=== PATIENT | female | born 1990 | race Caucasian/White ===

== ENCOUNTER 2016-06-30 18:46 | Emergency (ER) | payer OTHER ==
--- NOTE | 2016-06-30 21:46 | EDDOCDS ---
Nurse's Notes [facility] Name: Yael Stovall Age: 25 yrs Sex: Female : 1990 Arrival Date: 06/30/2016 Time: 18:46 Bed PR Private MD: Sissy Roman S Diagnosis: Acute upper respiratory infection, unspecified;Tinea corporis Presentation: 06/30 18:55 Presenting complaint: Patient states: cold symptoms, sore throat, chills since this rs3 morning. Rash on left leg for a month, not resolved with antifungal, athlete's foot cream. Adult Sepsis Screening: The patient does not have new or worsening altered mentation. Patient's respiratory rate is less than 22. Systolic blood pressure is greater than 100. Patient has a qSOFA score of 0- Negative Sepsis Screen. Suicide/Homicide risk assessment- the patient denies having any suicidal and/or homicidal ideations and does not present with any other emotional, behavioral or mental health complaints. Status: Patient is not a mechanic field service or dependent. Transition of care: patient was not received from another setting of care. 18:55 Acuity: LILIYA Level 4 rs3 18:55 Method Of Arrival: Walkin/Carried/Asstd rs3 Triage Assessment: 18:59 General: Appears in no apparent distress. Pain: Location: sore throat. HIV screening NA rs3 for this visit Offered previously. 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 albuterol sulfate 90 mcg/actuation inhalation HFAA 2 puffs every 4 hours 2. loratadine 10 mg Oral tab 1 tab once daily 3. migraine meds unknown - PMHx: Anxiety; Headaches; Irregular heart rate; - PSHx: Tonsillectomy; Adenoidectomy; Cholecystectomy; - Social history: Smoking status: Patient states was never smoker of tobacco. No barriers to communication noted, The patient speaks fluent [place]. - Family history: Not pertinent. - : The pt / caregiver states he / she is not on anticoagulants. Home medication list is obtained from the patient. - Exposure Risk Screening:: None identified. Screenin:42 Screening information is obtained from the patient. Fall risk: No risks identified. ms18 Assistance ADL's: requires no assistance with activities of daily living. Abuse/DV Screen: The patient / caregiver reports he/she is: not in a situation that causes fear, pain or injury. Nutritional screening: No deficits noted. Advance Directives: There is no living will. home support is adequate. Assessment: 21:42 General: Appears in no apparent distress, comfortable, slender, Behavior is appropriate ms18 for age, cooperative, pleasant. Pain: Location: throat Pain currently is 5 out of 10 on a pain scale. Neurological: No deficits noted. Respiratory: No deficits noted. Airway is patent Respiratory effort is even, unlabored. Derm: Skin is pink, warm & dry. Rash noted that is red, raised, on medial aspect of left calf. Vital Signs: 18:54 BP 146 / 88; Pulse 73; Resp 18; Temp 97.7; Pulse Ox 100% ; Weight 54.43 kg; Height 5 elp ft. 8 in. (172.72 cm); Pain 6/10; 21:42 BP 125 / 81; Pulse 83; Resp 18; Temp 99.8; Pulse Ox 99% ; Pain 5/10; ms18 18:54 Body Mass Index 18.25 (54.43 kg, 172.72 cm) [facility] Vitals: 18:54 Log In Time: June 30, 2016 at 18:46. [facility] ED Course: 18:54 Patient visited by Rachel Wilson PCA. elp 18:54 Sissy Roman is Private Physician. elp 18:54 Patient visited by Rachel Wilson PCA. elp 18:54 Patient moved to Waiting elp 18:54 Patient moved to Pre RCE elp 18:57 Triage Initiated rs3 19:44 Patient moved to Triage 1 ms18 19:48 [facility]ames[facility] Mobley [facility]-C [facility]. ck7 19:48 Macario Garcia DO is Attending Physician. ck7 19:48 Patient visited by Ramesh Mobley RPA-C. ck7 20:11 UA Sent. ms18 20:11 -Influenza A&B Rapid Antigen - Nose Sent. ms18 20:20 Patient visited by Ramesh Mobley RPA-C. ck7 20:21 Patient moved to TR2 ms18 20:21 GATS (NEGATIVE STREP SCREEN) Sent. ms18 20:26 [facility] Payment Agreement was scanned into [employer] and attached to record. ks16 21:20 Patient visited by Ramesh Mobley RPA-C. ck7 21:20 Patient moved to PR1 / 25 km 21:34 Sissy Roman is Referral Physician. ck7 21:42 Patient visited by Liyah Urias RN. ms18 21:42 The patient / caregiver is instructed regarding the plan of care and ED course. Patient ms18 has correct armband on for positive identification. Bed in low position. Property sent home with patient. :Personal belongings accompany Pt. 21:42 No IV's were initiated during this patient's visit. No procedures done that require ms18 assistance. Point of Care Testing: Urine : 20:11 hCG Reading: Negative; Control Reading: Positive; ms18 Ranges: Order Results: Lab Order: -Influenza A&B Rapid Antigen - Nose; SPEC'M 06/30/16 20:05 Test: INFLUENZA A RAPID SCR by ICA; Value: INFLUENZA A RESULTS NEGATIVE; Status: F Test: INFLUENZA A RAPID SCR by ICA; Value: Comments:; Status: F Test: INFLUENZA B RAPID SCR by ICA; Value: INFLUENZA B RESULTS NEGATIVE; Status: F Test Note: ; The Influenza test is a direct rapid immunoassay for the qualitative detection of Influenza viral antigen. Cell culture (Viral Culture) testing should be considered to confirm NEGATIVE results and to assist in detecting other viruses that can provide similar clinical symptoms. Please contact the lab within 24 hours ([phone]) if confirmatory testing is desired. Lab Order: UA; SPEC'M 06/30/16 20:05 Test: APPEARANCE, URINE; Value: CLEAR; Range: CLEAR; Status: F Test: COLOR, URINE; Value: STRAW; Range: YELLOW; Status: F Test: PH,URINE; Value: 8.0; Range: 5.0-9.0; Units: UNITS; Status: F Test: SPECIFIC GRAVITY URINE AUTO; Value: 1.008; Range: 1.002-1.035; Status: F Test: PROTEIN, URINE AUTO; Value: NEGATIVE; Range: NEGATIVE; Units: mg/dL; Status: F Test: GLUCOSE, URINE (UA) AUTO; Value: NEGATIVE; Range: NEGATIVE; Units: mg/dL; Status: F Test: KETONE, URINE AUTO; Value: NEGATIVE; Range: NEGATIVE; Units: mg/dL; Status: F Test: UROBILINOGEN, URINE AUTO; Value: 0.2; Range: 0.0-2.0; Units: mg/dL; Status: F Test: BILIRUBIN, URINE AUTO; Value: NEGATIVE; Range: NEGATIVE; Status: F Test: NITRITE, URINE AUTO; Value: NEGATIVE; Range: NEGATIVE; Status: F Test: LEUKOCYTE ESTERASE, URINE AUTO; Value: NEGATIVE; Range: NEGATIVE; Status: F Test: BLOOD, URINE BLOOD; Value: NEGATIVE; Range: NEGATIVE; Status: F Test: WBC, URINE AUTO; Value: 0; Range: 0-3; Units: /HPF; Status: F Test: RBC, URINE AUTO; Value: 1; Range: 0-3; Units: /HPF; Status: F Test: BACTERIA, URINE AUTO; Value: 1+; Range: NEGATIVE; Abnormal: Above high normal; Status: F Test: SQUAMOUS EPITHELIAL CELL UR AU; Value: 0; Range: 0-6; Units: /HPF; Status: F Test: HYALINE CAST, URINE AUTO; Value: 0; Range: 0-1; Units: /LPF; Status: F Outcome: 21:34 Discharge ordered by Provider. ck7 21:42 Discharge Assessment: Patient awake, alert and oriented x 3. No cognitive and/or ms18 functional deficits noted. Patient verbalized understanding of disposition instructions. patient administered narcotics - no. The following High Risk Discharge criteria are identified: None. Discharged to home ambulatory. Condition: good Condition: stable Condition: improved. Discharge instructions given to patient, Instructed on discharge instructions, follow up and referral plans. medication usage, Demonstrated understanding of instructions, medications, Prescriptions given X 2. No special radiology studies were completed. 21:45 Patient left the ED. ms18 Signatures: Kayla Flowers RN RN kmg1 Minnie Hicks RN RN rs3 Ramesh Mobley, RPA-C RPA-Cck7 Rachel Wilson PCA PCA elp Smith, MalloryRN RN ms18 Melida Templeton, Reg Reg ks16 MTDD
--- NOTE | 2016-06-30 21:46 | EDDOCDS ---
Physician Documentation [facility] Name: Yael Stovall Age: 25 yrs Sex: Female : 1990 Arrival Date: 06/30/2016 Time: 18:46 Bed PR Private MD: Sissy Rmoan S Disposition: 06/30/16 21:34 Discharged to Home/Self Care. Impression: Acute upper respiratory infection, unspecified, Tinea corporis. - Condition is Stable. - Discharge Instructions: Body Ringworm, Upper Respiratory Infection, Pediatric. - Prescriptions for Clotrimazole 1 % Topical Cream - Apply to affected area 1 application by TOPICAL route every 12 hours; 15 gram. Ibuprofen 600 mg Oral Tablet - take 1 tablet by ORAL route every 6 hours As needed take with food; 30 tablet. - Medication Reconciliation, Local Pharmacy Hours form. - Follow up: Sissy Roman; When: 2 - 3 days; Reason: Recheck today's complaints, Continuance of care. - Problem is new. - Symptoms have improved. - Notes: USE MEDICATION INSTRUCTED, FOLLOW UP WITH YOUR PRIMARY DOCTOR IN 2-3 DAYS, RETURN TO THE ER IF THE SYMPTOMS WORSEN OR BECOME CONCERNING Historical: - Allergies: Coconut; Codeine Sulfate (Unknown); - Home Meds: 1. albuterol sulfate 90 mcg/actuation inhalation HFAA 2 puffs every 4 hours 2. loratadine 10 mg Oral tab 1 tab once daily 3. migraine meds unknown - PMHx: Anxiety; Headaches; Irregular heart rate; - PSHx: Tonsillectomy; Adenoidectomy; Cholecystectomy; - Social history: Smoking status: Patient states was never smoker of tobacco. No barriers to communication noted, The patient speaks fluent Romansh. - Family history: Not pertinent. - : The pt / caregiver states he / she is not on anticoagulants. Home medication list is obtained from the patient. - Exposure Risk Screening:: None identified. 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 8 in. (172.72 cm); Pain 6/10; 21:42 BP 125 / 81; Pulse 83; Resp 18; Temp 99.8; Pulse Ox 99% ; Pain 5/10; ms18 18:54 Body Mass Index 18.25 (54.43 kg, 172.72 cm) elp MDM: 19:57 Obtain sample by nasopharyngeal swab ordered. ck7 19:57 Strep Screen, Nursing ordered. ck7 19:57 UCG by Nursing ordered. ck7 19:57 UA Ordered. EDMS 19:57 -Influenza A&B Rapid Antigen - Nose Ordered. EDMS 20:14 GATS (NEGATIVE STREP SCREEN) Ordered. EDMS 20:18 Financial registration complete. zo 20:26 [facility] Payment Agreement was scanned into [employer] and attached to record. ks16 20:35 UA Reviewed. ck7 20:35 -Influenza A&B Rapid Antigen - Nose Reviewed. ck7 Point of Care Testing: Urine : 20:11 hCG Reading: Negative; Control Reading: Positive; ms18 Ranges: Signatures: Dispatcher MedHost EDMS Chang Borges RosemaryRN RN rs3 Ramesh Mobley, RPA-C RPA-Cck7 Liyah Urias RN RN ms18 Melida Templeton, Reg Reg ks16 The chart was reviewed and I authenticate all verbal orders and agree with the evaluation and treatment provided.Attachments: 20:26 [facility] Payment Agreement ks16 MTDD
--- NOTE | 2016-07-02 22:46 | EDDOCDS ---
Physician Documentation [facility] Name: Yael Stovall Age: 25 yrs Sex: Female : 1990 Arrival Date: 06/30/2016 Time: 18:46 Bed PR Private MD: Sissy Roman S Disposition: 06/30/16 21:34 Discharged to Home/Self Care. Impression: Acute upper respiratory infection, unspecified, Tinea corporis. - Condition is Stable. - Discharge Instructions: Body Ringworm, Upper Respiratory Infection, Pediatric. - Prescriptions for Clotrimazole 1 % Topical Cream - Apply to affected area 1 application by TOPICAL route every 12 hours; 15 gram. Ibuprofen 600 mg Oral Tablet - take 1 tablet by ORAL route every 6 hours As needed take with food; 30 tablet. - Medication Reconciliation, Local Pharmacy Hours form. - Follow up: Sissy Roman; When: 2 - 3 days; Reason: Recheck today's complaints, Continuance of care. - Problem is new. - Symptoms have improved. - Notes: USE MEDICATION INSTRUCTED, FOLLOW UP WITH YOUR PRIMARY DOCTOR IN 2-3 DAYS, RETURN TO THE ER IF THE SYMPTOMS WORSEN OR BECOME CONCERNING Historical: - Allergies: Coconut; Codeine Sulfate (Unknown); - Home Meds: 1. albuterol sulfate 90 mcg/actuation inhalation HFAA 2 puffs every 4 hours 2. loratadine 10 mg Oral tab 1 tab once daily 3. migraine meds unknown - PMHx: Anxiety; Headaches; Irregular heart rate; - PSHx: Tonsillectomy; Adenoidectomy; Cholecystectomy; - Social history: Smoking status: Patient states was never smoker of tobacco. No barriers to communication noted, The patient speaks fluent Malay. - Family history: Not pertinent. - : The pt / caregiver states he / she is not on anticoagulants. Home medication list is obtained from the patient. - Exposure Risk Screening:: None identified. 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 8 in. (172.72 cm); Pain 6/10; 21:42 BP 125 / 81; Pulse 83; Resp 18; Temp 99.8; Pulse Ox 99% ; Pain 5/10; ms18 18:54 Body Mass Index 18.25 (54.43 kg, 172.72 cm) elp MDM: 19:57 Obtain sample by nasopharyngeal swab ordered. ck7 19:57 Strep Screen, Nursing ordered. ck7 19:57 UCG by Nursing ordered. ck7 19:57 UA Ordered. EDMS 19:57 -Influenza A&B Rapid Antigen - Nose Ordered. EDMS 20:14 GATS (NEGATIVE STREP SCREEN) Ordered. EDMS 20:18 Financial registration complete. zo 20:26 [facility] Payment Agreement was scanned into Other[employer]box and attached to record. ks16 20:35 UA Reviewed. ck7 20:35 -Influenza A&B Rapid Antigen - Nose Reviewed. 7 07/01 05:16 T-Sheet-- Draft Copy was scanned into Other[employer]box and attached to record. hs2 Point of Care Testing: Urine : 06/30 20:11 hCG Reading: Negative; Control Reading: Positive; ms18 Ranges: Signatures: Dispatcher MedHost EDChang Carranza Rosemary,RN RN rs3 Ramesh Mobley, RPA-C RPA-Cck7 Liyah UriasRN RN ms18 Melida Templeton, Reg Reg ks16 Rea Leong, Reg Reg hs2 The chart was reviewed and I authenticate all verbal orders and agree with the evaluation and treatment provided.Attachments: 20:26 [facility] Payment Agreement ks16 07/01 05:16 T-Sheet-- Draft Copy hs2 Chart Complete MTDD
== END 2016-06-30 21:45 | disposition home or self-care (01) ==
LOC: M ED 18:46
DX: J06.9 Acute upper respiratory infection, unspecified (principal); B35.4 Tinea corporis; F41.9 Anxiety disorder, unspecified; R51 Headache; I49.9 Cardiac arrhythmia, unspecified; Z79.899 Other long term (current) drug therapy; Z91.018 Allergy to other foods; Z88.5 Allergy status to narcotic agent

== ENCOUNTER → 2016-07-02 | Outpatient (CLI) | payer OTHER ==
--- NOTE | 2016-07-02 14:39 | REP ---
CT Head without contrast HISTORY: Migraine headaches COMPARISON: 05/23/2014 There is no intraparenchymal hemorrhage, acute infarct, mass or midline shift. The ventricular system is normal in appearance. There is no extra cerebral collection. There is no fracture. The visualized sinuses are clear. IMPRESSION: There is no intracranial lesion. Signed by Connor Roque MD 07/02/2016 10:53 A
== END | disposition home or self-care (01) ==
LOC: M RAD 10:30
PROVIDERS: ATTEND Nurse Practitioner Family
DX: G43.909 Migraine, unspecified, not intractable, without status migrainosus (principal)

== ENCOUNTER 2016-07-12 23:03 | Emergency (ER) | payer OTHER ==
[2016-07-12] MEDS ORDERED: ONDANSETRON 4MG/2ML VIAL (J2405) As Ordered ONE (23:24)
[2016-07-12] MEDS ORDERED: ACETAMINOPHEN 325 MG TAB As Ordered ONE (23:24)
[2016-07-12] MEDS ORDERED: LIDOCAINE W/EPINEPHRINE 1% 20ML VIAL As Ordered ONE (23:24)
--- NOTE | 2016-07-13 00:30 | REPUSA ---
CLINICAL HISTORY: Trauma. TECHNIQUE: Multiple axial CT images were obtained through the cervical spine without IV contrast mate rial. COMMENTS: There is an oblique lucent line of the left superior articular process of C7 suspicious for a nondisp laced fracture. No associated facet dislocation. No associated locked facet. No associated extension into the spinal canal. No associated intraspinal hematoma. There is no other fracture visualized. The paraspinal soft tissues are unremarkable. There are no lyt ic or blastic lesions. IMPRESSION: Oblique lucent line of the left superior articular process of C7 suspicious for a nondisplaced fractu re. This was not present on the prior exam on 09/22/2013. MRI is suggested for further evaluation if clinically needed. Thank you for your kind referral of this patient.
[2016-07-13] MEDS ORDERED: diazePAM 2 MG TAB As Ordered ONE (00:32)
--- NOTE | 2016-07-13 02:28 | EDDOCDS ---
Physician Documentation [facility] Name: Yael Stovall Age: 25 yrs Sex: Female : 1990 Arrival Date: 07/12/2016 Time: 23:03 Bed 4 Private MD: [facility] [place] - Adults Disposition: 07/13/16 00:44 Discharged to Home/Self Care. Impression: Laceration without foreign body of scalp, Concussion, Strain of muscle, fascia and tendon at neck level. - Condition is Stable. - Discharge Instructions: Concussion, Adult, Laceration Care, Adult, Cervical Sprain. - Medication Reconciliation, Local Pharmacy Hours, Work Release Form - 2 day form. - Follow up: [facility]; When: 1 week; Reason: Staple/Suture removal, Continuance of care. - Problem is new. - Symptoms have improved. - Notes: Keep hydrated Tylenol (only) for pain for the first 3 days, after than it is ok to use NSAIDS (Ibuprofen, ASA, Aleve, advil, naprosyn) Tyree need to be removed in about 1 week, this can be done by your PCP (in most cases) Return to the ED for any concerns Historical: - Allergies: Coconut; Codeine Sulfate (Unknown); - Home Meds: 1. albuterol sulfate 90 mcg/actuation Inhl HFAA 2 puffs every 4 hours 2. loratadine 10 mg Oral tab 1 tab once daily 3. med for anxiety and depression 4. migraine meds unknown - PMHx: Anxiety; Headaches; Irregular heart rate; - PSHx: Tonsillectomy; Adenoidectomy; Cholecystectomy; - Social history: Smoking status: Patient states was never smoker of tobacco. No barriers to communication noted, The patient speaks fluent Macedonian, Speaks appropriately for age. - Family history: Not pertinent. - : The pt / caregiver states he / she is not on anticoagulants. Home medication list is obtained from the patient. - Exposure Risk Screening:: None identified. 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 7 in. (170.18 cm) (R); Pain 10/10; 23:32 BP 148 / 65 (auto/); tm5 23:33 Pulse 90 MON; Pulse Ox 98% ; tm5 23:47 BP 129 / 73 (auto/); tm5 23:48 Pulse 92 MON; Pulse Ox 99% ; tm5 07/13 00:02 BP 136 / 74 (auto/); tm5 00:03 Pulse 92 MON; Pulse Ox 98% ; tm5 00:17 BP 123 / 79 (auto/); tm5 00:18 Pulse 88 MON; Pulse Ox 98% ; tm5 00:32 BP 121 / 71 (auto/); tm5 00:33 Pulse 82 MON; Resp 18 S; Pulse Ox 97% on R/A; Pain 3/10; tm5 00:47 BP 122 / 79 (auto/); tm5 00:48 Pulse 88 MON; Resp 18 S; Pulse Ox 99% on R/A; Pain 3/10; tm5 01:17 BP 132 / 79 (auto/); tm5 01:18 Pulse 80 MON; Resp 20 S; Pulse Ox 97% on R/A; Pain 2/10; tm5 02:23 BP 122 / 64; Pulse 74; Resp 18; Temp 98.3(O); Pulse Ox 100% on R/A; Pain 2/10; tm5 07/12 23:21 Body Mass Index 20.36 (58.97 kg, 170.18 cm) jmv Bryson Coma Score: 07/12 23:05 Eye Response: spontaneous(4). Verbal Response: oriented(5). Motor Response: obeys kmg1 commands(6). Total: 15. MDM: 23:16 Ondansetron 4 mg IVP once ordered. le 23:16 Misc. Nursing Order ordered. le 23:16 NS 0.9% 1000 ml IV at bolus once ordered. le 23:16 Acetaminophen Tablet 650 mg PO once ordered. le 23:16 CT Head Without Contrast Ordered. EDMS 23:16 Lidocaine-Epinephrine 1 %-1:100,000 10 ml Infiltration once; to bedside ordered. le 23:17 CT Spine,Cervical W/o Contrast Ordered. EDMS 07/13 00:22 Diazepam 2 mg PO once ordered. le 00:22 Fluid Challenge ordered. le 00:22 Wound Care ordered. le 00:22 Ambulate patient to assess pain tolerance ordered. le 00:28 Financial registration complete. pm4 00:33 [facility] Payment Agreement was scanned into Smart[employer] and attached to record. pm4 Administered Medications: 07/12 23:22 Drug: NS 0.9% 1000 ml [sodium chloride 0.9 % intravenous solution] Route: IV; Rate: tm5 bolus; Site: left antecubital; 07/13 00:21 Follow up: IV Status: Completed infusion; IV Intake: 1000ml tm5 07/12 23:28 Drug: Ondansetron 4 mg Route: IVP; Site: left antecubital; tm5 07/13 00:21 Follow up: Response: Nausea is resolved; No Adverse Reaction tm5 07/12 23:28 Drug: Acetaminophen 650 mg [acetaminophen 325 mg tablet (2 tabs)] Route: PO; tm5 07/13 00:21 Follow up: Response: No Adverse Reaction; Pain is decreased tm5 00:20 Drug: Lidocaine-Epinephrine 10 ml [lidocaine-epinephrine 1 %-1:100,000 injection tm5 solution (10 mL)] {Note: placed at bedside for FIXED ASSETS ACCOUNTANT's procedure .} Route: Infiltration; 00:42 Drug: Diazepam 2 mg [diazepam 2 mg tablet (1 tabs)] Route: PO; tm5 02:22 Follow up: Response: No Adverse Reaction; Pain is decreased tm5 Signatures: Dispatcher MedHost EDKayla Amaro RN RN kmg1 Cassia Mcguire, LINUX SERVER ENGINEER LINUX SERVER ENGINEER Macario Araujo DO DO cs11 Alta Celeste RN RN tm5 Eddie Max, Reg Reg pm4 The chart was reviewed and I authenticate all verbal orders and agree with the evaluation and treatment provided.Attachments: 00:33 [facility] Payment Agreement pm4 MTDD
--- NOTE | 2016-07-13 02:28 | EDDOCDS ---
Nurse's Notes [facility] Name: Yael Stovall Age: 25 yrs Sex: Female : 1990 Arrival Date: 07/12/2016 Time: 23:03 Bed 4 Private MD: [facility] - Adults Diagnosis: Laceration without foreign body of scalp;Concussion;Strain of muscle, fascia and tendon at neck level Presentation: 07/12 23:05 Presenting complaint: Patient states: Was running from a coy dog. Went to jump into the kmg1 side door of a minivan and stuck her head on the door frame. Lost consciousness for a few seconds. Laceration on top of head. Also c/o neck discomfort. This patient has no additional risk factors. Mechanism of Injury: resulted from a direct blow. Suicide/Homicide risk assessment- the patient denies having any suicidal and/or homicidal ideations and does not present with any other emotional, behavioral or mental health complaints. Status: Patient is not a field service rep or dependent. Transition of care: patient was not received from another setting of care. 23:05 Acuity: LILIYA Level 3 [facility] 23:05 Method Of Arrival: Ambulance [facility] Triage Assessment: 23:11 General: Appears uncomfortable, Behavior is appropriate for age. Pain: Location: head kmg1 and neck Pain currently is 10 out of 10 on a pain scale. 07/13 02:26 Pt Declines HIV testing. tm5 02:26 Neurological: Level of Consciousness is awake, alert, Oriented to person, place, time, tm5 Machinery Mover are equal bilaterally Moves all extremities. Gait is steady, Speech is normal, Facial symmetry appears normal, Facial symmetry: tongue is midline, Pupils are PERRLA. PADDER CUSHION: 07/12 23:11 LMP 06/23/2016 [facility] Historical: - Allergies: Coconut; Codeine Sulfate (Unknown); - Home Meds: 1. albuterol sulfate 90 mcg/actuation Inhl HFAA 2 puffs every 4 hours 2. loratadine 10 mg Oral tab 1 tab once daily 3. med for anxiety and depression 4. migraine meds unknown - PMHx: Anxiety; Headaches; Irregular heart rate; - PSHx: Tonsillectomy; Adenoidectomy; Cholecystectomy; - Social history: Smoking status: Patient states was never smoker of tobacco. No barriers to communication noted, The patient speaks fluent Lithuanian, Speaks appropriately for age. - Family history: Not pertinent. - : The pt / caregiver states he / she is not on anticoagulants. Home medication list is obtained from the patient. - Exposure Risk Screening:: None identified. Screenin:16 Screening information is obtained from the patient. Fall risk: No risks identified. tm5 Assistance ADL's: requires no assistance with activities of daily living. Abuse/DV Screen: The patient / caregiver reports he/she is: not in a situation that causes fear, pain or injury. Nutritional screening: No deficits noted. Advance Directives: There is no active DNR order. home support is adequate. Assessment: 23:08 General: Appears in no apparent distress, Behavior is appropriate for age, cooperative. tm5 23:16 Pain: Location: head & neck Pain currently is 6 out of 10 on a pain scale. Quality of tm5 pain is described as aching, throbbing. Neurological: Level of Consciousness is awake, alert, Oriented to person, place, time, Machinery Mover are equal bilaterally Moves all extremities. Speech is normal, Facial symmetry appears normal, Facial symmetry: tongue is midline, Pupils are PERRLA, Reports blurred vision dizziness, pt usually wears glasses she states . Respiratory: No deficits noted. Airway is patent Respiratory effort is even, unlabored, Respiratory pattern is regular, symmetrical, Breath sounds are clear bilaterally. GI: No deficits noted. : No deficits noted. Derm: Skin is pink, warm & dry. normal. Musculoskeletal: cervical spine is tender. Circulation, motion, and sensation intact. Injury Description: Laceration sustained to top of head is clean, bleeding moderately, laceration approx 2.5 inches in length. 07/13 01:01 Reassessment: Patient appears in no apparent distress at this time. Patient states tm5 feeling better. Patient states symptoms have improved. pt consuming nadia rashaad with no complaints of Nausea, states her headache is better & the neck spasms are getting better after the Valium was given . 01:18 General: Attempted to ambulate pt per orders, pt stood up at bedside & developed tm5 blurred vision attempted to take a few steps & said that she couldn't & then complained of nausea & dizziness, pt returned to bed & MD updated on ambulation status, orders to keep pt a bit longer in the ER, pt asking to go home told her not until she can ambulate better, boxed meal provided to her with Whately juice. 02:23 Reassessment: Patient appears in no apparent distress at this time. Patient states tm5 feeling better. Patient states symptoms have improved. pt ambulated with slow steady gait to the bathroom & back with only complaints of feeling weak due to lying down too much, pt asking to go home with family & friends, pt consumed all of boxed meal without any nausea or vomiting . Vital Signs: 07/12 23:21 BP 153 / 87; Pulse 98; Resp 20; Temp 96.4(O); Pulse Ox 98% on R/A; Weight 58.97 kg (R); jmv Height 5 ft. 7 in. (170.18 cm) (R); Pain 10/10; 23:32 BP 148 / 65 (auto/); tm5 23:33 Pulse 90 MON; Pulse Ox 98% ; tm5 23:47 BP 129 / 73 (auto/); tm5 23:48 Pulse 92 MON; Pulse Ox 99% ; tm5 07/13 00:02 BP 136 / 74 (auto/); tm5 00:03 Pulse 92 MON; Pulse Ox 98% ; tm5 00:17 BP 123 / 79 (auto/); tm5 00:18 Pulse 88 MON; Pulse Ox 98% ; tm5 00:32 BP 121 / 71 (auto/); tm5 00:33 Pulse 82 MON; Resp 18 S; Pulse Ox 97% on R/A; Pain 3/10; tm5 00:47 BP 122 / 79 (auto/); tm5 00:48 Pulse 88 MON; Resp 18 S; Pulse Ox 99% on R/A; Pain 3/10; tm5 01:17 BP 132 / 79 (auto/); tm5 01:18 Pulse 80 MON; Resp 20 S; Pulse Ox 97% on R/A; Pain 2/10; tm5 02:23 BP 122 / 64; Pulse 74; Resp 18; Temp 98.3(O); Pulse Ox 100% on R/A; Pain 2/10; tm5 07/12 23:21 Body Mass Index 20.36 (58.97 kg, 170.18 cm) [place] [facility] Vitals: 07/12 23:11 Log In Time N/A - ambulance arrival. kmg1 Sydnee Coma Score: 23:05 Eye Response: spontaneous(4). Verbal Response: oriented(5). Motor Response: obeys kmg1 commands(6). Total: 15. ED Course: 23:04 Patient visited by Brittany Kraft PCA. tmm1 23:04 [facility] - [facility] is Private Physician. tmm1 23:04 Patient moved to Waiting tmm1 23:05 [facility] le 23:05 Patient moved to 4 kmg1 23:08 Alta Celeste,RIAN is Primary Nurse. tm5 23:08 Patient visited by Alta Celeste RN. tm5 23:09 Triage Initiated kmg1 23:14 Patient visited by Cassia Mcguire FNP. le 23:16 Patient visited by Cassia Mcguire FNP. le 23:16 Patient visited by Alta Celeste RN. tm5 23:16 ED physician to see patient. tm5 23:16 The patient / caregiver is instructed regarding the plan of care and ED course. Pulse tm5 ox on. NIBP on. Lights dimmed. Family accompanied patient. 23:16 Maintain field IV. Dressing intact. Good blood return noted. Site clean & dry. Gauge & tm5 site: #20 left AC. Nereyda cervical collar applied and checked by provider. Wound care to laceration located on top of head was cleaned with with NS at this time to assess wound, Patient tolerated well. 23:22 Patient visited by Jaspreet Hidalgo PCA. jmv 23:22 Pt greeted and oriented to ED. Patient advised of names of staff involved in care, [place] [facility] location of call barron, wait times and NPO status. Accompanied by Family Member, Patient has correct armband on for positive identification. Placed in gown. Bed in low position. Call light in reach. Side rails up X2. 07/13 00:20 Patient visited by Alta Celeste RN. tm5 00:33 [facility] Payment Agreement was scanned into [employer] and attached to record. pm4 00:34 CT Head Without Contrast Returned. EDMS 00:34 CT Spine,Cervical W/o Contrast Returned. EDMS 00:41 Patient visited by Alta Celeste RN. tm5 00:42 No procedures done that require assistance. Dressings: Kerlix X 2; 4X4s X 4; applied to tm5 head. 00:44 [facility] is Referral Physician. cs11 00:44 Macario Garcia DO is Attending Physician. cs11 01:01 Patient visited by Alta Celeste RN. tm5 01:18 Patient visited by Alta Celeste RN. tm5 02:19 Patient visited by Alta Celeste RN. tm5 02:23 Discontinued lock intact, bleeding controlled, pressure dressing applied, No tm5 redness/swelling at site. Administered Medications: 07/12 23:22 Drug: NS 0.9% 1000 ml [sodium chloride 0.9 % intravenous solution] Route: IV; Rate: tm5 bolus; Site: left antecubital; 07/13 00:21 Follow up: IV Status: Completed infusion; IV Intake: 1000ml tm5 07/12 23:28 Drug: Ondansetron 4 mg Route: IVP; Site: left antecubital; tm5 07/13 00:21 Follow up: Response: Nausea is resolved; No Adverse Reaction tm5 07/12 23:28 Drug: Acetaminophen 650 mg [acetaminophen 325 mg tablet (2 tabs)] Route: PO; tm5 07/13 00:21 Follow up: Response: No Adverse Reaction; Pain is decreased tm5 00:20 Drug: Lidocaine-Epinephrine 10 ml [lidocaine-epinephrine 1 %-1:100,000 injection tm5 solution (10 mL)] {Note: placed at bedside for OUTSIDE BARREL LATHE OPERATOR's procedure .} Route: Infiltration; 00:42 Drug: Diazepam 2 mg [diazepam 2 mg tablet (1 tabs)] Route: PO; tm5 02:22 Follow up: Response: No Adverse Reaction; Pain is decreased tm5 Intake: 00:21 IV: 1000.00ml; Total: 1000.00ml. tm5 Order Results: Radiology Order: CT Head Without Contrast Test: CT Head Without Contrast REASON FOR EXAMINATION: direct blow; ; CLINICAL HISTORY: Head trauma.; TECHNIQUE: Multiple axial brain CT scan sections were obtained from base to vertex without contrast a; dministration.; COMMENTS:; There is no evidence of skull fracture.; The study shows normal configuration of sella turcica. There are no intra or extra-axial collections.; There is no mass effect or midline shift. There is no evidence of hematoma formation. No hydrocephal; us is present. No abnormal calcifications are noted.; No significant abnormalities are seen either in the posterior fossa or supratentorial compartment.; The sinuses and mastoid air cells are patent.; IMPRESSION:; No evidence of acute intracranial pathology. No intracranial hemorrhage or skull fracture.; Thank you for your kind referral of this patient.; ; Radiology Order: CT Spine,Cervical W/o Contrast Test: CT Spine,Cervical W/o Contrast REASON FOR EXAMINATION: axial loading;Trauma; ; CLINICAL HISTORY: Trauma.; TECHNIQUE: Multiple axial CT images were obtained through the cervical spine without IV contrast mate; rial.; COMMENTS:; There is an oblique lucent line of the left superior articular process of C7 suspicious for a nondisp; laced fracture. No associated facet dislocation. No associated locked facet. No associated extension; into the spinal canal. No associated intraspinal hematoma.; There is no other fracture visualized. The paraspinal soft tissues are unremarkable. There are no lyt; ic or blastic lesions.; IMPRESSION:; Oblique lucent line of the left superior articular process of C7 suspicious for a nondisplaced fractu; re.; This was not present on the prior exam on 09/22/2013.; MRI is suggested for further evaluation if clinically needed.; Thank you for your kind referral of this patient.; ; Outcome: 00:44 Discharge ordered by Provider. cs11 02:23 Discharge Assessment: Patient awake, alert and oriented x 3. No cognitive and/or tm5 functional deficits noted. Patient verbalized understanding of disposition instructions. patient administered narcotics - yes. Pt provided with safe discharge. The following High Risk Discharge criteria are identified: None. Discharged to home ambulatory, with family. Condition: good Condition: stable Condition: improved. Discharge instructions given to patient, Instructed on discharge instructions, follow up and referral plans. wound care, Demonstrated understanding of instructions, medications, Pt was receptive of discharge instructions/ teaching. Work note provided to patient. CT Study completed. Property :Personal belongings accompany Pt. 02:27 Patient left the ED. tm5 Signatures: Dispatcher [facility] Kayla Flowers RN RN [facility] Cassia Mcguire, WAITER/WAITRESS CLUB WAITER/WAITRESS CLUB Macario Araujo, DO DO cs11 [place], Brittany, PLASMA CENTER TECHNICIAN PLASMA CENTER TECHNICIAN tmm1 Jaspreet Hidalgo, PLASMA CENTER TECHNICIAN PLASMA CENTER TECHNICIAN georgev Alta Celeste,RN RN tm5 Eddie Max, Reg Reg pm4 MTDD
--- NOTE | 2016-07-15 03:27 | EDDOCDS ---
Physician Documentation [facility] Name: Yael Stovall Age: 25 yrs Sex: Female : 1990 Arrival Date: 07/12/2016 Time: 23:03 Bed 4 Private MD: [facility] [place] - Adults Disposition: 07/13/16 00:44 Discharged to Home/Self Care. Impression: Laceration without foreign body of scalp, Concussion, Strain of muscle, fascia and tendon at neck level. - Condition is Stable. - Discharge Instructions: Concussion, Adult, Laceration Care, Adult, Cervical Sprain. - Medication Reconciliation, Local Pharmacy Hours, Work Release Form - 2 day form. - Follow up: Center - Adults [facility]; When: 1 week; Reason: Staple/Suture removal, Continuance of care. - Problem is new. - Symptoms have improved. - Notes: Keep hydrated Tylenol (only) for pain for the first 3 days, after than it is ok to use NSAIDS (Ibuprofen, ASA, Aleve, advil, naprosyn) Lares need to be removed in about 1 week, this can be done by your PCP (in most cases) Return to the ED for any concerns Historical: - Allergies: Coconut; Codeine Sulfate (Unknown); - Home Meds: 1. albuterol sulfate 90 mcg/actuation Inhl HFAA 2 puffs every 4 hours 2. loratadine 10 mg Oral tab 1 tab once daily 3. med for anxiety and depression 4. migraine meds unknown - PMHx: Anxiety; Headaches; Irregular heart rate; - PSHx: Tonsillectomy; Adenoidectomy; Cholecystectomy; - Social history: Smoking status: Patient states was never smoker of tobacco. No barriers to communication noted, The patient speaks fluent Maltese, Speaks appropriately for age. - Family history: Not pertinent. - : The pt / caregiver states he / she is not on anticoagulants. Home medication list is obtained from the patient. - Exposure Risk Screening:: None identified. MANAGER ROOM: 07/12 23:11 LMP 06/23/2016 kmg1 Vital Signs: 23:21 BP 153 / 87; Pulse 98; Resp 20; Temp 96.4(O); Pulse Ox 98% on R/A; Weight 58.97 kg / jmv 130.01 lbs (R); Height 5 ft. 7 in. (170.18 cm) (R); Pain 10/10; 23:32 BP 148 / 65 (auto/); tm5 23:33 Pulse 90 MON; Pulse Ox 98% ; tm5 23:47 BP 129 / 73 (auto/); tm5 23:48 Pulse 92 MON; Pulse Ox 99% ; tm5 07/13 00:02 BP 136 / 74 (auto/); tm5 00:03 Pulse 92 MON; Pulse Ox 98% ; tm5 00:17 BP 123 / 79 (auto/); tm5 00:18 Pulse 88 MON; Pulse Ox 98% ; tm5 00:32 BP 121 / 71 (auto/); tm5 00:33 Pulse 82 MON; Resp 18 S; Pulse Ox 97% on R/A; Pain 3/10; tm5 00:47 BP 122 / 79 (auto/); tm5 00:48 Pulse 88 MON; Resp 18 S; Pulse Ox 99% on R/A; Pain 3/10; tm5 01:17 BP 132 / 79 (auto/); tm5 01:18 Pulse 80 MON; Resp 20 S; Pulse Ox 97% on R/A; Pain 2/10; tm5 02:23 BP 122 / 64; Pulse 74; Resp 18; Temp 98.3(O); Pulse Ox 100% on R/A; Pain 2/10; tm5 07/12 23:21 Body Mass Index 20.36 (58.97 kg, 170.18 cm) jmv Sydnee Coma Score: 07/12 23:05 Eye Response: spontaneous(4). Verbal Response: oriented(5). Motor Response: obeys kmg1 commands(6). Total: 15. MDM: 23:16 Ondansetron 4 mg IVP once ordered. le 23:16 Misc. Nursing Order ordered. le 23:16 NS 0.9% 1000 ml IV at bolus once ordered. le 23:16 Acetaminophen Tablet 650 mg PO once ordered. le 23:16 CT Head Without Contrast Ordered. EDMS 23:16 Lidocaine-Epinephrine 1 %-1:100,000 10 ml Infiltration once; to bedside ordered. le 23:17 CT Spine,Cervical W/o Contrast Ordered. EDMS 07/13 00:22 Diazepam 2 mg PO once ordered. le 00:22 Fluid Challenge ordered. le 00:22 Wound Care ordered. le 00:22 Ambulate patient to assess pain tolerance ordered. le 00:28 Financial registration complete. pm4 00:33 [facility] Payment Agreement was scanned into [employer] and attached to record. pm4 07:52 T-Sheet-- Draft Copy was scanned into [employer] and attached to record. se 11:11 Radiology Report was scanned into [employer] and attached to record. gb Administered Medications: 07/12 23:22 Drug: NS 0.9% 1000 ml [sodium chloride 0.9 % intravenous solution] Route: IV; Rate: tm5 bolus; Site: left antecubital; 07/13 00:21 Follow up: IV Status: Completed infusion; IV Intake: 1000ml tm5 07/12 23:28 Drug: Ondansetron 4 mg Route: IVP; Site: left antecubital; tm5 07/13 00:21 Follow up: Response: Nausea is resolved; No Adverse Reaction tm5 07/12 23:28 Drug: Acetaminophen 650 mg [acetaminophen 325 mg tablet (2 tabs)] Route: PO; tm5 07/13 00:21 Follow up: Response: No Adverse Reaction; Pain is decreased tm5 00:20 Drug: Lidocaine-Epinephrine 10 ml [lidocaine-epinephrine 1 %-1:100,000 injection tm5 solution (10 mL)] {Note: placed at bedside for CLEANER CARPET AND UPHOLSTERY's procedure .} Route: Infiltration; 00:42 Drug: Diazepam 2 mg [diazepam 2 mg tablet (1 tabs)] Route: PO; tm5 02:22 Follow up: Response: No Adverse Reaction; Pain is decreased tm5 Signatures: Dispatcher [employer] EDMS Kayla Flowers, RN RN kmg1 Paula Powell, Reg Reg gb Cassia Mcguire, ENTERPRISE ARCHITECT MANAGER ENTERPRISE ARCHITECT MANAGER Macario Araujo DO DO cs11 Ny Morris Tonya, RN RN tm5 Eddie Max, Reg Reg pm4 The chart was reviewed and I authenticate all verbal orders and agree with the evaluation and treatment provided.Attachments: 00:33 [facility] Payment Agreement pm4 07:52 T-Sheet-- Draft Copy [facility] Chart Complete MTDD
--- NOTE | 2016-07-15 03:27 | EDDOCDS ---
Nurse's Notes [facility] Name: Yael Stovall Age: 25 yrs Sex: Female : 1990 Arrival Date: 07/12/2016 Time: 23:03 Bed 4 Private MD: [facility] - Adults Diagnosis: Laceration without foreign body of scalp;Concussion;Strain of muscle, fascia and tendon at neck level Presentation: 07/12 23:05 Presenting complaint: Patient states: Was running from a coy dog. Went to jump into the kmg1 side door of a minivan and stuck her head on the door frame. Lost consciousness for a few seconds. Laceration on top of head. Also c/o neck discomfort. This patient has no additional risk factors. Mechanism of Injury: resulted from a direct blow. Suicide/Homicide risk assessment- the patient denies having any suicidal and/or homicidal ideations and does not present with any other emotional, behavioral or mental health complaints. Status: Patient is not a career services director or dependent. Transition of care: patient was not received from another setting of care. 23:05 Acuity: LILIYA Level 3 [facility] 23:05 Method Of Arrival: Ambulance [facility] Triage Assessment: 23:11 General: Appears uncomfortable, Behavior is appropriate for age. Pain: Location: head kmg1 and neck Pain currently is 10 out of 10 on a pain scale. 07/13 02:26 Pt Declines HIV testing. tm5 02:26 Neurological: Level of Consciousness is awake, alert, Oriented to person, place, time, tm5 Hog Counter are equal bilaterally Moves all extremities. Gait is steady, Speech is normal, Facial symmetry appears normal, Facial symmetry: tongue is midline, Pupils are PERRLA. 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 albuterol sulfate 90 mcg/actuation Inhl HFAA 2 puffs every 4 hours 2. loratadine 10 mg Oral tab 1 tab once daily 3. med for anxiety and depression 4. migraine meds unknown - PMHx: Anxiety; Headaches; Irregular heart rate; - PSHx: Tonsillectomy; Adenoidectomy; Cholecystectomy; - Social history: Smoking status: Patient states was never smoker of tobacco. No barriers to communication noted, The patient speaks fluent Faroese, Speaks appropriately for age. - Family history: Not pertinent. - : The pt / caregiver states he / she is not on anticoagulants. Home medication list is obtained from the patient. - Exposure Risk Screening:: None identified. Screenin:16 Screening information is obtained from the patient. Fall risk: No risks identified. tm5 Assistance ADL's: requires no assistance with activities of daily living. Abuse/DV Screen: The patient / caregiver reports he/she is: not in a situation that causes fear, pain or injury. Nutritional screening: No deficits noted. Advance Directives: There is no active DNR order. home support is adequate. Assessment: 23:08 General: Appears in no apparent distress, Behavior is appropriate for age, cooperative. tm5 23:16 Pain: Location: head & neck Pain currently is 6 out of 10 on a pain scale. Quality of tm5 pain is described as aching, throbbing. Neurological: Level of Consciousness is awake, alert, Oriented to person, place, time, Hog Counter are equal bilaterally Moves all extremities. Speech is normal, Facial symmetry appears normal, Facial symmetry: tongue is midline, Pupils are PERRLA, Reports blurred vision dizziness, pt usually wears glasses she states . Respiratory: No deficits noted. Airway is patent Respiratory effort is even, unlabored, Respiratory pattern is regular, symmetrical, Breath sounds are clear bilaterally. GI: No deficits noted. : No deficits noted. Derm: Skin is pink, warm & dry. normal. Musculoskeletal: cervical spine is tender. Circulation, motion, and sensation intact. Injury Description: Laceration sustained to top of head is clean, bleeding moderately, laceration approx 2.5 inches in length. 07/13 01:01 Reassessment: Patient appears in no apparent distress at this time. Patient states tm5 feeling better. Patient states symptoms have improved. pt consuming nadia rashaad with no complaints of Nausea, states her headache is better & the neck spasms are getting better after the Valium was given . 01:18 General: Attempted to ambulate pt per orders, pt stood up at bedside & developed tm5 blurred vision attempted to take a few steps & said that she couldn't & then complained of nausea & dizziness, pt returned to bed & MD updated on ambulation status, orders to keep pt a bit longer in the ER, pt asking to go home told her not until she can ambulate better, boxed meal provided to her with [place] juice. 02:23 Reassessment: Patient appears in no apparent distress at this time. Patient states tm5 feeling better. Patient states symptoms have improved. pt ambulated with slow steady gait to the bathroom & back with only complaints of feeling weak due to lying down too much, pt asking to go home with family & friends, pt consumed all of boxed meal without any nausea or vomiting . Vital Signs: 07/12 23:21 BP 153 / 87; Pulse 98; Resp 20; Temp 96.4(O); Pulse Ox 98% on R/A; Weight 58.97 kg (R); jmv Height 5 ft. 7 in. (170.18 cm) (R); Pain 10/10; 23:32 BP 148 / 65 (auto/); tm5 23:33 Pulse 90 MON; Pulse Ox 98% ; tm5 23:47 BP 129 / 73 (auto/); tm5 23:48 Pulse 92 MON; Pulse Ox 99% ; tm5 07/13 00:02 BP 136 / 74 (auto/); tm5 00:03 Pulse 92 MON; Pulse Ox 98% ; tm5 00:17 BP 123 / 79 (auto/); tm5 00:18 Pulse 88 MON; Pulse Ox 98% ; tm5 00:32 BP 121 / 71 (auto/); tm5 00:33 Pulse 82 MON; Resp 18 S; Pulse Ox 97% on R/A; Pain 3/10; tm5 00:47 BP 122 / 79 (auto/); tm5 00:48 Pulse 88 MON; Resp 18 S; Pulse Ox 99% on R/A; Pain 3/10; tm5 01:17 BP 132 / 79 (auto/); tm5 01:18 Pulse 80 MON; Resp 20 S; Pulse Ox 97% on R/A; Pain 2/10; tm5 02:23 BP 122 / 64; Pulse 74; Resp 18; Temp 98.3(O); Pulse Ox 100% on R/A; Pain 2/10; tm5 07/12 23:21 Body Mass Index 20.36 (58.97 kg, 170.18 cm) [facility] Vitals: 07/12 23:11 Log In Time N/A - ambulance arrival. kmg1 Sydnee Coma Score: 23:05 Eye Response: spontaneous(4). Verbal Response: oriented(5). Motor Response: obeys kmg1 commands(6). Total: 15. ED Course: 23:04 Patient visited by Brittany Kraft PCA. tmm1 23:04 [facility] is Private Physician. tmm1 23:04 Patient moved to Waiting tmm1 23:05 [facility] le 23:05 Patient moved to 4 kmg1 23:08 Alta Celeste,RIAN is Primary Nurse. tm5 23:08 Patient visited by Alta Celeste RN. tm5 23:09 Triage Initiated kmg1 23:14 Patient visited by Cassia Mcguire FNP. le 23:16 Patient visited by Cassia Mcguire FNP. le 23:16 Patient visited by Alta Celeste RN. tm5 23:16 ED physician to see patient. tm5 23:16 The patient / caregiver is instructed regarding the plan of care and ED course. Pulse tm5 ox on. NIBP on. Lights dimmed. Family accompanied patient. 23:16 Maintain field IV. Dressing intact. Good blood return noted. Site clean & dry. Gauge & tm5 site: #20 left AC. Nereyda cervical collar applied and checked by provider. Wound care to laceration located on top of head was cleaned with with NS at this time to assess wound, Patient tolerated well. 23:22 Patient visited by Jaspreet Hidalgo PCA. jmv 23:22 Pt greeted and oriented to ED. Patient advised of names of staff involved in care, [facility] location of call barron, wait times and NPO status. Accompanied by Family Member, Patient has correct armband on for positive identification. Placed in gown. Bed in low position. Call light in reach. Side rails up X2. 07/13 00:20 Patient visited by Alta Celeste RN. tm5 00:33 [facility] Payment Agreement was scanned into [employer] and attached to record. pm4 00:34 CT Head Without Contrast Returned. EDMS 00:34 CT Spine,Cervical W/o Contrast Returned. EDMS 00:41 Patient visited by Alta Celeste RN. tm5 00:42 No procedures done that require assistance. Dressings: Kerlix X 2; 4X4s X 4; applied to tm5 head. 00:44 [facility] is Referral Physician. cs11 00:44 Macario Garcia DO is Attending Physician. cs11 01:01 Patient visited by Alta Celeste RN. tm5 01:18 Patient visited by Alta Celeste,RIAN. tm5 02:19 Patient visited by Alta Celeste RN. tm5 02:23 Discontinued lock intact, bleeding controlled, pressure dressing applied, No tm5 redness/swelling at site. 07:52 T-Sheet-- Draft Copy was scanned into [employer] and attached to record. [facility] 11:11 Radiology Report was scanned into [employer] and attached to record. gb Administered Medications: 07/12 23:22 Drug: NS 0.9% 1000 ml [sodium chloride 0.9 % intravenous solution] Route: IV; Rate: tm5 bolus; Site: left antecubital; 07/13 00:21 Follow up: IV Status: Completed infusion; IV Intake: 1000ml tm5 07/12 23:28 Drug: Ondansetron 4 mg Route: IVP; Site: left antecubital; tm5 07/13 00:21 Follow up: Response: Nausea is resolved; No Adverse Reaction tm5 07/12 23:28 Drug: Acetaminophen 650 mg [acetaminophen 325 mg tablet (2 tabs)] Route: PO; tm5 07/13 00:21 Follow up: Response: No Adverse Reaction; Pain is decreased tm5 00:20 Drug: Lidocaine-Epinephrine 10 ml [lidocaine-epinephrine 1 %-1:100,000 injection tm5 solution (10 mL)] {Note: placed at bedside for COMPLAINT INVESTIGATIONS OFFICER's procedure .} Route: Infiltration; 00:42 Drug: Diazepam 2 mg [diazepam 2 mg tablet (1 tabs)] Route: PO; tm5 02:22 Follow up: Response: No Adverse Reaction; Pain is decreased tm5 Intake: 00:21 IV: 1000.00ml; Total: 1000.00ml. tm5 Order Results: Radiology Order: CT Head Without Contrast Test: CT Head Without Contrast REASON FOR EXAMINATION: direct blow; ; CLINICAL HISTORY: Head trauma.; TECHNIQUE: Multiple axial brain CT scan sections were obtained from base to vertex without contrast a; dministration.; COMMENTS:; There is no evidence of skull fracture.; The study shows normal configuration of sella turcica. There are no intra or extra-axial collections.; There is no mass effect or midline shift. There is no evidence of hematoma formation. No hydrocephal; us is present. No abnormal calcifications are noted.; No significant abnormalities are seen either in the posterior fossa or supratentorial compartment.; The sinuses and mastoid air cells are patent.; IMPRESSION:; No evidence of acute intracranial pathology. No intracranial hemorrhage or skull fracture.; Thank you for your kind referral of this patient.; ; Radiology Order: CT Spine,Cervical W/o Contrast Test: CT Spine,Cervical W/o Contrast REASON FOR EXAMINATION: axial loading;Trauma; ; CLINICAL HISTORY: Trauma.; TECHNIQUE: Multiple axial CT images were obtained through the cervical spine without IV contrast mate; rial.; COMMENTS:; There is an oblique lucent line of the left superior articular process of C7 suspicious for a nondisp; laced fracture. No associated facet dislocation. No associated locked facet. No associated extension; into the spinal canal. No associated intraspinal hematoma.; There is no other fracture visualized. The paraspinal soft tissues are unremarkable. There are no lyt; ic or blastic lesions.; IMPRESSION:; Oblique lucent line of the left superior articular process of C7 suspicious for a nondisplaced fractu; re.; This was not present on the prior exam on 09/22/2013.; MRI is suggested for further evaluation if clinically needed.; Thank you for your kind referral of this patient.; ; Outcome: 00:44 Discharge ordered by Provider. cs11 02:23 Discharge Assessment: Patient awake, alert and oriented x 3. No cognitive and/or tm5 functional deficits noted. Patient verbalized understanding of disposition instructions. patient administered narcotics - yes. Pt provided with safe discharge. The following High Risk Discharge criteria are identified: None. Discharged to home ambulatory, with family. Condition: good Condition: stable Condition: improved. Discharge instructions given to patient, Instructed on discharge instructions, follow up and referral plans. wound care, Demonstrated understanding of instructions, medications, Pt was receptive of discharge instructions/ teaching. Work note provided to patient. CT Study completed. Property :Personal belongings accompany Pt. 02:27 Patient left the ED. tm5 Signatures: Dispatcher [employer] EDMS Kayla Flowers, RN RN kmg1 Paula Powell, Reg Reg gb Cassia Mcguire, CONCRETE VAULT MAKER CONCRETE VAULT MAKER Macario Araujo, DO cs11 McLear, Brittany, FUNERAL HOME DIRECTOR FUNERAL HOME DIRECTOR tmm1 Ny Morris Jose, FUNERAL HOME DIRECTOR FUNERAL HOME DIRECTOR v Alta Celeste RN RN tm5 Eddie Max, Reg Reg pm4 Chart Complete MTDD
--- NOTE | 2016-07-15 03:27 | EDDOCDS ---
Physician Documentation [facility] Name: Yael Stovall Age: 25 yrs Sex: Female : 1990 Arrival Date: 07/12/2016 Time: 23:03 Bed 4 Private MD: [facility] [place] - Adults Disposition: 07/13/16 00:44 Discharged to Home/Self Care. Impression: Laceration without foreign body of scalp, Concussion, Strain of muscle, fascia and tendon at neck level. - Condition is Stable. - Discharge Instructions: Concussion, Adult, Laceration Care, Adult, Cervical Sprain. - Medication Reconciliation, Local Pharmacy Hours, Work Release Form - 2 day form. - Follow up: Center - Adults [facility]; When: 1 week; Reason: Staple/Suture removal, Continuance of care. - Problem is new. - Symptoms have improved. - Notes: Keep hydrated Tylenol (only) for pain for the first 3 days, after than it is ok to use NSAIDS (Ibuprofen, ASA, Aleve, advil, naprosyn) [place] need to be removed in about 1 week, this can be done by your PCP (in most cases) Return to the ED for any concerns Historical: - Allergies: Coconut; Codeine Sulfate (Unknown); - Home Meds: 1. albuterol sulfate 90 mcg/actuation Inhl HFAA 2 puffs every 4 hours 2. loratadine 10 mg Oral tab 1 tab once daily 3. med for anxiety and depression 4. migraine meds unknown - PMHx: Anxiety; Headaches; Irregular heart rate; - PSHx: Tonsillectomy; Adenoidectomy; Cholecystectomy; - Social history: Smoking status: Patient states was never smoker of tobacco. No barriers to communication noted, The patient speaks fluent Ukrainian, Speaks appropriately for age. - Family history: Not pertinent. - : The pt / caregiver states he / she is not on anticoagulants. Home medication list is obtained from the patient. - Exposure Risk Screening:: None identified. 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 7 in. (170.18 cm) (R); Pain 10/10; 23:32 BP 148 / 65 (auto/); tm5 23:33 Pulse 90 MON; Pulse Ox 98% ; tm5 23:47 BP 129 / 73 (auto/); tm5 23:48 Pulse 92 MON; Pulse Ox 99% ; tm5 07/13 00:02 BP 136 / 74 (auto/); tm5 00:03 Pulse 92 MON; Pulse Ox 98% ; tm5 00:17 BP 123 / 79 (auto/); tm5 00:18 Pulse 88 MON; Pulse Ox 98% ; tm5 00:32 BP 121 / 71 (auto/); tm5 00:33 Pulse 82 MON; Resp 18 S; Pulse Ox 97% on R/A; Pain 3/10; tm5 00:47 BP 122 / 79 (auto/); tm5 00:48 Pulse 88 MON; Resp 18 S; Pulse Ox 99% on R/A; Pain 3/10; tm5 01:17 BP 132 / 79 (auto/); tm5 01:18 Pulse 80 MON; Resp 20 S; Pulse Ox 97% on R/A; Pain 2/10; tm5 02:23 BP 122 / 64; Pulse 74; Resp 18; Temp 98.3(O); Pulse Ox 100% on R/A; Pain 2/10; tm5 07/12 23:21 Body Mass Index 20.36 (58.97 kg, 170.18 cm) jmv Sydnee Coma Score: 07/12 23:05 Eye Response: spontaneous(4). Verbal Response: oriented(5). Motor Response: obeys kmg1 commands(6). Total: 15. MDM: 23:16 Ondansetron 4 mg IVP once ordered. le 23:16 Misc. Nursing Order ordered. le 23:16 NS 0.9% 1000 ml IV at bolus once ordered. le 23:16 Acetaminophen Tablet 650 mg PO once ordered. le 23:16 CT Head Without Contrast Ordered. EDMS 23:16 Lidocaine-Epinephrine 1 %-1:100,000 10 ml Infiltration once; to bedside ordered. le 23:17 CT Spine,Cervical W/o Contrast Ordered. EDMS 07/13 00:22 Diazepam 2 mg PO once ordered. le 00:22 Fluid Challenge ordered. le 00:22 Wound Care ordered. le 00:22 Ambulate patient to assess pain tolerance ordered. le 00:28 Financial registration complete. pm4 00:33 [facility] Payment Agreement was scanned into [employer] and attached to record. pm4 07:52 T-Sheet-- Draft Copy was scanned into [employer] and attached to record. se 11:11 Radiology Report was scanned into [employer] and attached to record. gb Administered Medications: 07/12 23:22 Drug: NS 0.9% 1000 ml [sodium chloride 0.9 % intravenous solution] Route: IV; Rate: tm5 bolus; Site: left antecubital; 07/13 00:21 Follow up: IV Status: Completed infusion; IV Intake: 1000ml tm5 07/12 23:28 Drug: Ondansetron 4 mg Route: IVP; Site: left antecubital; tm5 07/13 00:21 Follow up: Response: Nausea is resolved; No Adverse Reaction tm5 07/12 23:28 Drug: Acetaminophen 650 mg [acetaminophen 325 mg tablet (2 tabs)] Route: PO; tm5 07/13 00:21 Follow up: Response: No Adverse Reaction; Pain is decreased tm5 00:20 Drug: Lidocaine-Epinephrine 10 ml [lidocaine-epinephrine 1 %-1:100,000 injection tm5 solution (10 mL)] {Note: placed at bedside for DIRECTOR DENTAL SERVICES's procedure .} Route: Infiltration; 00:42 Drug: Diazepam 2 mg [diazepam 2 mg tablet (1 tabs)] Route: PO; tm5 02:22 Follow up: Response: No Adverse Reaction; Pain is decreased tm5 Signatures: Dispatcher [employer] EDMS Kayla Flowers, RN RN kmg1 Paula Powell, Reg Reg gb Cassia Mcguire, CLOSING MACHINE OPERATOR CLOSING MACHINE OPERATOR Macario Araujo DO DO cs11 Ny Morris Tonya, RN RN tm5 Eddie aMx, Reg Reg pm4 The chart was reviewed and I authenticate all verbal orders and agree with the evaluation and treatment provided.Attachments: 00:33 [facility] Payment Agreement pm4 07:52 T-Sheet-- Draft Copy [facility] Chart Complete MTDD
--- NOTE | 2016-07-15 10:33 | EDDOCDS ---
Physician Documentation [facility] Name: Yael Stovall Age: 25 yrs Sex: Female : 1990 Arrival Date: 07/12/2016 Time: 23:03 Bed 4 Private MD: [facility] [place] - Adults Disposition: 07/13/16 00:44 Discharged to Home/Self Care. Impression: Laceration without foreign body of scalp, Concussion, Strain of muscle, fascia and tendon at neck level. - Condition is Stable. - Discharge Instructions: Concussion, Adult, Laceration Care, Adult, Cervical Sprain. - Medication Reconciliation, Local Pharmacy Hours, Work Release Form - 2 day form. - Follow up: Center - Adults [facility]; When: 1 week; Reason: Staple/Suture removal, Continuance of care. - Problem is new. - Symptoms have improved. - Notes: Keep hydrated Tylenol (only) for pain for the first 3 days, after than it is ok to use NSAIDS (Ibuprofen, ASA, Aleve, advil, naprosyn) [place] need to be removed in about 1 week, this can be done by your PCP (in most cases) Return to the ED for any concerns Historical: - Allergies: Coconut; Codeine Sulfate (Unknown); - Home Meds: 1. albuterol sulfate 90 mcg/actuation Inhl HFAA 2 puffs every 4 hours 2. loratadine 10 mg Oral tab 1 tab once daily 3. med for anxiety and depression 4. migraine meds unknown - PMHx: Anxiety; Headaches; Irregular heart rate; - PSHx: Tonsillectomy; Adenoidectomy; Cholecystectomy; - Social history: Smoking status: Patient states was never smoker of tobacco. No barriers to communication noted, The patient speaks fluent Tajik, Speaks appropriately for age. - Family history: Not pertinent. - : The pt / caregiver states he / she is not on anticoagulants. Home medication list is obtained from the patient. - Exposure Risk Screening:: None identified. 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 7 in. (170.18 cm) (R); Pain 10/10; 23:32 BP 148 / 65 (auto/); tm5 23:33 Pulse 90 MON; Pulse Ox 98% ; tm5 23:47 BP 129 / 73 (auto/); tm5 23:48 Pulse 92 MON; Pulse Ox 99% ; tm5 07/13 00:02 BP 136 / 74 (auto/); tm5 00:03 Pulse 92 MON; Pulse Ox 98% ; tm5 00:17 BP 123 / 79 (auto/); tm5 00:18 Pulse 88 MON; Pulse Ox 98% ; tm5 00:32 BP 121 / 71 (auto/); tm5 00:33 Pulse 82 MON; Resp 18 S; Pulse Ox 97% on R/A; Pain 3/10; tm5 00:47 BP 122 / 79 (auto/); tm5 00:48 Pulse 88 MON; Resp 18 S; Pulse Ox 99% on R/A; Pain 3/10; tm5 01:17 BP 132 / 79 (auto/); tm5 01:18 Pulse 80 MON; Resp 20 S; Pulse Ox 97% on R/A; Pain 2/10; tm5 02:23 BP 122 / 64; Pulse 74; Resp 18; Temp 98.3(O); Pulse Ox 100% on R/A; Pain 2/10; tm5 07/12 23:21 Body Mass Index 20.36 (58.97 kg, 170.18 cm) jmv Sydnee Coma Score: 07/12 23:05 Eye Response: spontaneous(4). Verbal Response: oriented(5). Motor Response: obeys kmg1 commands(6). Total: 15. MDM: 23:16 Ondansetron 4 mg IVP once ordered. le 23:16 Misc. Nursing Order ordered. le 23:16 NS 0.9% 1000 ml IV at bolus once ordered. le 23:16 Acetaminophen Tablet 650 mg PO once ordered. le 23:16 CT Head Without Contrast Ordered. EDMS 23:16 Lidocaine-Epinephrine 1 %-1:100,000 10 ml Infiltration once; to bedside ordered. le 23:17 CT Spine,Cervical W/o Contrast Ordered. EDMS 07/13 00:22 Diazepam 2 mg PO once ordered. le 00:22 Fluid Challenge ordered. le 00:22 Wound Care ordered. le 00:22 Ambulate patient to assess pain tolerance ordered. le 00:28 Financial registration complete. pm4 00:33 [facility] Payment Agreement was scanned into [employer] and attached to record. pm4 07:52 T-Sheet-- Draft Copy was scanned into [employer] and attached to record. [facility] 11:11 Radiology Report was scanned into [employer] and attached to record. gb Administered Medications: 07/12 23:22 Drug: NS 0.9% 1000 ml [sodium chloride 0.9 % intravenous solution] Route: IV; Rate: tm5 bolus; Site: left antecubital; 07/13 00:21 Follow up: IV Status: Completed infusion; IV Intake: 1000ml tm5 07/12 23:28 Drug: Ondansetron 4 mg Route: IVP; Site: left antecubital; tm5 07/13 00:21 Follow up: Response: Nausea is resolved; No Adverse Reaction tm5 07/12 23:28 Drug: Acetaminophen 650 mg [acetaminophen 325 mg tablet (2 tabs)] Route: PO; tm5 07/13 00:21 Follow up: Response: No Adverse Reaction; Pain is decreased tm5 00:20 Drug: Lidocaine-Epinephrine 10 ml [lidocaine-epinephrine 1 %-1:100,000 injection tm5 solution (10 mL)] {Note: placed at bedside for SKEIN WASHER's procedure .} Route: Infiltration; 00:42 Drug: Diazepam 2 mg [diazepam 2 mg tablet (1 tabs)] Route: PO; tm5 02:22 Follow up: Response: No Adverse Reaction; Pain is decreased tm5 Addendum: 07/15/2016 10:30 Addendum: radiology report review ? nondisplaced fx superior articular process C7 - d/w sd1 Dr. Zaragoza recommended flex-ex views and MRI - d/w charge nurse will have patient return for imaging and fu with Dr. Mix depending on the results of imaging. Signatures: Dispatcher [employer] EDNy Eckert MD MD sd1 Kayla Flowers, RN RN kmg1 Paula Powell, Reg Reg gb Cassia Mcguire, DIRECTOR OF INFECTION CONTROL DIRECTOR OF INFECTION CONTROL Macario Araujo DO DO 11 Ny Morris Alta Gutierres,RIAN RN tm5 Eddie Max, Reg Reg pm4 The chart was reviewed and I authenticate all verbal orders and agree with the evaluation and treatment provided.Attachments: 07/13 00:33 [facility] Payment Agreement pm4 07:52 T-Sheet-- Draft Copy [facility] MTDD
--- NOTE | 2016-07-15 10:33 | EDDOCDS ---
Nurse's Notes [facility] Name: Yael Stovall Age: 25 yrs Sex: Female : 1990 Arrival Date: 07/12/2016 Time: 23:03 Bed 4 Private MD: [facility] - [facility] Diagnosis: Laceration without foreign body of scalp;Concussion;Strain of muscle, fascia and tendon at neck level Presentation: 07/12 23:05 Presenting complaint: Patient states: Was running from a coy dog. Went to jump into the kmg1 side door of a minivan and stuck her head on the door frame. Lost consciousness for a few seconds. Laceration on top of head. Also c/o neck discomfort. This patient has no additional risk factors. Mechanism of Injury: resulted from a direct blow. Suicide/Homicide risk assessment- the patient denies having any suicidal and/or homicidal ideations and does not present with any other emotional, behavioral or mental health complaints. Status: Patient is not a service counselor or dependent. Transition of care: patient was not received from another setting of care. 23:05 Acuity: LILIYA Level 3 [facility] 23:05 Method Of Arrival: Ambulance [facility] Triage Assessment: 23:11 General: Appears uncomfortable, Behavior is appropriate for age. Pain: Location: head kmg1 and neck Pain currently is 10 out of 10 on a pain scale. 07/13 02:26 Pt Declines HIV testing. tm5 02:26 Neurological: Level of Consciousness is awake, alert, Oriented to person, place, time, tm5 Archivist Political History are equal bilaterally Moves all extremities. Gait is steady, Speech is normal, Facial symmetry appears normal, Facial symmetry: tongue is midline, Pupils are PERRLA. FILLING WINDER: 07/12 23:11 LMP 06/23/2016 [facility] Historical: - Allergies: Coconut; Codeine Sulfate (Unknown); - Home Meds: 1. albuterol sulfate 90 mcg/actuation Inhl HFAA 2 puffs every 4 hours 2. loratadine 10 mg Oral tab 1 tab once daily 3. med for anxiety and depression 4. migraine meds unknown - PMHx: Anxiety; Headaches; Irregular heart rate; - PSHx: Tonsillectomy; Adenoidectomy; Cholecystectomy; - Social history: Smoking status: Patient states was never smoker of tobacco. No barriers to communication noted, The patient speaks fluent Japanese, Speaks appropriately for age. - Family history: Not pertinent. - : The pt / caregiver states he / she is not on anticoagulants. Home medication list is obtained from the patient. - Exposure Risk Screening:: None identified. Screenin:16 Screening information is obtained from the patient. Fall risk: No risks identified. tm5 Assistance ADL's: requires no assistance with activities of daily living. Abuse/DV Screen: The patient / caregiver reports he/she is: not in a situation that causes fear, pain or injury. Nutritional screening: No deficits noted. Advance Directives: There is no active DNR order. home support is adequate. Assessment: 23:08 General: Appears in no apparent distress, Behavior is appropriate for age, cooperative. tm5 23:16 Pain: Location: head & neck Pain currently is 6 out of 10 on a pain scale. Quality of tm5 pain is described as aching, throbbing. Neurological: Level of Consciousness is awake, alert, Oriented to person, place, time, Archivist Political History are equal bilaterally Moves all extremities. Speech is normal, Facial symmetry appears normal, Facial symmetry: tongue is midline, Pupils are PERRLA, Reports blurred vision dizziness, pt usually wears glasses she states . Respiratory: No deficits noted. Airway is patent Respiratory effort is even, unlabored, Respiratory pattern is regular, symmetrical, Breath sounds are clear bilaterally. GI: No deficits noted. : No deficits noted. Derm: Skin is pink, warm & dry. normal. Musculoskeletal: cervical spine is tender. Circulation, motion, and sensation intact. Injury Description: Laceration sustained to top of head is clean, bleeding moderately, laceration approx 2.5 inches in length. 07/13 01:01 Reassessment: Patient appears in no apparent distress at this time. Patient states tm5 feeling better. Patient states symptoms have improved. pt consuming nadia rashaad with no complaints of Nausea, states her headache is better & the neck spasms are getting better after the Valium was given . 01:18 General: Attempted to ambulate pt per orders, pt stood up at bedside & developed tm5 blurred vision attempted to take a few steps & said that she couldn't & then complained of nausea & dizziness, pt returned to bed & MD updated on ambulation status, orders to keep pt a bit longer in the ER, pt asking to go home told her not until she can ambulate better, boxed meal provided to her with [employer] juice. 02:23 Reassessment: Patient appears in no apparent distress at this time. Patient states tm5 feeling better. Patient states symptoms have improved. pt ambulated with slow steady gait to the bathroom & back with only complaints of feeling weak due to lying down too much, pt asking to go home with family & friends, pt consumed all of boxed meal without any nausea or vomiting . Vital Signs: 07/12 23:21 BP 153 / 87; Pulse 98; Resp 20; Temp 96.4(O); Pulse Ox 98% on R/A; Weight 58.97 kg (R); jmv Height 5 ft. 7 in. (170.18 cm) (R); Pain 10/10; 23:32 BP 148 / 65 (auto/); tm5 23:33 Pulse 90 MON; Pulse Ox 98% ; tm5 23:47 BP 129 / 73 (auto/); tm5 23:48 Pulse 92 MON; Pulse Ox 99% ; tm5 07/13 00:02 BP 136 / 74 (auto/); tm5 00:03 Pulse 92 MON; Pulse Ox 98% ; tm5 00:17 BP 123 / 79 (auto/); tm5 00:18 Pulse 88 MON; Pulse Ox 98% ; tm5 00:32 BP 121 / 71 (auto/); tm5 00:33 Pulse 82 MON; Resp 18 S; Pulse Ox 97% on R/A; Pain 3/10; tm5 00:47 BP 122 / 79 (auto/); tm5 00:48 Pulse 88 MON; Resp 18 S; Pulse Ox 99% on R/A; Pain 3/10; tm5 01:17 BP 132 / 79 (auto/); tm5 01:18 Pulse 80 MON; Resp 20 S; Pulse Ox 97% on R/A; Pain 2/10; tm5 02:23 BP 122 / 64; Pulse 74; Resp 18; Temp 98.3(O); Pulse Ox 100% on R/A; Pain 2/10; tm5 07/12 23:21 Body Mass Index 20.36 (58.97 kg, 170.18 cm) [facility] Vitals: 07/12 23:11 Log In Time N/A - ambulance arrival. kmg1 Sydnee Coma Score: 23:05 Eye Response: spontaneous(4). Verbal Response: oriented(5). Motor Response: obeys kmg1 commands(6). Total: 15. ED Course: 23:04 Patient visited by Brittany Kraft PCA. tmm1 23:04 [facility] is Private Physician. tmm1 23:04 Patient moved to Waiting tmm1 23:05 Cassia Mcguire FNP is [facility]. le 23:05 Patient moved to 4 kmg1 23:08 Alta Celeste,RIAN is Primary Nurse. tm5 23:08 Patient visited by Alta Celeste RN. tm5 23:09 Triage Initiated kmg1 23:14 Patient visited by Cassia Mcguire FNP. le 23:16 Patient visited by aCssia Mcguire FNP. le 23:16 Patient visited by Alta Celeste RN. tm5 23:16 ED physician to see patient. tm5 23:16 The patient / caregiver is instructed regarding the plan of care and ED course. Pulse tm5 ox on. NIBP on. Lights dimmed. Family accompanied patient. 23:16 Maintain field IV. Dressing intact. Good blood return noted. Site clean & dry. Gauge & tm5 site: #20 left AC. Nereyda cervical collar applied and checked by provider. Wound care to laceration located on top of head was cleaned with with NS at this time to assess wound, Patient tolerated well. 23:22 Patient visited by Jaspreet Hidalgo PCA. jmv 23:22 Pt greeted and oriented to ED. Patient advised of names of staff involved in care, [facility] location of call barron, wait times and NPO status. Accompanied by Family Member, Patient has correct armband on for positive identification. Placed in gown. Bed in low position. Call light in reach. Side rails up X2. 07/13 00:20 Patient visited by Alta Celeste RN. tm5 00:33 [facility] Payment Agreement was scanned into Wyn[employer] and attached to record. pm4 00:34 CT Head Without Contrast Returned. EDMS 00:34 CT Spine,Cervical W/o Contrast Returned. EDMS 00:41 Patient visited by Alta Celeste RN. tm5 00:42 No procedures done that require assistance. Dressings: Kerlix X 2; 4X4s X 4; applied to tm5 head. 00:44 [facility] is Referral Physician. cs11 00:44 Macario Garcia DO is Attending Physician. cs11 01:01 Patient visited by Alta Celeste RN. tm5 01:18 Patient visited by Alta Celeste,RIAN. tm5 02:19 Patient visited by Alta Celeste RN. tm5 02:23 Discontinued lock intact, bleeding controlled, pressure dressing applied, No tm5 redness/swelling at site. 07:52 T-Sheet-- Draft Copy was scanned into Wynlink and attached to record. [facility] 11:11 Radiology Report was scanned into Wyn[employer] and attached to record. gb Administered Medications: 07/12 23:22 Drug: NS 0.9% 1000 ml [sodium chloride 0.9 % intravenous solution] Route: IV; Rate: tm5 bolus; Site: left antecubital; 07/13 00:21 Follow up: IV Status: Completed infusion; IV Intake: 1000ml tm5 07/12 23:28 Drug: Ondansetron 4 mg Route: IVP; Site: left antecubital; tm5 07/13 00:21 Follow up: Response: Nausea is resolved; No Adverse Reaction tm5 07/12 23:28 Drug: Acetaminophen 650 mg [acetaminophen 325 mg tablet (2 tabs)] Route: PO; tm5 07/13 00:21 Follow up: Response: No Adverse Reaction; Pain is decreased tm5 00:20 Drug: Lidocaine-Epinephrine 10 ml [lidocaine-epinephrine 1 %-1:100,000 injection tm5 solution (10 mL)] {Note: placed at bedside for SURGERY SPECIALIST's procedure .} Route: Infiltration; 00:42 Drug: Diazepam 2 mg [diazepam 2 mg tablet (1 tabs)] Route: PO; tm5 02:22 Follow up: Response: No Adverse Reaction; Pain is decreased tm5 Intake: 00:21 IV: 1000.00ml; Total: 1000.00ml. tm5 Order Results: Radiology Order: CT Head Without Contrast Test: CT Head Without Contrast REASON FOR EXAMINATION: direct blow; ; CLINICAL HISTORY: Head trauma.; TECHNIQUE: Multiple axial brain CT scan sections were obtained from base to vertex without contrast a; dministration.; COMMENTS:; There is no evidence of skull fracture.; The study shows normal configuration of sella turcica. There are no intra or extra-axial collections.; There is no mass effect or midline shift. There is no evidence of hematoma formation. No hydrocephal; us is present. No abnormal calcifications are noted.; No significant abnormalities are seen either in the posterior fossa or supratentorial compartment.; The sinuses and mastoid air cells are patent.; IMPRESSION:; No evidence of acute intracranial pathology. No intracranial hemorrhage or skull fracture.; Thank you for your kind referral of this patient.; ; Radiology Order: CT Spine,Cervical W/o Contrast Test: CT Spine,Cervical W/o Contrast REASON FOR EXAMINATION: axial loading;Trauma; ; CLINICAL HISTORY: Trauma.; TECHNIQUE: Multiple axial CT images were obtained through the cervical spine without IV contrast mate; rial.; COMMENTS:; There is an oblique lucent line of the left superior articular process of C7 suspicious for a nondisp; laced fracture. No associated facet dislocation. No associated locked facet. No associated extension; into the spinal canal. No associated intraspinal hematoma.; There is no other fracture visualized. The paraspinal soft tissues are unremarkable. There are no lyt; ic or blastic lesions.; IMPRESSION:; Oblique lucent line of the left superior articular process of C7 suspicious for a nondisplaced fractu; re.; This was not present on the prior exam on 09/22/2013.; MRI is suggested for further evaluation if clinically needed.; Thank you for your kind referral of this patient.; ; Outcome: 00:44 Discharge ordered by Provider. cs11 02:23 Discharge Assessment: Patient awake, alert and oriented x 3. No cognitive and/or tm5 functional deficits noted. Patient verbalized understanding of disposition instructions. patient administered narcotics - yes. Pt provided with safe discharge. The following High Risk Discharge criteria are identified: None. Discharged to home ambulatory, with family. Condition: good Condition: stable Condition: improved. Discharge instructions given to patient, Instructed on discharge instructions, follow up and referral plans. wound care, Demonstrated understanding of instructions, medications, Pt was receptive of discharge instructions/ teaching. Work note provided to patient. CT Study completed. Property :Personal belongings accompany Pt. 02:27 Patient left the ED. tm5 Signatures: Dispatcher MedHost EDMS Kayla Flowers, RN RN kmg1 Paula Powell, Reg Reg gb Cassia Mcguire, MATRIX REPAIRER MATRIX REPAIRER Macario Araujo, DO cs11 Priscillasamina, Brittany, SOUND ASSISTANT SOUND ASSISTANT tmm1 Ny Morris Jose, SOUND ASSISTANT SOUND ASSISTANT v Alta Celeste RN RN tm5 Eddie Max, Reg Reg pm4 MTDD
--- NOTE | 2016-07-15 10:33 | EDDOCDS ---
Physician Documentation [facility] Name: Yael Stovall Age: 25 yrs Sex: Female : 1990 Arrival Date: 07/12/2016 Time: 23:03 Bed 4 Private MD: [facility], [place] - Adults Disposition: 07/13/16 00:44 Discharged to Home/Self Care. Impression: Laceration without foreign body of scalp, Concussion, Strain of muscle, fascia and tendon at neck level. - Condition is Stable. - Discharge Instructions: Concussion, Adult, Laceration Care, Adult, Cervical Sprain. - Medication Reconciliation, Local Pharmacy Hours, Work Release Form - 2 day form. - Follow up: Center - Adults [facility]; When: 1 week; Reason: Staple/Suture removal, Continuance of care. - Problem is new. - Symptoms have improved. - Notes: Keep hydrated Tylenol (only) for pain for the first 3 days, after than it is ok to use NSAIDS (Ibuprofen, ASA, Aleve, advil, naprosyn) [place] need to be removed in about 1 week, this can be done by your PCP (in most cases) Return to the ED for any concerns Historical: - Allergies: Coconut; Codeine Sulfate (Unknown); - Home Meds: 1. albuterol sulfate 90 mcg/actuation Inhl HFAA 2 puffs every 4 hours 2. loratadine 10 mg Oral tab 1 tab once daily 3. med for anxiety and depression 4. migraine meds unknown - PMHx: Anxiety; Headaches; Irregular heart rate; - PSHx: Tonsillectomy; Adenoidectomy; Cholecystectomy; - Social history: Smoking status: Patient states was never smoker of tobacco. No barriers to communication noted, The patient speaks fluent [place], Speaks appropriately for age. - Family history: Not pertinent. - : The pt / caregiver states he / she is not on anticoagulants. Home medication list is obtained from the patient. - Exposure Risk Screening:: None identified. KNOTTER HAND: 07/12 23:11 LMP 06/23/2016 kmg1 Vital Signs: 23:21 BP 153 / 87; Pulse 98; Resp 20; Temp 96.4(O); Pulse Ox 98% on R/A; Weight 58.97 kg / jmv 130.01 lbs (R); Height 5 ft. 7 in. (170.18 cm) (R); Pain 10/10; 23:32 BP 148 / 65 (auto/); tm5 23:33 Pulse 90 MON; Pulse Ox 98% ; tm5 23:47 BP 129 / 73 (auto/); tm5 23:48 Pulse 92 MON; Pulse Ox 99% ; tm5 07/13 00:02 BP 136 / 74 (auto/); tm5 00:03 Pulse 92 MON; Pulse Ox 98% ; tm5 00:17 BP 123 / 79 (auto/); tm5 00:18 Pulse 88 MON; Pulse Ox 98% ; tm5 00:32 BP 121 / 71 (auto/); tm5 00:33 Pulse 82 MON; Resp 18 S; Pulse Ox 97% on R/A; Pain 3/10; tm5 00:47 BP 122 / 79 (auto/); tm5 00:48 Pulse 88 MON; Resp 18 S; Pulse Ox 99% on R/A; Pain 3/10; tm5 01:17 BP 132 / 79 (auto/); tm5 01:18 Pulse 80 MON; Resp 20 S; Pulse Ox 97% on R/A; Pain 2/10; tm5 02:23 BP 122 / 64; Pulse 74; Resp 18; Temp 98.3(O); Pulse Ox 100% on R/A; Pain 2/10; tm5 07/12 23:21 Body Mass Index 20.36 (58.97 kg, 170.18 cm) jmv Sydnee Coma Score: 07/12 23:05 Eye Response: spontaneous(4). Verbal Response: oriented(5). Motor Response: obeys kmg1 commands(6). Total: 15. MDM: 23:16 Ondansetron 4 mg IVP once ordered. le 23:16 Misc. Nursing Order ordered. le 23:16 NS 0.9% 1000 ml IV at bolus once ordered. le 23:16 Acetaminophen Tablet 650 mg PO once ordered. le 23:16 CT Head Without Contrast Ordered. EDMS 23:16 Lidocaine-Epinephrine 1 %-1:100,000 10 ml Infiltration once; to bedside ordered. le 23:17 CT Spine,Cervical W/o Contrast Ordered. EDMS 07/13 00:22 Diazepam 2 mg PO once ordered. le 00:22 Fluid Challenge ordered. le 00:22 Wound Care ordered. le 00:22 Ambulate patient to assess pain tolerance ordered. le 00:28 Financial registration complete. pm4 00:33 [facility] Payment Agreement was scanned into Cactus and attached to record. pm4 07:52 T-Sheet-- Draft Copy was scanned into C[employer]us and attached to record. [facility] 11:11 Radiology Report was scanned into Cactus and attached to record. gb Administered Medications: 07/12 23:22 Drug: NS 0.9% 1000 ml [sodium chloride 0.9 % intravenous solution] Route: IV; Rate: tm5 bolus; Site: left antecubital; 07/13 00:21 Follow up: IV Status: Completed infusion; IV Intake: 1000ml tm5 07/12 23:28 Drug: Ondansetron 4 mg Route: IVP; Site: left antecubital; tm5 07/13 00:21 Follow up: Response: Nausea is resolved; No Adverse Reaction tm5 07/12 23:28 Drug: Acetaminophen 650 mg [acetaminophen 325 mg tablet (2 tabs)] Route: PO; tm5 07/13 00:21 Follow up: Response: No Adverse Reaction; Pain is decreased tm5 00:20 Drug: Lidocaine-Epinephrine 10 ml [lidocaine-epinephrine 1 %-1:100,000 injection tm5 solution (10 mL)] {Note: placed at bedside for MEDICAL RECORD CODER's procedure .} Route: Infiltration; 00:42 Drug: Diazepam 2 mg [diazepam 2 mg tablet (1 tabs)] Route: PO; tm5 02:22 Follow up: Response: No Adverse Reaction; Pain is decreased tm5 Addendum: 07/15/2016 10:30 Addendum: radiology report review ? nondisplaced fx superior articular process C7 - d/w sd1 Dr. Zaragoza recommended flex-ex views and MRI - d/w charge nurse will have patient return for imaging and fu with Dr. Mix depending on the results of imaging. Signatures: Dispatcher MedHost EDNy Eckert MD MD sd1 Kayla Flowers, RN RN kmg1 Paula Powell, Reg Reg gb Cassia Mcguire, PRODUCTION CONTROL TECHNOLOGIST PRODUCTION CONTROL TECHNOLOGIST Macario Araujo DO DO [address] Alta Gutierres,RIAN RN tm5 Eddie Max, Reg Reg pm4 The chart was reviewed and I authenticate all verbal orders and agree with the evaluation and treatment provided.Attachments: 07/13 00:33 [facility] Payment Agreement pm4 07:52 T-Sheet-- Draft Copy [facility] MTDD
--- NOTE | 2016-07-15 10:34 | EDDOCDS ---
Physician Documentation [facility] Name: Yael Stovall Age: 25 yrs Sex: Female : 1990 Arrival Date: 07/12/2016 Time: 23:03 Bed 4 Private MD: [facility], [place] - Adults Disposition: 07/13/16 00:44 Discharged to Home/Self Care. Impression: Laceration without foreign body of scalp, Concussion, Strain of muscle, fascia and tendon at neck level. - Condition is Stable. - Discharge Instructions: Concussion, Adult, Laceration Care, Adult, Cervical Sprain. - Medication Reconciliation, Local Pharmacy Hours, Work Release Form - 2 day form. - Follow up: Center - Adults [facility]; When: 1 week; Reason: Staple/Suture removal, Continuance of care. - Problem is new. - Symptoms have improved. - Notes: Keep hydrated Tylenol (only) for pain for the first 3 days, after than it is ok to use NSAIDS (Ibuprofen, ASA, Aleve, advil, naprosyn) [place] need to be removed in about 1 week, this can be done by your PCP (in most cases) Return to the ED for any concerns Historical: - Allergies: Coconut; Codeine Sulfate (Unknown); - Home Meds: 1. albuterol sulfate 90 mcg/actuation Inhl HFAA 2 puffs every 4 hours 2. loratadine 10 mg Oral tab 1 tab once daily 3. med for anxiety and depression 4. migraine meds unknown - PMHx: Anxiety; Headaches; Irregular heart rate; - PSHx: Tonsillectomy; Adenoidectomy; Cholecystectomy; - Social history: Smoking status: Patient states was never smoker of tobacco. No barriers to communication noted, The patient speaks fluent Hungarian, Speaks appropriately for age. - Family history: Not pertinent. - : The pt / caregiver states he / she is not on anticoagulants. Home medication list is obtained from the patient. - Exposure Risk Screening:: None identified. JOURNAL BOX INSPECTOR: 07/12 23:11 LMP 06/23/2016 kmg1 Vital Signs: 23:21 BP 153 / 87; Pulse 98; Resp 20; Temp 96.4(O); Pulse Ox 98% on R/A; Weight 58.97 kg / jmv 130.01 lbs (R); Height 5 ft. 7 in. (170.18 cm) (R); Pain 10/10; 23:32 BP 148 / 65 (auto/); tm5 23:33 Pulse 90 MON; Pulse Ox 98% ; tm5 23:47 BP 129 / 73 (auto/); tm5 23:48 Pulse 92 MON; Pulse Ox 99% ; tm5 07/13 00:02 BP 136 / 74 (auto/); tm5 00:03 Pulse 92 MON; Pulse Ox 98% ; tm5 00:17 BP 123 / 79 (auto/); tm5 00:18 Pulse 88 MON; Pulse Ox 98% ; tm5 00:32 BP 121 / 71 (auto/); tm5 00:33 Pulse 82 MON; Resp 18 S; Pulse Ox 97% on R/A; Pain 3/10; tm5 00:47 BP 122 / 79 (auto/); tm5 00:48 Pulse 88 MON; Resp 18 S; Pulse Ox 99% on R/A; Pain 3/10; tm5 01:17 BP 132 / 79 (auto/); tm5 01:18 Pulse 80 MON; Resp 20 S; Pulse Ox 97% on R/A; Pain 2/10; tm5 02:23 BP 122 / 64; Pulse 74; Resp 18; Temp 98.3(O); Pulse Ox 100% on R/A; Pain 2/10; tm5 07/12 23:21 Body Mass Index 20.36 (58.97 kg, 170.18 cm) jmv Sydnee Coma Score: 07/12 23:05 Eye Response: spontaneous(4). Verbal Response: oriented(5). Motor Response: obeys kmg1 commands(6). Total: 15. MDM: 23:16 Ondansetron 4 mg IVP once ordered. le 23:16 Misc. Nursing Order ordered. le 23:16 NS 0.9% 1000 ml IV at bolus once ordered. le 23:16 Acetaminophen Tablet 650 mg PO once ordered. le 23:16 CT Head Without Contrast Ordered. EDMS 23:16 Lidocaine-Epinephrine 1 %-1:100,000 10 ml Infiltration once; to bedside ordered. le 23:17 CT Spine,Cervical W/o Contrast Ordered. EDMS 07/13 00:22 Diazepam 2 mg PO once ordered. le 00:22 Fluid Challenge ordered. le 00:22 Wound Care ordered. le 00:22 Ambulate patient to assess pain tolerance ordered. le 00:28 Financial registration complete. pm4 00:33 [facility] Payment Agreement was scanned into Fanv[employer] and attached to record. pm4 07:52 T-Sheet-- Draft Copy was scanned into Fanv[employer] and attached to record. [facility] 11:11 Radiology Report was scanned into Fanv[employer] and attached to record. gb Administered Medications: 07/12 23:22 Drug: NS 0.9% 1000 ml [sodium chloride 0.9 % intravenous solution] Route: IV; Rate: tm5 bolus; Site: left antecubital; 07/13 00:21 Follow up: IV Status: Completed infusion; IV Intake: 1000ml tm5 07/12 23:28 Drug: Ondansetron 4 mg Route: IVP; Site: left antecubital; tm5 07/13 00:21 Follow up: Response: Nausea is resolved; No Adverse Reaction tm5 07/12 23:28 Drug: Acetaminophen 650 mg [acetaminophen 325 mg tablet (2 tabs)] Route: PO; tm5 07/13 00:21 Follow up: Response: No Adverse Reaction; Pain is decreased tm5 00:20 Drug: Lidocaine-Epinephrine 10 ml [lidocaine-epinephrine 1 %-1:100,000 injection tm5 solution (10 mL)] {Note: placed at bedside for JOB SITE SUPERVISOR's procedure .} Route: Infiltration; 00:42 Drug: Diazepam 2 mg [diazepam 2 mg tablet (1 tabs)] Route: PO; tm5 02:22 Follow up: Response: No Adverse Reaction; Pain is decreased tm5 Addendum: 07/15/2016 10:30 Addendum: radiology report review ? nondisplaced fx superior articular process C7 - d/w sd1 Dr. Zaragoza recommended flex-ex views and MRI - d/w charge nurse will have patient return for imaging and fu with Dr. Mix depending on the results of imaging. Signatures: Dispatcher [employer] EDNy Eckert MD MD sd1 Kayla Flowers, RN RN kmg1 Paula Powell, Reg Reg gb Cassia Mcguire, BUSH REGENERATOR BUSH REGENERATOR Macario Araujo DO DO [address] Alta Gutierres,RIAN RN tm5 Eddie Max, Reg Reg pm4 The chart was reviewed and I authenticate all verbal orders and agree with the evaluation and treatment provided.Attachments: 07/13 00:33 [facility] Payment Agreement pm4 07:52 T-Sheet-- Draft Copy [facility] Chart Complete MTDD
--- NOTE | 2016-07-15 10:34 | EDDOCDS ---
Physician Documentation [facility] Name: Yael Stovall Age: 25 yrs Sex: Female : 1990 Arrival Date: 07/12/2016 Time: 23:03 Bed 4 Private MD: [facility], [place] - Adults Disposition: 07/13/16 00:44 Discharged to Home/Self Care. Impression: Laceration without foreign body of scalp, Concussion, Strain of muscle, fascia and tendon at neck level. - Condition is Stable. - Discharge Instructions: Concussion, Adult, Laceration Care, Adult, Cervical Sprain. - Medication Reconciliation, Local Pharmacy Hours, Work Release Form - 2 day form. - Follow up: Center - Adults [facility]; When: 1 week; Reason: Staple/Suture removal, Continuance of care. - Problem is new. - Symptoms have improved. - Notes: Keep hydrated Tylenol (only) for pain for the first 3 days, after than it is ok to use NSAIDS (Ibuprofen, ASA, Aleve, advil, naprosyn) [place] need to be removed in about 1 week, this can be done by your PCP (in most cases) Return to the ED for any concerns Historical: - Allergies: Coconut; Codeine Sulfate (Unknown); - Home Meds: 1. albuterol sulfate 90 mcg/actuation Inhl HFAA 2 puffs every 4 hours 2. loratadine 10 mg Oral tab 1 tab once daily 3. med for anxiety and depression 4. migraine meds unknown - PMHx: Anxiety; Headaches; Irregular heart rate; - PSHx: Tonsillectomy; Adenoidectomy; Cholecystectomy; - Social history: Smoking status: Patient states was never smoker of tobacco. No barriers to communication noted, The patient speaks fluent Setswana, Speaks appropriately for age. - Family history: Not pertinent. - : The pt / caregiver states he / she is not on anticoagulants. Home medication list is obtained from the patient. - Exposure Risk Screening:: None identified. 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 7 in. (170.18 cm) (R); Pain 10/10; 23:32 BP 148 / 65 (auto/); tm5 23:33 Pulse 90 MON; Pulse Ox 98% ; tm5 23:47 BP 129 / 73 (auto/); tm5 23:48 Pulse 92 MON; Pulse Ox 99% ; tm5 07/13 00:02 BP 136 / 74 (auto/); tm5 00:03 Pulse 92 MON; Pulse Ox 98% ; tm5 00:17 BP 123 / 79 (auto/); tm5 00:18 Pulse 88 MON; Pulse Ox 98% ; tm5 00:32 BP 121 / 71 (auto/); tm5 00:33 Pulse 82 MON; Resp 18 S; Pulse Ox 97% on R/A; Pain 3/10; tm5 00:47 BP 122 / 79 (auto/); tm5 00:48 Pulse 88 MON; Resp 18 S; Pulse Ox 99% on R/A; Pain 3/10; tm5 01:17 BP 132 / 79 (auto/); tm5 01:18 Pulse 80 MON; Resp 20 S; Pulse Ox 97% on R/A; Pain 2/10; tm5 02:23 BP 122 / 64; Pulse 74; Resp 18; Temp 98.3(O); Pulse Ox 100% on R/A; Pain 2/10; tm5 07/12 23:21 Body Mass Index 20.36 (58.97 kg, 170.18 cm) jmv Sydnee Coma Score: 07/12 23:05 Eye Response: spontaneous(4). Verbal Response: oriented(5). Motor Response: obeys kmg1 commands(6). Total: 15. MDM: 23:16 Ondansetron 4 mg IVP once ordered. le 23:16 Misc. Nursing Order ordered. le 23:16 NS 0.9% 1000 ml IV at bolus once ordered. le 23:16 Acetaminophen Tablet 650 mg PO once ordered. le 23:16 CT Head Without Contrast Ordered. EDMS 23:16 Lidocaine-Epinephrine 1 %-1:100,000 10 ml Infiltration once; to bedside ordered. le 23:17 CT Spine,Cervical W/o Contrast Ordered. EDMS 07/13 00:22 Diazepam 2 mg PO once ordered. le 00:22 Fluid Challenge ordered. le 00:22 Wound Care ordered. le 00:22 Ambulate patient to assess pain tolerance ordered. le 00:28 Financial registration complete. pm4 00:33 [facility] Payment Agreement was scanned into hopscout and attached to record. pm4 07:52 T-Sheet-- Draft Copy was scanned into hopscout and attached to record. [facility] 11:11 Radiology Report was scanned into hopscout and attached to record. gb Administered Medications: 07/12 23:22 Drug: NS 0.9% 1000 ml [sodium chloride 0.9 % intravenous solution] Route: IV; Rate: tm5 bolus; Site: left antecubital; 07/13 00:21 Follow up: IV Status: Completed infusion; IV Intake: 1000ml tm5 07/12 23:28 Drug: Ondansetron 4 mg Route: IVP; Site: left antecubital; tm5 07/13 00:21 Follow up: Response: Nausea is resolved; No Adverse Reaction tm5 07/12 23:28 Drug: Acetaminophen 650 mg [acetaminophen 325 mg tablet (2 tabs)] Route: PO; tm5 07/13 00:21 Follow up: Response: No Adverse Reaction; Pain is decreased tm5 00:20 Drug: Lidocaine-Epinephrine 10 ml [lidocaine-epinephrine 1 %-1:100,000 injection tm5 solution (10 mL)] {Note: placed at bedside for CONCRETE BUCKET LOADER's procedure .} Route: Infiltration; 00:42 Drug: Diazepam 2 mg [diazepam 2 mg tablet (1 tabs)] Route: PO; tm5 02:22 Follow up: Response: No Adverse Reaction; Pain is decreased tm5 Addendum: 07/15/2016 10:30 Addendum: radiology report review ? nondisplaced fx superior articular process C7 - d/w sd1 Dr. Zaragoza recommended flex-ex views and MRI - d/w charge nurse will have patient return for imaging and fu with Dr. Mix depending on the results of imaging. Signatures: Dispatcher MedHost EDNy Eckert MD MD sd1 Kayla Flowers, RN RN kmg1 Paula Powell, Reg Reg gb Cassia Mcguire, PLASTER PATTERNMAKER PLASTER PATTERNMAKER Macario Araujo DO DO [address] Alta Gutierres,RIAN RN tm5 dEdie Max, Reg Reg pm4 The chart was reviewed and I authenticate all verbal orders and agree with the evaluation and treatment provided.Attachments: 07/13 00:33 [facility] [place] Agreement pm4 07:52 T-Sheet-- Draft Copy [facility] Chart Complete MTDD
--- NOTE | 2016-07-15 10:34 | EDDOCDS ---
Nurse's Notes [facility] Name: Yael Stovall Age: 25 yrs Sex: Female : 1990 Arrival Date: 07/12/2016 Time: 23:03 Bed 4 Private MD: [facility] - Adults Diagnosis: Laceration without foreign body of scalp;Concussion;Strain of muscle, fascia and tendon at neck level Presentation: 07/12 23:05 Presenting complaint: Patient states: Was running from a coy dog. Went to jump into the kmg1 side door of a minivan and stuck her head on the door frame. Lost consciousness for a few seconds. Laceration on top of head. Also c/o neck discomfort. This patient has no additional risk factors. Mechanism of Injury: resulted from a direct blow. Suicide/Homicide risk assessment- the patient denies having any suicidal and/or homicidal ideations and does not present with any other emotional, behavioral or mental health complaints. Status: Patient is not a nursing services manager or dependent. Transition of care: patient was not received from another setting of care. 23:05 Acuity: LILIYA Level 3 [facility] 23:05 Method Of Arrival: Amb[place] [facility] Triage Assessment: 23:11 General: Appears uncomfortable, Behavior is appropriate for age. Pain: Location: head kmg1 and neck Pain currently is 10 out of 10 on a pain scale. 07/13 02:26 Pt Declines HIV testing. tm5 02:26 Neurological: Level of Consciousness is awake, alert, Oriented to person, place, time, tm5 Retail Client Solutions Analyst are equal bilaterally Moves all extremities. Gait is steady, Speech is normal, Facial symmetry appears normal, Facial symmetry: tongue is midline, Pupils are PERRLA. PROGRAM MANAGER: 07/12 23:11 LMP 06/23/2016 [facility] Historical: - Allergies: Coconut; Codeine Sulfate (Unknown); - Home Meds: 1. albuterol sulfate 90 mcg/actuation Inhl HFAA 2 puffs every 4 hours 2. loratadine 10 mg Oral tab 1 tab once daily 3. med for anxiety and depression 4. migraine meds unknown - PMHx: Anxiety; Headaches; Irregular heart rate; - PSHx: Tonsillectomy; Adenoidectomy; Cholecystectomy; - Social history: Smoking status: Patient states was never smoker of tobacco. No barriers to communication noted, The patient speaks fluent Italian, Speaks appropriately for age. - Family history: Not pertinent. - : The pt / caregiver states he / she is not on anticoagulants. Home medication list is obtained from the patient. - Exposure Risk Screening:: None identified. Screenin:16 Screening information is obtained from the patient. Fall risk: No risks identified. tm5 Assistance ADL's: requires no assistance with activities of daily living. Abuse/DV Screen: The patient / caregiver reports he/she is: not in a situation that causes fear, pain or injury. Nutritional screening: No deficits noted. Advance Directives: There is no active DNR order. home support is adequate. Assessment: 23:08 General: Appears in no apparent distress, Behavior is appropriate for age, cooperative. tm5 23:16 Pain: Location: head & neck Pain currently is 6 out of 10 on a pain scale. Quality of tm5 pain is described as aching, throbbing. Neurological: Level of Consciousness is awake, alert, Oriented to person, place, time, Retail Client Solutions Analyst are equal bilaterally Moves all extremities. Speech is normal, Facial symmetry appears normal, Facial symmetry: tongue is midline, Pupils are PERRLA, Reports blurred vision dizziness, pt usually wears glasses she states . Respiratory: No deficits noted. Airway is patent Respiratory effort is even, unlabored, Respiratory pattern is regular, symmetrical, Breath sounds are clear bilaterally. GI: No deficits noted. : No deficits noted. Derm: Skin is pink, warm & dry. normal. Musculoskeletal: cervical spine is tender. Circulation, motion, and sensation intact. Injury Description: Laceration sustained to top of head is clean, bleeding moderately, laceration approx 2.5 inches in length. 07/13 01:01 Reassessment: Patient appears in no apparent distress at this time. Patient states tm5 feeling better. Patient states symptoms have improved. pt consuming nadia rashaad with no complaints of Nausea, states her headache is better & the neck spasms are getting better after the Valium was given . 01:18 General: Attempted to ambulate pt per orders, pt stood up at bedside & developed tm5 blurred vision attempted to take a few steps & said that she couldn't & then complained of nausea & dizziness, pt returned to bed & MD updated on ambulation status, orders to keep pt a bit longer in the ER, pt asking to go home told her not until she can ambulate better, boxed meal provided to her with [place] juice. 02:23 Reassessment: Patient appears in no apparent distress at this time. Patient states tm5 feeling better. Patient states symptoms have improved. pt ambulated with slow steady gait to the bathroom & back with only complaints of feeling weak due to lying down too much, pt asking to go home with family & friends, pt consumed all of boxed meal without any nausea or vomiting . Vital Signs: 07/12 23:21 BP 153 / 87; Pulse 98; Resp 20; Temp 96.4(O); Pulse Ox 98% on R/A; Weight 58.97 kg (R); jmv Height 5 ft. 7 in. (170.18 cm) (R); Pain 10/10; 23:32 BP 148 / 65 (auto/); tm5 23:33 Pulse 90 MON; Pulse Ox 98% ; tm5 23:47 BP 129 / 73 (auto/); tm5 23:48 Pulse 92 MON; Pulse Ox 99% ; tm5 07/13 00:02 BP 136 / 74 (auto/); tm5 00:03 Pulse 92 MON; Pulse Ox 98% ; tm5 00:17 BP 123 / 79 (auto/); tm5 00:18 Pulse 88 MON; Pulse Ox 98% ; tm5 00:32 BP 121 / 71 (auto/); tm5 00:33 Pulse 82 MON; Resp 18 S; Pulse Ox 97% on R/A; Pain 3/10; tm5 00:47 BP 122 / 79 (auto/); tm5 00:48 Pulse 88 MON; Resp 18 S; Pulse Ox 99% on R/A; Pain 3/10; tm5 01:17 BP 132 / 79 (auto/); tm5 01:18 Pulse 80 MON; Resp 20 S; Pulse Ox 97% on R/A; Pain 2/10; tm5 02:23 BP 122 / 64; Pulse 74; Resp 18; Temp 98.3(O); Pulse Ox 100% on R/A; Pain 2/10; tm5 07/12 23:21 Body Mass Index 20.36 (58.97 kg, 170.18 cm) [facility] Vitals: 07/12 23:11 Log In Time N/A - ambulance arrival. kmg1 Sydnee Coma Score: 23:05 Eye Response: spontaneous(4). Verbal Response: oriented(5). Motor Response: obeys kmg1 commands(6). Total: 15. ED Course: 23:04 Patient visited by Brittany Kraft PCA. tmm1 23:04 [facility] is Private Physician. tmm1 23:04 Patient moved to Waiting tmm1 23:05 [facility] le 23:05 Patient moved to 4 kmg1 23:08 Alta Celeste,RIAN is Primary Nurse. tm5 23:08 Patient visited by Alta Celeste RN. tm5 23:09 Triage Initiated kmg1 23:14 Patient visited by Cassia Mcguire FNP. le 23:16 Patient visited by Cassia Mcguire FNP. le 23:16 Patient visited by Alta Celeste RN. tm5 23:16 ED physician to see patient. tm5 23:16 The patient / caregiver is instructed regarding the plan of care and ED course. Pulse tm5 ox on. NIBP on. Lights dimmed. Family accompanied patient. 23:16 Maintain field IV. Dressing intact. Good blood return noted. Site clean & dry. Gauge & tm5 site: #20 left AC. Nereyda cervical collar applied and checked by provider. Wound care to laceration located on top of head was cleaned with with NS at this time to assess wound, Patient tolerated well. 23:22 Patient visited by Jaspreet Hidalgo PCA. jmv 23:22 Pt greeted and oriented to ED. Patient advised of names of staff involved in care, [facility] location of call barron, wait times and NPO status. Accompanied by Family Member, Patient has correct armband on for positive identification. Placed in gown. Bed in low position. Call light in reach. Side rails up X2. 07/13 00:20 Patient visited by Alta Celeste RN. tm5 00:33 [facility] Payment Agreement was scanned into [employer] Mobile and attached to record. pm4 00:34 CT Head Without Contrast Returned. EDMS 00:34 CT Spine,Cervical W/o Contrast Returned. EDMS 00:41 Patient visited by Alta Celeste RN. tm5 00:42 No procedures done that require assistance. Dressings: Kerlix X 2; 4X4s X 4; applied to tm5 head. 00:44 [facility] is Referral Physician. cs11 00:44 Macaroi Garcia DO is Attending Physician. cs11 01:01 Patient visited by Alta Celeste RN. tm5 01:18 Patient visited by Alta Celeste,RIAN. tm5 02:19 Patient visited by Alta Celeste RN. tm5 02:23 Discontinued lock intact, bleeding controlled, pressure dressing applied, No tm5 redness/swelling at site. 07:52 T-Sheet-- Draft Copy was scanned into [employer] Mobile and attached to record. [facility] 11:11 Radiology Report was scanned into [employer] Mobile and attached to record. gb Administered Medications: 07/12 23:22 Drug: NS 0.9% 1000 ml [sodium chloride 0.9 % intravenous solution] Route: IV; Rate: tm5 bolus; Site: left antecubital; 07/13 00:21 Follow up: IV Status: Completed infusion; IV Intake: 1000ml tm5 07/12 23:28 Drug: Ondansetron 4 mg Route: IVP; Site: left antecubital; tm5 07/13 00:21 Follow up: Response: Nausea is resolved; No Adverse Reaction tm5 07/12 23:28 Drug: Acetaminophen 650 mg [acetaminophen 325 mg tablet (2 tabs)] Route: PO; tm5 07/13 00:21 Follow up: Response: No Adverse Reaction; Pain is decreased tm5 00:20 Drug: Lidocaine-Epinephrine 10 ml [lidocaine-epinephrine 1 %-1:100,000 injection tm5 solution (10 mL)] {Note: placed at bedside for PRINTER'S DEVIL's procedure .} Route: Infiltration; 00:42 Drug: Diazepam 2 mg [diazepam 2 mg tablet (1 tabs)] Route: PO; tm5 02:22 Follow up: Response: No Adverse Reaction; Pain is decreased tm5 Intake: 00:21 IV: 1000.00ml; Total: 1000.00ml. tm5 Order Results: Radiology Order: CT Head Without Contrast Test: CT Head Without Contrast REASON FOR EXAMINATION: direct blow; ; CLINICAL HISTORY: Head trauma.; TECHNIQUE: Multiple axial brain CT scan sections were obtained from base to vertex without contrast a; dministration.; COMMENTS:; There is no evidence of skull fracture.; The study shows normal configuration of sella turcica. There are no intra or extra-axial collections.; There is no mass effect or midline shift. There is no evidence of hematoma formation. No hydrocephal; us is present. No abnormal calcifications are noted.; No significant abnormalities are seen either in the posterior fossa or supratentorial compartment.; The sinuses and mastoid air cells are patent.; IMPRESSION:; No evidence of acute intracranial pathology. No intracranial hemorrhage or skull fracture.; Thank you for your kind referral of this patient.; ; Radiology Order: CT Spine,Cervical W/o Contrast Test: CT Spine,Cervical W/o Contrast REASON FOR EXAMINATION: axial loading;Trauma; ; CLINICAL HISTORY: Trauma.; TECHNIQUE: Multiple axial CT images were obtained through the cervical spine without IV contrast mate; rial.; COMMENTS:; There is an oblique lucent line of the left superior articular process of C7 suspicious for a nondisp; laced fracture. No associated facet dislocation. No associated locked facet. No associated extension; into the spinal canal. No associated intraspinal hematoma.; There is no other fracture visualized. The paraspinal soft tissues are unremarkable. There are no lyt; ic or blastic lesions.; IMPRESSION:; Oblique lucent line of the left superior articular process of C7 suspicious for a nondisplaced fractu; re.; This was not present on the prior exam on 09/22/2013.; MRI is suggested for further evaluation if clinically needed.; Thank you for your kind referral of this patient.; ; Outcome: 00:44 Discharge ordered by Provider. cs11 02:23 Discharge Assessment: Patient awake, alert and oriented x 3. No cognitive and/or tm5 functional deficits noted. Patient verbalized understanding of disposition instructions. patient administered narcotics - yes. Pt provided with safe discharge. The following High Risk Discharge criteria are identified: None. Discharged to home ambulatory, with family. Condition: good Condition: stable Condition: improved. Discharge instructions given to patient, Instructed on discharge instructions, follow up and referral plans. wound care, Demonstrated understanding of instructions, medications, Pt was receptive of discharge instructions/ teaching. Work note provided to patient. CT Study completed. Property :Personal belongings accompany Pt. 02:27 Patient left the ED. tm5 Signatures: Dispatcher MedHost EDMS Kayla Flowers, RN RN kmg1 Paula Powell, Reg Reg gb Cassia Mcguire, CAT SWAMPER CAT SWAMPER Macario Araujo, DO cs11 McLear, Brittany, SITE IDENTIFICATION SPECIALIST SITE IDENTIFICATION SPECIALIST tmm1 Ny Morris Jose, SITE IDENTIFICATION SPECIALIST SITE IDENTIFICATION SPECIALIST v Alta Celeste RN RN tm5 Eddie Max, Reg Reg pm4 Chart Complete MTDD
--- NOTE | 2016-07-15 10:50 | EDDOCDS ---
Physician Documentation [facility] [place] Name: Yael Stovall Age: 25 yrs Sex: Female : 1990 Arrival Date: 07/12/2016 Time: 23:03 Bed 4 Private MD: [facility] [place] - Adults Disposition: 07/13/16 00:44 Discharged to Home/Self Care. Impression: Laceration without foreign body of scalp, Concussion, Strain of muscle, fascia and tendon at neck level. - Condition is Stable. - Discharge Instructions: Concussion, Adult, Laceration Care, Adult, Cervical Sprain. - Medication Reconciliation, Local Pharmacy Hours, Work Release Form - 2 day form. - Follow up: Center - Adults [facility]; When: 1 week; Reason: Staple/Suture removal, Continuance of care. - Problem is new. - Symptoms have improved. - Notes: Keep hydrated Tylenol (only) for pain for the first 3 days, after than it is ok to use NSAIDS (Ibuprofen, ASA, Aleve, advil, naprosyn) [place] need to be removed in about 1 week, this can be done by your PCP (in most cases) Return to the ED for any concerns Historical: - Allergies: Coconut; Codeine Sulfate (Unknown); - Home Meds: 1. albuterol sulfate 90 mcg/actuation Inhl HFAA 2 puffs every 4 hours 2. loratadine 10 mg Oral tab 1 tab once daily 3. med for anxiety and depression 4. migraine meds unknown - PMHx: Anxiety; Headaches; Irregular heart rate; - PSHx: Tonsillectomy; Adenoidectomy; Cholecystectomy; - Social history: Smoking status: Patient states was never smoker of tobacco. No barriers to communication noted, The patient speaks fluent Kazakh, Speaks appropriately for age. - Family history: Not pertinent. - : The pt / caregiver states he / she is not on anticoagulants. Home medication list is obtained from the patient. - Exposure Risk Screening:: None identified. 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 7 in. (170.18 cm) (R); Pain 10/10; 23:32 BP 148 / 65 (auto/); tm5 23:33 Pulse 90 MON; Pulse Ox 98% ; tm5 23:47 BP 129 / 73 (auto/); tm5 23:48 Pulse 92 MON; Pulse Ox 99% ; tm5 07/13 00:02 BP 136 / 74 (auto/); tm5 00:03 Pulse 92 MON; Pulse Ox 98% ; tm5 00:17 BP 123 / 79 (auto/); tm5 00:18 Pulse 88 MON; Pulse Ox 98% ; tm5 00:32 BP 121 / 71 (auto/); tm5 00:33 Pulse 82 MON; Resp 18 S; Pulse Ox 97% on R/A; Pain 3/10; tm5 00:47 BP 122 / 79 (auto/); tm5 00:48 Pulse 88 MON; Resp 18 S; Pulse Ox 99% on R/A; Pain 3/10; tm5 01:17 BP 132 / 79 (auto/); tm5 01:18 Pulse 80 MON; Resp 20 S; Pulse Ox 97% on R/A; Pain 2/10; tm5 02:23 BP 122 / 64; Pulse 74; Resp 18; Temp 98.3(O); Pulse Ox 100% on R/A; Pain 2/10; tm5 07/12 23:21 Body Mass Index 20.36 (58.97 kg, 170.18 cm) jmv Sydnee Coma Score: 07/12 23:05 Eye Response: spontaneous(4). Verbal Response: oriented(5). Motor Response: obeys kmg1 commands(6). Total: 15. MDM: 23:16 Ondansetron 4 mg IVP once ordered. le 23:16 Misc. Nursing Order ordered. le 23:16 NS 0.9% 1000 ml IV at bolus once ordered. le 23:16 Acetaminophen Tablet 650 mg PO once ordered. le 23:16 CT Head Without Contrast Ordered. EDMS 23:16 Lidocaine-Epinephrine 1 %-1:100,000 10 ml Infiltration once; to bedside ordered. le 23:17 CT Spine,Cervical W/o Contrast Ordered. EDMS 07/13 00:22 Diazepam 2 mg PO once ordered. le 00:22 Fluid Challenge ordered. le 00:22 Wound Care ordered. le 00:22 Ambulate patient to assess pain tolerance ordered. le 00:28 Financial registration complete. pm4 00:33 [facility] Payment Agreement was scanned into M[employer]ENT[employer]O and attached to record. pm4 07:52 T-Sheet-- Draft Copy was scanned into MOMENTFACE SRO and attached to record. [facility] 11:11 Radiology Report was scanned into M[employer]ENT[employer] SRO and attached to record. gb Administered Medications: 07/12 23:22 Drug: NS 0.9% 1000 ml [sodium chloride 0.9 % intravenous solution] Route: IV; Rate: tm5 bolus; Site: left antecubital; 07/13 00:21 Follow up: IV Status: Completed infusion; IV Intake: 1000ml tm5 07/12 23:28 Drug: Ondansetron 4 mg Route: IVP; Site: left antecubital; tm5 07/13 00:21 Follow up: Response: Nausea is resolved; No Adverse Reaction tm5 07/12 23:28 Drug: Acetaminophen 650 mg [acetaminophen 325 mg tablet (2 tabs)] Route: PO; tm5 07/13 00:21 Follow up: Response: No Adverse Reaction; Pain is decreased tm5 00:20 Drug: Lidocaine-Epinephrine 10 ml [lidocaine-epinephrine 1 %-1:100,000 injection tm5 solution (10 mL)] {Note: placed at bedside for CLINICAL OUTCOMES MANAGER's procedure .} Route: Infiltration; 00:42 Drug: Diazepam 2 mg [diazepam 2 mg tablet (1 tabs)] Route: PO; tm5 02:22 Follow up: Response: No Adverse Reaction; Pain is decreased tm5 Addendum: 07/15/2016 10:30 Addendum: radiology report review ? nondisplaced fx superior articular process C7 - d/w sd1 Dr. Zaragoza recommended flex-ex views and MRI - d/w charge nurse will have patient return for imaging and fu with Dr. Mix depending on the results of imaging. Signatures: Dispatcher MedHost EDNy Eckert MD MD sd1 Kayla Flowers, RN RN kmg1 Paula Powell, Reg Reg gb Cassia Mcguire, PT ESCORT PT ESCORT Macario Araujo DO DO [address] Alta Gutierres,RIAN RN tm5 Eddie Max, Reg Reg pm4 The chart was reviewed and I authenticate all verbal orders and agree with the evaluation and treatment provided.Attachments: 07/13 00:33 [facility] Payment Agreement pm4 07:52 T-Sheet-- Draft Copy [facility] MTDD
--- NOTE | 2016-07-15 10:50 | EDDOCDS ---
Nurse's Notes [facility] Name: Yael Stovall Age: 25 yrs Sex: Female : 1990 Arrival Date: 07/12/2016 Time: 23:03 Bed 4 Private MD: [facility] - [facility] Diagnosis: Laceration without foreign body of scalp;Concussion;Strain of muscle, fascia and tendon at neck level Presentation: 07/12 23:05 Presenting complaint: Patient states: Was running from a coy dog. Went to jump into the kmg1 side door of a minivan and stuck her head on the door frame. Lost consciousness for a few seconds. Laceration on top of head. Also c/o neck discomfort. This patient has no additional risk factors. Mechanism of Injury: resulted from a direct blow. Suicide/Homicide risk assessment- the patient denies having any suicidal and/or homicidal ideations and does not present with any other emotional, behavioral or mental health complaints. Status: Patient is not a return to service inspector or dependent. Transition of care: patient was not received from another setting of care. 23:05 Acuity: LILIYA Level 3 [facility] 23:05 Method Of Arrival: Ambulance [facility] Triage Assessment: 23:11 General: Appears uncomfortable, Behavior is appropriate for age. Pain: Location: head kmg1 and neck Pain currently is 10 out of 10 on a pain scale. 07/13 02:26 Pt Declines HIV testing. tm5 02:26 Neurological: Level of Consciousness is awake, alert, Oriented to person, place, time, tm5 Airplane Mechanic are equal bilaterally Moves all extremities. Gait is steady, Speech is normal, Facial symmetry appears normal, Facial symmetry: tongue is midline, Pupils are PERRLA. 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 albuterol sulfate 90 mcg/actuation Inhl HFAA 2 puffs every 4 hours 2. loratadine 10 mg Oral tab 1 tab once daily 3. med for anxiety and depression 4. migraine meds unknown - PMHx: Anxiety; Headaches; Irregular heart rate; - PSHx: Tonsillectomy; Adenoidectomy; Cholecystectomy; - Social history: Smoking status: Patient states was never smoker of tobacco. No barriers to communication noted, The patient speaks fluent Danish, Speaks appropriately for age. - Family history: Not pertinent. - : The pt / caregiver states he / she is not on anticoagulants. Home medication list is obtained from the patient. - Exposure Risk Screening:: None identified. Screenin:16 Screening information is obtained from the patient. Fall risk: No risks identified. tm5 Assistance ADL's: requires no assistance with activities of daily living. Abuse/DV Screen: The patient / caregiver reports he/she is: not in a situation that causes fear, pain or injury. Nutritional screening: No deficits noted. Advance Directives: There is no active DNR order. home support is adequate. Assessment: 23:08 General: Appears in no apparent distress, Behavior is appropriate for age, cooperative. tm5 23:16 Pain: Location: head & neck Pain currently is 6 out of 10 on a pain scale. Quality of tm5 pain is described as aching, throbbing. Neurological: Level of Consciousness is awake, alert, Oriented to person, place, time, Airplane Mechanic are equal bilaterally Moves all extremities. Speech is normal, Facial symmetry appears normal, Facial symmetry: tongue is midline, Pupils are PERRLA, Reports blurred vision dizziness, pt usually wears glasses she states . Respiratory: No deficits noted. Airway is patent Respiratory effort is even, unlabored, Respiratory pattern is regular, symmetrical, Breath sounds are clear bilaterally. GI: No deficits noted. : No deficits noted. Derm: Skin is pink, warm & dry. normal. Musculoskeletal: cervical spine is tender. Circulation, motion, and sensation intact. Injury Description: Laceration sustained to top of head is clean, bleeding moderately, laceration approx 2.5 inches in length. 07/13 01:01 Reassessment: Patient appears in no apparent distress at this time. Patient states tm5 feeling better. Patient states symptoms have improved. pt consuming nadia rashaad with no complaints of Nausea, states her headache is better & the neck spasms are getting better after the Valium was given . 01:18 General: Attempted to ambulate pt per orders, pt stood up at bedside & developed tm5 blurred vision attempted to take a few steps & said that she couldn't & then complained of nausea & dizziness, pt returned to bed & MD updated on ambulation status, orders to keep pt a bit longer in the ER, pt asking to go home told her not until she can ambulate better, boxed meal provided to her with [place] juice. 02:23 Reassessment: Patient appears in no apparent distress at this time. Patient states tm5 feeling better. Patient states symptoms have improved. pt ambulated with slow steady gait to the bathroom & back with only complaints of feeling weak due to lying down too much, pt asking to go home with family & friends, pt consumed all of boxed meal without any nausea or vomiting . Vital Signs: 07/12 23:21 BP 153 / 87; Pulse 98; Resp 20; Temp 96.4(O); Pulse Ox 98% on R/A; Weight 58.97 kg (R); jmv Height 5 ft. 7 in. (170.18 cm) (R); Pain 10/10; 23:32 BP 148 / 65 (auto/); tm5 23:33 Pulse 90 MON; Pulse Ox 98% ; tm5 23:47 BP 129 / 73 (auto/); tm5 23:48 Pulse 92 MON; Pulse Ox 99% ; tm5 07/13 00:02 BP 136 / 74 (auto/); tm5 00:03 Pulse 92 MON; Pulse Ox 98% ; tm5 00:17 BP 123 / 79 (auto/); tm5 00:18 Pulse 88 MON; Pulse Ox 98% ; tm5 00:32 BP 121 / 71 (auto/); tm5 00:33 Pulse 82 MON; Resp 18 S; Pulse Ox 97% on R/A; Pain 3/10; tm5 00:47 BP 122 / 79 (auto/); tm5 00:48 Pulse 88 MON; Resp 18 S; Pulse Ox 99% on R/A; Pain 3/10; tm5 01:17 BP 132 / 79 (auto/); tm5 01:18 Pulse 80 MON; Resp 20 S; Pulse Ox 97% on R/A; Pain 2/10; tm5 02:23 BP 122 / 64; Pulse 74; Resp 18; Temp 98.3(O); Pulse Ox 100% on R/A; Pain 2/10; tm5 07/12 23:21 Body Mass Index 20.36 (58.97 kg, 170.18 cm) [facility] Vitals: 07/12 23:11 Log In Time N/A - ambulance arrival. kmg1 Sydnee Coma Score: 23:05 Eye Response: spontaneous(4). Verbal Response: oriented(5). Motor Response: obeys kmg1 commands(6). Total: 15. ED Course: 23:04 Patient visited by Brittany Kraft PCA. tmm1 23:04 [facility] is Private Physician. tmm1 23:04 Patient moved to Waiting tmm1 23:05 Cassia Mcguire FNP is [facility] le 23:05 Patient moved to 4 kmg1 23:08 Alta Celeste,RIAN is Primary Nurse. tm5 23:08 Patient visited by Alta Celeste RN. tm5 23:09 Triage Initiated kmg1 23:14 Patient visited by Cassia Mcguire FNP. le 23:16 Patient visited by Cassia Mcguire FNP. le 23:16 Patient visited by Alta Celeste RN. tm5 23:16 ED physician to see patient. tm5 23:16 The patient / caregiver is instructed regarding the plan of care and ED course. Pulse tm5 ox on. NIBP on. Lights dimmed. Family accompanied patient. 23:16 Maintain field IV. Dressing intact. Good blood return noted. Site clean & dry. Gauge & tm5 site: #20 left AC. Nereyda cervical collar applied and checked by provider. Wound care to laceration located on top of head was cleaned with with NS at this time to assess wound, Patient tolerated well. 23:22 Patient visited by Jaspreet Hidalgo PCA. jmv 23:22 Pt greeted and oriented to ED. Patient advised of names of staff involved in care, [facility] location of call barron, wait times and NPO status. Accompanied by Family Member, Patient has correct armband on for positive identification. Placed in gown. Bed in low position. Call light in reach. Side rails up X2. 07/13 00:20 Patient visited by Alta Celeste RN. tm5 00:33 [facility] Payment Agreement was scanned into SLID and attached to record. pm4 00:34 CT Head Without Contrast Returned. EDMS 00:34 CT Spine,Cervical W/o Contrast Returned. EDMS 00:41 Patient visited by Alta Celeste RN. tm5 00:42 No procedures done that require assistance. Dressings: Kerlix X 2; 4X4s X 4; applied to tm5 head. 00:44 [facility] is Referral Physician. cs11 00:44 Macario Garcia DO is Attending Physician. cs11 01:01 Patient visited by Alta Celeste RN. tm5 01:18 Patient visited by Alta Celeste,RIAN. tm5 02:19 Patient visited by Alta Celeste RN. tm5 02:23 Discontinued lock intact, bleeding controlled, pressure dressing applied, No tm5 redness/swelling at site. 07:52 T-Sheet-- Draft Copy was scanned into SLID and attached to record. [facility] 11:11 Radiology Report was scanned into SLID and attached to record. gb Administered Medications: 07/12 23:22 Drug: NS 0.9% 1000 ml [sodium chloride 0.9 % intravenous solution] Route: IV; Rate: tm5 bolus; Site: left antecubital; 07/13 00:21 Follow up: IV Status: Completed infusion; IV Intake: 1000ml tm5 07/12 23:28 Drug: Ondansetron 4 mg Route: IVP; Site: left antecubital; tm5 07/13 00:21 Follow up: Response: Nausea is resolved; No Adverse Reaction tm5 07/12 23:28 Drug: Acetaminophen 650 mg [acetaminophen 325 mg tablet (2 tabs)] Route: PO; tm5 07/13 00:21 Follow up: Response: No Adverse Reaction; Pain is decreased tm5 00:20 Drug: Lidocaine-Epinephrine 10 ml [lidocaine-epinephrine 1 %-1:100,000 injection tm5 solution (10 mL)] {Note: placed at bedside for TUBE TRAILER FILLER's procedure .} Route: Infiltration; 00:42 Drug: Diazepam 2 mg [diazepam 2 mg tablet (1 tabs)] Route: PO; tm5 02:22 Follow up: Response: No Adverse Reaction; Pain is decreased tm5 Intake: 00:21 IV: 1000.00ml; Total: 1000.00ml. tm5 Order Results: Radiology Order: CT Head Without Contrast Test: CT Head Without Contrast REASON FOR EXAMINATION: direct blow; ; CLINICAL HISTORY: Head trauma.; TECHNIQUE: Multiple axial brain CT scan sections were obtained from base to vertex without contrast a; dministration.; COMMENTS:; There is no evidence of skull fracture.; The study shows normal configuration of sella turcica. There are no intra or extra-axial collections.; There is no mass effect or midline shift. There is no evidence of hematoma formation. No hydrocephal; us is present. No abnormal calcifications are noted.; No significant abnormalities are seen either in the posterior fossa or supratentorial compartment.; The sinuses and mastoid air cells are patent.; IMPRESSION:; No evidence of acute intracranial pathology. No intracranial hemorrhage or skull fracture.; Thank you for your kind referral of this patient.; ; Radiology Order: CT Spine,Cervical W/o Contrast Test: CT Spine,Cervical W/o Contrast REASON FOR EXAMINATION: axial loading;Trauma; ; CLINICAL HISTORY: Trauma.; TECHNIQUE: Multiple axial CT images were obtained through the cervical spine without IV contrast mate; rial.; COMMENTS:; There is an oblique lucent line of the left superior articular process of C7 suspicious for a nondisp; laced fracture. No associated facet dislocation. No associated locked facet. No associated extension; into the spinal canal. No associated intraspinal hematoma.; There is no other fracture visualized. The paraspinal soft tissues are unremarkable. There are no lyt; ic or blastic lesions.; IMPRESSION:; Oblique lucent line of the left superior articular process of C7 suspicious for a nondisplaced fractu; re.; This was not present on the prior exam on 09/22/2013.; MRI is suggested for further evaluation if clinically needed.; Thank you for your kind referral of this patient.; ; Outcome: 00:44 Discharge ordered by Provider. cs11 02:23 Discharge Assessment: Patient awake, alert and oriented x 3. No cognitive and/or tm5 functional deficits noted. Patient verbalized understanding of disposition instructions. patient administered narcotics - yes. Pt provided with safe discharge. The following High Risk Discharge criteria are identified: None. Discharged to home ambulatory, with family. Condition: good Condition: stable Condition: improved. Discharge instructions given to patient, Instructed on discharge instructions, follow up and referral plans. wound care, Demonstrated understanding of instructions, medications, Pt was receptive of discharge instructions/ teaching. Work note provided to patient. CT Study completed. Property :Personal belongings accompany Pt. 02:27 Patient left the ED. tm5 Addendum: 07/15/2016 10:41 Narrative: Message left at patient's home to call us concerning returning and kcs furthering test for a possible C7 fracture. Per Dr. Allred patient is to return for flexion/extension x-rays and MRI. if neg = discharge, if + patient to f/u with Dr. Street - he was consulted today. Signatures: Dispatcher [employer] EDCha Stein, RN RN kcs Kayla Flowers, RIAN RN kmg1 Paula Powell, Reg Reg gb Cassia Mcguire, INTERVENTIONAL RADIOLOGY TECH INTERVENTIONAL RADIOLOGY TECH Macario Araujo, DO cs11 Brittany Kraft, HOOK AND EYE ATTACHER HOOK AND EYE ATTACHER tmm1 Ny Morris Jose, HOOK AND EYE ATTACHER HOOK AND EYE ATTACHER Alta Wasserman,RN RN tm5 Eddie Max, Reg Reg pm4 MTDD
--- NOTE | 2016-07-15 10:50 | EDDOCDS ---
Physician Documentation [facility] Name: Yael Stovall Age: 25 yrs Sex: Female : 1990 Arrival Date: 07/12/2016 Time: 23:03 Bed 4 Private MD: [facility] - Adults Disposition: 07/13/16 00:44 Discharged to Home/Self Care. Impression: Laceration without foreign body of scalp, Concussion, Strain of muscle, fascia and tendon at neck level. - Condition is Stable. - Discharge Instructions: Concussion, Adult, Laceration Care, Adult, Cervical Sprain. - Medication Reconciliation, Local Pharmacy Hours, Work Release Form - 2 day form. - Follow up: Center - Adults [facility]; When: 1 week; Reason: Staple/Suture removal, Continuance of care. - Problem is new. - Symptoms have improved. - Notes: Keep hydrated Tylenol (only) for pain for the first 3 days, after than it is ok to use NSAIDS (Ibuprofen, ASA, Aleve, advil, naprosyn) [place] need to be removed in about 1 week, this can be done by your PCP (in most cases) Return to the ED for any concerns Historical: - Allergies: Coconut; Codeine Sulfate (Unknown); - Home Meds: 1. albuterol sulfate 90 mcg/actuation Inhl HFAA 2 puffs every 4 hours 2. loratadine 10 mg Oral tab 1 tab once daily 3. med for anxiety and depression 4. migraine meds unknown - PMHx: Anxiety; Headaches; Irregular heart rate; - PSHx: Tonsillectomy; Adenoidectomy; Cholecystectomy; - Social history: Smoking status: Patient states was never smoker of tobacco. No barriers to communication noted, The patient speaks fluent Belarusian, Speaks appropriately for age. - Family history: Not pertinent. - : The pt / caregiver states he / she is not on anticoagulants. Home medication list is obtained from the patient. - Exposure Risk Screening:: None identified. 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 7 in. (170.18 cm) (R); Pain 10/10; 23:32 BP 148 / 65 (auto/); tm5 23:33 Pulse 90 MON; Pulse Ox 98% ; tm5 23:47 BP 129 / 73 (auto/); tm5 23:48 Pulse 92 MON; Pulse Ox 99% ; tm5 07/13 00:02 BP 136 / 74 (auto/); tm5 00:03 Pulse 92 MON; Pulse Ox 98% ; tm5 00:17 BP 123 / 79 (auto/); tm5 00:18 Pulse 88 MON; Pulse Ox 98% ; tm5 00:32 BP 121 / 71 (auto/); tm5 00:33 Pulse 82 MON; Resp 18 S; Pulse Ox 97% on R/A; Pain 3/10; tm5 00:47 BP 122 / 79 (auto/); tm5 00:48 Pulse 88 MON; Resp 18 S; Pulse Ox 99% on R/A; Pain 3/10; tm5 01:17 BP 132 / 79 (auto/); tm5 01:18 Pulse 80 MON; Resp 20 S; Pulse Ox 97% on R/A; Pain 2/10; tm5 02:23 BP 122 / 64; Pulse 74; Resp 18; Temp 98.3(O); Pulse Ox 100% on R/A; Pain 2/10; tm5 07/12 23:21 Body Mass Index 20.36 (58.97 kg, 170.18 cm) jmv Sydnee Coma Score: 07/12 23:05 Eye Response: spontaneous(4). Verbal Response: oriented(5). Motor Response: obeys kmg1 commands(6). Total: 15. MDM: 23:16 Ondansetron 4 mg IVP once ordered. le 23:16 Misc. Nursing Order ordered. le 23:16 NS 0.9% 1000 ml IV at bolus once ordered. le 23:16 Acetaminophen Tablet 650 mg PO once ordered. le 23:16 CT Head Without Contrast Ordered. EDMS 23:16 Lidocaine-Epinephrine 1 %-1:100,000 10 ml Infiltration once; to bedside ordered. le 23:17 CT Spine,Cervical W/o Contrast Ordered. EDMS 07/13 00:22 Diazepam 2 mg PO once ordered. le 00:22 Fluid Challenge ordered. le 00:22 Wound Care ordered. le 00:22 Ambulate patient to assess pain tolerance ordered. le 00:28 Financial registration complete. pm4 00:33 [facility] Payment Agreement was scanned into [employer] and attached to record. pm4 07:52 T-Sheet-- Draft Copy was scanned into [employer] and attached to record. [facility] 11:11 Radiology Report was scanned into [employer] and attached to record. gb Administered Medications: 07/12 23:22 Drug: NS 0.9% 1000 ml [sodium chloride 0.9 % intravenous solution] Route: IV; Rate: tm5 bolus; Site: left antecubital; 07/13 00:21 Follow up: IV Status: Completed infusion; IV Intake: 1000ml tm5 07/12 23:28 Drug: Ondansetron 4 mg Route: IVP; Site: left antecubital; tm5 07/13 00:21 Follow up: Response: Nausea is resolved; No Adverse Reaction tm5 07/12 23:28 Drug: Acetaminophen 650 mg [acetaminophen 325 mg tablet (2 tabs)] Route: PO; tm5 07/13 00:21 Follow up: Response: No Adverse Reaction; Pain is decreased tm5 00:20 Drug: Lidocaine-Epinephrine 10 ml [lidocaine-epinephrine 1 %-1:100,000 injection tm5 solution (10 mL)] {Note: placed at bedside for CHICLE GRINDER FEEDER's procedure .} Route: Infiltration; 00:42 Drug: Diazepam 2 mg [diazepam 2 mg tablet (1 tabs)] Route: PO; tm5 02:22 Follow up: Response: No Adverse Reaction; Pain is decreased tm5 Addendum: 07/15/2016 10:30 Addendum: radiology report review ? nondisplaced fx superior articular process C7 - d/w sd1 Dr. Zaragoza recommended flex-ex views and MRI - d/w charge nurse will have patient return for imaging and fu with Dr. Mix depending on the results of imaging. Signatures: Dispatcher [employer] EDNy Eckert MD MD sd1 Kayla Flowers, RN RN kmg1 Paula Powell, Reg Reg gb Cassia Mcguire, BELLOWS ASSEMBLER BELLOWS ASSEMBLER Macario Araujo DO DO [address] Alta Gutierres,RIAN RN tm5 Eddie Max, Reg Reg pm4 The chart was reviewed and I authenticate all verbal orders and agree with the evaluation and treatment provided.Attachments: 07/13 00:33 [facility] Payment Agreement pm4 07:52 T-Sheet-- Draft Copy [facility] MTDD
--- NOTE | 2016-07-15 10:51 | EDDOCDS ---
Physician Documentation [facility] Name: Yael Stovall Age: 25 yrs Sex: Female : 1990 Arrival Date: 07/12/2016 Time: 23:03 Bed 4 Private MD: [facility] [place] - Adults Disposition: 07/13/16 00:44 Discharged to Home/Self Care. Impression: Laceration without foreign body of scalp, Concussion, Strain of muscle, fascia and tendon at neck level. - Condition is Stable. - Discharge Instructions: Concussion, Adult, Laceration Care, Adult, Cervical Sprain. - Medication Reconciliation, Local Pharmacy Hours, Work Release Form - 2 day form. - Follow up: Center - Adults [facility]; When: 1 week; Reason: Staple/Suture removal, Continuance of care. - Problem is new. - Symptoms have improved. - Notes: Keep hydrated Tylenol (only) for pain for the first 3 days, after than it is ok to use NSAIDS (Ibuprofen, ASA, Aleve, advil, naprosyn) [place] need to be removed in about 1 week, this can be done by your PCP (in most cases) Return to the ED for any concerns Historical: - Allergies: Coconut; Codeine Sulfate (Unknown); - Home Meds: 1. albuterol sulfate 90 mcg/actuation Inhl HFAA 2 puffs every 4 hours 2. loratadine 10 mg Oral tab 1 tab once daily 3. med for anxiety and depression 4. migraine meds unknown - PMHx: Anxiety; Headaches; Irregular heart rate; - PSHx: Tonsillectomy; Adenoidectomy; Cholecystectomy; - Social history: Smoking status: Patient states was never smoker of tobacco. No barriers to communication noted, The patient speaks fluent Nepali, Speaks appropriately for age. - Family history: Not pertinent. - : The pt / caregiver states he / she is not on anticoagulants. Home medication list is obtained from the patient. - Exposure Risk Screening:: None identified. 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 7 in. (170.18 cm) (R); Pain 10/10; 23:32 BP 148 / 65 (auto/); tm5 23:33 Pulse 90 MON; Pulse Ox 98% ; tm5 23:47 BP 129 / 73 (auto/); tm5 23:48 Pulse 92 MON; Pulse Ox 99% ; tm5 07/13 00:02 BP 136 / 74 (auto/); tm5 00:03 Pulse 92 MON; Pulse Ox 98% ; tm5 00:17 BP 123 / 79 (auto/); tm5 00:18 Pulse 88 MON; Pulse Ox 98% ; tm5 00:32 BP 121 / 71 (auto/); tm5 00:33 Pulse 82 MON; Resp 18 S; Pulse Ox 97% on R/A; Pain 3/10; tm5 00:47 BP 122 / 79 (auto/); tm5 00:48 Pulse 88 MON; Resp 18 S; Pulse Ox 99% on R/A; Pain 3/10; tm5 01:17 BP 132 / 79 (auto/); tm5 01:18 Pulse 80 MON; Resp 20 S; Pulse Ox 97% on R/A; Pain 2/10; tm5 02:23 BP 122 / 64; Pulse 74; Resp 18; Temp 98.3(O); Pulse Ox 100% on R/A; Pain 2/10; tm5 07/12 23:21 Body Mass Index 20.36 (58.97 kg, 170.18 cm) jmv Sydnee Coma Score: 07/12 23:05 Eye Response: spontaneous(4). Verbal Response: oriented(5). Motor Response: obeys kmg1 commands(6). Total: 15. MDM: 23:16 Ondansetron 4 mg IVP once ordered. le 23:16 Misc. Nursing Order ordered. le 23:16 NS 0.9% 1000 ml IV at bolus once ordered. le 23:16 Acetaminophen Tablet 650 mg PO once ordered. le 23:16 CT Head Without Contrast Ordered. EDMS 23:16 Lidocaine-Epinephrine 1 %-1:100,000 10 ml Infiltration once; to bedside ordered. le 23:17 CT Spine,Cervical W/o Contrast Ordered. EDMS 07/13 00:22 Diazepam 2 mg PO once ordered. le 00:22 Fluid Challenge ordered. le 00:22 Wound Care ordered. le 00:22 Ambulate patient to assess pain tolerance ordered. le 00:28 Financial registration complete. pm4 00:33 [facility] Payment Agreement was scanned into [employer] and attached to record. pm4 07:52 T-Sheet-- Draft Copy was scanned into [employer] and attached to record. [facility] 11:11 Radiology Report was scanned into [employer] and attached to record. gb Administered Medications: 07/12 23:22 Drug: NS 0.9% 1000 ml [sodium chloride 0.9 % intravenous solution] Route: IV; Rate: tm5 bolus; Site: left antecubital; 07/13 00:21 Follow up: IV Status: Completed infusion; IV Intake: 1000ml tm5 07/12 23:28 Drug: Ondansetron 4 mg Route: IVP; Site: left antecubital; tm5 07/13 00:21 Follow up: Response: Nausea is resolved; No Adverse Reaction tm5 07/12 23:28 Drug: Acetaminophen 650 mg [acetaminophen 325 mg tablet (2 tabs)] Route: PO; tm5 07/13 00:21 Follow up: Response: No Adverse Reaction; Pain is decreased tm5 00:20 Drug: Lidocaine-Epinephrine 10 ml [lidocaine-epinephrine 1 %-1:100,000 injection tm5 solution (10 mL)] {Note: placed at bedside for HIGH SCHOOL BAND DIRECTOR's procedure .} Route: Infiltration; 00:42 Drug: Diazepam 2 mg [diazepam 2 mg tablet (1 tabs)] Route: PO; tm5 02:22 Follow up: Response: No Adverse Reaction; Pain is decreased tm5 Addendum: 07/15/2016 10:30 Addendum: radiology report review ? nondisplaced fx superior articular process C7 - d/w sd1 Dr. Zaragoza recommended flex-ex views and MRI - d/w charge nurse will have patient return for imaging and fu with Dr. Mix depending on the results of imaging. Signatures: Dispatcher [employer] EDNy Eckert MD MD sd1 Kayla Flowers, RN RN kmg1 Paula Powell, Reg Reg gb Cassia Mcguire, BRONC BUSTER BRONC BUSTER Macario Araujo DO DO [address] Alta Gutierres,RIAN RN tm5 Eddie Max, Reg Reg pm4 The chart was reviewed and I authenticate all verbal orders and agree with the evaluation and treatment provided.Attachments: 07/13 00:33 [facility] Payment Agreement pm4 07:52 T-Sheet-- Draft Copy [facility] Chart Complete MTDD
--- NOTE | 2016-07-15 10:51 | EDDOCDS ---
Nurse's Notes [facility] Name: Yael Stovall Age: 25 yrs Sex: Female : 1990 Arrival Date: 07/12/2016 Time: 23:03 Bed 4 Private MD: [facility] Diagnosis: Laceration without foreign body of scalp;Concussion;Strain of muscle, fascia and tendon at neck level Presentation: 07/12 23:05 Presenting complaint: Patient states: Was running from a coy dog. Went to jump into the kmg1 side door of a minivan and stuck her head on the door frame. Lost consciousness for a few seconds. Laceration on top of head. Also c/o neck discomfort. This patient has no additional risk factors. Mechanism of Injury: resulted from a direct blow. Suicide/Homicide risk assessment- the patient denies having any suicidal and/or homicidal ideations and does not present with any other emotional, behavioral or mental health complaints. Status: Patient is not a donor services coordinator or dependent. Transition of care: patient was not received from another setting of care. 23:05 Acuity: LILIYA Level 3 [facility] 23:05 Method Of Arrival: Ambulance [facility] Triage Assessment: 23:11 General: Appears uncomfortable, Behavior is appropriate for age. Pain: Location: head kmg1 and neck Pain currently is 10 out of 10 on a pain scale. 07/13 02:26 Pt Declines HIV testing. tm5 02:26 Neurological: Level of Consciousness is awake, alert, Oriented to person, place, time, tm5 Cloth Colors Examiner are equal bilaterally Moves all extremities. Gait is steady, Speech is normal, Facial symmetry appears normal, Facial symmetry: tongue is midline, Pupils are PERRLA. EDUCATION SALES CONSULTANT: 07/12 23:11 LMP 06/23/2016 [facility] Historical: - Allergies: Coconut; Codeine Sulfate (Unknown); - Home Meds: 1. albuterol sulfate 90 mcg/actuation Inhl HFAA 2 puffs every 4 hours 2. loratadine 10 mg Oral tab 1 tab once daily 3. med for anxiety and depression 4. migraine meds unknown - PMHx: Anxiety; Headaches; Irregular heart rate; - PSHx: Tonsillectomy; Adenoidectomy; Cholecystectomy; - Social history: Smoking status: Patient states was never smoker of tobacco. No barriers to communication noted, The patient speaks fluent Danish, Speaks appropriately for age. - Family history: Not pertinent. - : The pt / caregiver states he / she is not on anticoagulants. Home medication list is obtained from the patient. - Exposure Risk Screening:: None identified. Screenin:16 Screening information is obtained from the patient. Fall risk: No risks identified. tm5 Assistance ADL's: requires no assistance with activities of daily living. Abuse/DV Screen: The patient / caregiver reports he/she is: not in a situation that causes fear, pain or injury. Nutritional screening: No deficits noted. Advance Directives: There is no active DNR order. home support is adequate. Assessment: 23:08 General: Appears in no apparent distress, Behavior is appropriate for age, cooperative. tm5 23:16 Pain: Location: head & neck Pain currently is 6 out of 10 on a pain scale. Quality of tm5 pain is described as aching, throbbing. Neurological: Level of Consciousness is awake, alert, Oriented to person, place, time, Cloth Colors Examiner are equal bilaterally Moves all extremities. Speech is normal, Facial symmetry appears normal, Facial symmetry: tongue is midline, Pupils are PERRLA, Reports blurred vision dizziness, pt usually wears glasses she states . Respiratory: No deficits noted. Airway is patent Respiratory effort is even, unlabored, Respiratory pattern is regular, symmetrical, Breath sounds are clear bilaterally. GI: No deficits noted. : No deficits noted. Derm: Skin is pink, warm & dry. normal. Musculoskeletal: cervical spine is tender. Circulation, motion, and sensation intact. Injury Description: Laceration sustained to top of head is clean, bleeding moderately, laceration approx 2.5 inches in length. 07/13 01:01 Reassessment: Patient appears in no apparent distress at this time. Patient states tm5 feeling better. Patient states symptoms have improved. pt consuming nadia rashaad with no complaints of Nausea, states her headache is better & the neck spasms are getting better after the Valium was given . 01:18 General: Attempted to ambulate pt per orders, pt stood up at bedside & developed tm5 blurred vision attempted to take a few steps & said that she couldn't & then complained of nausea & dizziness, pt returned to bed & MD updated on ambulation status, orders to keep pt a bit longer in the ER, pt asking to go home told her not until she can ambulate better, boxed meal provided to her with [place] juice. 02:23 Reassessment: Patient appears in no apparent distress at this time. Patient states tm5 feeling better. Patient states symptoms have improved. pt ambulated with slow steady gait to the bathroom & back with only complaints of feeling weak due to lying down too much, pt asking to go home with family & friends, pt consumed all of boxed meal without any nausea or vomiting . Vital Signs: 07/12 23:21 BP 153 / 87; Pulse 98; Resp 20; Temp 96.4(O); Pulse Ox 98% on R/A; Weight 58.97 kg (R); jmv Height 5 ft. 7 in. (170.18 cm) (R); Pain 10/10; 23:32 BP 148 / 65 (auto/); tm5 23:33 Pulse 90 MON; Pulse Ox 98% ; tm5 23:47 BP 129 / 73 (auto/); tm5 23:48 Pulse 92 MON; Pulse Ox 99% ; tm5 07/13 00:02 BP 136 / 74 (auto/); tm5 00:03 Pulse 92 MON; Pulse Ox 98% ; tm5 00:17 BP 123 / 79 (auto/); tm5 00:18 Pulse 88 MON; Pulse Ox 98% ; tm5 00:32 BP 121 / 71 (auto/); tm5 00:33 Pulse 82 MON; Resp 18 S; Pulse Ox 97% on R/A; Pain 3/10; tm5 00:47 BP 122 / 79 (auto/); tm5 00:48 Pulse 88 MON; Resp 18 S; Pulse Ox 99% on R/A; Pain 3/10; tm5 01:17 BP 132 / 79 (auto/); tm5 01:18 Pulse 80 MON; Resp 20 S; Pulse Ox 97% on R/A; Pain 2/10; tm5 02:23 BP 122 / 64; Pulse 74; Resp 18; Temp 98.3(O); Pulse Ox 100% on R/A; Pain 2/10; tm5 07/12 23:21 Body Mass Index 20.36 (58.97 kg, 170.18 cm) [facility] Vitals: 07/12 23:11 Log In Time N/A - ambulance arrival. kmg1 Sydnee Coma Score: 23:05 Eye Response: spontaneous(4). Verbal Response: oriented(5). Motor Response: obeys kmg1 commands(6). Total: 15. ED Course: 23:04 Patient visited by Brittany Kraft PCA. tmm1 23:04 [facility] is Private Physician. tmm1 23:04 Patient moved to Waiting tmm1 23:05 Cassia Mcguire FNP is [facility]. le 23:05 Patient moved to 4 kmg1 23:08 Alta Celeste,RIAN is Primary Nurse. tm5 23:08 Patient visited by Alta Celeste RN. tm5 23:09 Triage Initiated kmg1 23:14 Patient visited by Cassia Mcguire FNP. le 23:16 Patient visited by Cassia Mcguire FNP. le 23:16 Patient visited by Alta Celeste RN. tm5 23:16 ED physician to see patient. tm5 23:16 The patient / caregiver is instructed regarding the plan of care and ED course. Pulse tm5 ox on. NIBP on. Lights dimmed. Family accompanied patient. 23:16 Maintain field IV. Dressing intact. Good blood return noted. Site clean & dry. Gauge & tm5 site: #20 left AC. Nereyda cervical collar applied and checked by provider. Wound care to laceration located on top of head was cleaned with with NS at this time to assess wound, Patient tolerated well. 23:22 Patient visited by Jaspreet Hidalgo PCA. jmv 23:22 Pt greeted and oriented to ED. Patient advised of names of staff involved in care, [facility] location of call barron, wait times and NPO status. Accompanied by Family Member, Patient has correct armband on for positive identification. Placed in gown. Bed in low position. Call light in reach. Side rails up X2. 07/13 00:20 Patient visited by Alta Celeste RN. tm5 00:33 [facility] Payment Agreement was scanned into [employer] and attached to record. pm4 00:34 CT Head Without Contrast Returned. EDMS 00:34 CT Spine,Cervical W/o Contrast Returned. EDMS 00:41 Patient visited by Alta Celeste RN. tm5 00:42 No procedures done that require assistance. Dressings: Kerlix X 2; 4X4s X 4; applied to tm5 head. 00:44 [facility] is Referral Physician. cs11 00:44 Macario Garcia DO is Attending Physician. cs11 01:01 Patient visited by Alta Celeste RN. tm5 01:18 Patient visited by Alta Celeste,RIAN. tm5 02:19 Patient visited by Alta Celeste RN. tm5 02:23 Discontinued lock intact, bleeding controlled, pressure dressing applied, No tm5 redness/swelling at site. 07:52 T-Sheet-- Draft Copy was scanned into [employer] and attached to record. [facility] 11:11 Radiology Report was scanned into [employer] and attached to record. gb Administered Medications: 07/12 23:22 Drug: NS 0.9% 1000 ml [sodium chloride 0.9 % intravenous solution] Route: IV; Rate: tm5 bolus; Site: left antecubital; 07/13 00:21 Follow up: IV Status: Completed infusion; IV Intake: 1000ml tm5 07/12 23:28 Drug: Ondansetron 4 mg Route: IVP; Site: left antecubital; tm5 07/13 00:21 Follow up: Response: Nausea is resolved; No Adverse Reaction tm5 07/12 23:28 Drug: Acetaminophen 650 mg [acetaminophen 325 mg tablet (2 tabs)] Route: PO; tm5 07/13 00:21 Follow up: Response: No Adverse Reaction; Pain is decreased tm5 00:20 Drug: Lidocaine-Epinephrine 10 ml [lidocaine-epinephrine 1 %-1:100,000 injection tm5 solution (10 mL)] {Note: placed at bedside for SENSITIZED PAPER TESTER's procedure .} Route: Infiltration; 00:42 Drug: Diazepam 2 mg [diazepam 2 mg tablet (1 tabs)] Route: PO; tm5 02:22 Follow up: Response: No Adverse Reaction; Pain is decreased tm5 Intake: 00:21 IV: 1000.00ml; Total: 1000.00ml. tm5 Order Results: Radiology Order: CT Head Without Contrast Test: CT Head Without Contrast REASON FOR EXAMINATION: direct blow; ; CLINICAL HISTORY: Head trauma.; TECHNIQUE: Multiple axial brain CT scan sections were obtained from base to vertex without contrast a; dministration.; COMMENTS:; There is no evidence of skull fracture.; The study shows normal configuration of sella turcica. There are no intra or extra-axial collections.; There is no mass effect or midline shift. There is no evidence of hematoma formation. No hydrocephal; us is present. No abnormal calcifications are noted.; No significant abnormalities are seen either in the posterior fossa or supratentorial compartment.; The sinuses and mastoid air cells are patent.; IMPRESSION:; No evidence of acute intracranial pathology. No intracranial hemorrhage or skull fracture.; Thank you for your kind referral of this patient.; ; Radiology Order: CT Spine,Cervical W/o Contrast Test: CT Spine,Cervical W/o Contrast REASON FOR EXAMINATION: axial loading;Trauma; ; CLINICAL HISTORY: Trauma.; TECHNIQUE: Multiple axial CT images were obtained through the cervical spine without IV contrast mate; rial.; COMMENTS:; There is an oblique lucent line of the left superior articular process of C7 suspicious for a nondisp; laced fracture. No associated facet dislocation. No associated locked facet. No associated extension; into the spinal canal. No associated intraspinal hematoma.; There is no other fracture visualized. The paraspinal soft tissues are unremarkable. There are no lyt; ic or blastic lesions.; IMPRESSION:; Oblique lucent line of the left superior articular process of C7 suspicious for a nondisplaced fractu; re.; This was not present on the prior exam on 09/22/2013.; MRI is suggested for further evaluation if clinically needed.; Thank you for your kind referral of this patient.; ; Outcome: 00:44 Discharge ordered by Provider. cs11 02:23 Discharge Assessment: Patient awake, alert and oriented x 3. No cognitive and/or tm5 functional deficits noted. Patient verbalized understanding of disposition instructions. patient administered narcotics - yes. Pt provided with safe discharge. The following High Risk Discharge criteria are identified: None. Discharged to home ambulatory, with family. Condition: good Condition: stable Condition: improved. Discharge instructions given to patient, Instructed on discharge instructions, follow up and referral plans. wound care, Demonstrated understanding of instructions, medications, Pt was receptive of discharge instructions/ teaching. Work note provided to patient. CT Study completed. Property :Personal belongings accompany Pt. 02:27 Patient left the ED. tm5 Addendum: 07/15/2016 10:41 Narrative: Message left at patient's home to call us concerning returning and kcs furthering test for a possible C7 fracture. Per Dr. Allred patient is to return for flexion/extension x-rays and MRI. if neg = discharge, if + patient to f/u with Dr. Street - he was consulted today. Signatures: Dispatcher [employer] EDCha Stein, RN RN kcs Kayla Flowers, RIAN RN kmg1 Paula Powell, Reg Reg gb Cassia Mcguire, DIRECTOR RELIGIOUS EDUCATION DIRECTOR RELIGIOUS EDUCATION Macario Araujo, DO cs11 Brittany Kraft, METAL ROASTER METAL ROASTER tmm1 Ny Morris Jose, METAL ROASTER METAL ROASTER Alta Wasserman RN RN tm5 Eddie Max, Reg Reg pm4 Chart Complete JULIET
--- NOTE | 2016-07-15 10:51 | EDDOCDS ---
Physician Documentation [facility] Name: Yael Stovall Age: 25 yrs Sex: Female : 1990 Arrival Date: 07/12/2016 Time: 23:03 Bed 4 Private MD: [facility] [place] - [facility] Disposition: 07/13/16 00:44 Discharged to Home/Self Care. Impression: Laceration without foreign body of scalp, Concussion, Strain of muscle, fascia and tendon at neck level. - Condition is Stable. - Discharge Instructions: Concussion, Adult, Laceration Care, Adult, Cervical Sprain. - Medication Reconciliation, Local Pharmacy Hours, Work Release Form - 2 day form. - Follow up: Center - Adults [facility]; When: 1 week; Reason: Staple/Suture removal, Continuance of care. - Problem is new. - Symptoms have improved. - Notes: Keep hydrated Tylenol (only) for pain for the first 3 days, after than it is ok to use NSAIDS (Ibuprofen, ASA, Aleve, advil, naprosyn) [place] need to be removed in about 1 week, this can be done by your PCP (in most cases) Return to the ED for any concerns Historical: - Allergies: Coconut; Codeine Sulfate (Unknown); - Home Meds: 1. albuterol sulfate 90 mcg/actuation Inhl HFAA 2 puffs every 4 hours 2. loratadine 10 mg Oral tab 1 tab once daily 3. med for anxiety and depression 4. migraine meds unknown - PMHx: Anxiety; Headaches; Irregular heart rate; - PSHx: Tonsillectomy; Adenoidectomy; Cholecystectomy; - Social history: Smoking status: Patient states was never smoker of tobacco. No barriers to communication noted, The patient speaks fluent Portuguese, Speaks appropriately for age. - Family history: Not pertinent. - : The pt / caregiver states he / she is not on anticoagulants. Home medication list is obtained from the patient. - Exposure Risk Screening:: None identified. CARROT TIER: 07/12 23:11 LMP 06/23/2016 kmg1 Vital Signs: 23:21 BP 153 / 87; Pulse 98; Resp 20; Temp 96.4(O); Pulse Ox 98% on R/A; Weight 58.97 kg / jmv 130.01 lbs (R); Height 5 ft. 7 in. (170.18 cm) (R); Pain 10/10; 23:32 BP 148 / 65 (auto/); tm5 23:33 Pulse 90 MON; Pulse Ox 98% ; tm5 23:47 BP 129 / 73 (auto/); tm5 23:48 Pulse 92 MON; Pulse Ox 99% ; tm5 07/13 00:02 BP 136 / 74 (auto/); tm5 00:03 Pulse 92 MON; Pulse Ox 98% ; tm5 00:17 BP 123 / 79 (auto/); tm5 00:18 Pulse 88 MON; Pulse Ox 98% ; tm5 00:32 BP 121 / 71 (auto/); tm5 00:33 Pulse 82 MON; Resp 18 S; Pulse Ox 97% on R/A; Pain 3/10; tm5 00:47 BP 122 / 79 (auto/); tm5 00:48 Pulse 88 MON; Resp 18 S; Pulse Ox 99% on R/A; Pain 3/10; tm5 01:17 BP 132 / 79 (auto/); tm5 01:18 Pulse 80 MON; Resp 20 S; Pulse Ox 97% on R/A; Pain 2/10; tm5 02:23 BP 122 / 64; Pulse 74; Resp 18; Temp 98.3(O); Pulse Ox 100% on R/A; Pain 2/10; tm5 07/12 23:21 Body Mass Index 20.36 (58.97 kg, 170.18 cm) jmv Sydnee Coma Score: 07/12 23:05 Eye Response: spontaneous(4). Verbal Response: oriented(5). Motor Response: obeys kmg1 commands(6). Total: 15. MDM: 23:16 Ondansetron 4 mg IVP once ordered. le 23:16 Misc. Nursing Order ordered. le 23:16 NS 0.9% 1000 ml IV at bolus once ordered. le 23:16 Acetaminophen Tablet 650 mg PO once ordered. le 23:16 CT Head Without Contrast Ordered. EDMS 23:16 Lidocaine-Epinephrine 1 %-1:100,000 10 ml Infiltration once; to bedside ordered. le 23:17 CT Spine,Cervical W/o Contrast Ordered. EDMS 07/13 00:22 Diazepam 2 mg PO once ordered. le 00:22 Fluid Challenge ordered. le 00:22 Wound Care ordered. le 00:22 Ambulate patient to assess pain tolerance ordered. le 00:28 Financial registration complete. pm4 00:33 [facility] Payment Agreement was scanned into [employer] and attached to record. pm4 07:52 T-Sheet-- Draft Copy was scanned into [employer] and attached to record. [facility] 11:11 Radiology Report was scanned into [employer] and attached to record. gb Administered Medications: 07/12 23:22 Drug: NS 0.9% 1000 ml [sodium chloride 0.9 % intravenous solution] Route: IV; Rate: tm5 bolus; Site: left antecubital; 07/13 00:21 Follow up: IV Status: Completed infusion; IV Intake: 1000ml tm5 07/12 23:28 Drug: Ondansetron 4 mg Route: IVP; Site: left antecubital; tm5 07/13 00:21 Follow up: Response: Nausea is resolved; No Adverse Reaction tm5 07/12 23:28 Drug: Acetaminophen 650 mg [acetaminophen 325 mg tablet (2 tabs)] Route: PO; tm5 07/13 00:21 Follow up: Response: No Adverse Reaction; Pain is decreased tm5 00:20 Drug: Lidocaine-Epinephrine 10 ml [lidocaine-epinephrine 1 %-1:100,000 injection tm5 solution (10 mL)] {Note: placed at bedside for FLAG CAR DRIVER's procedure .} Route: Infiltration; 00:42 Drug: Diazepam 2 mg [diazepam 2 mg tablet (1 tabs)] Route: PO; tm5 02:22 Follow up: Response: No Adverse Reaction; Pain is decreased tm5 Addendum: 07/15/2016 10:30 Addendum: radiology report review ? nondisplaced fx superior articular process C7 - d/w sd1 Dr. Zaragoza recommended flex-ex views and MRI - d/w charge nurse will have patient return for imaging and fu with Dr. Mix depending on the results of imaging. Signatures: Dispatcher [employer] EDNy Eckert MD MD sd1 Kayla Flowers, RN RN kmg1 Paula Powell, Reg Reg gb Cassia Mcguire, RUG TOUCH UP PAINTER RUG TOUCH UP PAINTER Macario Araujo DO DO 11 Ny Morris Alta Gutierres,RIAN RN tm5 Eddie Max, Reg Reg pm4 The chart was reviewed and I authenticate all verbal orders and agree with the evaluation and treatment provided.Attachments: 07/13 00:33 [facility] Payment Agreement pm4 07:52 T-Sheet-- Draft Copy [facility] Chart Complete MTDD
--- NOTE | 2016-07-15 11:50 | EDDOCDS ---
Nurse's Notes [facility] Name: Yael Stovall Age: 25 yrs Sex: Female : 1990 Arrival Date: 07/12/2016 Time: 23:03 Bed 4 Private MD: [facility] - [facility] Diagnosis: Laceration without foreign body of scalp;Concussion;Strain of muscle, fascia and tendon at neck level Presentation: 07/12 23:05 Presenting complaint: Patient states: Was running from a coy dog. Went to jump into the kmg1 side door of a minivan and stuck her head on the door frame. Lost consciousness for a few seconds. Laceration on top of head. Also c/o neck discomfort. This patient has no additional risk factors. Mechanism of Injury: resulted from a direct blow. Suicide/Homicide risk assessment- the patient denies having any suicidal and/or homicidal ideations and does not present with any other emotional, behavioral or mental health complaints. Status: Patient is not a welfare service aide or dependent. Transition of care: patient was not received from another setting of care. 23:05 Acuity: LILIYA Level 3 [facility] [place]:05 Method Of Arrival: [place] [facility] [place] Assessment: 23:11 General: Appears uncomfortable, Behavior is appropriate for age. Pain: Location: head kmg1 and neck Pain currently is 10 out of 10 on a pain scale. 07/13 02:26 Pt Declines HIV testing. tm5 02:26 Neurological: Level of Consciousness is awake, alert, Oriented to person, place, time, tm5 Actuarial Trainee are equal bilaterally Moves all extremities. Gait is steady, Speech is normal, Facial symmetry appears normal, Facial symmetry: tongue is midline, Pupils are PERRLA. 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 albuterol sulfate 90 mcg/actuation Inhl HFAA 2 puffs every 4 hours 2. loratadine 10 mg Oral tab 1 tab once daily 3. med for anxiety and depression 4. migraine meds unknown - PMHx: Anxiety; Headaches; Irregular heart rate; - PSHx: Tonsillectomy; Adenoidectomy; Cholecystectomy; - Social history: Smoking status: Patient states was never smoker of tobacco. No barriers to communication noted, The patient speaks fluent Sami, Speaks appropriately for age. - Family history: Not pertinent. - : The pt / caregiver states he / she is not on anticoagulants. Home medication list is obtained from the patient. - Exposure Risk Screening:: None identified. Screenin:16 Screening information is obtained from the patient. Fall risk: No risks identified. tm5 Assistance ADL's: requires no assistance with activities of daily living. Abuse/DV Screen: The patient / caregiver reports he/she is: not in a situation that causes fear, pain or injury. Nutritional screening: No deficits noted. Advance Directives: There is no active DNR order. home support is adequate. Assessment: 23:08 General: Appears in no apparent distress, Behavior is appropriate for age, cooperative. tm5 23:16 Pain: Location: head & neck Pain currently is 6 out of 10 on a pain scale. Quality of tm5 pain is described as aching, throbbing. Neurological: Level of Consciousness is awake, alert, Oriented to person, place, time, Actuarial Trainee are equal bilaterally Moves all extremities. Speech is normal, Facial symmetry appears normal, Facial symmetry: tongue is midline, Pupils are PERRLA, Reports blurred vision dizziness, pt usually wears glasses she states . Respiratory: No deficits noted. Airway is patent Respiratory effort is even, unlabored, Respiratory pattern is regular, symmetrical, Breath sounds are clear bilaterally. GI: No deficits noted. : No deficits noted. Derm: Skin is pink, warm & dry. normal. Musculoskeletal: cervical spine is tender. Circulation, motion, and sensation intact. Injury Description: Laceration sustained to top of head is clean, bleeding moderately, laceration approx 2.5 inches in length. 07/13 01:01 Reassessment: Patient appears in no apparent distress at this time. Patient states tm5 feeling better. Patient states symptoms have improved. pt consuming nadia rashaad with no complaints of Nausea, states her headache is better & the neck spasms are getting better after the Valium was given . 01:18 General: Attempted to ambulate pt per orders, pt stood up at bedside & developed tm5 blurred vision attempted to take a few steps & said that she couldn't & then complained of nausea & dizziness, pt returned to bed & MD updated on ambulation status, orders to keep pt a bit longer in the ER, pt asking to go home told her not until she can ambulate better, boxed meal provided to her with Premont juice. 02:23 Reassessment: Patient appears in no apparent distress at this time. Patient states tm5 feeling better. Patient states symptoms have improved. pt ambulated with slow steady gait to the bathroom & back with only complaints of feeling weak due to lying down too much, pt asking to go home with family & friends, pt consumed all of boxed meal without any nausea or vomiting . Vital Signs: 07/12 23:21 BP 153 / 87; Pulse 98; Resp 20; Temp 96.4(O); Pulse Ox 98% on R/A; Weight 58.97 kg (R); jmv Height 5 ft. 7 in. (170.18 cm) (R); Pain 10/10; 23:32 BP 148 / 65 (auto/); tm5 23:33 Pulse 90 MON; Pulse Ox 98% ; tm5 23:47 BP 129 / 73 (auto/); tm5 23:48 Pulse 92 MON; Pulse Ox 99% ; tm5 07/13 00:02 BP 136 / 74 (auto/); tm5 00:03 Pulse 92 MON; Pulse Ox 98% ; tm5 00:17 BP 123 / 79 (auto/); tm5 00:18 Pulse 88 MON; Pulse Ox 98% ; tm5 00:32 BP 121 / 71 (auto/); tm5 00:33 Pulse 82 MON; Resp 18 S; Pulse Ox 97% on R/A; Pain 3/10; tm5 00:47 BP 122 / 79 (auto/); tm5 00:48 Pulse 88 MON; Resp 18 S; Pulse Ox 99% on R/A; Pain 3/10; tm5 01:17 BP 132 / 79 (auto/); tm5 01:18 Pulse 80 MON; Resp 20 S; Pulse Ox 97% on R/A; Pain 2/10; tm5 02:23 BP 122 / 64; Pulse 74; Resp 18; Temp 98.3(O); Pulse Ox 100% on R/A; Pain 2/10; tm5 07/12 23:21 Body Mass Index 20.36 (58.97 kg, 170.18 cm) [facility] Vitals: 07/12 23:11 Log In Time N/A - ambulance arrival. kmg1 Sydnee Coma Score: 23:05 Eye Response: spontaneous(4). Verbal Response: oriented(5). Motor Response: obeys kmg1 commands(6). Total: 15. ED Course: 23:04 Patient visited by Brittany Kraft PCA. tmm1 23:04 [facility] is Private Physician. tmm1 23:04 Patient moved to Waiting tmm1 23:05 [facility] le 23:05 Patient moved to 4 kmg1 23:08 Alta Celeste,RIAN is Primary Nurse. tm5 23:08 Patient visited by Alta Celeste RN. tm5 23:09 Triage Initiated kmg1 23:14 Patient visited by Cassia Mcguire FNP. le 23:16 Patient visited by Cassia Mcguire FNP. le 23:16 Patient visited by Alta Celeste RN. tm5 23:16 ED physician to see patient. tm5 23:16 The patient / caregiver is instructed regarding the plan of care and ED course. Pulse tm5 ox on. NIBP on. Lights dimmed. Family accompanied patient. 23:16 Maintain field IV. Dressing intact. Good blood return noted. Site clean & dry. Gauge & tm5 site: #20 left AC. Nereyda cervical collar applied and checked by provider. Wound care to laceration located on top of head was cleaned with with NS at this time to assess wound, Patient tolerated well. 23:22 Patient visited by Jaspreet Hidalgo PCA. jmv 23:22 Pt greeted and oriented to ED. Patient advised of names of staff involved in care, [facility] location of call barron, wait times and NPO status. Accompanied by Family Member, Patient has correct armband on for positive identification. Placed in gown. Bed in low position. Call light in reach. Side rails up X2. 07/13 00:20 Patient visited by Alta Celeste RN. tm5 00:33 [facility] Payment Agreement was scanned into [employer] and attached to record. pm4 00:34 CT Head Without Contrast Returned. EDMS 00:34 CT Spine,Cervical W/o Contrast Returned. EDMS 00:41 Patient visited by Alta Celeste RN. tm5 00:42 No procedures done that require assistance. Dressings: Kerlix X 2; 4X4s X 4; applied to tm5 head. 00:44 [facility] is Referral Physician. cs11 00:44 Macario Garcia DO is Attending Physician. cs11 01:01 Patient visited by Alta Celeste RN. tm5 01:18 Patient visited by Alta Celeste,RIAN. tm5 02:19 Patient visited by Alta Celeste RN. tm5 02:23 Discontinued lock intact, bleeding controlled, pressure dressing applied, No tm5 redness/swelling at site. 07:52 T-Sheet-- Draft Copy was scanned into [employer] and attached to record. [facility] 11:11 Radiology Report was scanned into [employer] and attached to record. gb Administered Medications: 07/12 23:22 Drug: NS 0.9% 1000 ml [sodium chloride 0.9 % intravenous solution] Route: IV; Rate: tm5 bolus; Site: left antecubital; 07/13 00:21 Follow up: IV Status: Completed infusion; IV Intake: 1000ml tm5 07/12 23:28 Drug: Ondansetron 4 mg Route: IVP; Site: left antecubital; tm5 07/13 00:21 Follow up: Response: Nausea is resolved; No Adverse Reaction tm5 07/12 23:28 Drug: Acetaminophen 650 mg [acetaminophen 325 mg tablet (2 tabs)] Route: PO; tm5 07/13 00:21 Follow up: Response: No Adverse Reaction; Pain is decreased tm5 00:20 Drug: Lidocaine-Epinephrine 10 ml [lidocaine-epinephrine 1 %-1:100,000 injection tm5 solution (10 mL)] {Note: placed at bedside for CONSOLIDATION ACCOUNTANT's procedure .} Route: Infiltration; 00:42 Drug: Diazepam 2 mg [diazepam 2 mg tablet (1 tabs)] Route: PO; tm5 02:22 Follow up: Response: No Adverse Reaction; Pain is decreased tm5 Intake: 00:21 IV: 1000.00ml; Total: 1000.00ml. tm5 Order Results: Radiology Order: CT Head Without Contrast Test: CT Head Without Contrast REASON FOR EXAMINATION: direct blow; ; CLINICAL HISTORY: Head trauma.; TECHNIQUE: Multiple axial brain CT scan sections were obtained from base to vertex without contrast a; dministration.; COMMENTS:; There is no evidence of skull fracture.; The study shows normal configuration of sella turcica. There are no intra or extra-axial collections.; There is no mass effect or midline shift. There is no evidence of hematoma formation. No hydrocephal; us is present. No abnormal calcifications are noted.; No significant abnormalities are seen either in the posterior fossa or supratentorial compartment.; The sinuses and mastoid air cells are patent.; IMPRESSION:; No evidence of acute intracranial pathology. No intracranial hemorrhage or skull fracture.; Thank you for your kind referral of this patient.; ; Radiology Order: CT Spine,Cervical W/o Contrast Test: CT Spine,Cervical W/o Contrast REASON FOR EXAMINATION: axial loading;Trauma; ; CLINICAL HISTORY: Trauma.; TECHNIQUE: Multiple axial CT images were obtained through the cervical spine without IV contrast mate; rial.; COMMENTS:; There is an oblique lucent line of the left superior articular process of C7 suspicious for a nondisp; laced fracture. No associated facet dislocation. No associated locked facet. No associated extension; into the spinal canal. No associated intraspinal hematoma.; There is no other fracture visualized. The paraspinal soft tissues are unremarkable. There are no lyt; ic or blastic lesions.; IMPRESSION:; Oblique lucent line of the left superior articular process of C7 suspicious for a nondisplaced fractu; re.; This was not present on the prior exam on 09/22/2013.; MRI is suggested for further evaluation if clinically needed.; Thank you for your kind referral of this patient.; ; Outcome: 00:44 Discharge ordered by Provider. cs11 02:23 Discharge Assessment: Patient awake, alert and oriented x 3. No cognitive and/or tm5 functional deficits noted. Patient verbalized understanding of disposition instructions. patient administered narcotics - yes. Pt provided with safe discharge. The following High Risk Discharge criteria are identified: None. Discharged to home ambulatory, with family. Condition: good Condition: stable Condition: improved. Discharge instructions given to patient, Instructed on discharge instructions, follow up and referral plans. wound care, Demonstrated understanding of instructions, medications, Pt was receptive of discharge instructions/ teaching. Work note provided to patient. CT Study completed. Property :Personal belongings accompany Pt. 02:27 Patient left the ED. tm5 Addendum: 07/15/2016 10:41 Narrative: Message left at patient's home to call us concerning returning and kcs furthering test for a possible C7 fracture. Per Dr. Allred patient is to return for flexion/extension x-rays and MRI. if neg = discharge, if + patient to f/u with Dr. Street - he was consulted today. 11:47 Narrative: patient called again - states she hasn't checked her messages yet - patient kcs given info concerning x-rays and will return. Signatures: Dispatcher [employer] Cha Head, RIAN RN kcs Kayla Flowers RN RN kmg1 Paula Powell, Reg Reg gb Cassia Mcguire, CARPET SEWER CARPET SEWER Macario Araujo, DO DO cs11 Brittany Kraft, CELL CLEANER CELL CLEANER tmm1 Ny Morris Jose, CELL CLEANER CELL CLEANER v Alta Celeste RN RN tm5 Eddie Max, Reg Reg pm4 MTDD
--- NOTE | 2016-07-15 11:50 | EDDOCDS ---
Physician Documentation [facility] Name: Yael Stovall Age: 25 yrs Sex: Female : 1990 Arrival Date: 07/12/2016 Time: 23:03 Bed 4 Private MD: [facility], [place] - Adults Disposition: 07/13/16 00:44 Discharged to Home/Self Care. Impression: Laceration without foreign body of scalp, Concussion, Strain of muscle, fascia and tendon at neck level. - Condition is Stable. - Discharge Instructions: Concussion, Adult, Laceration Care, Adult, Cervical Sprain. - Medication Reconciliation, Local Pharmacy Hours, Work Release Form - 2 day form. - Follow up: Center - Adults [facility]; When: 1 week; Reason: Staple/Suture removal, Continuance of care. - Problem is new. - Symptoms have improved. - Notes: Keep hydrated Tylenol (only) for pain for the first 3 days, after than it is ok to use NSAIDS (Ibuprofen, ASA, Aleve, advil, naprosyn) [place] need to be removed in about 1 week, this can be done by your PCP (in most cases) Return to the ED for any concerns Historical: - Allergies: Coconut; Codeine Sulfate (Unknown); - Home Meds: 1. albuterol sulfate 90 mcg/actuation Inhl HFAA 2 puffs every 4 hours 2. loratadine 10 mg Oral tab 1 tab once daily 3. med for anxiety and depression 4. migraine meds unknown - PMHx: Anxiety; Headaches; Irregular heart rate; - PSHx: Tonsillectomy; Adenoidectomy; Cholecystectomy; - Social history: Smoking status: Patient states was never smoker of tobacco. No barriers to communication noted, The patient speaks fluent Kyrgyz, Speaks appropriately for age. - Family history: Not pertinent. - : The pt / caregiver states he / she is not on anticoagulants. Home medication list is obtained from the patient. - Exposure Risk Screening:: None identified. 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 7 in. (170.18 cm) (R); Pain 10/10; 23:32 BP 148 / 65 (auto/); tm5 23:33 Pulse 90 MON; Pulse Ox 98% ; tm5 23:47 BP 129 / 73 (auto/); tm5 23:48 Pulse 92 MON; Pulse Ox 99% ; tm5 07/13 00:02 BP 136 / 74 (auto/); tm5 00:03 Pulse 92 MON; Pulse Ox 98% ; tm5 00:17 BP 123 / 79 (auto/); tm5 00:18 Pulse 88 MON; Pulse Ox 98% ; tm5 00:32 BP 121 / 71 (auto/); tm5 00:33 Pulse 82 MON; Resp 18 S; Pulse Ox 97% on R/A; Pain 3/10; tm5 00:47 BP 122 / 79 (auto/); tm5 00:48 Pulse 88 MON; Resp 18 S; Pulse Ox 99% on R/A; Pain 3/10; tm5 01:17 BP 132 / 79 (auto/); tm5 01:18 Pulse 80 MON; Resp 20 S; Pulse Ox 97% on R/A; Pain 2/10; tm5 02:23 BP 122 / 64; Pulse 74; Resp 18; Temp 98.3(O); Pulse Ox 100% on R/A; Pain 2/10; tm5 07/12 23:21 Body Mass Index 20.36 (58.97 kg, 170.18 cm) jmv Sydnee Coma Score: 07/12 23:05 Eye Response: spontaneous(4). Verbal Response: oriented(5). Motor Response: obeys kmg1 commands(6). Total: 15. MDM: 23:16 Ondansetron 4 mg IVP once ordered. le 23:16 Misc. Nursing Order ordered. le 23:16 NS 0.9% 1000 ml IV at bolus once ordered. le 23:16 Acetaminophen Tablet 650 mg PO once ordered. le 23:16 CT Head Without Contrast Ordered. EDMS 23:16 Lidocaine-Epinephrine 1 %-1:100,000 10 ml Infiltration once; to bedside ordered. le 23:17 CT Spine,Cervical W/o Contrast Ordered. EDMS 07/13 00:22 Diazepam 2 mg PO once ordered. le 00:22 Fluid Challenge ordered. le 00:22 Wound Care ordered. le 00:22 Ambulate patient to assess pain tolerance ordered. le 00:28 Financial registration complete. pm4 00:33 [facility] Payment Agreement was scanned into [employer] and attached to record. pm4 07:52 T-Sheet-- Draft Copy was scanned into [employer] and attached to record. [facility] 11:11 Radiology Report was scanned into [employer] and attached to record. gb Administered Medications: 07/12 23:22 Drug: NS 0.9% 1000 ml [sodium chloride 0.9 % intravenous solution] Route: IV; Rate: tm5 bolus; Site: left antecubital; 07/13 00:21 Follow up: IV Status: Completed infusion; IV Intake: 1000ml tm5 07/12 23:28 Drug: Ondansetron 4 mg Route: IVP; Site: left antecubital; tm5 07/13 00:21 Follow up: Response: Nausea is resolved; No Adverse Reaction tm5 07/12 23:28 Drug: Acetaminophen 650 mg [acetaminophen 325 mg tablet (2 tabs)] Route: PO; tm5 07/13 00:21 Follow up: Response: No Adverse Reaction; Pain is decreased tm5 00:20 Drug: Lidocaine-Epinephrine 10 ml [lidocaine-epinephrine 1 %-1:100,000 injection tm5 solution (10 mL)] {Note: placed at bedside for CRITICAL CARE TRANSPORT NURSE's procedure .} Route: Infiltration; 00:42 Drug: Diazepam 2 mg [diazepam 2 mg tablet (1 tabs)] Route: PO; tm5 02:22 Follow up: Response: No Adverse Reaction; Pain is decreased tm5 Addendum: 07/15/2016 10:30 Addendum: radiology report review ? nondisplaced fx superior articular process C7 - d/w sd1 Dr. Zaragoza recommended flex-ex views and MRI - d/w charge nurse will have patient return for imaging and fu with Dr. Mix depending on the results of imaging. Signatures: Dispatcher [employer] EDNy Eckert MD MD sd1 Kayla Flowers, RN RN kmg1 Paula Powell, Reg Reg gb Cassia Mcguire, CONTOUR BAND SAW OPERATOR VERTICAL CONTOUR BAND SAW OPERATOR VERTICAL Macario Araujo DO DO [address] Alta Gutierres,RINA RN tm5 Eddie Max, Reg Reg pm4 The chart was reviewed and I authenticate all verbal orders and agree with the evaluation and treatment provided.Attachments: 07/13 00:33 [facility] [place] Payment Agreement pm4 07:52 T-Sheet-- Draft Copy [facility] MTDD
--- NOTE | 2016-07-15 11:50 | EDDOCDS ---
Physician Documentation [facility] Name: Yael Stovall Age: 25 yrs Sex: Female : 1990 Arrival Date: 07/12/2016 Time: 23:03 Bed 4 Private MD: [facility], [place] - Adults Disposition: 07/13/16 00:44 Discharged to Home/Self Care. Impression: Laceration without foreign body of scalp, Concussion, Strain of muscle, fascia and tendon at neck level. - Condition is Stable. - Discharge Instructions: Concussion, Adult, Laceration Care, Adult, Cervical Sprain. - Medication Reconciliation, Local Pharmacy Hours, Work Release Form - 2 day form. - Follow up: Center - Adults [facility]; When: 1 week; Reason: Staple/Suture removal, Continuance of care. - Problem is new. - Symptoms have improved. - Notes: Keep hydrated Tylenol (only) for pain for the first 3 days, after than it is ok to use NSAIDS (Ibuprofen, ASA, Aleve, advil, naprosyn) [place] need to be removed in about 1 week, this can be done by your PCP (in most cases) Return to the ED for any concerns Historical: - Allergies: Coconut; Codeine Sulfate (Unknown); - Home Meds: 1. albuterol sulfate 90 mcg/actuation Inhl HFAA 2 puffs every 4 hours 2. loratadine 10 mg Oral tab 1 tab once daily 3. med for anxiety and depression 4. migraine meds unknown - PMHx: Anxiety; Headaches; Irregular heart rate; - PSHx: Tonsillectomy; Adenoidectomy; Cholecystectomy; - Social history: Smoking status: Patient states was never smoker of tobacco. No barriers to communication noted, The patient speaks fluent Bulgarian, Speaks appropriately for age. - Family history: Not pertinent. - : The pt / caregiver states he / she is not on anticoagulants. Home medication list is obtained from the patient. - Exposure Risk Screening:: None identified. CLOTH MENDER: 07/12 23:11 LMP 06/23/2016 kmg1 Vital Signs: 23:21 BP 153 / 87; Pulse 98; Resp 20; Temp 96.4(O); Pulse Ox 98% on R/A; Weight 58.97 kg / jmv 130.01 lbs (R); Height 5 ft. 7 in. (170.18 cm) (R); Pain 10/10; 23:32 BP 148 / 65 (auto/); tm5 23:33 Pulse 90 MON; Pulse Ox 98% ; tm5 23:47 BP 129 / 73 (auto/); tm5 23:48 Pulse 92 MON; Pulse Ox 99% ; tm5 07/13 00:02 BP 136 / 74 (auto/); tm5 00:03 Pulse 92 MON; Pulse Ox 98% ; tm5 00:17 BP 123 / 79 (auto/); tm5 00:18 Pulse 88 MON; Pulse Ox 98% ; tm5 00:32 BP 121 / 71 (auto/); tm5 00:33 Pulse 82 MON; Resp 18 S; Pulse Ox 97% on R/A; Pain 3/10; tm5 00:47 BP 122 / 79 (auto/); tm5 00:48 Pulse 88 MON; Resp 18 S; Pulse Ox 99% on R/A; Pain 3/10; tm5 01:17 BP 132 / 79 (auto/); tm5 01:18 Pulse 80 MON; Resp 20 S; Pulse Ox 97% on R/A; Pain 2/10; tm5 02:23 BP 122 / 64; Pulse 74; Resp 18; Temp 98.3(O); Pulse Ox 100% on R/A; Pain 2/10; tm5 07/12 23:21 Body Mass Index 20.36 (58.97 kg, 170.18 cm) jmv Sydnee Coma Score: 07/12 23:05 Eye Response: spontaneous(4). Verbal Response: oriented(5). Motor Response: obeys kmg1 commands(6). Total: 15. MDM: 23:16 Ondansetron 4 mg IVP once ordered. le 23:16 Misc. Nursing Order ordered. le 23:16 NS 0.9% 1000 ml IV at bolus once ordered. le 23:16 Acetaminophen Tablet 650 mg PO once ordered. le 23:16 CT Head Without Contrast Ordered. EDMS 23:16 Lidocaine-Epinephrine 1 %-1:100,000 10 ml Infiltration once; to bedside ordered. le 23:17 CT Spine,Cervical W/o Contrast Ordered. EDMS 07/13 00:22 Diazepam 2 mg PO once ordered. le 00:22 Fluid Challenge ordered. le 00:22 Wound Care ordered. le 00:22 Ambulate patient to assess pain tolerance ordered. le 00:28 Financial registration complete. pm4 00:33 [facility] Payment Agreement was scanned into [employer] and attached to record. pm4 07:52 T-Sheet-- Draft Copy was scanned into [employer] and attached to record. [facility] 11:11 Radiology Report was scanned into [employer] and attached to record. gb Administered Medications: 07/12 23:22 Drug: NS 0.9% 1000 ml [sodium chloride 0.9 % intravenous solution] Route: IV; Rate: tm5 bolus; Site: left antecubital; 07/13 00:21 Follow up: IV Status: Completed infusion; IV Intake: 1000ml tm5 07/12 23:28 Drug: Ondansetron 4 mg Route: IVP; Site: left antecubital; tm5 07/13 00:21 Follow up: Response: Nausea is resolved; No Adverse Reaction tm5 07/12 23:28 Drug: Acetaminophen 650 mg [acetaminophen 325 mg tablet (2 tabs)] Route: PO; tm5 07/13 00:21 Follow up: Response: No Adverse Reaction; Pain is decreased tm5 00:20 Drug: Lidocaine-Epinephrine 10 ml [lidocaine-epinephrine 1 %-1:100,000 injection tm5 solution (10 mL)] {Note: placed at bedside for HEAVY TRUCK DRIVER's procedure .} Route: Infiltration; 00:42 Drug: Diazepam 2 mg [diazepam 2 mg tablet (1 tabs)] Route: PO; tm5 02:22 Follow up: Response: No Adverse Reaction; Pain is decreased tm5 Addendum: 07/15/2016 10:30 Addendum: radiology report review ? nondisplaced fx superior articular process C7 - d/w sd1 Dr. Zaragoza recommended flex-ex views and MRI - d/w charge nurse will have patient return for imaging and fu with Dr. Mix depending on the results of imaging. Signatures: Dispatcher [employer] EDNy Eckert MD MD sd1 Kayla Flowers, RN RN kmg1 Paula Powell, Reg Reg gb Cassia Mcguire, FILLER SHREDDER FILLER SHREDDER Macario Araujo DO DO [address] Alta Gutierres,RIAN RN tm5 Eddie Max, Reg Reg pm4 The chart was reviewed and I authenticate all verbal orders and agree with the evaluation and treatment provided.Attachments: 07/13 00:33 [facility] [place] Payment Agreement pm4 07:52 T-Sheet-- Draft Copy [facility] MTDD
--- NOTE | 2016-07-15 11:51 | EDDOCDS ---
Physician Documentation [facility] Name: Yael Stovall Age: 25 yrs Sex: Female : 1990 Arrival Date: 07/12/2016 Time: 23:03 Bed 4 Private MD: [facility], [place] - Adults Disposition: 07/13/16 00:44 Discharged to Home/Self Care. Impression: Laceration without foreign body of scalp, Concussion, Strain of muscle, fascia and tendon at neck level. - Condition is Stable. - Discharge Instructions: Concussion, Adult, Laceration Care, Adult, Cervical Sprain. - Medication Reconciliation, Local Pharmacy Hours, Work Release Form - 2 day form. - Follow up: Center - Adults [facility]; When: 1 week; Reason: Staple/Suture removal, Continuance of care. - Problem is new. - Symptoms have improved. - Notes: Keep hydrated Tylenol (only) for pain for the first 3 days, after than it is ok to use NSAIDS (Ibuprofen, ASA, Aleve, advil, naprosyn) [place] need to be removed in about 1 week, this can be done by your PCP (in most cases) Return to the ED for any concerns Historical: - Allergies: Coconut; Codeine Sulfate (Unknown); - Home Meds: 1. albuterol sulfate 90 mcg/actuation Inhl HFAA 2 puffs every 4 hours 2. loratadine 10 mg Oral tab 1 tab once daily 3. med for anxiety and depression 4. migraine meds unknown - PMHx: Anxiety; Headaches; Irregular heart rate; - PSHx: Tonsillectomy; Adenoidectomy; Cholecystectomy; - Social history: Smoking status: Patient states was never smoker of tobacco. No barriers to communication noted, The patient speaks fluent Maltese, Speaks appropriately for age. - Family history: Not pertinent. - : The pt / caregiver states he / she is not on anticoagulants. Home medication list is obtained from the patient. - Exposure Risk Screening:: None identified. 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 7 in. (170.18 cm) (R); Pain 10/10; 23:32 BP 148 / 65 (auto/); tm5 23:33 Pulse 90 MON; Pulse Ox 98% ; tm5 23:47 BP 129 / 73 (auto/); tm5 23:48 Pulse 92 MON; Pulse Ox 99% ; tm5 07/13 00:02 BP 136 / 74 (auto/); tm5 00:03 Pulse 92 MON; Pulse Ox 98% ; tm5 00:17 BP 123 / 79 (auto/); tm5 00:18 Pulse 88 MON; Pulse Ox 98% ; tm5 00:32 BP 121 / 71 (auto/); tm5 00:33 Pulse 82 MON; Resp 18 S; Pulse Ox 97% on R/A; Pain 3/10; tm5 00:47 BP 122 / 79 (auto/); tm5 00:48 Pulse 88 MON; Resp 18 S; Pulse Ox 99% on R/A; Pain 3/10; tm5 01:17 BP 132 / 79 (auto/); tm5 01:18 Pulse 80 MON; Resp 20 S; Pulse Ox 97% on R/A; Pain 2/10; tm5 02:23 BP 122 / 64; Pulse 74; Resp 18; Temp 98.3(O); Pulse Ox 100% on R/A; Pain 2/10; tm5 07/12 23:21 Body Mass Index 20.36 (58.97 kg, 170.18 cm) jmv Sydnee Coma Score: 07/12 23:05 Eye Response: spontaneous(4). Verbal Response: oriented(5). Motor Response: obeys kmg1 commands(6). Total: 15. MDM: 23:16 Ondansetron 4 mg IVP once ordered. le 23:16 Misc. Nursing Order ordered. le 23:16 NS 0.9% 1000 ml IV at bolus once ordered. le 23:16 Acetaminophen Tablet 650 mg PO once ordered. le 23:16 CT Head Without Contrast Ordered. EDMS 23:16 Lidocaine-Epinephrine 1 %-1:100,000 10 ml Infiltration once; to bedside ordered. le 23:17 CT Spine,Cervical W/o Contrast Ordered. EDMS 07/13 00:22 Diazepam 2 mg PO once ordered. le 00:22 Fluid Challenge ordered. le 00:22 Wound Care ordered. le 00:22 Ambulate patient to assess pain tolerance ordered. le 00:28 Financial registration complete. pm4 00:33 [facility] Payment Agreement was scanned into [employer] and attached to record. pm4 07:52 T-Sheet-- Draft Copy was scanned into [employer] and attached to record. [facility] 11:11 Radiology Report was scanned into [employer] and attached to record. gb Administered Medications: 07/12 23:22 Drug: NS 0.9% 1000 ml [sodium chloride 0.9 % intravenous solution] Route: IV; Rate: tm5 bolus; Site: left antecubital; 07/13 00:21 Follow up: IV Status: Completed infusion; IV Intake: 1000ml tm5 07/12 23:28 Drug: Ondansetron 4 mg Route: IVP; Site: left antecubital; tm5 07/13 00:21 Follow up: Response: Nausea is resolved; No Adverse Reaction tm5 07/12 23:28 Drug: Acetaminophen 650 mg [acetaminophen 325 mg tablet (2 tabs)] Route: PO; tm5 07/13 00:21 Follow up: Response: No Adverse Reaction; Pain is decreased tm5 00:20 Drug: Lidocaine-Epinephrine 10 ml [lidocaine-epinephrine 1 %-1:100,000 injection tm5 solution (10 mL)] {Note: placed at bedside for CAB STATION ATTENDANT's procedure .} Route: Infiltration; 00:42 Drug: Diazepam 2 mg [diazepam 2 mg tablet (1 tabs)] Route: PO; tm5 02:22 Follow up: Response: No Adverse Reaction; Pain is decreased tm5 Addendum: 07/15/2016 10:30 Addendum: radiology report review ? nondisplaced fx superior articular process C7 - d/w sd1 Dr. Zaragoza recommended flex-ex views and MRI - d/w charge nurse will have patient return for imaging and fu with Dr. Mix depending on the results of imaging. Signatures: Dispatcher [employer] EDNy Eckert MD MD sd1 Kayla Flowers, RN RN kmg1 Paula Powell, Reg Reg gb Cassia Mcguire, DISHING MACHINE OPERATOR DISHING MACHINE OPERATOR Macario Araujo DO DO [address] Alta Gutierres,RIAN RN tm5 Eddie Max, Reg Reg pm4 The chart was reviewed and I authenticate all verbal orders and agree with the evaluation and treatment provided.Attachments: 07/13 00:33 [facility] Payment Agreement pm4 07:52 T-Sheet-- Draft Copy [facility] Chart Complete MTDD
--- NOTE | 2016-07-15 11:51 | EDDOCDS ---
Nurse's Notes [facility] Name: Yael Stovall Age: 25 yrs Sex: Female : 1990 Arrival Date: 07/12/2016 Time: 23:03 Bed 4 Private MD: [facility] - Adults Diagnosis: Laceration without foreign body of scalp;Concussion;Strain of muscle, fascia and tendon at neck level Presentation: 07/12 23:05 Presenting complaint: Patient states: Was running from a coy dog. Went to jump into the kmg1 side door of a minivan and stuck her head on the door frame. Lost consciousness for a few seconds. Laceration on top of head. Also c/o neck discomfort. This patient has no additional risk factors. Mechanism of Injury: resulted from a direct blow. Suicide/Homicide risk assessment- the patient denies having any suicidal and/or homicidal ideations and does not present with any other emotional, behavioral or mental health complaints. 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 Transition of care: patient was not received from another setting of care. 23:05 Acuity: LILIYA Level 3 [facility] 23:05 Method Of Arrival: Ambulance [facility] Triage Assessment: 23:11 General: Appears uncomfortable, Behavior is appropriate for age. Pain: Location: head kmg1 and neck Pain currently is 10 out of 10 on a pain scale. 07/13 02:26 Pt Declines HIV testing. tm5 02:26 Neurological: Level of Consciousness is awake, alert, Oriented to person, place, time, tm5 Environmental Monitoring Technician are equal bilaterally Moves all extremities. Gait is steady, Speech is normal, Facial symmetry appears normal, Facial symmetry: tongue is midline, Pupils are PERRLA. 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 albuterol sulfate 90 mcg/actuation Inhl HFAA 2 puffs every 4 hours 2. loratadine 10 mg Oral tab 1 tab once daily 3. med for anxiety and depression 4. migraine meds unknown - PMHx: Anxiety; Headaches; Irregular heart rate; - PSHx: Tonsillectomy; Adenoidectomy; Cholecystectomy; - Social history: Smoking status: Patient states was never smoker of tobacco. No barriers to communication noted, The patient speaks fluent Georgian, Speaks appropriately for age. - Family history: Not pertinent. - : The pt / caregiver states he / she is not on anticoagulants. Home medication list is obtained from the patient. - Exposure Risk Screening:: None identified. Screenin:16 Screening information is obtained from the patient. Fall risk: No risks identified. tm5 Assistance ADL's: requires no assistance with activities of daily living. Abuse/DV Screen: The patient / caregiver reports he/she is: not in a situation that causes fear, pain or injury. Nutritional screening: No deficits noted. Advance Directives: There is no active DNR order. home support is adequate. Assessment: 23:08 General: Appears in no apparent distress, Behavior is appropriate for age, cooperative. tm5 23:16 Pain: Location: head & neck Pain currently is 6 out of 10 on a pain scale. Quality of tm5 pain is described as aching, throbbing. Neurological: Level of Consciousness is awake, alert, Oriented to person, place, time, Environmental Monitoring Technician are equal bilaterally Moves all extremities. Speech is normal, Facial symmetry appears normal, Facial symmetry: tongue is midline, Pupils are PERRLA, Reports blurred vision dizziness, pt usually wears glasses she states . Respiratory: No deficits noted. Airway is patent Respiratory effort is even, unlabored, Respiratory pattern is regular, symmetrical, Breath sounds are clear bilaterally. GI: No deficits noted. : No deficits noted. Derm: Skin is pink, warm & dry. normal. Musculoskeletal: cervical spine is tender. Circulation, motion, and sensation intact. Injury Description: Laceration sustained to top of head is clean, bleeding moderately, laceration approx 2.5 inches in length. 07/13 01:01 Reassessment: Patient appears in no apparent distress at this time. Patient states tm5 feeling better. Patient states symptoms have improved. pt consuming nadia rashaad with no complaints of Nausea, states her headache is better & the neck spasms are getting better after the Valium was given . 01:18 General: Attempted to ambulate pt per orders, pt stood up at bedside & developed tm5 blurred vision attempted to take a few steps & said that she couldn't & then complained of nausea & dizziness, pt returned to bed & MD updated on ambulation status, orders to keep pt a bit longer in the ER, pt asking to go home told her not until she can ambulate better, boxed meal provided to her with [place] juice. 02:23 Reassessment: Patient appears in no apparent distress at this time. Patient states tm5 feeling better. Patient states symptoms have improved. pt ambulated with slow steady gait to the bathroom & back with only complaints of feeling weak due to lying down too much, pt asking to go home with family & friends, pt consumed all of boxed meal without any nausea or vomiting . Vital Signs: 07/12 23:21 BP 153 / 87; Pulse 98; Resp 20; Temp 96.4(O); Pulse Ox 98% on R/A; Weight 58.97 kg (R); jmv Height 5 ft. 7 in. (170.18 cm) (R); Pain 10/10; 23:32 BP 148 / 65 (auto/); tm5 23:33 Pulse 90 MON; Pulse Ox 98% ; tm5 23:47 BP 129 / 73 (auto/); tm5 23:48 Pulse 92 MON; Pulse Ox 99% ; tm5 07/13 00:02 BP 136 / 74 (auto/); tm5 00:03 Pulse 92 MON; Pulse Ox 98% ; tm5 00:17 BP 123 / 79 (auto/); tm5 00:18 Pulse 88 MON; Pulse Ox 98% ; tm5 00:32 BP 121 / 71 (auto/); tm5 00:33 Pulse 82 MON; Resp 18 S; Pulse Ox 97% on R/A; Pain 3/10; tm5 00:47 BP 122 / 79 (auto/); tm5 00:48 Pulse 88 MON; Resp 18 S; Pulse Ox 99% on R/A; Pain 3/10; tm5 01:17 BP 132 / 79 (auto/); tm5 01:18 Pulse 80 MON; Resp 20 S; Pulse Ox 97% on R/A; Pain 2/10; tm5 02:23 BP 122 / 64; Pulse 74; Resp 18; Temp 98.3(O); Pulse Ox 100% on R/A; Pain 2/10; tm5 07/12 23:21 Body Mass Index 20.36 (58.97 kg, 170.18 cm) [facility] Vitals: 07/12 23:11 Log In Time N/A - ambulance arrival. kmg1 Sydnee Coma Score: 23:05 Eye Response: spontaneous(4). Verbal Response: oriented(5). Motor Response: obeys kmg1 commands(6). Total: 15. ED Course: 23:04 Patient visited by Brittany Kraft PCA. tmm1 23:04 [facility] - Adults is Private Physician. tmm1 23:04 Patient moved to Waiting tmm1 23:05 [facility] Mcguire FNP [facility] le 23:05 Patient moved to 4 kmg1 23:08 Alta Celeste,RIAN is Primary Nurse. tm5 23:08 Patient visited by Alta Celeste RN. tm5 23:09 Triage Initiated kmg1 23:14 Patient visited by Cassia Mcguire FNP. le 23:16 Patient visited by Cassia Mcguire FNP. le 23:16 Patient visited by Alta Celeste RN. tm5 23:16 ED physician to see patient. tm5 23:16 The patient / caregiver is instructed regarding the plan of care and ED course. Pulse tm5 ox on. NIBP on. Lights dimmed. Family accompanied patient. 23:16 Maintain field IV. Dressing intact. Good blood return noted. Site clean & dry. Gauge & tm5 site: #20 left AC. Nereyda cervical collar applied and checked by provider. Wound care to laceration located on top of head was cleaned with with NS at this time to assess wound, Patient tolerated well. 23:22 Patient visited by Jaspreet Hidalgo PCA. jmv 23:22 Pt greeted and oriented to ED. Patient advised of names of staff involved in care, [facility] location of call barron, wait times and NPO status. Accompanied by Family Member, Patient has correct armband on for positive identification. Placed in gown. Bed in low position. Call light in reach. Side rails up X2. 07/13 00:20 Patient visited by Alta Celeste RN. tm5 00:33 [facility] Payment Agreement was scanned into [employer] and attached to record. pm4 00:34 CT Head Without Contrast Returned. EDMS 00:34 CT Spine,Cervical W/o Contrast Returned. EDMS 00:41 Patient visited by Alta Celeste RN. tm5 00:42 No procedures done that require assistance. Dressings: Kerlix X 2; 4X4s X 4; applied to tm5 head. 00:44 [facility] - [facility] is Referral Physician. cs11 00:44 Macario Garcia DO is Attending Physician. cs11 01:01 Patient visited by Alta Celeste RN. tm5 01:18 Patient visited by Alta Celeste,RIAN. tm5 02:19 Patient visited by Alta Celeste RN. tm5 02:23 Discontinued lock intact, bleeding controlled, pressure dressing applied, No tm5 redness/swelling at site. 07:52 T-Sheet-- Draft Copy was scanned into [employer] and attached to record. [facility] 11:11 Radiology Report was scanned into [employer] and attached to record. gb Administered Medications: 07/12 23:22 Drug: NS 0.9% 1000 ml [sodium chloride 0.9 % intravenous solution] Route: IV; Rate: tm5 bolus; Site: left antecubital; 07/13 00:21 Follow up: IV Status: Completed infusion; IV Intake: 1000ml tm5 07/12 23:28 Drug: Ondansetron 4 mg Route: IVP; Site: left antecubital; tm5 07/13 00:21 Follow up: Response: Nausea is resolved; No Adverse Reaction tm5 07/12 23:28 Drug: Acetaminophen 650 mg [acetaminophen 325 mg tablet (2 tabs)] Route: PO; tm5 07/13 00:21 Follow up: Response: No Adverse Reaction; Pain is decreased tm5 00:20 Drug: Lidocaine-Epinephrine 10 ml [lidocaine-epinephrine 1 %-1:100,000 injection tm5 solution (10 mL)] {Note: placed at bedside for GOLD RECLAIMER's procedure .} Route: Infiltration; 00:42 Drug: Diazepam 2 mg [diazepam 2 mg tablet (1 tabs)] Route: PO; tm5 02:22 Follow up: Response: No Adverse Reaction; Pain is decreased tm5 Intake: 00:21 IV: 1000.00ml; Total: 1000.00ml. tm5 Order Results: Radiology Order: CT Head Without Contrast Test: CT Head Without Contrast REASON FOR EXAMINATION: direct blow; ; CLINICAL HISTORY: Head trauma.; TECHNIQUE: Multiple axial brain CT scan sections were obtained from base to vertex without contrast a; dministration.; COMMENTS:; There is no evidence of skull fracture.; The study shows normal configuration of sella turcica. There are no intra or extra-axial collections.; There is no mass effect or midline shift. There is no evidence of hematoma formation. No hydrocephal; us is present. No abnormal calcifications are noted.; No significant abnormalities are seen either in the posterior fossa or supratentorial compartment.; The sinuses and mastoid air cells are patent.; IMPRESSION:; No evidence of acute intracranial pathology. No intracranial hemorrhage or skull fracture.; Thank you for your kind referral of this patient.; ; Radiology Order: CT Spine,Cervical W/o Contrast Test: CT Spine,Cervical W/o Contrast REASON FOR EXAMINATION: axial loading;Trauma; ; CLINICAL HISTORY: Trauma.; TECHNIQUE: Multiple axial CT images were obtained through the cervical spine without IV contrast mate; rial.; COMMENTS:; There is an oblique lucent line of the left superior articular process of C7 suspicious for a nondisp; laced fracture. No associated facet dislocation. No associated locked facet. No associated extension; into the spinal canal. No associated intraspinal hematoma.; There is no other fracture visualized. The paraspinal soft tissues are unremarkable. There are no lyt; ic or blastic lesions.; IMPRESSION:; Oblique lucent line of the left superior articular process of C7 suspicious for a nondisplaced fractu; re.; This was not present on the prior exam on 09/22/2013.; MRI is suggested for further evaluation if clinically needed.; Thank you for your kind referral of this patient.; ; Outcome: 00:44 Discharge ordered by Provider. cs11 02:23 Discharge Assessment: Patient awake, alert and oriented x 3. No cognitive and/or tm5 functional deficits noted. Patient verbalized understanding of disposition instructions. patient administered narcotics - yes. Pt provided with safe discharge. The following High Risk Discharge criteria are identified: None. Discharged to home ambulatory, with family. Condition: good Condition: stable Condition: improved. Discharge instructions given to patient, Instructed on discharge instructions, follow up and referral plans. wound care, Demonstrated understanding of instructions, medications, Pt was receptive of discharge instructions/ teaching. Work note provided to patient. CT Study completed. Property :Personal belongings accompany Pt. 02:27 Patient left the ED. tm5 Addendum: 07/15/2016 10:41 Narrative: Message left at patient's home to call us concerning returning and kcs furthering test for a possible C7 fracture. Per Dr. Allred patient is to return for flexion/extension x-rays and MRI. if neg = discharge, if + patient to f/u with Dr. Street - he was consulted today. 11:47 Narrative: patient called again - states she hasn't checked her messages yet - patient kcs given info concerning x-rays and will return. Signatures: Dispatcher [employer] Cha Head, RIAN RN kcs Kayla Flowers RN RN kmg1 Paula Powell, Reg Reg gb Cassia Mcguire, DESK CLERK DESK CLERK Macario Araujo, DO DO cs11 Brittany Kraft, CERTIFIED MAINTENANCE WELDER CERTIFIED MAINTENANCE WELDER tmm1 [address] Jose, CERTIFIED MAINTENANCE WELDER CERTIFIED MAINTENANCE WELDER [facility] Alta Celeste RN RN tm5 Eddie Max, Reg Reg pm4 Chart Complete JULIET
--- NOTE | 2016-07-15 11:51 | EDDOCDS ---
Physician Documentation [facility] Name: Yael Stovall Age: 25 yrs Sex: Female : 1990 Arrival Date: 07/12/2016 Time: 23:03 Bed 4 Private MD: [facility], [address] - Adults Disposition: 07/13/16 00:44 Discharged to Home/Self Care. Impression: Laceration without foreign body of scalp, Concussion, Strain of muscle, fascia and tendon at neck level. - Condition is Stable. - Discharge Instructions: Concussion, Adult, Laceration Care, Adult, Cervical Sprain. - Medication Reconciliation, Local Pharmacy Hours, Work Release Form - 2 day form. - Follow up: Center - Adults [facility]; When: 1 week; Reason: Staple/Suture removal, Continuance of care. - Problem is new. - Symptoms have improved. - Notes: Keep hydrated Tylenol (only) for pain for the first 3 days, after than it is ok to use NSAIDS (Ibuprofen, ASA, Aleve, advil, naprosyn) [place] need to be removed in about 1 week, this can be done by your PCP (in most cases) Return to the ED for any concerns Historical: - Allergies: Coconut; Codeine Sulfate (Unknown); - Home Meds: 1. albuterol sulfate 90 mcg/actuation Inhl HFAA 2 puffs every 4 hours 2. loratadine 10 mg Oral tab 1 tab once daily 3. med for anxiety and depression 4. migraine meds unknown - PMHx: Anxiety; Headaches; Irregular heart rate; - PSHx: Tonsillectomy; Adenoidectomy; Cholecystectomy; - Social history: Smoking status: Patient states was never smoker of tobacco. No barriers to communication noted, The patient speaks fluent Serbian, Speaks appropriately for age. - Family history: Not pertinent. - : The pt / caregiver states he / she is not on anticoagulants. Home medication list is obtained from the patient. - Exposure Risk Screening:: None identified. 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 7 in. (170.18 cm) (R); Pain 10/10; 23:32 BP 148 / 65 (auto/); tm5 23:33 Pulse 90 MON; Pulse Ox 98% ; tm5 23:47 BP 129 / 73 (auto/); tm5 23:48 Pulse 92 MON; Pulse Ox 99% ; tm5 07/13 00:02 BP 136 / 74 (auto/); tm5 00:03 Pulse 92 MON; Pulse Ox 98% ; tm5 00:17 BP 123 / 79 (auto/); tm5 00:18 Pulse 88 MON; Pulse Ox 98% ; tm5 00:32 BP 121 / 71 (auto/); tm5 00:33 Pulse 82 MON; Resp 18 S; Pulse Ox 97% on R/A; Pain 3/10; tm5 00:47 BP 122 / 79 (auto/); tm5 00:48 Pulse 88 MON; Resp 18 S; Pulse Ox 99% on R/A; Pain 3/10; tm5 01:17 BP 132 / 79 (auto/); tm5 01:18 Pulse 80 MON; Resp 20 S; Pulse Ox 97% on R/A; Pain 2/10; tm5 02:23 BP 122 / 64; Pulse 74; Resp 18; Temp 98.3(O); Pulse Ox 100% on R/A; Pain 2/10; tm5 07/12 23:21 Body Mass Index 20.36 (58.97 kg, 170.18 cm) jmv Sydnee Coma Score: 07/12 23:05 Eye Response: spontaneous(4). Verbal Response: oriented(5). Motor Response: obeys kmg1 commands(6). Total: 15. MDM: 23:16 Ondansetron 4 mg IVP once ordered. le 23:16 Misc. Nursing Order ordered. le 23:16 NS 0.9% 1000 ml IV at bolus once ordered. le 23:16 Acetaminophen Tablet 650 mg PO once ordered. le 23:16 CT Head Without Contrast Ordered. EDMS 23:16 Lidocaine-Epinephrine 1 %-1:100,000 10 ml Infiltration once; to bedside ordered. le 23:17 CT Spine,Cervical W/o Contrast Ordered. EDMS 07/13 00:22 Diazepam 2 mg PO once ordered. le 00:22 Fluid Challenge ordered. le 00:22 Wound Care ordered. le 00:22 Ambulate patient to assess pain tolerance ordered. le 00:28 Financial registration complete. pm4 00:33 [facility] Payment Agreement was scanned into [employer] and attached to record. pm4 07:52 T-Sheet-- Draft Copy was scanned into [employer] and attached to record. [facility] 11:11 Radiology Report was scanned into [employer] and attached to record. gb Administered Medications: 07/12 23:22 Drug: NS 0.9% 1000 ml [sodium chloride 0.9 % intravenous solution] Route: IV; Rate: tm5 bolus; Site: left antecubital; 07/13 00:21 Follow up: IV Status: Completed infusion; IV Intake: 1000ml tm5 07/12 23:28 Drug: Ondansetron 4 mg Route: IVP; Site: left antecubital; tm5 07/13 00:21 Follow up: Response: Nausea is resolved; No Adverse Reaction tm5 07/12 23:28 Drug: Acetaminophen 650 mg [acetaminophen 325 mg tablet (2 tabs)] Route: PO; tm5 07/13 00:21 Follow up: Response: No Adverse Reaction; Pain is decreased tm5 00:20 Drug: Lidocaine-Epinephrine 10 ml [lidocaine-epinephrine 1 %-1:100,000 injection tm5 solution (10 mL)] {Note: placed at bedside for SHRIMP PEELING MACHINE TENDER's procedure .} Route: Infiltration; 00:42 Drug: Diazepam 2 mg [diazepam 2 mg tablet (1 tabs)] Route: PO; tm5 02:22 Follow up: Response: No Adverse Reaction; Pain is decreased tm5 Addendum: 07/15/2016 10:30 Addendum: radiology report review ? nondisplaced fx superior articular process C7 - d/w sd1 Dr. Zaragoza recommended flex-ex views and MRI - d/w charge nurse will have patient return for imaging and fu with Dr. Mix depending on the results of imaging. Signatures: Dispatcher [employer] EDNy Eckert MD MD sd1 Kayla Flowers, RN RN kmg1 Paula Powell, Reg Reg gb Cassia Mcguire, FILLER SHREDDING MACHINE LOADER FILLER SHREDDING MACHINE LOADER Macario Araujo DO DO [address] Alta Gutierres,RIAN RN tm5 Eddie Max, Reg Reg pm4 The chart was reviewed and I authenticate all verbal orders and agree with the evaluation and treatment provided.Attachments: 07/13 00:33 [facility] Payment Agreement pm4 07:52 T-Sheet-- Draft Copy [facility] Chart Complete MTDD
== END 2016-07-13 02:27 | disposition home or self-care (01) ==
LOC: M ED 23:03
DX: S01.01XA Laceration without foreign body of scalp, initial encounter (principal); S06.0X1A Concussion with loss of consciousness of 30 minutes or less, initial encounter; S16.1XXA Strain of muscle, fascia and tendon at neck level, initial encounter; W22.09XA Striking against other stationary object, initial encounter; Y92.89 Other specified places as the place of occurrence of the external cause; Y93.89 Activity, other specified; Y99.8 Other external cause status; F41.9 Anxiety disorder, unspecified; R51 Headache; R00.8 Other abnormalities of heart beat; Z79.899 Other long term (current) drug therapy
CPT/HCPCS: 70450; 72125; 96361; 96374; 99284; J2405

== ENCOUNTER 2016-07-15 14:12 | Emergency (ER) | payer OTHER ==
--- NOTE | 2016-07-15 15:50 | REP ---
CERVICAL SPINE, TWO VIEWS: HISTORY: Possible fracture. Flexion and extension radiographs were obtained. There is no acute fracture. The intervertebral discs are normal in height. There is no subluxation with flexion and extension. IMPRESSION: There is no subluxation with flexion and extension. Signed by Connor Roque MD 07/15/2016 03:53 P
--- NOTE | 2016-07-15 17:03 | REP ---
MRI cervical spine without contrast: History: Possible C7 fracture. Comparison cervical spine radiographs are from earlier on this date. Comparison CT study of the cervical spine is from July 12, 2016. CT study was reported as showing a possible radiolucent line, perhaps a fracture through the superior articular process of C7 on the left. Technique: Sagittal and axial T1 and T2-weighted scans are acquired in the usual fashion with and without fat saturation. Sequences include spin echo, turbo spin-echo, and STIR imaging sequences. MRI findings: Cortical and medullary bone signal intensity are normal on T1 and T2-weighted MR images. Inversion recovery sequence shows no evidence of ligament disruption. No marrow edema is seen in the facets at C7. No joint fluid is seen in any of the facet joints. There is no evidence of paraspinal or epidural hematoma. No fracture or collapse is seen by MR. The cervical cord is normal in coarse, caliber and signal intensity on T1 and T2-weighted scans. Craniocervical junction is unremarkable. No disc herniation is seen. No neural foraminal narrowing is appreciated. Impression: No MR evidence of fracture seen. Unremarkable MRI cervical spine without contrast. Signed by Charlie Quinteros MD 07/15/2016 05:43 P
--- NOTE | 2016-07-15 18:22 | EDDOCDS ---
Physician Documentation [facility] Name: Yael Stovall Age: 25 yrs Sex: Female : 1990 Arrival Date: 07/15/2016 Time: 14:12 Bed 11 Private MD: Sissy Roman S Disposition: 07/15/16 17:27 Discharged to Home/Self Care. Impression: Strain of muscle, fascia and tendon at neck level. - Condition is Stable. - Discharge Instructions: Soft Tissue Injury of the Neck. - Medication Reconciliation, Local Pharmacy Hours form. - Follow up: Sissy Roman; When: 1 week; Reason: Recheck today's complaints. Follow up: Christopher Street; When: 2 - 3 days; Reason: Recheck today's complaints. - Problem is an ongoing problem. - Symptoms are unchanged. - Notes: You were seen in the ED because a recent CT scan questioned the possibility of fracture in the neck, however today's Xrays and MRI show no fractures. We have discussed the case with Dr. Street of Neurosurgery. You may return home to see him in the office for further evaluation - please call today to arrange to be seen. Wear the collar until Dr. Street tells you you may remove it. No sports, gym or driving until cleared to do so by Dr. Street or your doctor. Return to the ED for any new pain, worse pain, numbness, weakness, loss of control of bowel or bladder, or any other concerns. Historical: - Allergies: Coconut; Codeine Sulfate (Unknown); - Home Meds: 1. albuterol sulfate 90 mcg/actuation Inhl HFAA 2 puffs every 4 hours 2. Zyrtec Oral once daily 3. migraine meds unknown 4. ibuprofen 400 mg oral tab every 6 hours (Last dose: 07/15/2016) - PMHx: Irregular heart rate; Headaches; Anxiety; - PSHx: Cholecystectomy; Adenoidectomy; Tonsillectomy; - Social history: Smoking status: Patient states was never smoker of tobacco. No barriers to communication noted, The patient speaks fluent Japanese, Speaks appropriately for age. - Family history: Not pertinent. - : The pt / caregiver states he / she is not on anticoagulants. Home medication list is obtained from the patient, [employer] import data. - Exposure Risk Screening:: None identified. 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 8 in. (172.72 cm) (R); 17:45 BP 124 / 77; Pulse 84; Resp 18; Temp 98.5(O); Pulse Ox 98% on R/A; Pain 8/10; kcs 14:14 Body Mass Index 18.25 (54.43 kg, 172.72 cm) dd6 MDM: 14:38 Apply Nereyda Collar to Patient. ordered. ar2 14:38 MRI Screening Tool - Place on chart, inform RN ordered. ar2 14:40 -MRI-Spine, Cervical without contrast Ordered. EDMS 14:51 Spine,Cervical 2 or 3 views Ordered. EDMS 15:41 MRI Screening Tool - Place on chart, inform RN complete. ar3 17:32 Financial registration complete. zo 17:32 [facility] Payment Agreement was scanned into [employer] and attached to record. zo Signatures: Dispatcher [employer] EDMS Cha Gracia RN RN kcs Chang Borges zo Rodney Hough MD MD br1 Rikki Blake, PA-C PA-Thien ar2 Cee Ward, E[employer]AGEL[employer] ASSISTANT MANAGER EINSTEIN [employer] ASSISTANT MANAGER ar3 Estelle Mckeon RN RN ead The chart was reviewed and I authenticate all verbal orders and agree with the evaluation and treatment provided.Corrections: (The following items were deleted from the chart) 14:51 14:39 Spine, Cervical+XR ordered. EDMS EDMS Attachments: 17:32 [facility] Payment Agreement zo MTDD
--- NOTE | 2016-07-15 18:22 | EDDOCDS ---
Nurse's Notes [facility] Name: Yael Stovall Age: 25 yrs Sex: Female : 1990 Arrival Date: 07/15/2016 Time: 14:12 Bed 11 Private MD: Sissy Roman S Diagnosis: Strain of muscle, fascia and tendon at neck level Presentation: 07/15 14:20 Presenting complaint: Patient states: pt was seen here on Friday after LOC from d running into a van door. Pt was called today and instructed to return to ER for possible fracture read on CT. C-Collar put in place on arrival. Pt has brianne to right side of head, placed here on Friday. Pt reports pain to staple site. Soreness to neck. Risk Factors No acute neurological deficit is noted. Adult Sepsis Screening: The patient does not have new or worsening altered mentation. Patient's respiratory rate is less than 22. Systolic blood pressure is greater than 100. Patient has a qSOFA score of 0- Negative Sepsis Screen. Suicide/Homicide risk assessment- the patient denies having any suicidal and/or homicidal ideations and does not present with any other emotional, behavioral or mental health complaints. 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 Transition of care: patient was not received from another setting of care. 14:20 Acuity: LILIYA Level 3 ead 14:20 Method Of Arrival: Walkin/Carried/Asstd ead Triage Assessment: 14:24 General: Appears in no apparent distress, Behavior is appropriate for age, cooperative. ead Pain: Location: back of neck and face Pain currently is 7 out of 10 on a pain scale. HIV screening NA for this visit Offered previously. Neurological: Level of Consciousness is awake, alert, obeys commands, Oriented to person, place, time. Respiratory: Airway is patent Respiratory effort is even, unlabored. Derm: Skin is pink, warm & dry. sutures in place to right side of head. Musculoskeletal: Trachea midline Reports pain in back of head and face. 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 albuterol sulfate 90 mcg/actuation Inhl HFAA 2 puffs every 4 hours 2. Zyrtec Oral once daily 3. migraine meds unknown 4. ibuprofen 400 mg oral tab every 6 hours (Last dose: 07/15/2016) - PMHx: Irregular heart rate; Headaches; Anxiety; - PSHx: Cholecystectomy; Adenoidectomy; Tonsillectomy; - Social history: Smoking status: Patient states was never smoker of tobacco. No barriers to communication noted, The patient speaks fluent Mongolian, Speaks appropriately for age. - Family history: Not pertinent. - : The pt / caregiver states he / she is not on anticoagulants. Home medication list is obtained from the patient, [email or web address] import data. - Exposure Risk Screening:: None identified. Screenin:45 Screening information is obtained from prior medical records. Fall risk: No risks kcs identified. Assistance ADL's: requires no assistance with activities of daily living. Abuse/DV Screen: The patient / caregiver reports he/she is: not in a situation that causes fear, pain or injury. Nutritional screening: No deficits noted. Advance Directives: Currently, there is no health care proxy. home support is adequate. Assessment: 16:42 General: PT will go to 25 to wait for a room in the main ED to be clean. . ms18 16:50 Neurological: Level of Consciousness is awake, alert, Oriented to person, place, time, srm Moves all extremities. Full function Gait is steady, Speech is normal, Facial symmetry appears normal. Respiratory: No deficits noted. GI: No deficits noted. 17:45 Reassessment: Patient moves all extremities - Nereyad collar remains on.. General: kcs Appears comfortable, slender, well developed, well nourished, well groomed, Behavior is cooperative, flat. Pain: Location: back of neck Pain currently is 8 out of 10 on a pain scale. Neurological: Level of Consciousness is awake, alert. Respiratory: Airway is patent Respiratory effort is even, unlabored, Respiratory pattern is regular, symmetrical. Derm: Skin is intact, is healthy with good turgor, Skin is dry, Skin is normal. Vital Signs: 14:14 BP 136 / 86; Pulse 92; Resp 18 S; Temp 97.1(O); Pulse Ox 100% on R/A; Weight 54.43 kg dd6 (R); Height 5 ft. 8 in. (172.72 cm) (R); 17:45 BP 124 / 77; Pulse 84; Resp 18; Temp 98.5(O); Pulse Ox 98% on R/A; Pain 8/10; kcs 14:14 Body Mass Index 18.25 (54.43 kg, 172.72 cm) dd6 Vitals: 14:14 Log In Time: July 15, 2016 at 14:12. dd6 ED Course: 14:14 Patient visited by José Miguel Reynaga PCA. dd6 14:14 Sissy Roman is Private Physician. dd6 14:14 Patient moved to Waiting dd6 14:15 Patient moved to Pre RCE dd6 14:22 Triage Initiated ead 15:56 Spine,Cervical 2 or 3 views Returned. EDMS 16:42 Patient moved to PR1 / 25 ms18 16:43 Patient visited by Estelle Mckeon RN. ead 16:43 Patient moved to 11 ms18 17:00 Rodney Hough MD is Attending Physician. br1 17:07 Patient visited by Rodney Hough MD. br1 17:25 -MRI-Spine, Cervical without contrast Returned. EDMS 17:26 Sissy Roman is Referral Physician. br1 17:[address] is Referral Physician. br1 17:32 [facility] Payment Agreement was scanned into [employer] and attached to record. zo 17:45 The patient / caregiver is instructed regarding the plan of care and ED course. kcs 17:45 No IV's were initiated during this patient's visit. No procedures done that require kcs assistance. Order Results: Radiology Order: -MRI-Spine, Cervical without contrast Test: -MRI-Spine, Cervical without contrast REASON FOR EXAMINATION: possible c7 fracture; MRI cervical spine without contrast:; ; History: Possible C7 fracture.; ; Comparison cervical spine radiographs are from earlier on this date. Comparison; CT study of the cervical spine is from July 12, 2016.; ; CT study was reported as showing a possible radiolucent line, perhaps a fracture; through the superior articular process of C7 on the left.; ; Technique: Sagittal and axial T1 and T2-weighted scans are acquired in the usual; fashion with and without fat saturation. Sequences include spin echo, turbo; spin-echo, and STIR imaging sequences.; ; MRI findings:; ; Cortical and medullary bone signal intensity are normal on T1 and T2-weighted MR; images. Inversion recovery sequence shows no evidence of ligament disruption.; No marrow edema is seen in the facets at C7. No joint fluid is seen in any of; the facet joints. There is no evidence of paraspinal or epidural hematoma. No; fracture or collapse is seen by MR. The cervical cord is normal in coarse,; caliber and signal intensity on T1 and T2-weighted scans. Craniocervical; junction is unremarkable. No disc herniation is seen. No neural foraminal; narrowing is appreciated.; ; Impression:; ; No MR evidence of fracture seen. Unremarkable MRI cervical spine without; contrast.; ; ; Signed by; Charlie Quinteros MD 07/15/2016 05:43 P; Radiology Order: Spine,Cervical 2 or 3 views Test: Spine,Cervical 2 or 3 views REASON FOR EXAMINATION: flexion and extension films ? c7 fx; CERVICAL SPINE, TWO VIEWS:; ; HISTORY: Possible fracture.; ; Flexion and extension radiographs were obtained.; ; There is no acute fracture. The intervertebral discs are normal in height. There; is no subluxation with flexion and extension.; ; IMPRESSION:; ; There is no subluxation with flexion and extension.; ; ; Signed by; Connor Roque MD 07/15/2016 03:53 P; Outcome: 17:27 Discharge ordered by Provider. br1 17:45 Discharge Assessment: Patient awake, alert and oriented x 3. No cognitive and/or kcs functional deficits noted. Patient verbalized understanding of disposition instructions. Patient awake and alert. patient administered narcotics - no. The following High Risk Discharge criteria are identified: None. Discharged to home ambulatory. Condition: stable. Discharge instructions given to patient, Instructed on discharge instructions, follow up and referral plans. Demonstrated understanding of instructions, Pt was receptive of discharge instructions/ teaching. MRI Study completed. Property sent home with patient. 18:21 Patient left the ED. kcs Signatures: Dispatcher [employer] EDCha Stein RN RN kcs Michelson, Staci, RN RN srm Olin, Zoeann zo Roggie, Brian, MD MD br1 José Miguel Reynaga, CLAU FINAL INSPECTOR SHUTTLE dd6 Estelle Mckeon RN RN ead Smith, Mallory, RN RN ms18 MTDD
--- NOTE | 2016-07-17 19:22 | EDDOCDS ---
Physician Documentation [facility] Name: Yael Stovall Age: 25 yrs Sex: Female : 1990 Arrival Date: 07/15/2016 Time: 14:12 Bed 11 Private MD: Sissy Roman S Disposition: 07/15/16 17:27 Discharged to Home/Self Care. Impression: Strain of muscle, fascia and tendon at neck level. - Condition is Stable. - Discharge Instructions: Soft Tissue Injury of the Neck. - Medication Reconciliation, Local Pharmacy Hours form. - Follow up: Sissy Roman; When: 1 week; Reason: Recheck today's complaints. Follow up: Christopher Street; When: 2 - 3 days; Reason: Recheck today's complaints. - Problem is an ongoing problem. - Symptoms are unchanged. - Notes: You were seen in the ED because a recent CT scan questioned the possibility of fracture in the neck, however today's Xrays and MRI show no fractures. We have discussed the case with Dr. Street of Neurosurgery. You may return home to see him in the office for further evaluation - please call today to arrange to be seen. Wear the collar until Dr. Street tells you you may remove it. No sports, gym or driving until cleared to do so by Dr. Street or your doctor. Return to the ED for any new pain, worse pain, numbness, weakness, loss of control of bowel or bladder, or any other concerns. Historical: - Allergies: Coconut; Codeine Sulfate (Unknown); - Home Meds: 1. albuterol sulfate 90 mcg/actuation Inhl HFAA 2 puffs every 4 hours 2. Zyrtec Oral once daily 3. migraine meds unknown 4. ibuprofen 400 mg oral tab every 6 hours (Last dose: 07/15/2016) - PMHx: Irregular heart rate; Headaches; Anxiety; - PSHx: Cholecystectomy; Adenoidectomy; Tonsillectomy; - Social history: Smoking status: Patient states was never smoker of tobacco. No barriers to communication noted, The patient speaks fluent Belarusian, Speaks appropriately for age. - Family history: Not pertinent. - : The pt / caregiver states he / she is not on anticoagulants. Home medication list is obtained from the patient, [employer] import data. - Exposure Risk Screening:: None identified. 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 8 in. (172.72 cm) (R); 17:45 BP 124 / 77; Pulse 84; Resp 18; Temp 98.5(O); Pulse Ox 98% on R/A; Pain 8/10; kcs 14:14 Body Mass Index 18.25 (54.43 kg, 172.72 cm) dd6 MDM: 14:38 Apply Nereyda Collar to Patient. ordered. ar2 14:38 MRI Screening Tool - Place on chart, inform RN ordered. ar2 14:40 -MRI-Spine, Cervical without contrast Ordered. EDMS 14:51 Spine,Cervical 2 or 3 views Ordered. EDMS 15:41 MRI Screening Tool - Place on chart, inform RN complete. ar3 17:32 Financial registration complete. zo 17:32 [facility] Payment Agreement was scanned into [employer] and attached to record. zo 07/16 09:04 T-Sheet-- Draft Copy was scanned into [employer] and attached to record. gb 09:04 Radiology Report was scanned into [employer] and attached to record. gb Signatures: Dispatcher [employer] EDMS Cha Gracia RN RN kcs Paula Powell, Reg Reg Chang Rojas Brian, MD MD br1 Rikki Blake, PA-C PA-C ar2 Cee Ward PCA FOUNDRY WORKER ar3 Estelle Mckeon RN RN ead The chart was reviewed and I authenticate all verbal orders and agree with the evaluation and treatment provided.Corrections: (The following items were deleted from the chart) 07/15 14:51 14:39 Spine, Cervical+XR ordered. EDMS EDMS Attachments: 17:32 [facility] Payment Agreement zo 07/16 09:04 T-Sheet-- Draft Copy gb Chart Complete MTDD
--- NOTE | 2016-07-17 19:22 | EDDOCDS ---
Physician Documentation [facility] Name: Yael Stovall Age: 25 yrs Sex: Female : 1990 Arrival Date: 07/15/2016 Time: 14:12 Bed 11 Private MD: Sissy Roman S Disposition: 07/15/16 17:27 Discharged to Home/Self Care. Impression: Strain of muscle, fascia and tendon at neck level. - Condition is Stable. - Discharge Instructions: Soft Tissue Injury of the Neck. - Medication Reconciliation, Local Pharmacy Hours form. - Follow up: Sissy Roman; When: 1 week; Reason: Recheck today's complaints. Follow up: Christopher Street; When: 2 - 3 days; Reason: Recheck today's complaints. - Problem is an ongoing problem. - Symptoms are unchanged. - Notes: You were seen in the ED because a recent CT scan questioned the possibility of fracture in the neck, however today's Xrays and MRI show no fractures. We have discussed the case with Dr. Street of Neurosurgery. You may return home to see him in the office for further evaluation - please call today to arrange to be seen. Wear the collar until Dr. Street tells you you may remove it. No sports, gym or driving until cleared to do so by Dr. Street or your doctor. Return to the ED for any new pain, worse pain, numbness, weakness, loss of control of bowel or bladder, or any other concerns. Historical: - Allergies: Coconut; Codeine Sulfate (Unknown); - Home Meds: 1. albuterol sulfate 90 mcg/actuation Inhl HFAA 2 puffs every 4 hours 2. Zyrtec Oral once daily 3. migraine meds unknown 4. ibuprofen 400 mg oral tab every 6 hours (Last dose: 07/15/2016) - PMHx: Irregular heart rate; Headaches; Anxiety; - PSHx: Cholecystectomy; Adenoidectomy; Tonsillectomy; - Social history: Smoking status: Patient states was never smoker of tobacco. No barriers to communication noted, The patient speaks fluent Gibraltarian, Speaks appropriately for age. - Family history: Not pertinent. - : The pt / caregiver states he / she is not on anticoagulants. Home medication list is obtained from the patient, 20:20 [employer] import data. - Exposure Risk Screening:: None identified. 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 8 in. (172.72 cm) (R); 17:45 BP 124 / 77; Pulse 84; Resp 18; Temp 98.5(O); Pulse Ox 98% on R/A; Pain 8/10; kcs 14:14 Body Mass Index 18.25 (54.43 kg, 172.72 cm) dd6 MDM: 14:38 Apply Nereyda Collar to Patient. ordered. ar2 14:38 MRI Screening Tool - Place on chart, inform RN ordered. ar2 14:40 -MRI-Spine, Cervical without contrast Ordered. EDMS 14:51 Spine,Cervical 2 or 3 views Ordered. EDMS 15:41 MRI Screening Tool - Place on chart, inform RN complete. ar3 17:32 Financial registration complete. zo 17:32 [facility] Payment Agreement was scanned into [employer] and attached to record. zo 07/16 09:04 T-Sheet-- Draft Copy was scanned into [employer] and attached to record. gb 09:04 Radiology Report was scanned into [employer] and attached to record. gb Signatures: Dispatcher [employer] EDMS Cha Gracia RN RN kcs Paula Powell, Reg Reg Chang Rojas Brian, MD MD br1 Rikki Blake, PA-C PA-C ar2 Cee Ward PCA ACCESS TECH ar3 Estelle Mckeon RN RN ead The chart was reviewed and I authenticate all verbal orders and agree with the evaluation and treatment provided.Corrections: (The following items were deleted from the chart) 07/15 14:51 14:39 Spine, Cervical+XR ordered. EDMS EDMS Attachments: 17:32 [facility] [place] Payment Agreement zo 07/16 09:04 T-Sheet-- Draft Copy gb Chart Complete MTDD
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
== END 2016-07-15 18:21 | disposition home or self-care (01) ==
LOC: M ED 14:12
DX: S16.1XXA Strain of muscle, fascia and tendon at neck level, initial encounter (principal); W22.8XXA Striking against or struck by other objects, initial encounter; Y92.89 Other specified places as the place of occurrence of the external cause; Y93.02 Activity, running; Y99.8 Other external cause status; R51 Headache; F41.9 Anxiety disorder, unspecified; R00.8 Other abnormalities of heart beat; Z79.899 Other long term (current) drug therapy; Z88.2 Allergy status to sulfonamides; Z88.5 Allergy status to narcotic agent; Z91.018 Allergy to other foods

== ENCOUNTER → 2016-08-23 | Outpatient (REF) | payer OTHER | LOC: M LAB REF 14:37 | PROVIDERS: ATTEND Physician Assistant | DX: B34.9 Viral infection, unspecified (principal) ==

== ENCOUNTER 2016-11-18 12:18 | Emergency (ER) | payer OTHER ==
[~2016-11-18] VITALS: Ht 172.7 cm; Wt 55.8 kg
[2016-11-18] MEDS ORDERED: ALBU17IN2 INH (12:31)
[2016-11-18] MEDS ORDERED: ACETAMINOPHEN 325 MG TAB PO ONE (13:30)
[2016-11-18] MEDS ORDERED: MAGNESIUM OXIDE 400 MG TAB (MAG-OX) PO ONE (13:30)
[2016-11-18] MEDS ORDERED: KETOROLAC 60 MG/2 ML VIAL (J1885) IM ONE (13:30)
[2016-11-18] MEDS ORDERED: ONDANSETRON 4 MG ORAL DISINTEGRATING TAB (S0181) PO ONE (13:30)
[2016-11-18 14:24] VITALS: BP 112/73
== END 2016-11-18 14:44 | disposition home or self-care (01) ==
LOC: M ED 13:33
DX: R51 Headache (principal); Z88.5 Allergy status to narcotic agent
CPT/HCPCS: 96372; 99282; J1885

== ENCOUNTER 2017-06-24 14:31 | Emergency (ER) | payer OTHER ==
[2017-06-24 15:29] LABS: MEAN CORPUSCULAR HEMOGLOBIN 30.4 pg (27.0-33.0); MEAN CORPUSCULAR HGB CONC 33.9 g/dl (32.0-36.5); MEAN CORPUSCULAR VOLUME 89.6 fl (80.0-96.0); PLATELET COUNT, AUTOMATED 288 10^3/uL (150-450); RED CELL DISTRIBUTION WIDTH 12.1 % (11.5-14.5); WHITE BLOOD COUNT 4.4 10^3/uL (4.0-10.0)
[2017-06-24 15:51] LABS: METHADONE URINE NEGATIVE (NEGATIVE)
[2017-06-24 16:03] LABS: ALBUMIN 4.3 GM/DL (3.2-5.2); ALBUMIN/GLOBULIN RATIO 1.34 (1.00-1.93); ALKALINE PHOSPHATASE 59 U/L (45-117); ALT/SGPT 25 U/L (12-78); ANION GAP 5 MEQ/L (8-16); AST/SGOT 23 U/L (7-37); BILIRUBIN,DIRECT < 0.1 MG/DL (0.0-0.2); BILIRUBIN,TOTAL 0.4 MG/DL (0.2-1.0); BLOOD UREA NITROGEN 10 MG/DL (7-18); CALCIUM LEVEL 8.6 MG/DL (8.5-10.1); CARBON DIOXIDE LEVEL 29 MEQ/L (21-32); CHLORIDE LEVEL 108 MEQ/L (98-107); CREATININE FOR GFR 0.77 MG/DL (0.55-1.02); GLOMERULAR FILTRATION RATE > 60.0 (>60); GLUCOSE, FASTING 87 MG/DL (70-105); POTASSIUM SERUM 4.4 MEQ/L (3.5-5.1); SODIUM LEVEL 142 MEQ/L (136-145); TOTAL PROTEIN 7.5 GM/DL (6.4-8.2)
== END 2017-06-24 18:47 | disposition home or self-care (01) ==
LOC: M ED 14:31
DX: F33.9 Major depressive disorder, recurrent, unspecified (principal); R45.851 Suicidal ideations; F43.0 Acute stress reaction; J45.909 Unspecified asthma, uncomplicated; Z59.8 Other problems related to housing and economic circumstances; Z88.5 Allergy status to narcotic agent; Z91.018 Allergy to other foods
CPT/HCPCS: 80320

== ENCOUNTER 2017-07-22 12:31 | Emergency (ER) | payer OTHER ==
[2017-07-22] MEDS: NS 1,000 ML IV (13:30)
[2017-07-22] MEDS: diphenhydrAMINE INJ 50MG/ML VIAL (J1200) IV (13:51)
[2017-07-22] MEDS: METOCLOPRAMIDE INJ 10MG/2ML VIAL (J2765) IV (13:51)
[2017-07-22] MEDS: KETOROLAC 30 MG/ML VIAL (J1885) IV (13:51)
== END 2017-07-22 15:05 | disposition home or self-care (01) ==
LOC: M ED 12:31
DX: G43.909 Migraine, unspecified, not intractable, without status migrainosus (principal); J45.909 Unspecified asthma, uncomplicated
CPT/HCPCS: J1200

== ENCOUNTER → 2017-07-26 | Outpatient (REF) | payer OTHER ==
[2017-07-26 19:33] LABS: INFLUENZA A AMPLIFICATION NEGATIVE (NEGATIVE); INFLUENZA B AMPLIFICATION NEGATIVE (NEGATIVE)
== END ==
LOC: M LAB REF 18:41
DX: J11.1 Influenza due to unidentified influenza virus with other respiratory manifestations (principal)
CPT/HCPCS: 87502

== ENCOUNTER 2017-09-04 13:37 | Outpatient (RCR) | payer OTHER | END 2017-09-27 | LOC: M PT 13:37 | DX: Z51.89 Encounter for other specified aftercare (principal); M25.361 Other instability, right knee ==

== ENCOUNTER 2017-09-09 11:50 | Emergency (ER) | payer OTHER | END 2017-09-09 13:51 | disposition home or self-care (01) | LOC: M ED 11:50 | DX: J02.8 Acute pharyngitis due to other specified organisms (principal); G43.909 Migraine, unspecified, not intractable, without status migrainosus; Z88.5 Allergy status to narcotic agent; Z91.018 Allergy to other foods; Z79.899 Other long term (current) drug therapy | CPT/HCPCS: 87430 ==

== ENCOUNTER → 2017-09-10 | Outpatient (REF) | payer OTHER | LOC: M LAB REF 12:55 | DX: J02.9 Acute pharyngitis, unspecified (principal) ==

== ENCOUNTER → 2017-09-17 | Outpatient (REF) | payer OTHER | LOC: M LAB REF 12:02 | DX: R19.7 Diarrhea, unspecified (principal) ==

== ENCOUNTER 2017-09-24 20:39 | Emergency (ER) | payer OTHER ==
[2017-09-24] MEDS: ACETAMINOPHEN 325 MG TAB PO (22:08)
== END 2017-09-24 22:52 | disposition home or self-care (01) ==
LOC: M ED 20:39
DX: S63.501A Unspecified sprain of right wrist, initial encounter (principal); S56.811A Strain of other muscles, fascia and tendons at forearm level, right arm, initial encounter; V40.5XXA Car driver injured in collision with pedestrian or animal in traffic accident, initial encounter; Y92.410 Unspecified street and highway as the place of occurrence of the external cause; J45.909 Unspecified asthma, uncomplicated; F33.9 Major depressive disorder, recurrent, unspecified; G43.909 Migraine, unspecified, not intractable, without status migrainosus; Z79.899 Other long term (current) drug therapy; Z88.5 Allergy status to narcotic agent; Z91.018 Allergy to other foods
CPT/HCPCS: 73090

== ENCOUNTER 2017-10-18 06:59 | Emergency (ER) | payer OTHER ==
[2017-10-18 07:50] LABS: BASO % 0.4 % (0.0-1.0); EOS # 0.4 10^3/uL (0.0-0.50); EOS % 7.5 % (0.0-3.0); HEMATOCRIT 35.7 % (36.0-47.0); HEMOGLOBIN 11.9 g/dl (12.0-15.5); IMMATURE GRANULOCYTE % 0.4 % (0-3.0); LYMPH # 1.5 10^3/uL (1.5-6.5); LYMPH % 28.5 % (24.0-44.0); MEAN CORPUSCULAR HEMOGLOBIN 28.7 pg (27.0-33.0); MEAN CORPUSCULAR HGB CONC 33.3 g/dl (32.0-36.5); MEAN CORPUSCULAR VOLUME 86.2 fl (80.0-96.0); MONO # 0.4 10^3/uL (0.0-0.8); MONO % 7.1 % (0.0-5.0); NEUTROPHILS # 2.9 10^3/uL (1.8-7.7); NEUTROPHILS % 56.1 % (36.0-66.0); PLATELET COUNT, AUTOMATED 228 10^3/uL (150-450); RED BLOOD COUNT 4.14 10^6/uL (4.00-5.40); RED CELL DISTRIBUTION WIDTH 12.2 % (11.5-14.5); WHITE BLOOD COUNT 5.1 10^3/uL (4.0-10.0)
[2017-10-18] MEDS: NS 500 ML IV (07:55)
[2017-10-18] MEDS: KETOROLAC 30 MG/ML VIAL (J1885) IV (07:55)
[2017-10-18] MEDS: ONDANSETRON 4MG/2ML VIAL (J2405) IV (07:55)
[2017-10-18 08:03] LABS: APPEARANCE, URINE CLEAR (CLEAR); BACTERIA, URINE AUTO NEGATIVE (NEGATIVE); BILIRUBIN, URINE AUTO NEGATIVE (NEGATIVE); BLOOD, URINE BLOOD NEGATIVE (NEGATIVE); COLOR, URINE YELLOW (YELLOW); GLUCOSE, URINE (UA) AUTO NEGATIVE (NEGATIVE); KETONE, URINE AUTO NEGATIVE (NEGATIVE); LEUKOCYTE ESTERASE, URINE AUTO NEGATIVE (NEGATIVE); MUCUS, URINE SMALL (NEGATIVE); NITRITE, URINE AUTO NEGATIVE (NEGATIVE); PROTEIN, URINE AUTO NEGATIVE (NEGATIVE); RBC, URINE AUTO 1 /HPF (0-3); SPECIFIC GRAVITY URINE AUTO 1.015 (1.002-1.035); SQUAMOUS EPITHELIAL CELL UR AU 2 /HPF (0-6); UROBILINOGEN, URINE AUTO 0.2 mg/dL (0.0-2.0); WBC, URINE AUTO 4 /HPF (0-3)
[2017-10-18 08:26] LABS: ALBUMIN 3.8 GM/DL (3.2-5.2); ALBUMIN/GLOBULIN RATIO 1.15 (1.00-1.93); ALKALINE PHOSPHATASE 77 U/L (45-117); ALT/SGPT 35 U/L (12-78); AMYLASE 83 U/L (25-115); ANION GAP 5 MEQ/L (8-16); AST/SGOT 53 U/L (7-37); BILIRUBIN,DIRECT < 0.1 MG/DL (0.0-0.2); BILIRUBIN,TOTAL 0.3 MG/DL (0.2-1.0); BLOOD UREA NITROGEN 16 MG/DL (7-18); CALCIUM LEVEL 8.4 MG/DL (8.5-10.1); CARBON DIOXIDE LEVEL 27 MEQ/L (21-32); CHLORIDE LEVEL 110 MEQ/L (98-107); CREATININE FOR GFR 0.87 MG/DL (0.55-1.30); GLOMERULAR FILTRATION RATE > 60.0 (>60); GLUCOSE, FASTING 88 MG/DL (70-100); LIPASE 226 U/L (73-393); POTASSIUM SERUM 4.2 MEQ/L (3.5-5.1); SODIUM LEVEL 142 MEQ/L (136-145); TOTAL PROTEIN 7.1 GM/DL (6.4-8.2)
== END 2017-10-18 09:14 | disposition home or self-care (01) ==
LOC: M ED 06:59
DX: R10.32 Left lower quadrant pain (principal); R11.2 Nausea with vomiting, unspecified; J45.909 Unspecified asthma, uncomplicated; F33.9 Major depressive disorder, recurrent, unspecified; F41.9 Anxiety disorder, unspecified; Z79.899 Other long term (current) drug therapy; Z86.69 Personal history of other diseases of the nervous system and sense organs; Z98.890 Other specified postprocedural states; Z91.018 Allergy to other foods; Z88.5 Allergy status to narcotic agent
CPT/HCPCS: J2405

== ENCOUNTER 2018-03-08 13:03 | Emergency (ER) | payer OTHER ==
[2018-03-08] MEDS: FAMOTIDINE IV BAG 20 MG in APPROPRIATE DILUENT 1 EA IV (13:37)
[2018-03-08] MEDS: NS 1,000 ML IV (13:37)
== END 2018-03-08 17:38 | disposition home or self-care (01) ==
LOC: M ED 13:03
DX: T78.09XA Anaphylactic reaction due to other food products, initial encounter (principal); R00.0 Tachycardia, unspecified; R22.1 Localized swelling, mass and lump, neck; R06.02 Shortness of breath; F41.9 Anxiety disorder, unspecified; F32.9 Major depressive disorder, single episode, unspecified; G43.909 Migraine, unspecified, not intractable, without status migrainosus; J45.909 Unspecified asthma, uncomplicated; Z91.018 Allergy to other foods; Z88.5 Allergy status to narcotic agent; Z79.899 Other long term (current) drug therapy
CPT/HCPCS: 36415

== ENCOUNTER → 2018-03-12 | Outpatient (REF) | payer OTHER ==
[2018-03-12 16:03] LABS: AMORPHOUS SEDIMENT SMALL (NEGATIVE); APPEARANCE, URINE CLOUDY (CLEAR); BACTERIA, URINE AUTO 1+ (NEGATIVE); BILIRUBIN, URINE AUTO NEGATIVE (NEGATIVE); BLOOD, URINE BLOOD 3+ (NEGATIVE); COLOR, URINE YELLOW (YELLOW); GLUCOSE, URINE (UA) AUTO NEGATIVE (NEGATIVE); KETONE, URINE AUTO NEGATIVE (NEGATIVE); LEUKOCYTE ESTERASE, URINE AUTO 3+ (NEGATIVE); NITRITE, URINE AUTO NEGATIVE (NEGATIVE); PROTEIN, URINE AUTO 2+ mg/dL (NEGATIVE); RBC, URINE AUTO TNTC /HPF (0-3); SPECIFIC GRAVITY URINE AUTO 1.016 (1.002-1.035); SQUAMOUS EPITHELIAL CELL UR AU 3 /HPF (0-6); UROBILINOGEN, URINE AUTO 0.2 mg/dL (0.0-2.0); WBC, URINE AUTO TNTC /HPF (0-3)
== END ==
LOC: M LAB REF 15:15
DX: N39.0 Urinary tract infection, site not specified (principal)

== ENCOUNTER → 2018-03-25 | Outpatient (CLI) | payer OTHER | LOC: M WUC 12:28 | DX: M25.511 Pain in right shoulder (principal) | CPT/HCPCS: 73030 ==

== ENCOUNTER 2018-04-17 17:54 | Emergency (ER) | payer OTHER ==
[2018-04-17] MEDS: GI COCKTAIL 50ML BTL(HYOSCYAMINE/MAALOX/LIDOCAINE VISCOUS)(1:3:1) PO (20:05)
[2018-04-17] MEDS: ONDANSETRON 4 MG ORAL DISINTEGRATING TAB (Q0162 PER 1MG) PO (20:05)
[2018-04-17] MEDS: PANTOPRAZOLE 40MG TAB (PROTONIX) PO (20:35)
== END 2018-04-17 20:36 | disposition home or self-care (01) ==
LOC: M ED 17:54
DX: K21.0 Gastro-esophageal reflux disease with esophagitis (principal); J45.909 Unspecified asthma, uncomplicated; K58.9 Irritable bowel syndrome, unspecified; F32.9 Major depressive disorder, single episode, unspecified; G43.909 Migraine, unspecified, not intractable, without status migrainosus; Z91.018 Allergy to other foods; Z88.5 Allergy status to narcotic agent; Z79.899 Other long term (current) drug therapy
CPT/HCPCS: Q0162

== ENCOUNTER 2018-06-07 14:27 | Emergency (ER) | payer OTHER ==
[2018-06-07] MEDS: ONDANSETRON 4 MG ORAL DISINTEGRATING TAB (Q0162 PER 1MG) PO (14:45)
[2018-06-07] MEDS: predniSONE 20 MG TAB PO (15:15)
== END 2018-06-07 17:32 | disposition home or self-care (01) ==
LOC: M ED 14:27
DX: R11.0 Nausea (principal); F33.9 Major depressive disorder, recurrent, unspecified; F41.9 Anxiety disorder, unspecified; Z79.899 Other long term (current) drug therapy; Z88.5 Allergy status to narcotic agent; Z91.018 Allergy to other foods; J30.2 Other seasonal allergic rhinitis
CPT/HCPCS: Q0162

== ENCOUNTER → 2018-07-09 | Outpatient (REF) | payer OTHER ==
[~2018-07-09] MED LIST: ALBU17IN2 INH; ALBU83IN INH; CETI10CH PO; CLIN1GEL3 EX; CLON0.5T8 PO; DIPH25CA PO; EPIP0.3I2 IM; IBUP-1114 PO; MAGICMW MT; PRED20TA PO; PROT1TAB2 PO; REGL10TA6 PO; SERT25TA PO; VENTAER PO; ZOFR4TAB14 PO
[2018-07-09 17:42] LABS: BASO % 1.1 % (0.0-1.0); EOS # 0.3 10^3/uL (0.0-0.50); HEMATOCRIT 40.7 % (36.0-47.0); HEMOGLOBIN 13.5 g/dl (12.0-15.5); LYMPH # 1.3 10^3/uL (1.5-6.5); LYMPH % 34.5 % (24.0-44.0); MEAN CORPUSCULAR HGB CONC 33.2 g/dl (32.0-36.5); MEAN CORPUSCULAR VOLUME 90.4 fl (80.0-96.0); MONO # 0.3 10^3/uL (0.0-0.8); MONO % 7.4 % (0.0-5.0); NEUTROPHILS # 1.9 10^3/uL (1.8-7.7); PLATELET COUNT, AUTOMATED 270 10^3/uL (150-450); WHITE BLOOD COUNT 3.8 10^3/uL (4.0-10.0)
[2018-07-09 17:47] LABS: ALT/SGPT 32 U/L (12-78); BILIRUBIN,TOTAL 0.4 MG/DL (0.2-1.0); BLOOD UREA NITROGEN 15 MG/DL (7-18); CALCIUM LEVEL 8.6 MG/DL (8.5-10.1); CARBON DIOXIDE LEVEL 26 MEQ/L (21-32); CHLORIDE LEVEL 107 MEQ/L (98-107); CREATININE FOR GFR 0.78 MG/DL (0.55-1.30); GLOMERULAR FILTRATION RATE > 60.0 (>60); GLUCOSE, FASTING 56 MG/DL (70-100); POTASSIUM SERUM 4.6 MEQ/L (3.5-5.1); SODIUM LEVEL 141 MEQ/L (136-145); TOTAL PROTEIN 7.5 GM/DL (6.4-8.2)
[2018-07-09 17:48] LABS: TOTAL 25(OH) VITAMIN D 22.3 NG/ML (30.0-100.0)
[2018-07-09 17:53] LABS: HEMOGLOBIN A1c 5.1 %
== END ==
LOC: M LAB REF 16:42
PROVIDERS: ATTEND Nurse Practitioner Family
DX: Z13.9 Encounter for screening, unspecified (principal)

== ENCOUNTER 2018-08-07 16:43 | Emergency (ER) | payer OTHER ==
[~2018-08-07] VITALS: Ht 167.6 cm; Wt 62.2 kg
[2018-08-07] MEDS ORDERED: NS 1,000 ML IV ONE (17:00)
[2018-08-07] MEDS ORDERED: ONDANSETRON 4MG/2ML VIAL (J2405) IV ONE (17:00)
[2018-08-07 17:19] LABS: BASO % 0.5 % (0.0-1.0); EOS # 0.2 10^3/uL (0.0-0.50); EOS % 3.6 % (0.0-3.0); HEMATOCRIT 33.1 % (36.0-47.0); HEMOGLOBIN 11.4 g/dl (12.0-15.5); LYMPH # 1.6 10^3/uL (1.5-6.5); LYMPH % 27.4 % (24.0-44.0); MEAN CORPUSCULAR HEMOGLOBIN 30.3 pg (27.0-33.0); MEAN CORPUSCULAR HGB CONC 34.4 g/dl (32.0-36.5); MONO # 0.4 10^3/uL (0.0-0.8); MONO % 7.5 % (0.0-5.0); NEUTROPHILS # 3.6 10^3/uL (1.8-7.7); NEUTROPHILS % 60.7 % (36.0-66.0); PLATELET COUNT, AUTOMATED 236 10^3/uL (150-450); RED BLOOD COUNT 3.76 10^6/uL (4.00-5.40); WHITE BLOOD COUNT 5.9 10^3/uL (4.0-10.0)
[2018-08-07 17:52] LABS: ALBUMIN 3.6 GM/DL (3.2-5.2); ALT/SGPT 19 U/L (12-78); BILIRUBIN,DIRECT 0.1 MG/DL (0.0-0.2); BILIRUBIN,TOTAL 0.4 MG/DL (0.2-1.0); BLOOD UREA NITROGEN 11 MG/DL (7-18); CALCIUM LEVEL 8.1 MG/DL (8.5-10.1); CARBON DIOXIDE LEVEL 24 MEQ/L (21-32); CHLORIDE LEVEL 110 MEQ/L (98-107); CREATININE FOR GFR 0.79 MG/DL (0.55-1.30); FREE T4 1.29 NG/DL (0.76-1.46); GLOMERULAR FILTRATION RATE > 60.0 (>60); GLUCOSE, FASTING 104 MG/DL (70-100); POTASSIUM SERUM 3.9 MEQ/L (3.5-5.1); SODIUM LEVEL 139 MEQ/L (136-145); TOTAL PROTEIN 6.6 GM/DL (6.4-8.2)
--- NOTE | 2018-08-07 18:03 | ECGEPIP ---
Stationary ECG Study [facility] - ED Test Date: 2018-08-07 Pat Name: DEVIN VILLA Department: Room: - Gender: F Records Tech: henry : 1990 Requested By: AUNDREA Silverio Order Number: [id number] Reading MD: Ny Garcia Measurements Intervals [place] Rate: 88 P: 64 MN: 156 QRS: 56 QRSD: 92 T: 42 QT: 367 QTc: 446 Interpretive Statements SINUS RHYTHM WITH SINUS ARRHYTHMIA NSTTW ABNORMALITY SIMILAR 05/23/14 Electronically Signed On 08-07-2018 18:03:43 EST by Ny Garcia
[2018-08-07 18:48] LABS: HCG, SERUM QUANTITATIVE 2765 MIU/ML
--- NOTE | 2018-08-07 19:28 | REPVR ---
EXAM: US First Trimester, Transabdominal and US , Transvaginal EXAM DATE/TIME: 08/07/2018 6:15 PM CLINICAL HISTORY: 27 years old, female; Pain; Gestational age or lmp: 5wks1; TECHNIQUE: Real-time transabdominal obstetrical ultrasound of the maternal pelvis and a first trimester , less than 14 weeks 0 days, with image documentation. Transvaginal imaging was used for better evaluation of the fetus and adnexa. COMPARISON: No relevant prior studies available. FINDINGS: GESTATION: Gestation: No pole demonstrated. No yolk sac demonstrated. BIOMETRY: Estimated gestational age: Gestational age based on average sac size is 5 weeks 1 day. Gestational age based on LMP of 06/29/2018 days 5 weeks. MATERNAL: Uterus: Uterus measures 7.8 x 4.7 x 5.9 cm. Anteverted. Small gestational sac located eccentrically in the uterine fundus with an average sac size of 4.3 mm demonstrated. Cervix: Unremarkable. Right adnexa: Right ovary measures 2.5 x 2.1 x 2.1 cm. Left adnexa: Left ovary measures 3.2 x 2.6 x 2.5 cm. There is a hypoechoic solid-appearing lesion in the left ovary measuring 2.4 x 1.9 x 1.9 cm with increased vascularity peripherally likely representing a corpus. Intraperitoneal: No intraperitoneal free fluid. IMPRESSION: Findings most compatible with an early intrauterine gestation of approximately 5 weeks. Follow up ultrasound recommended to document the presence of a yolk sac, pole, and cardiac activity. Electronically signed by: Eddie Castro On 08/07/2018 19:27:37 PM
[2018-08-07 20:15] VITALS: BP 127/61
== END 2018-08-07 20:21 | disposition home or self-care (01) ==
LOC: M ED 16:43 → EDBD 16:43 → M ED 20:21
DX: R55 Syncope and collapse (principal); O20.0 Threatened abortion; Z3A.01 Less than 8 weeks gestation of pregnancy; O99.341 Other mental disorders complicating pregnancy, first trimester; Z79.899 Other long term (current) drug therapy; Z91.018 Allergy to other foods; Z88.5 Allergy status to narcotic agent
CPT/HCPCS: 76801; 76817; 80048; 80076; 81001; 84439; 84443; 84702; 85025; 86850; 86900; 86901; 93005; 93041; 93976; 94760; 99285; J2405

== ENCOUNTER → 2018-09-10 | Outpatient (CLI) | payer OTHER ==
[2018-09-10 13:50] LABS: BASO % 0.5 % (0.0-1.0); EOS # 0.1 10^3/uL (0.0-0.50); EOS % 2.1 % (0.0-3.0); HEMATOCRIT 33.9 % (36.0-47.0); HEMOGLOBIN 11.7 g/dl (12.0-15.5); LYMPH # 1.4 10^3/uL (1.5-6.5); LYMPH % 22.4 % (24.0-44.0); MEAN CORPUSCULAR HEMOGLOBIN 30.2 pg (27.0-33.0); MEAN CORPUSCULAR HGB CONC 34.5 g/dl (32.0-36.5); MEAN CORPUSCULAR VOLUME 87.4 fl (80.0-96.0); MONO # 0.5 10^3/uL (0.0-0.8); MONO % 8.1 % (0.0-5.0); NEUTROPHILS # 4.2 10^3/uL (1.8-7.7); NEUTROPHILS % 66.6 % (36.0-66.0); PLATELET COUNT, AUTOMATED 241 10^3/uL (150-450); RED BLOOD COUNT 3.88 10^6/uL (4.00-5.40); WHITE BLOOD COUNT 6.3 10^3/uL (4.0-10.0)
[2018-09-10 15:34] LABS: CHLAMYDIA DNA AMPLIFICATION NEGATIVE (NEGATIVE); GC DNA AMPLIFICATION NEGATIVE (NEGATIVE)
[2018-09-11 11:52] LABS: HEPATITIS C VIRUS ABY INDEX 0.1 INDEX (<0.8); HIV 1&2 SCREEN CENTAUR NEGATIVE (NEGATIVE); RUBELLA IgG QUALITATIVE IMMUNE (IMMUNE)
== END ==
LOC: M SMT 10:31
PROVIDERS: ATTEND Advanced Practice Midwife
DX: Z34.81 Encounter for supervision of other normal pregnancy, first trimester (principal); Z3A.09 9 weeks gestation of pregnancy

== ENCOUNTER 2018-09-12 09:43 | Emergency (ER) | payer OTHER ==
[~2018-09-12] VITALS: Ht 172.7 cm; Wt 59.1 kg
[2018-09-12] MEDS ORDERED: METOCLOPRAMIDE INJ 10MG/2ML VIAL (J2765) IV ONE (10:15)
[2018-09-12] MEDS ORDERED: NS 1,000 ML IV ONE (10:15)
[2018-09-12] MEDS ORDERED: diphenhydrAMINE INJ 50MG/ML VIAL (J1200) IV ONE (10:15)
[2018-09-12] MEDS ORDERED: ACETAMINOPHEN TAB 650MG DOSE (2X325MG) PO ONE (10:45)
[2018-09-12 13:12] VITALS: BP 107/62
== END 2018-09-12 13:28 | disposition home or self-care (01) ==
LOC: M ED 09:43
DX: O99.351 Diseases of the nervous system complicating pregnancy, first trimester (principal); G43.109 Migraine with aura, not intractable, without status migrainosus; O99.611 Diseases of the digestive system complicating pregnancy, first trimester; K21.9 Gastro-esophageal reflux disease without esophagitis; O99.341 Other mental disorders complicating pregnancy, first trimester; F41.9 Anxiety disorder, unspecified; F32.9 Major depressive disorder, single episode, unspecified; Z91.018 Allergy to other foods; O99.511 Diseases of the respiratory system complicating pregnancy, first trimester; J30.2 Other seasonal allergic rhinitis; Z3A.11 11 weeks gestation of pregnancy; Z88.8 Allergy status to other drugs, medicaments and biological substances; Z88.5 Allergy status to narcotic agent
CPT/HCPCS: 87880; 96374; 96375; 99284; J1200; J2765

== ENCOUNTER 2018-10-15 08:27 | Emergency (ER) | payer OTHER ==
[~2018-10-15] VITALS: Ht 172.7 cm; Wt 57.7 kg
[2018-10-15 08:27] VITALS: BP 119/73
[~2018-10-15 08:27] MED LIST changes: -SERT25TA PO; +SERT25TA85 PO
[2018-10-15] MEDS ORDERED: CETI1TAB (08:38)
== END 2018-10-15 09:15 | disposition home or self-care (01) ==
LOC: M ED 08:27
DX: O99.89 Other specified diseases and conditions complicating pregnancy, childbirth and the puerperium (principal); M54.32 Sciatica, left side; O99.342 Other mental disorders complicating pregnancy, second trimester; F33.9 Major depressive disorder, recurrent, unspecified; Z3A.15 15 weeks gestation of pregnancy; Z88.5 Allergy status to narcotic agent; Z88.8 Allergy status to other drugs, medicaments and biological substances; Z91.018 Allergy to other foods; J30.2 Other seasonal allergic rhinitis

== ENCOUNTER → 2018-11-03 | Outpatient (CLI) | payer OTHER ==
[~2018-11-03] MED LIST changes: +CETI1TAB
--- NOTE | 2018-11-04 04:35 | REP ---
Clinical: Anatomical evaluation. Comparison: 08/07/2018 . Findings: Examination demonstrates a single live intrauterine in variable presentation. motion is identified by technologist. Placenta is noted fundal and grade zero without evidence for placenta previa or abruption. Amniotic fluid volume is normal. Cervix measures 3.1 cm in length and appears closed. No evidence for nuchal cord. Gestational age by LMP 18 weeks 1 day with REBECCA 04/05/2019 . Gestational age by current measurements 17 weeks 5 day with REBECCA 04/08/2019 . FHR equals 141 beats per minute. BPD 3.9 cm 17 weeks 6 days HC 18.2 cm 17 weeks 4 days AC 12.2 cm 17 weeks 6 days FL 2.5 cm 17 weeks 4 days HL 2.5 cm 17 weeks 6 days HC/AC ratio 1.16 Estimated weight 208 grams ( 33rd percentile). Anatomical assessment demonstrates normal structures including cranium, choroid plexus, cavum, lungs, diaphragm, stomach, cord insertion, kidneys/bladder, and extremities. Limited evaluation of the posterior fossa, facial features, heart/ventricular outflow tracts, and spine noted. Two vessel umbilical cord noted. Impression: 1. Single live intrauterine in variable presentation demonstrating appropriate interval growth. 2. Two vessel umbilical cord. 3. Anatomical limitations warrant followup. Electronically Signed by Nabil Mae MD 11/04/2018 04:27 A
== END ==
LOC: M RAD 08:57
PROVIDERS: ATTEND Specialist
DX: Z34.82 Encounter for supervision of other normal pregnancy, second trimester (principal); Z36.89 Encounter for other specified antenatal screening; Z3A.18 18 weeks gestation of pregnancy

== ENCOUNTER 2018-11-29 13:16 | Emergency (ER) | payer OTHER ==
[~2018-11-29] VITALS: Ht 172.7 cm; Wt 61.7 kg
[2018-11-29] MEDS ORDERED: LORA-674 (13:29)
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
[2018-11-29 14:21] LABS: BASO % 0.4 % (0.0-1.0); EOS # 0.1 10^3/uL (0.0-0.50); EOS % 1.5 % (0.0-3.0); HEMATOCRIT 29.5 % (36.0-47.0); HEMOGLOBIN 10.5 g/dl (12.0-15.5); LYMPH # 1.1 10^3/uL (1.5-6.5); LYMPH % 14.6 % (24.0-44.0); MEAN CORPUSCULAR HEMOGLOBIN 32.9 pg (27.0-33.0); MEAN CORPUSCULAR HGB CONC 35.6 g/dl (32.0-36.5); MEAN CORPUSCULAR VOLUME 92.5 fl (80.0-96.0); MONO # 0.5 10^3/uL (0.0-0.8); MONO % 6.9 % (0.0-5.0); NEUTROPHILS # 5.7 10^3/uL (1.8-7.7); NEUTROPHILS % 76.1 % (36.0-66.0); PLATELET COUNT, AUTOMATED 217 10^3/uL (150-450); RED BLOOD COUNT 3.19 10^6/uL (4.00-5.40); WHITE BLOOD COUNT 7.5 10^3/uL (4.0-10.0)
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
[2018-11-29 14:34] LABS: INR 1.14; PROTHROMBIN TIME 14.8 SECONDS (12.1-14.4)
[2018-11-29 14:36] LABS: PARTIAL THROMBOPLASTIN TIME 25.2 SECONDS (25.4-37.6)
[2018-11-29 14:48] LABS: BLOOD UREA NITROGEN 9 MG/DL (7-18); CALCIUM LEVEL 7.9 MG/DL (8.5-10.1); CARBON DIOXIDE LEVEL 23 MEQ/L (21-32); CHLORIDE LEVEL 110 MEQ/L (98-107); CREATININE FOR GFR 0.56 MG/DL (0.55-1.30); GLOMERULAR FILTRATION RATE > 60.0 (>60); GLUCOSE, FASTING 81 MG/DL (70-100); POTASSIUM SERUM 4.1 MEQ/L (3.5-5.1); SODIUM LEVEL 141 MEQ/L (136-145)
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
[2018-11-29 17:34] VITALS: BP 109/61
== END 2018-11-29 17:35 | disposition home or self-care (01) ==
LOC: EDBD 13:16 → M ED 13:16
DX: O9A.212 Injury, poisoning and certain other consequences of external causes complicating pregnancy, second trimester (principal); S43.401A Unspecified sprain of right shoulder joint, initial encounter; V49.59XA Passenger injured in collision with other motor vehicles in traffic accident, initial encounter; Y92.410 Unspecified street and highway as the place of occurrence of the external cause; O26.892 Other specified pregnancy related conditions, second trimester; R10.2 Pelvic and perineal pain; Z88.5 Allergy status to narcotic agent; Z88.8 Allergy status to other drugs, medicaments and biological substances; Z91.018 Allergy to other foods; O99.512 Diseases of the respiratory system complicating pregnancy, second trimester; J30.2 Other seasonal allergic rhinitis; Z3A.21 21 weeks gestation of pregnancy

== ENCOUNTER → 2019-01-05 | Outpatient (CLI) | payer OTHER ==
[~2019-01-05] MED LIST changes: +LORA-674
[2019-01-05 13:17] LABS: BASO % 0.3 % (0.0-1.0); EOS # 0.2 10^3/uL (0.0-0.50); EOS % 1.9 % (0.0-3.0); HEMATOCRIT 32.9 % (36.0-47.0); HEMOGLOBIN 11.4 g/dl (12.0-15.5); LYMPH # 1.3 10^3/uL (1.5-6.5); MEAN CORPUSCULAR HEMOGLOBIN 33.2 pg (27.0-33.0); MEAN CORPUSCULAR HGB CONC 34.7 g/dl (32.0-36.5); MEAN CORPUSCULAR VOLUME 95.9 fl (80.0-96.0); MONO # 0.5 10^3/uL (0.0-0.8); MONO % 5.8 % (0.0-5.0); NEUTROPHILS % 77.1 % (36.0-66.0); PLATELET COUNT, AUTOMATED 207 10^3/uL (150-450); RED BLOOD COUNT 3.43 10^6/uL (4.00-5.40)
== END ==
LOC: M LAB 11:32
PROVIDERS: ATTEND Specialist
DX: Z34.02 Encounter for supervision of normal first pregnancy, second trimester (principal); Z3A.00 Weeks of gestation of pregnancy not specified

== ENCOUNTER 2019-01-21 20:12 | Outpatient (CLI) | payer OTHER ==
[~2019-01-21] VITALS: Ht 174 cm; Wt 68.5 kg
[2019-01-21 20:25] VITALS: BP 125/83
[2019-01-21 21:49] LABS: BASO % 0.4 % (0.0-1.0); EOS # 0.2 10^3/uL (0.0-0.50); EOS % 2.1 % (0.0-3.0); HEMATOCRIT 33.7 % (36.0-47.0); HEMOGLOBIN 11.8 g/dl (12.0-15.5); LYMPH # 1.7 10^3/uL (1.5-6.5); LYMPH % 18.3 % (24.0-44.0); MEAN CORPUSCULAR HEMOGLOBIN 33.5 pg (27.0-33.0); MEAN CORPUSCULAR VOLUME 95.7 fl (80.0-96.0); MONO # 0.7 10^3/uL (0.0-0.8); MONO % 7.4 % (0.0-5.0); NEUTROPHILS # 6.6 10^3/uL (1.8-7.7); PLATELET COUNT, AUTOMATED 204 10^3/uL (150-450); RED BLOOD COUNT 3.52 10^6/uL (4.00-5.40); WHITE BLOOD COUNT 9.2 10^3/uL (4.0-10.0)
[2019-01-21 22:19] LABS: ALBUMIN 2.9 GM/DL (3.2-5.2); ALT/SGPT 26 U/L (12-78); BILIRUBIN,TOTAL 0.2 MG/DL (0.2-1.0); BLOOD UREA NITROGEN 7 MG/DL (7-18); CALCIUM LEVEL 8.3 MG/DL (8.5-10.1); CARBON DIOXIDE LEVEL 24 MEQ/L (21-32); CHLORIDE LEVEL 111 MEQ/L (98-107); CREATININE FOR GFR 0.59 MG/DL (0.55-1.30); GLOMERULAR FILTRATION RATE > 60.0 (>60); GLUCOSE, FASTING 78 MG/DL (70-100); POTASSIUM SERUM 3.8 MEQ/L (3.5-5.1); SODIUM LEVEL 141 MEQ/L (136-145); TOTAL PROTEIN 6.5 GM/DL (6.4-8.2)
--- NOTE | 2019-01-22 07:10 | REP ---
Clinical: shortness of breath. Comparison: none. Findings: The mediastinum and cardiac silhouette are stable and within normal limits for portable technique. The lung jordan are clear without acute consolidation, effusion, or pneumothorax. Skeletal structures are intact. Impression: No acute cardiopulmonary process appreciated. Electronically Signed by Nabil Mae MD 01/22/2019 07:00 A
--- NOTE | 2019-01-22 12:19 | HPE ---
DATE OF ADMISSION: 01/21/2019 HISTORY: 28-year-old G1, P0 female at 29-3/7weeks gestation by last menstrual period (LMP) consistent with an 8-week ultrasound estimated date of confinement of 04/05/2019, presents with worsening shortness of breath for 1 day. She began to have a cough, which is nonproductive and spasmodic. She had no fevers or chills. She has a history of asthma but has not had an attack i many years. She has an inhaler but did not use her inhaler. Her grandfather is currently hospitalized with emphysema. She has no fevers. PAST MEDICAL HISTORY: 1. Mild asthma, no attack since 2010. 2. Depression. PAST SURGICAL HISTORY: 1. Tympanostomy tubes. 2. Gallbladder. ALLERGIES: No known drug allergies. SOCIAL HISTORY: Patient is . She lives in [place]. She denies any cigarettes, alcohol or drug use. FAMILY HISTORY: Noncontributory. PHYSICAL EXAMINATION: Blood pressure is 125/83, pulse 80, Oxygen saturation 100% on room air, afebrile. She appears to have mild difficulty breathing. Head and neck exam is normal. Lungs show diffuse end expiratory wheezes. Heart regular rate and rhythm. Abdomen nontender. Gravid. tones are category 1, contractions: None. Extremities: Nontender with no edema. LABS: White blood count 9.2. CMP normal. Chest x-ray normal. EKG normal. ASSESSMENT: 28-year-old G1, P0 female at 29-3/7s weeks of gestation with probable asthma exacerbation. PLAN: Treat with albuterol nebulizer treatment. The patient gets improvement, as I she will, she will be discharged home. She will use inhaler as needed at home.
--- NOTE | 2019-01-22 16:32 | ECGEPIP ---
[facility] Test Date: 2019-01-21 Pat Name: DEVIN VILLA Department: Room: - Gender: Female Guidance Consultant: JE : 1990 Requested By: BENTON Bui Order Number: [id number] Reading MD: Sameer Graves Measurements Intervals [place] Rate: 75 P: 48 TN: 170 QRS: 36 QRSD: 90 T: 29 QT: 378 QTc: 424 Interpretive Statements SINUS RHYTHM POSSIBLE LEFT ATRIAL ENLARGEMENT Electronically Signed on 01-22-2019 16:32:46 EDT by Sameer Graves
[2019-01-22] MEDS ORDERED: ALBUTEROL SULFATE 2.5 MG/0.5 ML INH NEB SOLN NEB SCH (20:00)
== END 2019-01-21 23:10 | disposition home or self-care (01) ==
LOC: M LDO 20:12
PROVIDERS: ATTEND Specialist
DX: O99.513 Diseases of the respiratory system complicating pregnancy, third trimester (principal); J45.901 Unspecified asthma with (acute) exacerbation; Z3A.29 29 weeks gestation of pregnancy

== ENCOUNTER → 2019-02-15 | Outpatient (CLI) | payer OTHER ==
[~2019-02-15] MED LIST changes: -DIPH25CA PO; +DIPH25CA32 PO
--- NOTE | 2019-02-16 11:05 | REP ---
OBSTETRIC SONOGRAPHY: HISTORY: growth study. FINDINGS: Scanning through the gravid uterus demonstrates a viable single intrauterine gestation in a cephalic lie. motion is observed, and heart rate is recorded at 168 beats per minute. The placenta is right lateral, grade 2 without evidence of previa or abruption. Amniotic fluid is subjectively normal. There has been appropriate interval growth. A single artery umbilical cord is seen. No somatic abnormality is observed. The following anatomic structures are less than optimally seen today due to position: Cerebellum and posterior fossa, abdominal wall cord insertion, spine, upper and lower extremities. The following anatomic structures are identified and felt to be unremarkable: cranium, choroid plexus, cavum, face and profile, lungs, four-chamber heart with left and right ventricular outflow tract views, diaphragm, left-sided stomach, kidneys and bladder. BIOMETRY CHART: BPD 8.2 cm = 32 weeks 6 days Head circumference 29.3 cm = 32 weeks 3 days Abdominal pelvis 28.5 cm = 32 weeks 4 days Femur length 6.0 cm = 31 weeks 1 day Humeral length 5.2 cm = 30 weeks 3 days HC/AC ratio normal 1.03 Cephalic index normal 0.79 Estimated weight 1911 grams, 4 pounds 3 ounces, 28th percentile for 33 weeks 0 days. DIVINE 11.1 cm. S/D ratio normal 2.78. IMPRESSION: Viable single intrauterine gestation at 31 weeks 6 days by today's composite sonographic criteria. Expected gestational age estimate based on prior sonography is 32 weeks 4 days. REBECCA by prior sonography. April 08, 2019. Electronically Signed by Charlie Quinteros MD 02/16/2019 07:11 P
== END ==
LOC: M RAD 16:17
PROVIDERS: ATTEND Advanced Practice Midwife
DX: O36.5930 Maternal care for other known or suspected poor fetal growth, third trimester, not applicable or unspecified (principal); Z3A.31 31 weeks gestation of pregnancy

== ENCOUNTER → 2019-03-08 | Outpatient (CLI) | payer OTHER ==
[~2019-03-08] MED LIST changes: +PRENTAB9 PO
--- NOTE | 2019-03-08 15:17 | REP ---
OB ULTRASOUND: Real-time sonographic evaluation of the gravid uterus performed. There is a single living intrauterine gestation with an estimated gestational age 36 weeks, EDC 04/05/2019. Today's measurements indicate appropriate growth. Biometry and Growth: BPD 88 mm = 35 weeks 4 days, 44th percentile HC 322 mm = 36 weeks 3 days, 56th percentile AC 324 mm = 36 weeks 2 days, 55th percentile FL 68 mm = 35 weeks 0 days, 34th percentile HC/AC ratio 0.99 within normal range. Estimated weight 2793 grams, 49th percentile. SEEN/GROSSLY UNREMARKABLE Upper lip Yes Four-chamber heart Yes LVOT Yes RVOT Yes Stomach Yes Kidneys Yes Bladder Yes Spine Yes Single umbilical artery is again noted. Cervical length: Cervix is closed and measures 3.6 cm in length. heart rate: 136 beats per minute. position: Vertex. Placenta: Posterior and to the right, grade 3 with no previa or abruption. Amniotic fluid: Within normal limits, DIVINE 14.9 within normal range of 7.7 to 24.9. S/D ratio: 2.89. RI: 0.65 within normal range. Electronically Signed by Prasanth Shelton MD 03/10/2019 09:52 A
== END ==
LOC: M RAD 09:34
PROVIDERS: ATTEND Obstetrics & Gynecology
DX: O36.8930 Maternal care for other specified fetal problems, third trimester, not applicable or unspecified (principal)

== ENCOUNTER 2019-03-11 17:32 | Outpatient (CLI) | payer OTHER ==
[~2019-03-11] VITALS: Ht 174 cm; Wt 70.5 kg
[~2019-03-11 17:32] MED LIST changes: -PRENTAB9 PO
[2019-03-11 17:45] VITALS: BP 131/81
[2019-03-11] MEDS ORDERED: PRENTAB9 PO (17:54)
[2019-03-11] MEDS ORDERED: LR 1,000 ML IV SCH (18:47)
[2019-03-11] MEDS ORDERED: LACTATED RINGER'S 1000 ML IV STA (18:47)
[2019-03-11] MEDS ORDERED: MORPHINE 10 MG/ML 1ML VIAL (J2270) IV ONE (19:00)
[2019-03-11] MEDS ORDERED: MORPHINE 10 MG/ML 1ML VIAL (J2270) SC ONE (19:00)
[2019-03-11] MEDS ORDERED: PROMETHAZINE INJ 25 MG/ML VIAL (J2550) IV PRN (19:00)
== END 2019-03-11 22:50 | disposition home or self-care (01) ==
LOC: M LDO 17:32
PROVIDERS: ATTEND Obstetrics & Gynecology
DX: O36.8130 Decreased fetal movements, third trimester, not applicable or unspecified (principal); Z3A.36 36 weeks gestation of pregnancy
CPT/HCPCS: 59025; 96372; 96374; 96375; J2270

== ENCOUNTER → 2019-03-11 | Outpatient (REF) | payer OTHER | LOC: M LAB REF 13:18 | PROVIDERS: ATTEND Specialist | DX: Z3A.36 36 weeks gestation of pregnancy (principal) ==

== ENCOUNTER 2019-03-30 09:51 | Inpatient (IN) | payer OTHER ==
[2019-03-30] VITALS (24 sets, daily range): BP systolic 106–139; BP diastolic 59–87
[~2019-03-30] VITALS: Ht 172.7 cm; Wt 70.9 kg
[~2019-03-30 09:51] MED LIST changes: +PRENTAB9 PO
[2019-03-30] MEDS ORDERED: LACTATED RINGER'S 1000 ML IV STA (12:27)
[2019-03-30] MEDS ORDERED: OXYTOCIN DRIP 30 UNITS in IV 1 EA IV SCH (12:30)
[2019-03-30 12:49] LABS: HEMATOCRIT 36.8 % (36.0-47.0); HEMOGLOBIN 12.8 g/dl (12.0-15.5); MEAN CORPUSCULAR HEMOGLOBIN 32.7 pg (27.0-33.0); MEAN CORPUSCULAR HGB CONC 34.8 g/dl (32.0-36.5); MEAN CORPUSCULAR VOLUME 93.9 fl (80.0-96.0); PLATELET COUNT, AUTOMATED 247 10^3/uL (150-450); RED BLOOD COUNT 3.92 10^6/uL (4.00-5.40); WHITE BLOOD COUNT 9.7 10^3/uL (4.0-10.0)
[2019-03-30] MEDS: LR 1,000 ML IV SCH (15:00)
[2019-03-31] VITALS (29 sets, daily range): BP systolic 117–151; BP diastolic 57–95
[2019-03-31] MEDS ORDERED: PROMETHAZINE INJ 25 MG/ML VIAL (J2550) IV ONE (01:30)
[2019-03-31] MEDS ORDERED: BUTORPHANOL 2 MG/ML INJ (J0595) IV ONE (01:30)
[2019-03-31] MEDS: LR 1,000 ML IV SCH ×2 (01:47→08:44)
[2019-03-31 10:42] LABS: CORD GAS ABE V -9.4; CORD GAS HCO3 V 16.6 MEQ/L; CORD GAS O2 SAT V 76.9 %; CORD GAS PCO2 V 36.8 mmHg; CORD GAS PH V 7.271 UNITS; CORD GAS PO2 V 38.5 mmHg; CORD GAS SBC V 16.7 MEQ/L; CORD GAS TCO2 V 17.7 MEQ/L
[2019-03-31] MEDS ORDERED: LIDOCAINE 1% MDV 20ML VIAL As Ordered ONE (10:45)
[2019-03-31] MEDS ORDERED: OXYTOCIN DRIP 30 UNITS in IV 1 EA IV SCH ×4 (11:09)
[2019-03-31] MEDS ORDERED: DOCUSATE SODIUM 100 MG CAP PO PRN (11:15)
[2019-03-31] MEDS ORDERED: ACETAMINOPHEN 500 MG TAB PO PRN (11:15)
[2019-03-31] MEDS ORDERED: ACETAMINOPHEN TAB 650MG DOSE (2X325MG) PO PRN (11:15)
[2019-03-31] MEDS ORDERED: DIBUCAINE 1% OINTMENT 30GM TOP PRN (11:15)
[2019-03-31] MEDS ORDERED: ANUSOL HC CREAM 30GM TOP PRN (11:15)
[2019-03-31] MEDS ORDERED: LIDOCAINE 1% MDV 20ML VIAL INFIL ONE (11:15)
[2019-03-31] MEDS ORDERED: MEASLES,MUMPS,RUBELLA VACCINE INJ (MMR-II) (90707) SC SCH (11:15)
[2019-03-31] MEDS ORDERED: IBUPROFEN 600 MG TAB PO PRN (11:15)
[2019-03-31] MEDS ORDERED: RHOGAM 300 MCG (1500 IU) INJ (J2790) IM SCH (11:15)
[2019-03-31] MEDS ORDERED: ONDANSETRON 4MG/2ML VIAL (J2405) IV PRN (11:15)
--- NOTE | 2019-03-31 11:24 | DN ---
DATE OF DELIVERY: 03/31/2019 DELIVERY NOTE: Yael is a 28-year-old 1, para 1-0-0-1 now, who was admitted to labor and delivery for induction of labor due to oligohydramnios. Misoprostol, IV Pitocin and Cook's catheter was used to induce her labor. She coped with her labor with IV pain medications. She reached full dilation at 1005 hours. She pushed to a spontaneous vaginal delivery of a live female in occiput anterior (OA) position with restitution to occiput transverse (ROT) position at 1019 hours. There was no nuchal cord. The shoulders delivered spontaneously and the corpus immediately followed. The female was placed on the maternal abdomen crying and active. Her mouth and nares were bulb suctioned. The cord was clamped times two and cut by the father of the baby under my direction. Cord blood and venous cord gas was obtained. Results are pending. Spontaneous expulsion of an intact placenta with two-vessel cord by Schultze mechanism was at 1028 hours. Uterine hemostasis achieved with IV Pitocin rapid infusion and uterine fundal massage. Estimated blood loss 700 mL. Perineum and vagina inspected noted to have bilateral labial lacerations. The lacerations were infiltrated with 1% lidocaine and repaired with #3-0 Rapide in the usual fashion. The female weighed 2630 grams (5 pounds 13 ounces), 9/9. Mom is going to breastfeed her daughter. The family have named her Amber. At the close of delivery, lap counts, needle counts and instrument counts were correct and verified.
[2019-03-31] MEDS: PRENATAL VITAMINS CHEWABLE TABLET PO SCH (13:23)
[2019-03-31] MEDS: IBUPROFEN 800 MG TAB PO PRN (13:29)
[2019-04-01] MEDS: IBUPROFEN 800 MG TAB PO PRN ×2 (05:23→19:58)
[2019-04-01 06:03] VITALS: BP 99/57
[2019-04-01] MEDS: PRENATAL VITAMINS CHEWABLE TABLET PO SCH (08:34)
[2019-04-01 18:13] VITALS: BP 120/64
[2019-04-02 05:32] VITALS: BP 118/72
[2019-04-02] MEDS ORDERED: ACET-683 PO (07:32)
[2019-04-02] MEDS ORDERED: IBUP80TA PO (07:32)
[2019-04-02] MEDS: IBUPROFEN 800 MG TAB PO PRN (08:00)
[2019-04-02] MEDS: PRENATAL VITAMINS CHEWABLE TABLET PO SCH (08:00)
[2019-04-02] MEDS ORDERED: SERTRALINE HCL 25 MG TABLET PO SCH (09:00)
[2019-04-02] MEDS ORDERED: ZOLO25TA PO (09:27)
== END 2019-04-02 12:20 | disposition home or self-care (01) | DRG 560 ==
LOC: M LDO 09:51 → M LDI 12:44 → M OBS 03-31 13:10
PROVIDERS: ADMIT Obstetrics & Gynecology; ATTEND Advanced Practice Midwife
PROC: 10E0XZZ Delivery of Products of Conception, External Approach (ICD-10-PCS; principal; 2019-03-31)
PROC: 10907ZC Drainage of Amniotic Fluid, Therapeutic from Products of Conception, Via Natural or Artificial Opening (ICD-10-PCS; 2019-03-31)
PROC: 3E033VJ Introduction of Other Hormone into Peripheral Vein, Percutaneous Approach (ICD-10-PCS; 2019-03-31)
PROC: 0HQ9XZZ Repair Perineum Skin, External Approach (ICD-10-PCS; 2019-03-31)
DX: O41.03X0 Oligohydramnios, third trimester, not applicable or unspecified (principal); Z3A.39 39 weeks gestation of pregnancy; Z37.0 Single live birth; O69.89X0 Labor and delivery complicated by other cord complications, not applicable or unspecified; O70.0 First degree perineal laceration during delivery

== ENCOUNTER 2019-04-14 14:28 | Emergency (ER) | payer OTHER ==
[~2019-04-14] VITALS: Ht 172.7 cm; Wt 62.8 kg
[~2019-04-14 14:28] MED LIST changes: +ACET-683 PO; +IBUP80TA PO; +ZOLO25TA PO
[2019-04-14 15:22] LABS: HEMATOCRIT 34.3 % (36.0-47.0); HEMOGLOBIN 11.8 g/dl (12.0-15.5); MEAN CORPUSCULAR HEMOGLOBIN 32.5 pg (27.0-33.0); MEAN CORPUSCULAR HGB CONC 34.4 g/dl (32.0-36.5); MEAN CORPUSCULAR VOLUME 94.5 fl (80.0-96.0); PLATELET COUNT, AUTOMATED 341 10^3/uL (150-450); RED BLOOD COUNT 3.63 10^6/uL (4.00-5.40); WHITE BLOOD COUNT 4.8 10^3/uL (4.0-10.0)
[2019-04-14 15:59] LABS: AMPHETAMINES LEVEL URINE NEGATIVE (NEGATIVE); BARBITURATES URINE NEGATIVE (NEGATIVE); BENZODIAZEPINES URINE NEGATIVE (NEGATIVE); CANNABINOIDS URINE NEGATIVE (NEGATIVE); COCAINE METABOLITE URINE NEGATIVE (NEGATIVE); METHADONE URINE NEGATIVE (NEGATIVE); OPIATES URINE NEGATIVE (NEGATIVE); PHENCYCLIDINE URINE NEGATIVE (NEGATIVE)
[2019-04-14 16:08] LABS: ACETAMINOPHEN LEVEL < 2.0 UG/ML (10.0-30.0); ALBUMIN 3.4 GM/DL (3.2-5.2); ALT/SGPT 31 U/L (12-78); BILIRUBIN,DIRECT < 0.1 MG/DL (0.0-0.2); BILIRUBIN,TOTAL 0.5 MG/DL (0.2-1.0); BLOOD UREA NITROGEN 12 MG/DL (7-18); CALCIUM LEVEL 8.6 MG/DL (8.5-10.1); CARBON DIOXIDE LEVEL 26 MEQ/L (21-32); CHLORIDE LEVEL 110 MEQ/L (98-107); CREATININE FOR GFR 0.74 MG/DL (0.55-1.30); ETHYL ALCOHOL (ETHANOL) < 0.003 % (0.000-0.010); GLOMERULAR FILTRATION RATE > 60.0 (>60); GLUCOSE, FASTING 90 MG/DL (70-100); POTASSIUM SERUM 4.2 MEQ/L (3.5-5.1); SALICYLATE LEVEL < 1.7 MG/DL (5.0-30.0); SODIUM LEVEL 142 MEQ/L (136-145); THYROID STIMULATING HORMONE 0.548 uIU/ML (0.358-3.740); TOTAL PROTEIN 6.4 GM/DL (6.4-8.2)
[2019-04-14 17:07] VITALS: BP 117/76
[2019-04-15] MEDS ORDERED: SERT25TA21 (16:30)
[2019-04-15] MEDS ORDERED: PRED20TA PO (18:40)
[2019-04-15] MEDS ORDERED: BENA25CA4 PO (18:41)
[2019-04-15] MEDS ORDERED: PEPC1TAB5 PO (18:41)
[2019-04-15] MEDS ORDERED: EPIP0.3I2 IM (18:42)
== END 2019-04-14 17:17 | disposition home or self-care (01) ==
LOC: M ED 14:28
DX: F32.9 Major depressive disorder, single episode, unspecified (principal); R45.851 Suicidal ideations; Z88.8 Allergy status to other drugs, medicaments and biological substances; Z91.018 Allergy to other foods
CPT/HCPCS: 80048; 80076; 80307; 84443; 85027; 99283; G0480

== ENCOUNTER 2019-04-15 16:05 | Emergency (ER) | payer OTHER ==
[2019-04-15] MEDS ORDERED: SERT25TA21 (16:30)
[2019-04-15] MEDS ORDERED: diphenhydrAMINE INJ 50MG/ML VIAL (J1200) IV STA (17:26)
[2019-04-15] MEDS ORDERED: FAMOTIDINE IV BAG 20 MG in IV 1 EA IV ONE (17:30)
[2019-04-15] MEDS ORDERED: methylPREDNISolone INJ 125 MG/2 ML VIAL (J2930) IV ONE (17:30)
[2019-04-15] MEDS ORDERED: PRED20TA PO (18:40)
[2019-04-15] MEDS ORDERED: BENA25CA4 PO (18:41)
[2019-04-15] MEDS ORDERED: PEPC1TAB5 PO (18:41)
[2019-04-15] MEDS ORDERED: EPIP0.3I2 IM (18:42)
[2019-04-15 19:15] VITALS: BP 131/79
== END 2019-04-15 19:40 | disposition home or self-care (01) ==
LOC: M ED 16:05 → EDBD 16:05 → M ED 19:40
DX: T78.40XA Allergy, unspecified, initial encounter (principal); Y92.9 Unspecified place or not applicable; Y93.9 Activity, unspecified; F41.9 Anxiety disorder, unspecified; F32.9 Major depressive disorder, single episode, unspecified; Z79.899 Other long term (current) drug therapy; J30.2 Other seasonal allergic rhinitis; Z88.5 Allergy status to narcotic agent; Z88.8 Allergy status to other drugs, medicaments and biological substances; Z91.018 Allergy to other foods
CPT/HCPCS: 96365; 96375; 99284; J1200; J2930

== ENCOUNTER 2019-04-26 14:48 | Emergency (ER) | payer OTHER ==
[~2019-04-26] VITALS: Ht 172.7 cm; Wt 60.9 kg
[~2019-04-26 14:48] MED LIST changes: +BENA25CA4 PO; +PEPC1TAB5 PO; +SERT25TA21
[2019-04-26] MEDS ORDERED: IBUP80TA (15:01)
[2019-04-26] MEDS ORDERED: CYCL10TA (15:01)
[2019-04-26] MEDS ORDERED: ALBU8.5H (15:01)
[2019-04-26] MEDS ORDERED: NS 1,000 ML IV ONE (15:15)
--- NOTE | 2019-04-26 15:46 | REP ---
Clinical: Continued vaginal bleeding. 4 weeks. Technique: Transabdominal pelvic ultrasound with color Doppler evaluation. Findings: Heterogeneous anteverted uterus measures approximately 8.3 x 4.6 x 6.5 cm. Endometrial complex measures 7.3 mm thickness. Bilateral ovaries are normal in appearance and vascularity without torsion. Right ovary measures 2.8 x 1.5 x 2.4 cm; RI 0.55. Left ovary measures 3401 by 1.6 x 2.7 cm; RI 0.59. Small amount of free fluid in the pelvis noted. Impression: Heterogeneous uterus. Endometrial complex is minimally thickened to 7 mm is nonspecific. No definite retained products of conception are identified. Electronically Signed by Nabil Mae MD 04/26/2019 03:37 P
[2019-04-26 16:13] LABS: BASO % 0.8 % (0.0-1.0); EOS # 0.2 10^3/uL (0.0-0.5); EOS % 5.1 % (0.0-3.0); HEMATOCRIT 36.7 % (36.0-47.0); HEMOGLOBIN 12.3 g/dl (12.0-15.5); LYMPH # 1.6 10^3/uL (1.5-5.0); LYMPH % 34.6 % (24.0-44.0); MEAN CORPUSCULAR HEMOGLOBIN 31.5 pg (27.0-33.0); MEAN CORPUSCULAR HGB CONC 33.5 g/dl (32.0-36.5); MEAN CORPUSCULAR VOLUME 93.9 fl (80.0-96.0); MONO # 0.4 10^3/uL (0.0-0.8); MONO % 8.9 % (0.0-5.0); NEUTROPHILS # 2.4 10^3/uL (1.5-8.5); NEUTROPHILS % 50.2 % (36.0-66.0); PLATELET COUNT, AUTOMATED 242 10^3/uL (150-450); RED BLOOD COUNT 3.91 10^6/uL (4.00-5.40); WHITE BLOOD COUNT 4.7 10^3/uL (4.0-10.0)
[2019-04-26 16:38] LABS: ALBUMIN 3.5 GM/DL (3.2-5.2); ALT/SGPT 31 U/L (12-78); BILIRUBIN,DIRECT < 0.1 MG/DL (0.0-0.2); BILIRUBIN,TOTAL 0.4 MG/DL (0.2-1.0); LIPASE 221 U/L (73-393); TOTAL PROTEIN 6.6 GM/DL (6.4-8.2)
[2019-04-26] MEDS ORDERED: medroxyPROGESTERone 5MG TABLET PO ONE (17:00)
[2019-04-26 18:53] LABS: CHLAMYDIA DNA AMPLIFICATION NEGATIVE (NEGATIVE); GC DNA AMPLIFICATION NEGATIVE (NEGATIVE)
[2019-04-26 19:30] VITALS: BP 125/74
[2019-04-26] MEDS ORDERED: PROV10TA PO (19:43)
== END 2019-04-26 19:47 | disposition home or self-care (01) ==
LOC: M ED 14:48 → EDBD 14:48 → M ED 19:47
DX: N93.9 Abnormal uterine and vaginal bleeding, unspecified (principal); F41.9 Anxiety disorder, unspecified; G43.909 Migraine, unspecified, not intractable, without status migrainosus; J30.2 Other seasonal allergic rhinitis; Z88.8 Allergy status to other drugs, medicaments and biological substances; Z88.5 Allergy status to narcotic agent; Z91.018 Allergy to other foods; Z79.899 Other long term (current) drug therapy

== ENCOUNTER 2019-05-09 12:24 | Inpatient (IN) | payer MEDICAID, OTHER ==
[~2019-05-09] VITALS: Ht 172.7 cm; Wt 61.1 kg
[~2019-05-09 12:24] MED LIST changes: +ALBU8.5H INH; +CYCL10TA PO; -LORA-674; +LORA-674 PO; +PROV10TA PO; -SERT25TA21; +SERT25TA21 PO
[2019-05-09 13:15] LABS: HEMATOCRIT 41.1 % (36.0-47.0); HEMOGLOBIN 13.6 g/dl (12.0-15.5); MEAN CORPUSCULAR HEMOGLOBIN 31.3 pg (27.0-33.0); MEAN CORPUSCULAR HGB CONC 33.1 g/dl (32.0-36.5); MEAN CORPUSCULAR VOLUME 94.5 fl (80.0-96.0); PLATELET COUNT, AUTOMATED 270 10^3/uL (150-450); RED BLOOD COUNT 4.35 10^6/uL (4.00-5.40); WHITE BLOOD COUNT 4.2 10^3/uL (4.0-10.0)
[2019-05-09 13:36] LABS: HCG, SERUM QUALITATIVE NEGATIVE (NEGATIVE)
[2019-05-09 13:42] LABS: ACETAMINOPHEN LEVEL < 2.0 UG/ML (10.0-30.0); ALBUMIN 3.9 GM/DL (3.2-5.2); ALT/SGPT 47 U/L (12-78); BILIRUBIN,DIRECT 0.1 MG/DL (0.0-0.2); BILIRUBIN,TOTAL 0.7 MG/DL (0.2-1.0); BLOOD UREA NITROGEN 13 MG/DL (7-18); CALCIUM LEVEL 9.1 MG/DL (8.5-10.1); CARBON DIOXIDE LEVEL 25 MEQ/L (21-32); CHLORIDE LEVEL 111 MEQ/L (98-107); CREATININE FOR GFR 0.82 MG/DL (0.55-1.30); ETHYL ALCOHOL (ETHANOL) < 0.003 % (0.000-0.010); GLOMERULAR FILTRATION RATE > 60.0 (>60); GLUCOSE, FASTING 82 MG/DL (70-100); POTASSIUM SERUM 4.6 MEQ/L (3.5-5.1); SALICYLATE LEVEL < 1.7 MG/DL (5.0-30.0); SODIUM LEVEL 142 MEQ/L (136-145); TOTAL PROTEIN 7.5 GM/DL (6.4-8.2)
[2019-05-09 13:57] LABS: AMPHETAMINES LEVEL URINE NEGATIVE (NEGATIVE); BARBITURATES URINE NEGATIVE (NEGATIVE); BENZODIAZEPINES URINE NEGATIVE (NEGATIVE); CANNABINOIDS URINE NEGATIVE (NEGATIVE); COCAINE METABOLITE URINE NEGATIVE (NEGATIVE); METHADONE URINE NEGATIVE (NEGATIVE); OPIATES URINE NEGATIVE (NEGATIVE); PHENCYCLIDINE URINE NEGATIVE (NEGATIVE)
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
[2019-05-09] MEDS ORDERED: LORazepam 1 MG TAB PO PRN (15:45)
[2019-05-09] MEDS ORDERED: IBUPROFEN 400 MG TAB PO PRN (15:45)
[2019-05-09] MEDS ORDERED: MOM 30ML SUSPENSION UDC PO PRN (15:45)
[2019-05-09] MEDS ORDERED: ACETAMINOPHEN TAB 650MG DOSE (2X325MG) PO PRN (15:45)
[2019-05-09 17:40] VITALS: BP 139/85
[2019-05-09] MEDS ORDERED: IBUPROFEN 800 MG TAB PO PRN (18:30)
[2019-05-09] MEDS ORDERED: ALBUTEROL 90 MCG/ACT 8GM HFA INHALER INH PRN (18:30)
[2019-05-09] MEDS ORDERED: SERTRALINE HCL 25 MG TABLET PO SCH (21:00)
[2019-05-09] MEDS: PRENATAL VITAMINS CHEWABLE TABLET PO SCH (21:03)
[2019-05-09] MEDS: LORATADINE 10 MG TAB PO SCH (21:03)
[2019-05-10 06:33] VITALS: BP 102/58
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
--- NOTE | 2019-05-10 15:17 | REP ---
Three views right shoulder, two views right humerus, four views right elbow, two views right forearm and four views right hand / wrist: 05/10/2019. Indication: Right arm pain. Comparison: 09/24/2017 and 11/29/2018. Findings: There is no acute fracture, subluxation or dislocation. Bony alignment is normal. There are no erosive lesions of the visualized osseous structures. No joint effusions are detected. No additional significant soft tissue abnormalities are detected. Impression: No acute osseous injuries of the right shoulder and arm detected. Electronically Signed by Zacarias Tiwari DO 05/10/2019 03:09 P
--- NOTE | 2019-05-10 17:21 | HPE ---
DATE OF ADMISSION: 05/09/2019 DATE OF SERVICE: 05/10/2019 CHIEF COMPLAINT: Suicidal ideation and major depression. HISTORY OF PRESENT ILLNESS: This is a 28-year-old female with a history of asthma, anxiety and depression, admitted to the inpatient mental health unit due to severe depression and suicidal gestures by attempting to smother herself with a pillow. The patient otherwise also complains of right arm pain after a fall about 3 weeks ago when she was changing a diaper. She had tripped on her dog, landed on her right side, mostly on her right arm, involving the shoulder, elbow and wrist. The patient was seen at [facility]. X-ray at that time was negative, but with a question of a stress fracture she was put in a sling with an appointment at orthopedic surgery as an outpatient. She has been using as needed ibuprofen with some relief with pain going from 6 out of 10 to 2 out of 10. 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 No changes in her activities of daily living aside from some difficulty putting her shirt on on the right due to inability to fully extend her right arm. X-rays of the shoulder, humerus, radius and ulna shows no acute fracture. Elbow and hand have no fracture or dislocation. PAST MEDICAL HISTORY: 1. Asthma. 2. Anxiety. 3. Depression. PAST SURGICAL HISTORY: 1. Tonsillectomy. 2. Adenoidectomy. 3. Ear tubes as a child. 4. Cholecystectomy. 5. Food impaction requiring esophagogastroduodenoscopy (EGD) and extraction of ingested material. ALLERGIES: CODEINE, seasonal allergies, REGLAN, COCONUT. SOCIAL HISTORY: No alcohol or drug use. 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 Six siblings with asthma, autism. Father with unknown medical problems, they do not speak. REVIEW OF SYSTEMS: As per history of present illness. 12-point system otherwise negative. PHYSICAL EXAMINATION: VITAL SIGNS: Temperature 98.5, pulse 72, respiratory rate 16, blood pressure 102/58, 100% on room air. GENERAL: Awake, alert and oriented times three. Patient is able to maintain eye contact. No respiratory distress. No jugular venous distention (JVD) or thyromegaly. LUNGS: Clear to auscultation. No wheezing, rales or rhonchi. HEART: S1, S2. Sinus rhythm. ABDOMEN: Soft, nontender, nondistended. EXTREMITIES: No cyanosis, clubbing or pitting edema. The patient's right upper extremity has limited abduction up to about 45 degrees. She is able to flex and extend at the elbow with some difficulty due to pain. The patient is able to flex and extend her arm with some limitation with abduction up to about 45 degrees due to pain in the shoulder and elbow. The patient is able to appose her finger to the thumb with all the fingers. There is no joint swelling or effusion. Proximal interphalangeal joint, metacarpophalangeal joint, distal interphalangeal joints. No tenderness at the snuffbox. LABORATORY DATA: White count 4.2, hemoglobin 13, hematocrit 41, platelet count 270. Sodium 142, potassium 4.6, chloride 111, bicarbonate 25, BUN 13, creatinine 0.82, glucose 82, calcium 9.1, total bilirubin 0.7, direct bilirubin 0.1, AST 44, ALT 47, alkaline phosphatase 109, total protein 7.5, albumin 3.9, TSH 1.32, HCG is negative. Urine toxicology screen is negative. Ethyl alcohol, salicylate, acetaminophen all negative. IMAGING STUDIES: Shoulder, radius, ulna, humerus, hand and elbow are all negative. ASSESSMENT AND PLAN: This is a 28-year-old female with a history of asthma, anxiety, depression, recent fall with pain in the right forearm, shoulder, elbow and wrist with negative x-rays, admitted for suicidal ideation and severe depression. CURRENT ISSUES: 1. Anxiety, depression, suicidal ideation. Managed by psychiatrist. Currently on Zoloft 50 mg at night. 2. Right arm pain status post fall. The patient has no acute fracture or dislocation. Continue with outpatient referral to orthopedic surgery. As needed ibuprofen with meals. 3. History of asthma. Continue on as needed albuterol four times a day. 4. Deep vein thrombosis (DVT) prophylaxis. Encourage ambulation. MTDD
[2019-05-10 18:35] VITALS: BP 145/90
[2019-05-10] MEDS: LORATADINE 10 MG TAB PO SCH (20:59)
[2019-05-10] MEDS: PRENATAL VITAMINS CHEWABLE TABLET PO SCH (20:59)
[2019-05-10] MEDS ORDERED: SERTRALINE HCL 25 MG TABLET PO SCH (21:00)
[2019-05-11 06:26] VITALS: BP 121/69
--- NOTE | 2019-05-11 09:51 | MHDSPDOC ---
[facility] Discharge Summary Discharge Summary DATE OF ADMISSION: May 09, 2019 at 15:45 DATE OF DISCHARGE: 05/11/19 Discharge Yael Phillips MRN: N/A Date of : N/A Date of Service: 05/11/2019 Diagnoses Adjustment disorder History of Present Illness The patient a 28-year-old woman who I had seen the ER, presents after having significant adjustment problems after recent of her child several weeks ago. She reports that she has been making significant improvements while being on the unit and that her family has risen to give her significant support, reminding her of her strengths. She reports that prior to coming in, she had had significant stressors, worried about her ability to tend to her child's needs as her arm was unable to be used. She reports that since she has come in and the stress has been removed that she feels much better, is able to engage in conversation with others and that her sleep has normalized, which she reports is fairly helpful for her. The patient reports that she is never been in inpatient unit, but feels that the lack of stress on the inpatient unit revealed her ability to cope in her strengths. She reports no suicidal ideation, is not tearful, but euthymic and jovial today. Consultants Involved Hospitalist/PCP screening Treatment and Progress On The Unit The patient was admitted to the inpatient unit and her Zoloft was increased to 50 mg. She made great improvement with very little treatment after her stressors had resolved and her support system became activated. She improved well with her depression improving with a good night's sleep and the patient reported that she was feeling much improved. She was to leave on the day of discharge. She did not meet involuntary criteria for extension of her admission as she had been denying any suicidal or homicidal ideation, having normal mental status exam, good insight, and was able to engage in discharge planning successfully. She declined further voluntary admission and was discharged in good isaac. Discharge Assessment 28-year-old woman with likely significant adjustment disorder after having given to her most recent child. Mental Status Examination General: Well dressed with good hygiene Speech: Spontaneous and fluid Thought processes: Linear and logical MSK: Smooth and coordinated gait, no signs of tremors or involuntary orofacial movements Thought content: Future orientated Abstract reasoning, and computation: Intact Description of associations: Intact Description of abnormal or psychotic thoughts: Denies any suicidal or homicidal ideation. Denies any auditory or visual hallucinations. Does not appear to be responding to internal stimuli. Does not appear to be endorsing any bizarre or paranoid ideation. Judgment: fair Insight: fair Orientation: Alert and orientated 3 Cognition: Grossly normal Recent and remote memory: Intact Attention span and concentration: Intact Fund of knowledge: Adequate Mood: "okay" Affect: Euthymic with a full range Follow Up The social work team worked during the predischarge meeting in order to evaluate for further issues of lethality address them fully before discharge. They worked on safety planning with the patient's family members in order to ensure that the patient will have a safe and effective discharge. Time Spent The amount of time spent in the coordination of care for this patient was approximately 40 minutes. Friday Vital Signs/I&Os Vital Signs Date Time Temp Pulse Resp B/P (MAP) Pulse Ox O2 Delivery O2 Flow Rate FiO2 05/11/19 06:26 97.8 66 14 121/69 (86) Room Air 05/09/19 16:25 100 Medications Scheduled Loratadine (Loratadine) 10 Mg Tablet, 10 MG PO QHS, (Reported) No.137/Iron/Folic Acd ( Vitamin Tablet) 1 Each Tablet, 1 TAB PO QHS, (Reported) Sertraline Hcl (Sertraline HCl) 50 Mg Tablet, 1 TAB PO DAILY for mood for 7 Days, #7 Scheduled PRN Albuterol Sulfate (Albuterol Sulfate Hfa) 8.5 Gm Hfa.aer.ad, 2 PUFF INH QID PRN for SHORTNESS OF BREATH, (Reported) Cyclobenzaprine HCl (Cyclobenzaprine HCl) 10 Mg Tablet, 10 MG PO QHS PRN for SPASMS, (Reported) Ibuprofen (Ibuprofen) 800 Mg Tablet, 800 MG PO TID PRN for PAIN, (Reported) Allergies Coded Allergies: Coconut (Verified Allergy, Severe, anaphylaxis, 03/11/19) codeine (Verified Allergy, Severe, " cardiac arrest", 04/15/19) SEASONAL ALLERGIES (Verified Allergy, Unknown, 03/11/19) metoclopramide (Verified Adverse Reaction, Unknown, 03/11/19) JEFERSON MCCULLOUGH DO May 11, 2019 09:51
[2019-05-11] MEDS ORDERED: SERT-141 PO (09:55)
== END 2019-05-11 12:45 | disposition home or self-care (01) | DRG 561 ==
LOC: M ED 12:24 → M ED INP 15:45 → M PSY 17:23
PROVIDERS: ADMIT Psychiatry & Neurology Addiction Medicine; ATTEND Psychiatry & Neurology Addiction Medicine
DX: O90.6 Postpartum mood disturbance (principal); F43.20 Adjustment disorder, unspecified; F32.9 Major depressive disorder, single episode, unspecified; Z62.810 Personal history of physical and sexual abuse in childhood; Z62.811 Personal history of psychological abuse in childhood; Z79.899 Other long term (current) drug therapy; Z88.6 Allergy status to analgesic agent; Z88.8 Allergy status to other drugs, medicaments and biological substances; J45.909 Unspecified asthma, uncomplicated; F41.9 Anxiety disorder, unspecified; Z90.89 Acquired absence of other organs; Z90.49 Acquired absence of other specified parts of digestive tract; Z91.018 Allergy to other foods; S49.91XS Unspecified injury of right shoulder and upper arm, sequela; S59.901S Unspecified injury of right elbow, sequela; S69.91XS Unspecified injury of right wrist, hand and finger(s), sequela; W01.0XXS Fall on same level from slipping, tripping and stumbling without subsequent striking against object, sequela; O99.345 Other mental disorders complicating the puerperium

== ENCOUNTER 2019-06-20 21:32 | Emergency (ER) | payer MEDICAID, OTHER ==
[~2019-06-20] VITALS: Ht 175.3 cm; Wt 59.1 kg
[~2019-06-20 21:32] MED LIST changes: +CLON0.5T2 PO; -CLON0.5T8 PO; +SERT-141 PO
[2019-06-20] MEDS ORDERED: methylPREDNISolone INJ 125 MG/2 ML VIAL (J2930) IV ONE (22:30)
[2019-06-20] MEDS ORDERED: FAMOTIDINE INJ 20MG/2ML VIAL (S0028) IVP ONE (22:30)
[2019-06-20] MEDS ORDERED: diphenhydrAMINE INJ 50MG/ML VIAL (J1200) IV ONE (22:30)
[2019-06-20] MEDS ORDERED: NS 500 ML IV ONE (23:00)
[2019-06-20 23:19] LABS: BASO % 0.7 % (0.0-1.0); EOS # 0.2 10^3/uL (0.0-0.5); EOS % 3.4 % (0.0-3.0); HEMATOCRIT 35.5 % (36.0-47.0); HEMOGLOBIN 11.9 g/dl (12.0-15.5); LYMPH # 1.7 10^3/uL (1.5-5.0); LYMPH % 31.6 % (24.0-44.0); MEAN CORPUSCULAR HEMOGLOBIN 30.3 pg (27.0-33.0); MEAN CORPUSCULAR HGB CONC 33.5 g/dl (32.0-36.5); MEAN CORPUSCULAR VOLUME 90.3 fl (80.0-96.0); MONO # 0.4 10^3/uL (0.0-0.8); MONO % 8.2 % (0.0-5.0); NEUTROPHILS % 55.9 % (36.0-66.0); PLATELET COUNT, AUTOMATED 225 10^3/uL (150-450); RED BLOOD COUNT 3.93 10^6/uL (4.00-5.40); WHITE BLOOD COUNT 5.4 10^3/uL (4.0-10.0)
[2019-06-20 23:43] LABS: BLOOD UREA NITROGEN 19 MG/DL (7-18); CALCIUM LEVEL 8.8 MG/DL (8.5-10.1); CARBON DIOXIDE LEVEL 24 MEQ/L (21-32); CHLORIDE LEVEL 109 MEQ/L (98-107); CREATININE FOR GFR 0.74 MG/DL (0.55-1.30); GLOMERULAR FILTRATION RATE > 60.0 (>60); GLUCOSE, FASTING 117 MG/DL (70-100); POTASSIUM SERUM 3.5 MEQ/L (3.5-5.1); SODIUM LEVEL 143 MEQ/L (136-145)
[2019-06-21 01:27] VITALS: BP 134/85
--- NOTE | 2019-06-21 08:40 | ECGEPIP ---
[facility] - ED Test Date: 2019-06-20 Pat Name: DEVIN VILLA Department: Room: - Gender: Female Medical Practice Administrator: ZACKARY : 1990 Requested By: XIOMARA Nieto Order Number: [id number] Reading MD: Everette Garduno Measurements Intervals [place] Rate: 77 P: 74 WA: 156 QRS: 70 QRSD: 96 T: 51 QT: 404 QTc: 460 Interpretive Statements SINUS RHYTHM SIMILAR TO 01/21/19 Electronically Signed on 06-21-2019 8:39:49 EST by Everette Garduno
== END 2019-06-21 02:07 | disposition home or self-care (01) ==
LOC: M ED 21:32
DX: T78.1XXA Other adverse food reactions, not elsewhere classified, initial encounter (principal); X58.XXXA Exposure to other specified factors, initial encounter; Y92.89 Other specified places as the place of occurrence of the external cause; J45.909 Unspecified asthma, uncomplicated; G43.909 Migraine, unspecified, not intractable, without status migrainosus; K58.9 Irritable bowel syndrome, unspecified; F41.9 Anxiety disorder, unspecified; Z91.018 Allergy to other foods; Z88.5 Allergy status to narcotic agent; Z88.8 Allergy status to other drugs, medicaments and biological substances; Z79.899 Other long term (current) drug therapy
CPT/HCPCS: 80048; 85025; 93005; 93041; 94760; 96374; 96375; 99284; J1200; J2930

== ENCOUNTER 2019-06-28 22:37 | Emergency (ER) | payer OTHER ==
[~2019-06-28] VITALS: Ht 172.7 cm; Wt 68.2 kg
[2019-06-28] MEDS ORDERED: IBUPROFEN 600 MG TAB PO ONE (23:30)
[2019-06-28] MEDS ORDERED: ACETAMINOPHEN 325 MG TAB PO ONE (23:30)
[2019-06-29] MEDS ORDERED: IBUP-1022 PO (00:26)
[2019-06-29 00:38] VITALS: BP 120/79
--- NOTE | 2019-06-29 07:22 | REP ---
Clinical: Trauma . Technique: AP, lateral, bilateral oblique views right ankle . Findings: No acute fracture or dislocation. Skeletal structures and joint spaces are intact and normal. Ankle mortise appears stable. No subcutaneous emphysema or radiodense foreign body. Impression: Normal right ankle radiograph series. Electronically Signed by Nabil Mae MD 06/29/2019 07:13 A
== END 2019-06-29 00:53 | disposition home or self-care (01) ==
LOC: M ED 22:37
DX: S93.401A Sprain of unspecified ligament of right ankle, initial encounter (principal); W01.0XXA Fall on same level from slipping, tripping and stumbling without subsequent striking against object, initial encounter; Y92.098 Other place in other non-institutional residence as the place of occurrence of the external cause; J45.909 Unspecified asthma, uncomplicated; G43.909 Migraine, unspecified, not intractable, without status migrainosus; R01.1 Cardiac murmur, unspecified; Z88.5 Allergy status to narcotic agent; Z91.018 Allergy to other foods; Z79.899 Other long term (current) drug therapy

== ENCOUNTER 2019-07-24 18:22 | Emergency (ER) | payer MEDICAID, OTHER ==
[~2019-07-24 18:22] MED LIST changes: +IBUP-1022 PO
[2019-07-24] MEDS ORDERED: SERT25TA85 PO (18:42)
[2019-07-24 19:24] LABS: HEMATOCRIT 37.4 % (36.0-47.0); HEMOGLOBIN 12.2 g/dl (12.0-15.5); MEAN CORPUSCULAR HEMOGLOBIN 28.8 pg (27.0-33.0); MEAN CORPUSCULAR HGB CONC 32.6 g/dl (32.0-36.5); MEAN CORPUSCULAR VOLUME 88.2 fl (80.0-96.0); PLATELET COUNT, AUTOMATED 215 10^3/uL (150-450); RED BLOOD COUNT 4.24 10^6/uL (4.00-5.40); WHITE BLOOD COUNT 4.3 10^3/uL (4.0-10.0)
[2019-07-24 19:51] LABS: ACETAMINOPHEN LEVEL < 2.0 UG/ML (10.0-30.0); ALBUMIN 4.2 GM/DL (3.2-5.2); ALT/SGPT 30 U/L (12-78); BILIRUBIN,DIRECT 0.1 MG/DL (0.0-0.2); BILIRUBIN,TOTAL 0.4 MG/DL (0.2-1.0); BLOOD UREA NITROGEN 16 MG/DL (7-18); CALCIUM LEVEL 8.5 MG/DL (8.5-10.1); CARBON DIOXIDE LEVEL 22 MEQ/L (21-32); CHLORIDE LEVEL 111 MEQ/L (98-107); CREATININE FOR GFR 0.83 MG/DL (0.55-1.30); ETHYL ALCOHOL (ETHANOL) < 0.003 % (0.000-0.010); GLOMERULAR FILTRATION RATE > 60.0 (>60); GLUCOSE, FASTING 76 MG/DL (70-100); POTASSIUM SERUM 3.7 MEQ/L (3.5-5.1); SALICYLATE LEVEL < 1.7 MG/DL (5.0-30.0); SODIUM LEVEL 141 MEQ/L (136-145)
[2019-07-24] MEDS ORDERED: ZOFR4TAB16 PO (22:01)
[2019-07-24 22:06] VITALS: BP 111/59
--- NOTE | 2019-07-25 06:28 | ECGEPIP ---
[facility] - ED Test Date: 2019-07-24 Pat Name: DEVIN VILLA Department: Room: - Gender: Female Director Business Travel: : 1990 Requested By: Lynette Man Order Number: [id number] Reading MD: Lynette Man Measurements Intervals [place] Rate: 68 P: 73 RI: 161 QRS: 66 QRSD: 96 T: 56 QT: 407 QTc: 435 Interpretive Statements SINUS RHYTHM NONSPECIFIC ST T WAVE CHANGES 06/20/[address] T WAVE CHANGES Electronically Signed on 07-25-2019 6:28:47 EST by Lynette Man
== END 2019-07-24 22:08 | disposition home or self-care (01) ==
LOC: EDSEX 18:22 → EDBD 18:22 → M ED 18:22
DX: T50.901A Poisoning by unspecified drugs, medicaments and biological substances, accidental (unintentional), initial encounter (principal); F32.9 Major depressive disorder, single episode, unspecified; F41.9 Anxiety disorder, unspecified; J45.909 Unspecified asthma, uncomplicated; Z79.51 Long term (current) use of inhaled steroids; Z79.899 Other long term (current) drug therapy; Z88.5 Allergy status to narcotic agent; Z88.8 Allergy status to other drugs, medicaments and biological substances; Z91.018 Allergy to other foods
CPT/HCPCS: 36415; 80048; 80076; 84443; 85027; 93005; 99284; G0480

== ENCOUNTER → 2019-08-16 | Outpatient (REF) | payer OTHER, MEDICAID ==
[~2019-08-16] MED LIST changes: +ZOFR4TAB16 PO
== END ==
LOC: M SFHCWAGY 09:37
PROVIDERS: ATTEND Advanced Practice Midwife
DX: Z12.4 Encounter for screening for malignant neoplasm of cervix (principal)

== ENCOUNTER → 2019-10-26 | Outpatient (CLI) | payer OTHER ==
[~2019-10-26] MED LIST changes: +CYCL-707 PO; -CYCL10TA PO
--- NOTE | 2019-10-26 19:55 | REP ---
Clinical: Left lower quadrant tenderness. Technique: Axial noncontrast images from the lung bases to the pubic symphysis with coronal and sagittal re-formations. Comparison: Findings: Lung bases are clear. Visualized heart and pericardium normal. Liver, spleen, pancreas, bilateral adrenal glands and kidneys are normal for noncontrast evaluation. Evidence of prior cholecystectomy. The enteric system suggests mild fecal stasis which may be related to the patient's symptoms. There is no evidence for bowel obstruction or acute inflammatory process. Pelvis demonstrates collapsed normal bladder and age-appropriate uterus/adnexa. No ascites. No free air. No obvious adenopathy. Abdominal aorta without aneurysm. Musculoskeletal structures are grossly normal and without acute focal osseous abnormality. Impression: 1. Findings suggesting mild fecal stasis which may be related to the patient's symptoms. Electronically Signed by Nabil Mae MD 10/26/2019 07:47 P
== END ==
LOC: M RAD 08:38
PROVIDERS: ATTEND Family Medicine
DX: R10.814 Left lower quadrant abdominal tenderness (principal)

== ENCOUNTER → 2019-11-03 | Outpatient (REF) | payer OTHER | LOC: M WUC 15:46 | PROVIDERS: ATTEND Nurse Practitioner Family | DX: N76.0 Acute vaginitis (principal) ==

== ENCOUNTER → 2019-11-26 | Outpatient (CLI) | payer OTHER ==
--- NOTE | 2019-11-27 09:49 | REP ---
LEFT FOOT, FOUR VIEWS: There is no evidence of an acute fracture, dislocation, or intrinsic bone disease. IMPRESSION: No fracture or dislocation. Electronically Signed by Prasanth Shelton MD 11/27/2019 09:34 P
== END ==
LOC: M WUC 14:58
PROVIDERS: ATTEND Nurse Practitioner Family
DX: M79.672 Pain in left foot (principal)

== ENCOUNTER → 2019-12-01 | Outpatient (REF) | payer OTHER ==
[2019-12-01 20:32] LABS: CHLAMYDIA DNA AMPLIFICATION NEGATIVE (NEGATIVE); GC DNA AMPLIFICATION NEGATIVE (NEGATIVE)
== END ==
LOC: M SFHCWAGY 17:29
PROVIDERS: ATTEND Advanced Practice Midwife
DX: Z30.49 Encounter for surveillance of other contraceptives (principal)

== ENCOUNTER → 2020-03-03 | Outpatient (CLI) | payer OTHER ==
[~2020-03-03] MED LIST changes: +KETO10TAB PO; +ONDA4TAB6 PO
--- NOTE | 2020-03-28 15:00 | REP ---
LUMBOSACRAL SPINE SERIES CLINICAL: Chronic back pain. TECHNIQUE: AP, lateral, bilateral oblique, and coned down views of the lumbosacral spine. FINDINGS: Alignment and lordosis maintained. Vertebral bodies intact. No acute fracture/compression injury or subluxation. No spondylolysis or spondylolisthesis. No significant degenerative changes. IMPRESSION: Normal lumbosacral spine radiograph series. MTDD
--- NOTE | 2020-03-28 15:00 | REP ---
THORACIC SPINE CLINICAL: Chronic back pain. TECHNIQUE: AP, lateral, swimmers view of the thoracic spine. FINDINGS: Alignment is maintained. Vertebral bodies are intact. No significant degenerative changes are appreciated. No acute fracture/compression injury or subluxation. IMPRESSION: Relatively normal thoracic spine radiographs. MTDD
== END ==
LOC: M WUC 16:38
PROVIDERS: ATTEND Nurse Practitioner Family
DX: M54.9 Dorsalgia, unspecified (principal)

== ENCOUNTER 2020-03-12 20:45 | Emergency (ER) | payer OTHER ==
[~2020-03-12] VITALS: Ht 175.3 cm; Wt 56.8 kg
[~2020-03-12 20:45] MED LIST changes: -KETO10TAB PO; -ONDA4TAB6 PO
[2020-03-12] MEDS ORDERED: diphenhydrAMINE 50MG/ML VIAL (J1200) IV ONE (21:30)
[2020-03-12] MEDS ORDERED: NS 1,000 ML IV ONE (21:30)
[2020-03-12] MEDS ORDERED: KETOROLAC 30 MG/ML 1ML VIAL IV ONE (21:30)
[2020-03-12] MEDS ORDERED: KETO10TAB PO (22:41)
[2020-03-12 23:10] VITALS: BP 109/60
== END 2020-03-12 23:12 | disposition home or self-care (01) ==
LOC: M ED 20:45
DX: G43.909 Migraine, unspecified, not intractable, without status migrainosus (principal); J45.909 Unspecified asthma, uncomplicated; K21.9 Gastro-esophageal reflux disease without esophagitis; Z88.8 Allergy status to other drugs, medicaments and biological substances; Z79.51 Long term (current) use of inhaled steroids; Z79.899 Other long term (current) drug therapy
CPT/HCPCS: 96361; 96374; 96375; 99284; J1200; J1885

== ENCOUNTER 2020-04-01 20:11 | Emergency (ER) | payer OTHER ==
[~2020-04-01] VITALS: Ht 172.7 cm; Wt 54.4 kg
[~2020-04-01 20:11] MED LIST changes: +KETO10TAB PO
[2020-04-01] MEDS ORDERED: EPIP0.3I2 IM (20:17)
[2020-04-01 20:41] LABS: BASO % 0.3 % (0.0-1.0); EOS # 0.3 10^3/uL (0.0-0.5); EOS % 4.3 % (0.0-3.0); HEMATOCRIT 37.8 % (36.0-47.0); HEMOGLOBIN 12.7 g/dl (12.0-15.5); LYMPH # 2.3 10^3/uL (1.5-5.0); LYMPH % 37.2 % (24.0-44.0); MEAN CORPUSCULAR HEMOGLOBIN 29.7 pg (27.0-33.0); MEAN CORPUSCULAR HGB CONC 33.6 g/dl (32.0-36.5); MEAN CORPUSCULAR VOLUME 88.5 fl (80.0-96.0); MONO # 0.5 10^3/uL (0.0-0.8); MONO % 7.5 % (0.0-5.0); NEUTROPHILS # 3.2 10^3/uL (1.5-8.5); NEUTROPHILS % 50.5 % (36.0-66.0); PLATELET COUNT, AUTOMATED 227 10^3/uL (150-450); RED BLOOD COUNT 4.27 10^6/uL (4.00-5.40); WHITE BLOOD COUNT 6.2 10^3/uL (4.0-10.0)
[2020-04-01 21:05] LABS: ALBUMIN 3.9 GM/DL (3.2-5.2); ALT/SGPT 24 U/L (12-78); BILIRUBIN,DIRECT < 0.1 MG/DL (0.0-0.2); BILIRUBIN,TOTAL 0.3 MG/DL (0.2-1.0); LIPASE 216 U/L (73-393); TOTAL PROTEIN 7.3 GM/DL (6.4-8.2)
[2020-04-01] MEDS ORDERED: ONDANSETRON 4 MG ORAL DISINTEGRATING TAB PO ONE (21:30)
[2020-04-01] MEDS ORDERED: GI COCKTAIL 50ML BTL(HYOSCYAMINE/MAALOX/LIDOCAINE VISCOUS)(1:3:1) PO ONE (21:30)
[2020-04-01] MEDS ORDERED: ONDA4TAB6 PO (23:40)
[2020-04-02 00:01] VITALS: BP 121/79
--- NOTE | 2020-04-02 00:01 | REPVR ---
PROCEDURE INFORMATION: Exam: XR Abdomen, 1 View Exam date and time: 04/01/2020 11:27 PM Age: 29 years old Clinical indication: Other: Abdominal pain TECHNIQUE: Imaging protocol: XR of the abdomen. Views: Frontal supine view of the abdomen. 1 View. COMPARISON: CT ABD PELVIS W/O CONTRAST 10/26/2019 8:53 AM FINDINGS: Tubes, catheters and devices: Surgical clips are present over the right upper quadrant. Gastrointestinal tract: No evidence of small bowel obstruction. Intraperitoneal space: No pneumoperitoneum. Bones/joints: Visualized bony structures are unremarkable. Incidental bone islands in the right femoral neck.Transitional vertebral segment is present at the lumbosacral junction. Other findings: No abnormal calcifications. IMPRESSION: No acute intra-abdominal or pelvic process. Electronically signed by: Zackary Reis On 04/02/2020 00:00:35 AM
== END 2020-04-02 00:03 | disposition home or self-care (01) ==
LOC: M ED 20:11
DX: A05.9 Bacterial foodborne intoxication, unspecified (principal); K58.9 Irritable bowel syndrome, unspecified; F41.9 Anxiety disorder, unspecified; F32.9 Major depressive disorder, single episode, unspecified; Z79.3 Long term (current) use of hormonal contraceptives; Z91.018 Allergy to other foods; Z88.5 Allergy status to narcotic agent; Z88.8 Allergy status to other drugs, medicaments and biological substances; J30.2 Other seasonal allergic rhinitis
CPT/HCPCS: 36415; 74018; 80047; 80076; 83690; 84702; 85025; 99284; Q0162

== ENCOUNTER 2020-04-16 14:16 | Emergency (ER) | payer OTHER ==
[~2020-04-16] VITALS: Ht 172.7 cm; Wt 53.6 kg
[~2020-04-16 14:16] MED LIST changes: +ONDA4TAB6 PO
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
[2020-04-16] MEDS ORDERED: KETOROLAC 30 MG/ML 1ML VIAL IM ONE (15:30)
[2020-04-16] MEDS ORDERED: KETO10TAB PO (16:16)
[2020-04-16 16:31] VITALS: BP 122/75
== END 2020-04-16 16:33 | disposition home or self-care (01) ==
LOC: M ED 14:16 → EDBD 14:16 → M ED 16:33
DX: S16.1XXA Strain of muscle, fascia and tendon at neck level, initial encounter (principal); V43.62XA Car passenger injured in collision with other type car in traffic accident, initial encounter; Y92.410 Unspecified street and highway as the place of occurrence of the external cause; M54.9 Dorsalgia, unspecified; G89.29 Other chronic pain; F41.9 Anxiety disorder, unspecified; F32.9 Major depressive disorder, single episode, unspecified; Z91.018 Allergy to other foods; Z88.5 Allergy status to narcotic agent; Z88.8 Allergy status to other drugs, medicaments and biological substances; J30.2 Other seasonal allergic rhinitis; Z79.899 Other long term (current) drug therapy
CPT/HCPCS: 36415; 70450; 72125; 84702; 96372; 99284; J1885

== ENCOUNTER → 2020-05-15 | Outpatient (CLI) | payer OTHER ==
--- NOTE | 2020-05-16 03:05 | REP ---
INDICATION: PAIN COMPARISON: None. TECHNIQUE: AP, lateral, bilateral oblique views right foot. FINDINGS: The osseous structures and joint spaces are intact and normal. There is no evidence for acute fracture or dislocation. Surrounding soft tissues are unremarkable. No subcutaneous emphysema or radiodense foreign body. IMPRESSION: Normal age-appropriate right foot series. No acute fracture or dislocation. <Electronically signed by Nabil Mae > 05/16/20 [id number]
== END ==
LOC: M WUC 18:03
PROVIDERS: ATTEND Nurse Practitioner Family
DX: M25.571 Pain in right ankle and joints of right foot (principal)

== ENCOUNTER → 2020-07-02 | Outpatient (CLI) | payer OTHER ==
--- NOTE | 2020-07-02 13:14 | REP ---
INDICATION: LEFT WRIST INJURY COMPARISON: None. TECHNIQUE: AP, lateral, bilateral oblique views left wrist. FINDINGS: The carpal bones, surrounding osseous structures, soft tissues, and joint spaces are normal. There is no evidence for acute fracture or dislocation. No subcutaneous emphysema or radiodense foreign body. IMPRESSION: Normal wrist series. No acute fracture or dislocation. <Electronically signed by Nabil Mae > 07/02/20 [id number]
== END ==
LOC: M RAD 12:47
PROVIDERS: ATTEND Physician Assistant
DX: S69.92XA Unspecified injury of left wrist, hand and finger(s), initial encounter (principal)

== ENCOUNTER 2020-07-16 20:11 | Emergency (ER) | payer OTHER ==
[~2020-07-16] VITALS: Ht 172.7 cm; Wt 52.3 kg
--- OUTSIDE RECORDS SUMMARY | 2020-07-16 20:24 | CCD | Continuity of Care Document ---
Author Author Yael HUITRON MT Organization Unknown Address [address] [place] [id number] Phone [phone] Care Team Providers Care Cable Television Technician Name Role Phone [facility] AUTM [phone] Problems Description No Information Available Social History Type Date Description Comments Sex Unknown ETOH Use Never used alcohol Tobacco Use Start: Unknown Patient has never smoked Tobacco Use Start: Unknown The Patient Has Never Vaped Smoking Status Reviewed: 07/12/20 The Patient Has Never Vaped Allergies, Adverse Reactions, Alerts Active Allergies Reaction Severity Comments Date Codeine Unconsciousness 03/25/2018 [place] Difficulty breathing, Diffic ulty swallowing, Flushing, Hives, Unconsciousness 03/25/2018 Inactive Allergies NKDA 07/22/2017 Medications Active Medications SIG Qnty Indications Ordering Provide r Date Ondansetron HCL 4mg Tablets 1 sl up to every 8 hour for nausea 30tabs Z20.828 Alexis Moses JR., M.D. 07/12/2020 Albuterol Fha 90mcg/Act Aerosol 2 puffs gid as needed Unknown Epipen 2-Geovany Unknown Nexplanon Unknown Tablets Unknown Claritin Unknown History Medications Salicylic Acid Wart Remover 27.5% Liquid Apply to wart on left hand on clean, dry skin, after application keep area covered with circular bandaid; repeat once daily for 7 days 10ml Alexis Moses JR., M.D. 03/27/2020 - 04/03/2020 Ondansetron HCL 4mg Tablets take one tab every 8 hours for nausea 14tabs S00.03xA Alexis Moses JR., M.D. 02/08/2020 - 03/06/2020 Immunizations Description No Information Available Vital Signs Date Vital Result Comment 07/12/2020 12:03pm BP Systolic 118 mmHg BP Diastolic 82 mmHg Heart Rate 72 /min Respiratory Rate 15 /min O2 % BldC Oximetry 99 % Body Temperature 9.2 F Weight 120.00 lb Height 68 inches 5'8" BMI (Body Mass Index) 18.2 kg/m2 Pain Level 8 05/15/2020 5:54pm BP Systolic 106 mmHg BP Diastolic 70 mmHg Heart Rate 82 /min Respiratory Rate 16 /min O2 % BldC Oximetry 99 % Body Temperature 96.8 F Weight 116.00 lb Height 68.5 inches 5'8.50" BMI (Body Mass Index) 17.4 kg/m2 Pain Level 5 Results Description No Information Available Procedures Date Code Description Status 02/08/2020 61292 Visual Screening Dariana t Of Visual Acuity, Quantitative, Bilateral Completed Medical Devices Description No Information Available Encounters Type Date Location Provider Dx Diagnosis Office Visit 07/12/2020 11:50a Main Office ALONDRA Vicente J06.9 Acute upper respiratory infection, unspecified Z20.828 Contact w and exposure to ot h viral communicable diseases Office Visit 05/15/2020 6:00p Main Office Bettie Gaona NP M25. 571 Pain in right ankle and joints of right foot Office Visit 03/27/2020 5:25p Main Office ALONDRA Hunter B0 7.0 Plantar wart Office Visit 02/08/2020 2:50p Main Office ALONDRA Abraham S00 .03xA Contusion of scalp, initial encounter Assessments Date Code Description Provider 07/12/2020 J06.9 Acute upper respiratory infectio n, unspecified ALONDRA Vicente 07/12/2020 Z20.828 Contact with and (banda spected) exposure to other viral communicable diseases ALONDRA Vicente 05/15/2020 M25.571 Pain in right ankle and joints o f right foot Bettie Gaona NP 03/27/2020 B07.0 Plantar wart ALONDRA Ontiveros 02/08/2020 S00.03xA Contusion of scalp, initial enco unter ALONDRA Abraham Plan of Treatment No Information Available Functional Status Description No Information Available Mental Status Description No Information Available Referrals Description No Information Available
--- OUTSIDE RECORDS SUMMARY | 2020-07-16 20:24 | CCD | Continuity of Care Document ---
Author Author Yael BARRAZA HEALTH EDUCATION COORDINATOR Organization Unknown Address [address] [place] [address] [place] [address] Phone [phone] Care Team Providers Care Clerk Funeral Detail Name Role Phone [facility] AUTM [phone] Problems Description No Information Available Social History Type Date Description Comments Sex Unknown ETOH Use Never used alcohol Tobacco Use Start: Unknown Patient has never smoked Tobacco Use Start: Unknown The Patient Has Never Vaped Smoking Status Reviewed: 05/15/20 The Patient Has Never Vaped Allergies, Adverse Reactions, Alerts Active Allergies Reaction Severity Comments Date Codeine Unconsciousness 03/25/2018 [place] Difficulty breathing, Diffic ulty swallowing, Flushing, Hives, Unconsciousness 03/25/2018 Inactive Allergies NKDA 07/22/2017 Medications Active Medications SIG Qnty Indications Ordering Provide r Date Albuterol Fha 90mcg/Act Aerosol 2 puffs gid [...] Alexis Moses JR., M.D. 02/08/2020 - 03/06/2020 Metoclopramide HCL 5mg Tablets 1 tab PO qid prn 5tabs R11.2 Alexis Moses JR., M.D. 04/2020 - 01/13/2020 Immunizations Description No Information Available Vital Signs Date Vital Result Comment 05/15/2020 5:54pm BP Systolic 106 mmHg BP Diastolic 70 mmHg Heart Rate 82 /min Respiratory Rate 16 /min O2 % BldC Oximetry 99 % Body Temperature 96.8 F Weight 116.00 lb Height 68.5 inches 5'8.50" BMI (Body Mass Index) 17.4 kg/m2 Pain Level 5 03/27/2020 5:04pm BP Systolic 115 mmHg BP Diastolic 83 mmHg Heart Rate 65 /min Respiratory Rate 12 /min O2 % BldC Oximetry 99 % Body Temperature 98.1 F Weight 116.00 lb Height 68.50 inches 5'8.50" BMI (Body Mass Index) 17.4 kg/m2 Pain Level 0 Results Description No Information Available Procedures Date Code Description Status 02/08/2020 10114 Visual Screening Dariana t Of Visual Acuity, Quantitative, Bilateral Completed Medical Devices Description No Information Available Encounters Type Date Location Provider Dx Diagnosis Office Visit 05/15/2020 6:00p Main Office Bettie Barraza NP M25. 571 Pain in right ankle and joints of right foot Office Visit 03/27/2020 5:25p Main Office ALONDRA Hunter B0 7.0 Plantar wart Office Visit 02/08/2020 2:50p Main Office ALONDRA Abraham S00 .03xA Contusion of scalp, initial encounter Office Visit 01/08/2020 3:10p Main Office Bettie Barraza NP R11. 2 Nausea with vomiting, unspecified Office Visit 11/26/2019 2:15p Main Office Bettie Barraza NP M79. 672 Pain in left foot M79.675 Pain in left toe(s) S93.602A Unspecified sprain of left f oot, initial encounter Assessments Date Code Description Provider 05/15/2020 M25.571 Pain in right ankle and joints o f right foot Bettie Barraza NP 03/27/2020 B07.0 Plantar wart ALONDRA Ontiveros 02/08/2020 S00.03xA Contusion of scalp, initial enco unter ALONDRA Abraham 01/08/2020 R11.2 Nausea with vomiting, unspecifie d Bettie Barraza NP 11/26/2019 M79.672 Pain in left foot Bettie holcomb NP 11/26/2019 M79.675 Pain in left toe(s) Bettie szymanski NP 11/26/2019 S93.602A Unspecified sprain of left foot, initial encounter Bettie Barraza NP Plan of Treatment 05/15/2020 - Bettie Barraza NP* M25.571 Pain in right ankle and joints of right foot* Comments:* wet read xray: no acute fracture/dislocationpending radiologist reportRICE, alternate with heatROM exercisestylenol/NSAIDs PRN for painf/u PRN or with PCPpatient v/u & agrees to plan Functional Status Description No Information Available Mental Status Description No Information Available Referrals Description No Information Available
--- OUTSIDE RECORDS SUMMARY | 2020-07-16 20:24 | CCD ---
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 Extremity Other Than Joint 12/09/2019 12:00: 00 AM EDT [facility] ([facility]) URINE TEST 12/01/2019 12:00:00 AM EDT eCW1 ([facility]) THERAPEUTIC PX 1/> AREAS EACH 15 MIN EXERCISES 020 12:00:00 AM EST [facility] ([facility]) Brief Individual Psychotherapy - 30 min 08/05/2019 12:00:00 AM EST - 08/05/2019 12:00:00 AM EST [facility] ([facility]) Brief Individual Psychotherapy - 30 min 08/05/2019 12: 00:00 AM EST [facility] ([facility]) Physical Therapy Eval - Low Complexity 07/30/2019 12:0 0:00 AM EST [facility] ([facility]) OFFICE OUTPATIENT VISIT 15 MINUTES 07/29 12:00:00 AM EST - 07/29/2019 12:00:00 AM EST [facility] ([facility]) OFFICE OUTPATIENT VISIT 15 MINUTES 07/29/2019 12:00:00 AM EST [facility] ([facility]) Extended Individual Psychotherapy - 45 min 07/22/2019 12:00:00 AM EST - 07/22/2019 12:00:00 AM EST [facility] ([facility]) Extended Individual Psychotherapy - 45 min 0 12:00:00 AM EST [facility] ([facility]) OFFICE OUTPATIENT VISIT 15 MINUTES 07/15 12:00:00 AM EST - 07/15/2019 12:00:00 AM EST [facility] ([facility]) OFFICE OUTPATIENT VISIT 15 MINUTES 07/15/2019 12:00:00 AM EST [facility] ([facility]) Extended Individual Psychotherapy - 45 min 07/08/2019 12:00:00 AM EST - 07/08/2019 12:00:00 AM EST [facility] ([facility]) Extended Individual Psychotherapy - 45 min 0 12:00:00 AM EST [facility] ([facility]) INSERT DRUG IMPLANT DEVICE 07/06/2019 12:00:00 AM EST eCW1 ([facility]) Etonogestrel (contraceptive) implant system, including impla nt and supplies 07/06/2019 12:00:00 AM EST eCW1 ([facility]) Extended Individual Psychotherapy - 45 min 06/17/2019 12:00:00 AM EST - 06/17/2019 12:00:00 AM EST [facility] ([facility]) Extended Individual Psychotherapy - 45 min 9 12:00:00 AM EST [facility] ([facility]) Psychiatric Diagnostic Evaluation with Medical Services 06/08/2019 12:00:00 AM EST - 06/08/2019 12:00:00 AM EST [facility] ([facility]) Psychiatric Diagnostic Evaluation with Medical Services 06/08/2019 12:00:00 AM EST [facility] ([facility]) Extended Individual Psychotherapy - 45 min 06/07/2019 12:00:00 AM EST - 06/07/2019 12:00:00 AM EST [facility] ([facility]) Extended Individual Psychotherapy - 45 min 9 12:00:00 AM EST [facility] ([facility]) Results ID Date Data Source [id number] 04/03/2020 03:35:45 PM EDT [facility] Measurements & CalculationsHeight: 67 inches (5 ft. 7 in.) 170.18 cm Weight: 118.2 pounds 53.73 kg Body Mass Index (BMI): 18.58BMI Interpretation: Healthy WeightBody Surface Area (BSA): 1.62Weight Management Education Done (Nutrition/Physical Activity)Vital SignsTemperature: 98.3F 36.83C tympanic Pulse Rate: 73 beats/minuteRespiratory Rate: 18 respirations/minuteBlood Pressure: 111/74 right arm sitting automaticO2 Saturation: 99% Vital Signs performed by: Komal Jefferson LPN, April 03, 2020 3:36 PMInitial Intake Information From: patientRoom #: 2Infectious Disease / Travel ScreeningRecent travel for you or any close contacts? NoHave you had any close contact with anyone diagnosed with or under investigation for COVID-19 (coronavirus)? NoFever? NoRespiratory symptoms: cough, cold, congestion, shortness of breath, difficulty breathing? NoLoss of smell? NoLoss of taste? NoSmoking, Tobacco, Vaping or Smoke Exposure StatusSmoke Status: never smokerTobacco Use: NoDo you vape? NoPassive Smoke Exposure: NoMenstrual HistoryLast Menstrual Period (LMP): 08/09/2019LMP History: ApproximateAny possibility of ? NoComments: nexplanonHealthcare HistorySince your last office visit...Have you been admitted to the hospital? NoHave you been to an emergency room (ER) or urgent care clinic? Yes - abdominal painEmergency room (ER) or urgent care date reported today: 04/01/2020Have you seen another healthcare provider? YesHave you seen a dentist? NoIntake performed by: Julio C Jefferson LPN, April 03, 2020 3:37 PMRate Your HealthIn general, would you say your health is? PoorPain AssessmentAre you currently having any pain which... You would like your provider to address? Yes Affects your activity level? NoDepression Screening - PHQ-2Over the last two weeks, have you... Had little interest or pleasure in doing things? Not at all Been feeling down, depressed, or hopeless? Not at all PHQ-2 Score: 0Food InsecurityWithin the past year...Did you worry whether your food would run out before you got money to buy more? Never trueWas there a time when the food you bought didn't last and you didn't have money to get more? Never truePain AssessmentLocation: abdomenDuration: 2-3 daysFrequency: DailyCharacter/Quality: aching and burningScreening, Brief Intervention, & Referral to Treatment (SBIRT)Pre-Screening Questions How many times have you have 4 or more drinks in a day? 0How many times have you used an illegal drug or used a prescription medication for a non-medical reason? 0Performed by: Komal Jefferson LPN, April 03, 2020 3:38 PMPatient History Medical History:AsthmaAnxiety DisorderDepressionacid refultSurgical History:tonsilectomy in 1993tubes in ears in 1992CholecystectomyFamily History:FH of AnxietyFamily History of AsthmaFH DepressionFH Lung/Respiratory DiseaseFamily History of AnginaFH P M SSocial/Personal History:Smoking History:Patient has never smoked. Chief Complaintfollow-up visitHistory of Present Illness (HPI)Pt is a 29 y/o female, presents for [facility] ER follow-up. No records available.Pt reports being seen 04/01/2020 for abdominal pain. States the ER took labs, gave her a nausea pill and a GI cocktail with resolution of pain after 1 hour. The pain slowly came back after 6-8 hrs later but not as intense. Was discharged with a nausea medication, took one dose yesterday. Pt feels pain is improving and now feels it was "indigestion". Admits to slight gas, pain increases at night. Denies vomiting, fever, dysuria, hematuria. Admits to soft stool this morning, last constipation stool was yesterday (hard and difficult to push out). Pt is still . First appt with PT was last week 03/30/2020, but they called and cancelled today's appt due to insurance verification issues. Spinal xrays were normal. Transitions of Care InboundProblem ReviewProblem List was reviewed and/or updated during this visit.Medication Reconciliation & ReviewMedication List was reviewed and/or updated during this visit, including review of any btue-xlj-yrberdu medications, herbal therapies, and/or supplements.Allergy ReviewAllergy List was reviewed and/or updated during this visit.Adult Preventive CareLabs/Meds/Other Counseling-Nutrition and Physical Activity:BMI Interpretation: Healthy Weight (04/03/2020) Counseling: Done (04/03/2020) Physical Activity: Done (04/03/2020)Review of Systems General: Complains of loss of appetite. Denies chills, dizziness, fatigue, fever, headache. Cardiovascular: Denies chest pain, palpitations, feeling faint. Respiratory: Denies cough, difficulty breathing, shortness of breath. Gastrointestinal: Complains of nausea, constipation, pain or discomfort, heartburn. Denies vomiting, diarrhea, blood in stool, black or tarry stools, jaundice. Genitourinary: Denies pain with urination, burning with urination, blood in urine. Musculoskeletal: Complains of see HPI, back pain, stiffness. Denies recent injury. Neurologic: Denies weakness, numbness/tingling, feeling faint. Physical ExamGeneral Appearance: well nourished, well hydrated, no acute distressEyes, External: conjunctivae and lids normal, EOMIRespiratory, Auscultation: clear to auscultation bilaterally; no rales, rhonchi, or wheezesCardiovascular, Auscultation: S1, S2 audible; no murmur, rub, or gallop; RRRPeripheral Circulation: no clubbing, cyanosis, edema, or varicositiesAbdomen: soft, non-tender, no masses, bowel sounds normalGait & Station: normalOrientation: oriented to time, place, and personJudgment & Insight: intactCare Management Plan Transitions of CareInboundRate Your HealthIn general, would you say your health is? PoorAssessment & Plan Problems:Added: Indigestion (ICD-536.8) (VPL74-N28) Assessment: Instructions: Start Famotidine daily as needed for indigestion/acid. Limit/avoid spicy, acidic (citrus, tomato), caffeine, carbonation/soda. Juab diet until abdominal discomfort is resolved.A ssessed:Chronic back pain (ICD-724.5) (HLL94-B41.9) Assessment: Instructions: Spinal xrays reviewed, both negative. Continue with PT. Call our immigration coordinator if you have ongoing issues with PT scheduling.Patient Instructions/Care Plan: Indigestion: Start Famotidine daily as needed for indigestion/acid. Limit/avoid spicy, acidic (citrus, tomato), caffeine, carbonation/soda. Juab diet until abdominal discomfort is resolved.Chronic back pain: Spinal xrays reviewed, both negative. Continue with PT. Call our immigration coordinator if you have ongoing issues with PT scheduling. Pl an developed in collaboration with patient and/or familyMedications:FAMOTIDINE 20 MG ORAL TABLETALIVE 0.4-25 MG ORAL TABLET CHEWABLENEXPLANON 68 MG SUBCUTANEOUS IMPLANTCLARITIN 10 MG ORAL CAPSULEVENTOLIN HFA 108 (90 BASE) MCG/ACT INHALATION AEROSOL SOLUTIONEPIPEN 2-SAGE SOLUTION AUTO-INJECTORMedication Changes:Added: ALIVE 0.4-25 MG ORAL TABLET CHEWABLENew Prescription:FAMOTIDINE 20 MG ORAL TABLET-Take 1 tablet po QAM on an empty stomach Qty: 30[Tablet] Refills: 0 Method: ElectronicAllergies:CODEINE (Critical)* COCONUT (Moderate)* SEASONAL (Moderate)Orders:Adult - Ofc Vst, EST, Level III [CPT-39717] Follow-Up Return to clinic: as needed Clinical Visit Summary Completed Name Value Range Interpretation Code Description Data Augusta rce(s) Supporting Document(s) ID Date Data Source [id number] 03/03/2020 03:47:17 PM EDT [facility] Measurements & CalculationsHeight: 67 inches (5 ft. 7 in.) 170.18 cm Weight: 129 pounds 2 oz. 58.70 kg Body Mass Index (BMI): 20.30BMI Interpretation: Healthy WeightBody Surface Area (BSA): 1.68Weight Management Education Done (Nutrition/Physical Activity)Vital SignsTemperature: 97.9F tympanic Pulse Rate: 77 beats/minuteRespiratory Rate: 16 respirations/minuteBlood Pressure: 116/76 right arm sitting automaticO2 Saturation: 98% room airVital Signs performed by: Jaspreet Hidalgo LPN, March 03, 2020 3:59 PMInitial Intake Information From: patientRoom #: 1Infectious Disease / Travel ScreeningRecent travel for you or any close contacts? NoHave you had any close contact with anyone diagnosed with or under investigation for COVID-19 (coronavirus)? NoFever? NoRespiratory symptoms: cough, cold, congestion, shortness of breath, difficulty breathing? NoLoss of smell? NoLoss of taste? No Smoking, Tobacco, Vaping or Smoke Exposure StatusSmoke Status: never smokerTobacco Use: NoDo you vape? NoPassive Smoke Exposure: NoMenstrual HistoryLast Menstrual Period (LMP): 07/05/2019Any possibility of ? NoComments: on Healthcare HistorySince your last office visit...Have you been admitted to the hospital? NoHave you been to an emergency room (ER) or urgent care clinic? NoHave you seen another healthcare provider? Yes [facility]Have you seen a dentist? NoIntake performed by: Jaspreet Hidalgo LPN, March 03, 2020 3:51 PMRate Your HealthIn general, would you say your health is? FairPain AssessmentAre you currently having any pain which... You would like your provider to address? Yes Affects your activity level? YesDepression Screening - PHQ-2Over the last two weeks, have you... Had little interest or pleasure in doing things? Not at all Been feeling down, depressed, or hopeless? Not at all PHQ-2 Score: 0Anxiety Screening - CALDERON-2Over the last two we eks, have you been... Feeling nervous, anxious, or on edge? Not at all Unable to stop or control worrying? Not at all CALDERON-2 Score: 0Food InsecurityWithin the past year...Did you worry whether your food would run out before you got money to buy more? Never trueWas there a time when the food you bought didn't last and you didn't have money to get more? Never truePatient Learning & Communication Needs Preferred learning style: by experiencePossible barriers: nonePatient's Language used in visit: YesLanguage: monegasque Pain AssessmentPain ScaleNumeric Rating Scale: 5 / 10Location: backDuration: 2 monthFrequency: DailyCharacter/Quality: aching, sharp and dullIs the pain radiating? NoPRAPARE Sociodemographic Characteristics Race: White Ethnicity: Not or Preferred Language: EnglishFamily and Home Address: [address] [place] [address] What is your housing situation today? I have housing Are you worried about losing your housing? NoMoney and Resources What is the highest level of school that you have finished? some college Employed? No Are you seeking work? No Insurance: Managed Care [facility] Community PlanIn the past year, have you or any family members you live with been unable to get any of the following when it was really needed? Denies Insecurity: food, utilities, clothing, children's zoo caretaker, phone, legal services, otherWithin the past year did you worry whether your food would run out before you got money to buy more? Never trueWithin the past year was there a time when the food you bought didn't last and you didn't have money to get more? Never trueIn the past year, have you had trouble affording costs associated with health insurance (such as deductibles, co-payments, etc.)? NoSocial and Emotional Health How often do you see or talk to people that you care about and feel close to? More than 5 times a week How stressed are you? A little bitAdditional Optional Domains In the past 3 months, have you spent more than 2 nights in a row in a care home, halfway, retirement center or juvenile correctional facility? No Has lack of transportation kept you from medical appointments or from getting your medications? NoIn the past year, have you had trouble getting any of the following when it was really needed (check all that apply)?noneIn the past year, have you had trouble paying the costs associated with health care or medicine (such as co-payments, costs for services, prices of medicines)? NoHow confident are you that you can control and manage most of your health problems? Very confident Are you a refugee? No (Country of origin: [place]) Do you feel physically and emotionally safe where you live? Yes In the past year, have you been afraid of a partner, ex-partner? NoScreening, Brief Intervention, & Referral to Treatment (SBIRT)Pre- Screening Questions How many times have you have 4 or more drinks in a day? 0How many times have you used an illegal drug or used a prescription medication for a non-medical reason? 0Performed by: Jaspreet Hidalgo LPN, March 03, 2020 3:55 PMPatient History Medical History:AsthmaAnxiety DisorderDepressionacid refultSurgical History:tonsilectomy in 1993tubes in ears in 1992CholecystectomyFamily History:FH of AnxietyFamily History of AsthmaFH DepressionFH Lung/Respiratory DiseaseFamily History of AnginaFH P M SSocial/Personal History:Smoking History:Patient has never smoked. Chief Complaintannual exam RM 1 History of Present Illness (HPI)29 yo female, here today for annual exam. Pt states she is taking all medications with no side effects or issues. Pt states she has back pain worsening x 2 months. Chronic for years prior. Did not have an epidural with delivery in 03/2019. currently, plans to wean at 12 months, daughter is still feeding quite frequently (every 2 hrs). Transitions of Care InboundProblem ReviewProblem List was reviewed and/or updated during this visit.Medication Reconciliation & ReviewMedication List was reviewed and/or updated during this visit, including review of any couw-fqg-adxrmti medications, herbal therapies, and/or supplements.Allergy ReviewAllergy List was reviewed and/or updated during this visit.Adult Preventive CareProvider Calculated and Reviewed all Clinical Protocols for patient today. Labs/Meds/Other Counseling-Nutrition and Physical Activity:BMI Interpretation: Healthy Weight (03/03/2020) Counseling: Done (03/03/2020) Physical Activity: Done (03/03/2020)Review of Systems General: Denies loss of appetite, chills, dizziness, fatigue, fever, headache, feeling ill. Eyes: Denies blurring of vision, double vision. Ears/Nose/Throat: Denies earache, nasal congestion, sore throat, tooth pain, swollen glands. Cardiovascular: Denies chest pain, palpitations, feeling faint, peripheral edema. Respiratory: Denies cough, difficulty breathing, shortness of breath, wheezing. Gastrointestinal: Denies nausea, vomiting, diarrhea, constipation, pain or discomfort. Genitourinary: Denies pain with urination, burning with urination, blood in urine. Musculoskeletal: Complains of see HPI, back pain, stiffness. Denies recent injury. Skin: Denies rash, redness, suspicious lesions. Neurologic: Denies muscle impairment, weakness, numbness/tingling, feeling faint. Psychiatric: Denies depression, anxiety. Physical ExamGeneral Appearance: well nourished, well hydrated, no acute distressEyes, External: conjunctivae and lids normal, EOMIExternal Ears: normal, no lesions or deformitiesHearing: grossly intactOtoscopy: canals clear, tympanic membranes intact, no fluid, light reflex intact bilaterallyExternal Nose: normal, no lesions or deformitiesNasal: mucosa, septum, and turbinates normal, nares patentLips/Teeth/Gums: normal dentition, no gingival inflammation, no labial lesionsPharynx: tongue normal, posterior pharynx without erythema or exudate, no thrush/aphthous ulcerNeck: supple, no masses, trachea midline, full range of motion of neckThyroid: no nodules, masses, tenderness, or enlargementRespiratory, Auscultation: clear to auscultation bilaterally; no rales, rhonchi, or wheezesRespiratory, Effort: no intercostal retractions or use of accessory musclesCardiovascular, Auscultation: S1, S2 audible; no murmur, rub, or gallop; RRRPeripheral Circulation: no clubbing, cyanosis, edema, or varicositiesAbdomen: soft, non-tender, no masses, bowel sounds normalGait & Station: normalBack: no vertebral tenderness or stepoff, diffuse tension and limite flexion/extension secondary to pain, negative straight leg raise b/lSkin, Inspection: no rashes, lesions, or ulcerationsOrientation: oriented to time, place, and personMood & Affect: no depression, anxiety, or agitationJudgment & Insight: intactCare Management Plan Transitions of CareInboundRate Your HealthIn general, would you say your health is? FairAssessment & Plan Problems:Added: Chronic back pain (ICD-724.5) (BAA98-G91.9) Assessment: Instructions: Referral for physical therapy. Xray order given today, take to [facility] or [facility] to have these done.Encounter for care and examination of lactating mother (ICD-V24.1) (WBK72-O84.1) Assessment: Instructions: Discuss weaning with your daughter's aircraft power plant assembler. Watch for signs of mastitis. As you wean, recommend cool cabbage leaves and sports bra for tighter breast compression.Changed:From: Dx of Physical exam (ICD-V70.0) (XAF90-E87.00) To: Encounter for general adult medical examination with abnormal findings (ICD- V70.0) (BDD51-S98.01)From: Dx of Depression, major (ICD-296.20) (GJI24-G30.9) To: Major depression in full remission (ICD-296.26) (DJR67-V14.5)From: Dx of BMI 22.0-22.9 (ICD-V85.1) (NYB86-X64.22) To: Body mass index [BMI] 20.0-20.9, adult (ICD-V85.1) (LRA56-I65.20)Assessed:Encounter for general adult medical examination with abnormal findings (ICD-V70.0) (OBX85-C18.01) Assessment: Instructions: Recommend annual medical appointments. Recommend routine dental and vision care. Recommend influenza vaccines annually and tetanus boosters every 10 years. Release of information form(s) to obtain medical records from your prior providers(s) has been signed in the office today.Major depression in full remission (ICD-296.26) (NCZ15-J38.5) Assessment: Instructions: In remission without medication. Call for any changes in moods.Body mass index [BMI] 20.0-20.9, adult (ICD-V85.1) (RVM13-T52.20) Assessment: Instructions: Monitor, already improving. Likely secondary to . Continue healthy diet: protein, healthy fat, complex carbs.Removed:Diverticulitis of colon (ICD-562.11) (BEC55-X79.32), Left lower quadrant abdominal tenderness (VWG10-G49.814), Constipation, unspecified (EQE41-I03.00), Lumbago with sciatica, left side (ICD-724.2) (MTY00-U38.42), Acute diarrhea (ICD-787.91) (ADU33-A41.7), Pain in right arm (ICD-729.5) (UCV63-Q20.601), Irregular menstruation, unspecified (WEO17-L74.6), Irregular menses (ICD-626.4) (ICD10- N92.6)Assessment not SavedOther adverse food reactions; not elsewhere classified; initial encounter (YKA89-C51.1xxA): Patient Instructions/Care Plan: Encounter for general adult medical examination with abnormal findings: Recommend annual medical appointments. Recommend routine dental and vision car e. Recommend influenza vaccines annually and tetanus boosters every 10 years. Release of information form(s) to obtain medical records from your prior providers(s) has been signed in the office today.Chronic back pain: Referral for physical therapy. Xray order given today, take to [facility] to have these done.Encounter for care and examination of lactating mother: Discuss weaning with your daughter's aircraft power plant assembler. Watch for signs of mastitis. As you wean, recommend cool cabbage leaves and sports bra for tighter breast compression.Major depression in full remission: In remission without medication. Call for any changes in moods.Body mass index [BMI] 20.0-20.9- adult: Monitor, already improving. Likely secondary to . Continue healthy diet: protein, healthy fat, complex carbs. Plan developed in collaboration with patient and/or familyMedications:NEXPLANON 68 MG SUBCUTANEOUS IMPLANTCLARITIN 10 MG ORAL CAPSULEVENTOLIN HFA 108 (90 BASE) MCG/ACT INHALATION AEROSOL SOLUTIONEPIPEN 2- SAGE SOLUTION AUTO-INJECTORMedication Changes:Added: NEXPLANON 68 MG SUBCUTANEOUS IMPLANTAllergies:CODEINE (Critical)* COCONUT (Moderate)* SEASONAL (Moderate)Orders:X-Ray - Spine, lumbosacral, complete, including bending views [CPT-05092] X-Ray - Spine, thoracic, minimum of 4 views [CPT-44160] Physical Therapy Consult [CPT-83371] Preventive, Est, (18-39) [CPT-38207] Follow-Up Return to clinic: in 1 year for preventive care visitAdditional Follow-Up: annual PEClinical Visit Summary Completed Name Value Range Interpretation Code Description Data Augusta rce(s) Supporting Document(s) ID Date Data Source [id number] 11/03/2019 02:51:00 PM EDT MEDENT ([facility]) Name Value Range Interpretation Code Description Data Augusta rce(s) Supporting Document(s) Bacteria identified in Urine by Culture Laboratory test result MEDENT ([facility]) amoxicillin/diflucan ID Date Data Source [id number] 10/21/2019 03:04:00 PM EDT [facility] Measurements & CalculationsHeight: 67 inches (5 ft. 7 in.) 170.18 cm Weight: 141 pounds 64.09 kg Body Mass Index (BMI): 22.16BMI Interpretation: Healthy WeightBody Surface Area (BSA): 1.74Weight Management Education Done (Nutrition/Physical Activity)Vital SignsTemperature: 98.1F oral Pulse Rate: 85 beats/minuteRespiratory Rate: 18 respirations/minuteBlood Pressure: 116/77 right arm laying automaticO2 Saturation: 97% room airVital Signs performed by: Jaspreet Hidalgo MA, October 21, 2019 3:23 PMInitial Intake Information from: patientRoom #: 14Smoking, Tobacco, Vaping or Smoke Exposure StatusSmoke Status: never smokerDo you vape? NoPassive Smoke Exposure: NoMenstrual HistoryLast Menstrual Period (LMP): 07/05/2019Any possibility of ? NoComments: control Healthcare HistorySince your last office visit...Have you been admitted to the hospital? No - [facility] Hospital admission date reported today: 03/31/2019Have you been to an emergency room (ER) or urgent care clinic? No - [facility]- right arm pain Emergency room (ER) or urgent care date reported today: 04/22/2019Have you seen another healthcare provider? Yes - [facility] Have you seen a dentist? No - aquaDental exam date reported today: 2012Intake performed by: Jaspreet Hidalgo MA, October 21, 2019 3:10 PMRate Your HealthIn general, would you say your health is? FairPain AssessmentAre you currently having any pain which... You would like your provider to address? No Affects your activity level? NoDepression Screening - PHQ-2Over the last two weeks, have you... Had little interest or pleasure in doing things? Not at all Been feeling down, depressed, or hopeless? Not at all PHQ-2 Score: 0Anxiety Screening - CALDERON-2Over the last two weeks, have you been... Feeling nervous, anxious, or on edge? Not at all Unable to stop or control worrying? Not at all CALDERON-2 Score: 0Food InsecurityWithin the past year...Did you worry whether your food would run out before you got money to buy more? NoWas there a time when the food you bought didn't last and you didn't have money to get more? NoInfectious Disease / Travel ScreeningRecent travel for you or any close contacts? NoHave you had any close contact with anyone diagnosed with or under investigation for COVID-19 (coronavirus)? NoHave you had any of the following symptoms recently? Fever? NoRespiratory symptoms: cough, cold, congestion, shortness of breath, difficulty breathing? NoScreening, Brief Intervention, & Referral to Treatment (SBIRT)Pre-Screening Questions How many times have you have 4 or more drinks in a day? 0How many times have you used an illegal drug or used a prescription medication for a non-medical reason? 0Performed by: Jaspreet Hidalgo MA, October 21, 2019 3:14 PMPatient History Medical History:AsthmaAnxiety DisorderDepressionacid refultSurgical History:tonsilectomy in 1993tubes in ears in 1992Family History:FH of AnxietyFamily History of AsthmaFH DepressionFH Lung/Respiratory DiseaseFamily History of AnginaFH P M SSocial/Personal History:Smoking History:Patient has never smoked. Chief Complaintdepression F/U Rm 14History of Present Illness (HPI)28 yr old female Pt here today for a depression F/U. Pt states she is taking medications with no side effects. Pt denies pain at this time. Pt state she does have some pain in mid upper ABD that comes and goes. PT states the pain also comes when she has sexual realationship with her spouse and when she has a bowel movement. I, Luis Enrique Hall MA, am scribing for, and in the presence of, Jaylan Oneill, DO pt states she has this pressure thats building but once she goes the bbathroom the pressure is gone. pt states it laso happens its everytime she has sex with her . pt states she goes to the bathroom on a regular basis. pt denies bloating. pt's GI sounds are normal. pt denies a bladder infection to her knowledge. DO states it feels like diverticulitis. although pt is not constipated. pt does have a hx of constipation. pt had galbladder emoval and thats when the constipation stopped. DO states that was probably the start of the diverticulitis. DO does want CT to pt's stomach. DO advises pt to take tumeric and vit D3 55401 units to counteract the radiation of the CT. pt states her depression is under wraps at the moment. she does feel anxiety while being away from her daughter during the day while she works. Transitions of Care InboundProblem ReviewProblem List was reviewed and/or updated during this visit.Medication Reconciliation & ReviewMedication List was reviewed and/or updated during this visit, including review of any [id number] medications, herbal therapies, and/or supplements.Allergy ReviewAllergy List was reviewed and/or updated during this visit.Adult Preventive CareProvider Calculated and Reviewed all Clinical Protocols for patient today. Labs/Meds/Other Counseling-Nutrition and Physical Activity:BMI Interpretation: Healthy Weight (10/21/2019) Counseling: Done (10/21/2019) Physical Activity: Done (10/21/2019)Cancer Screening Pap Smear/HPV TestingReviewed: Previous Comments: Pt will set one up at [facility] (04/28/2019)Today's Comments: Pt had one at [facility] ( jul 2019)Review of Systems Gastrointestinal: Complains of abdominal pain. Denies nausea, vomiting, bleeding, burning, itching, irritation, cramps, diarrhea, bloody diarrhea, watery diarrhea, constipation, pain or discomfort, feeling any lumps or bumps, pain with BM, pain during receptive anal sex, change in bowel habits, fecal incontinence, blood in stool, black or tarry stools, jaundice, heartburn, urge to defecate. Physical ExamGeneral Appearance: well nourished, well hydrated, no acute distressRespiratory, Auscultation: clear to auscultation bilaterally; no rales, rhonchi, or wheezesRespiratory, Effort: no intercostal retractions or use of accessory musclesAbdomen: TENDER LOWER ABD Aand LLQGait & Station: normalOrientation: oriented to time, place, and personMood & Affect: no depression, anxiety, or agitationJudgment & Insight: intactCare Management Plan Transitions of CareInboundRate Your HealthIn general, would you say your health is? FairAssessment & Plan Problems:Added: Diverticulitis of colon (ICD-562.11) (SYV32-B95.32)Left lower quadrant abdominal tenderness (RYB48-P26.814) Ass essment: CT scan abdomen r/o diverticulitisAssessment not SavedDiverticulitis of colon (BMW67-J75.32): CT scan abdomen r/o diverticulitisMedications:CLARITIN 10 MG ORAL CAPSULEVENTOLIN HFA 108 (90 BASE) MCG/ACT INHALATION AEROSOL SOLUTIONEPIPEN 2-SAGE SOLUTION AUTO-INJECTORMedication Changes:Removed:CYCLOBENZAPRINE HCL 10 MG ORAL TABLET-1 tab po qHS, PROVERA 10 MG ORAL TABLET-1 tab PO 1x daily for 10 days, SERTRALINE HCL 25 MG ORAL TABLET- Take one tab po QDAllergies:CODEINE (Critical)* COCONUT (Moderate)* SEASONAL (Moderate)Orders:Adult - Ofc Vst, EST, Level III [CPT-04421] CT ABDOMEN & PELVIS W/O CONTRAST MATERIAL [CPT-32097] Vaccines Administered/Entered:Vaccination Group: InfluenzaHistorical Source: Historical information - from patientSeries: 1 NOT GIVENVaccination: Flucelvax Quadrivalent PF (4y+) AdultReason Not Given: Patient decisionEntered Date: 10/21/2019 12:00 AMComments: [facility] Jaspreet Hidalgo MA Name Value Range Interpretation Code Description Data Augusta rce(s) Supporting Document(s) Procedure Social History Code Duration Value Status Description Data Source(s ) Smoking 01/08/2020 12:00:00 AM EDT Patient has never smoked co mpleted Patient has never smoked MEDENT ([facility]) Smoking 12/01/2019 12:00:00 AM EDT Never Smoker completed Never S sid eCW1 ([facility]) Smoking 08/05/2019 12:00:00 AM EST Unknown if ever smoked comp leted Unknown if ever smoked [facility] ([facility]) Smoking 07/29/2019 12:00:00 AM EST Unknown if ever smoked comp leted Unknown if ever smoked [facility] ([facility]) Smoking 07/22/2019 12:00:00 AM EST Unknown if ever smoked comp leted Unknown if ever smoked [facility] ([facility]) Smoking 07/15/2019 12:00:00 AM EST Unknown if ever smoked comp leted Unknown if ever smoked [facility] ([facility]) Smoking 07/08/2019 12:00:00 AM EST Unknown if ever smoked comp leted Unknown if ever smoked [facility] ([facility]) Smoking 06/17/2019 12:00:00 AM EST Unknown if ever smoked comp leted Unknown if ever smoked [facility] ([facility]) Smoking 06/08/2019 12:00:00 AM EST Unknown if ever smoked comp leted Unknown if ever smoked [facility] ([facility]) Smoking 06/07/2019 12:00:00 AM EST Unknown if ever smoked comp leted Unknown if ever smoked [facility] ([facility]) Vital Signs ID Date Data Source UNK Name Value Range Interpretation Code Description Data Source(s) Body mass index (BMI) [Ratio] 18.2 kg/m2 18.2 k g/m2 [facility], [facility]) Body height 68 [in_i] 68 [in_i] [facility] ([facility]) 5'8" Body weight 120.00 [lb_av] 120.00 [lb_av] MEDEN T ([facility], [facility]) Body temperature 9.2 [degF] 9.2 [degF] [facility] ( [facility]) Oxygen saturation in Arterial blood by Pulse oximetry 99 % 99 % [facility] ([facility], [facility]) Respiratory rate 15 /min 15 /min [facility] ( [facility]) Heart rate 72 /min 72 /min [facility] ([facility], [facility]) Diastolic blood pressure 82 mm[Hg] 82 mm[Hg] [facility] ([facility], [facility]) Systolic blood pressure 118 mm[Hg] 118 mm[Hg] [facility] ([facility], [facility]) Body mass index (BMI) [Ratio] 17.4 kg/m2 17.4 k g/m2 [facility] ([facility], [facility]) Body height 68.5 [in_i] 68.5 [in_i] [facility] ([facility], [facility]) 5'8.50" Body weight 116.00 [lb_av] 116.00 [lb_av] MEDEN T ([facility], [facility]) Body temperature 96.8 [degF] 96.8 [degF] [facility] ([facility], [facility]) Oxygen saturation in Arterial blood by Pulse oximetry 99 % 99 % [facility] ([facility]) Respiratory rate 16 /min 16 /min [facility] ( [facility], [facility]) Heart rate 82 /min 82 /min [facility] ([facility], [facility]) Diastolic blood pressure 70 mm[Hg] 70 mm[Hg] [facility] ([facility], [facility]) Systolic blood pressure 106 mm[Hg] 106 mm[Hg] [facility] ([facility], [facility]) Body mass index (BMI) [Ratio] 17.4 kg/m2 17.4 k g/m2 [facility] ([facility]) Body height 68.50 [in_i] 68.50 [in_i] [facility] ([facility], [facility]) 5'8.50" Body weight 116.00 [lb_av] 116.00 [lb_av] MEDEN T ([facility], [facility]) Body temperature 98.1 [degF] 98.1 [degF] [facility] ([facility], [facility]) Oxygen saturation in Arterial blood by Pulse oximetry 99 % 99 % [facility] ([facility], [facility]) Respiratory rate 12 /min 12 /min [facility] ( [facility], [facility]) Heart rate 65 /min 65 /min [facility] ([facility]) Diastolic blood pressure 83 mm[Hg] 83 mm[Hg] [facility] ([facility], [facility]) Systolic blood pressure 115 mm[Hg] 115 mm[Hg] [facility] ([facility], [facility]) Body mass index (BMI) [Ratio] 19.5 kg/m2 19.5 k g/m2 [facility] ([facility]) Body height 68.50 [in_i] 68.50 [in_i] [facility] ([facility]) 5'8.50" Body weight 130.00 [lb_av] 130.00 [lb_av] MED[facility] T ([facility], [facility]) Body temperature 97.7 [degF] 97.7 [degF] [facility] ([facility], [facility]) Oxygen saturation in Arterial blood by Pulse oximetry 99 % 99 % [facility] ([facility], [facility]) Respiratory rate 17 /min 17 /min [facility] ( [facility], [facility]) Heart rate 69 /min 69 /min [facility] ([facility]) Diastolic blood pressure 78 mm[Hg] 78 mm[Hg] [facility] ([facility], [facility]) Systolic blood pressure 124 mm[Hg] 124 mm[Hg] M EDENT ([facility], [facility]) Body mass index (BMI) [Ratio] 19.5 kg/m2 19.5 k g/m2 [facility] ([facility], [facility]) Body height 68.5 [in_i] 68.5 [in_i] [facility] ([facility], [facility]) 5'8.50" Body weight 130.00 [lb_av] 130.00 [lb_av] MEDEN T ([facility], [facility]) Body temperature 98.0 [degF] 98.0 [degF] [facility] ([facility], [facility]) Oxygen saturation in Arterial blood by Pulse oximetry 98 % 98 % [facility] ([facility], [facility]) Respiratory rate 17 /min 17 /min [facility] ( [facility], [facility]) Heart rate 89 /min 89 /min [facility] ([facility], [facility]) Diastolic blood pressure 80 mm[Hg] 80 mm[Hg] [facility] ([facility], [facility]) Systolic blood pressure 119 mm[Hg] 119 mm[Hg] M EDENT ([facility], [facility]) Body mass index (BMI) [Ratio] 18.6 kg/m2 18.6 k g/m2 [facility] ([facility] ) Body weight 120.50 [lb_av] 120.50 [lb_av] MEDEN T ([facility] ) Body height 67.5 [in_i] 67.5 [in_i] [facility] ([facility] ) 5'7.50" Body temperature 96.6 [degF] 96.6 [degF] [facility] ([facility] ) Diastolic blood pressure 76 mm[Hg] 76 mm[Hg] eCW1 ([facility]) Systolic blood pressure 128 mm[Hg] 128 mm[Hg] e CW1 ([facility]) Body mass index (BMI) [Ratio] 18.9 kg/m2 18.9 k g/m2 W1 ([facility]) Body height 69 [in_i] 69 [in_i] eCW1 ([facility]) Body weight 128 [lb_av] 128 [lb_av] eCW1 ([facility]) Body mass index (BMI) [Ratio] 19.5 kg/m2 19.5 k g/m2 [facility] ([facility], [facility]) Body height 68.5 [in_i] 68.5 [in_i] [facility] ([facility], [facility]) 5'8.50" Body weight 130.00 [lb_av] 130.00 [lb_av] MEDEN T ([facility], [facility]) Body temperature 97.3 [degF] 97.3 [degF] [facility] ([facility], [facility]) Oxygen saturation in Arterial blood by Pulse oximetry 98 % 98 % [facility] ([facility], [facility]) Respiratory rate 17 /min 17 /min [facility] ( [facility], [facility]) Heart rate 84 /min 84 /min [facility] ([facility]) Diastolic blood pressure 88 mm[Hg] 88 mm[Hg] [facility] ([facility], [facility]) Systolic blood pressure 124 mm[Hg] 124 mm[Hg] M EDENT ([facility], [facility]) Body mass index (BMI) [Ratio] 19.5 kg/m2 19.5 k g/m2 [facility] ([facility], [facility]) Body height 68.5 [in_i] 68.5 [in_i] [facility] ([facility], [facility]) 5'8.50" Body weight 130.00 [lb_av] 130.00 [lb_av] MEDEN T ([facility], [facility]) Body temperature 98.2 [degF] 98.2 [degF] [facility] ([facility], [facility]) Oxygen saturation in Arterial blood by Pulse oximetry 99 % 99 % [facility] ([facility], [facility]) Respiratory rate 20 /min 20 /min [facility] ( [facility], [facility]) Heart rate 71 /min 71 /min [facility] ([facility]) Diastolic blood pressure 85 mm[Hg] 85 mm[Hg] [facility] ([facility], [facility]) Systolic blood pressure 124 mm[Hg] 124 mm[Hg] M EDENT ([facility], [facility]) Body mass index (BMI) [Ratio] 19.5 kg/m2 19.5 k g/m2 [facility] ([facility], [facility]) Body height 68.5 [in_i] 68.5 [in_i] [facility] ([facility]) 5'8.50" Body weight 130.00 [lb_av] 130.00 [lb_av] MEDEN T ([facility], [facility]) Body temperature 98.3 [degF] 98.3 [degF] [facility] ([facility], [facility]) Oxygen saturation in Arterial blood by Pulse oximetry 98 % 98 % [facility] ([facility], [facility]) Respiratory rate 14 /min 14 /min [facility] ( [facility]) Heart rate 91 /min 91 /min [facility] ([facility]) Diastolic blood pressure 76 mm[Hg] 76 mm[Hg] [facility] ([facility], [facility]) Systolic blood pressure 125 mm[Hg] 125 mm[Hg] M EDENT ([facility], [facility]) Body mass index (BMI) [Ratio] 19.6 kg/m2 19.6 k g/m2 [facility] ([facility], [facility]) Body height 68.5 [in_i] 68.5 [in_i] [facility] ([facility]) 5'8.50" Body weight 131.00 [lb_av] 131.00 [lb_av] MEDEN T ([facility], [facility]) Body temperature 98.5 [degF] 98.5 [degF] [facility] ([facility], [facility]) Oxygen saturation in Arterial blood by Pulse oximetry 99 % 99 % [facility] ([facility], [facility]) Respiratory rate 18 /min 18 /min [facility] ( [facility], [facility]) Heart rate 72 /min 72 /min [facility] ([facility]) Diastolic blood pressure 81 mm[Hg] 81 mm[Hg] [facility] ([facility], [facility]) Systolic blood pressure 119 mm[Hg] 119 mm[Hg] M BENNYSULMA ([facility], [facility]) Diastolic blood pressure 84 mm[Hg] 84 mm[Hg] eCW1 ([facility]) Systolic blood pressure 126 mm[Hg] 126 mm[Hg] e CW1 ([facility]) Body mass index (BMI) [Ratio] 19.43 kg/m2 19.43 kg/m2 [facility] ([facility]) Body height 69 [in_us] 69 [in_us] eCW1 ([facility]) Body weight Measured 131.6 [lb_av] 131.6 [lb_av ] eCW1 ([facility]) Body height --lying 79 min Normal (applies to non-nume dara results) 79 min [facility] ([facility]) Diastolic blood pressure 85 mm[Hg] Normal (applies to non-numeric results) 85 mm[Hg] [facility] Systolic blood pressure 124 mm[Hg] Normal (applies t o non-numeric results) 124 mm[Hg] [facility] ([facility]) Body mass index (BMI) [Ratio] 20.52 kg/m2 No rmal (applies to non-numeric results) 20.52 kg/m2 [facility] Body weight Measured 135.00 lbs Normal (applies to n on-numeric results) 135.00 lbs [facility] ([facility]) Body height 68.00 in Normal (applies to non-numeric resu lts) 68.00 in [facility] ([facility]) Diastolic blood pressure 84 mm[Hg] 84 mm[Hg] eCW1 ([facility]) Systolic blood pressure 130 mm[Hg] 130 mm[Hg] e CW1 ([facility]) Body mass index (BMI) [Ratio] 20.14 kg/m2 20.14 kg/m2 [facility] ([facility]) Body height 69 [in_us] 69 [in_us] eCW1 ([facility]) Body weight Measured 136.4 [lb_av] 136.4 [lb_av ] W1 ([facility]) Diastolic blood pressure 68 mm[Hg] 68 mm[Hg] eCW1 ([facility]) Systolic blood pressure 112 mm[Hg] 112 mm[Hg] e CW1 ([facility]) Body mass index (BMI) [Ratio] 20.95 kg/m2 20.95 kg/m2 W1 ([facility]) Body height 68 [in_us] 68 [in_us] W1 ([facility]) Body weight Measured 137.8 [lb_av] 137.8 [lb_av ] W1 ([facility])
--- OUTSIDE RECORDS SUMMARY | 2020-07-16 20:24 | CCD | Continuity of Care Document ---
Author Author Yael BARRAZA [employer] Organization Unknown Address [address] [place] [address] [place] [address] Phone [phone] Care Team Providers Care Clinical Research Coordinator Name Role Phone [facility] [phone] Problems Description No Information Available Social History [...] Available Procedures Date Code Description Status 02/08/2020 65531 Visual Screening Dariana t Of Visual Acuity, Quantitative, Bilateral Completed Medical Devices Description No Information Available Encounters Type Date Location Provider Dx Diagnosis Office Visit 03/27/2020 5:25p Main Office [facility] [...] encounter Bettie Barraza NP Plan of Treatment No Information Available Functional Status Description No Information Available Mental Status Description No Information Available Referrals Description No Information Available
--- OUTSIDE RECORDS SUMMARY | 2020-07-16 20:24 | CCD | Continuity of Care Document ---
Author Author Yael HUITRON [place] Organization Unknown Address [address] [place] [address] Phone [phone] Care Team Providers Care Print Controller Name Role Phone [facility] [phone] Problems Description No Information Available Social History [...] Available Procedures Date Code Description Status 02/08/2020 46690 Visual Screening Dariana t Of Visual Acuity, [...]
[2020-07-16] MEDS ORDERED: diphenhydrAMINE 50MG/ML VIAL (J1200) IV STA (21:57)
[2020-07-16] MEDS ORDERED: KETOROLAC 30 MG/ML 1ML VIAL IV ONE (22:00)
[2020-07-16] MEDS ORDERED: ONDANSETRON 4MG/2ML VIAL IV ONE (22:00)
[2020-07-16] MEDS ORDERED: NS 1,000 ML IV ONE (22:00)
--- OUTSIDE RECORDS SUMMARY | 2020-07-16 22:14 | CCD ---
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 (18-39) [CPT-57749] Follow-Up Return to clinic: in 1 year for preventive care visitAdditional Follow-Up: annual PEClinical Visit Summary Completed Name Value Range Interpretation Code Description Data Augusta rce(s) Supporting Document(s) ID Date Data Source [id number] 11/03/2019 02:51:00 PM EDT MEDENT ([facility], [facility]) Name Value Range Interpretation Code Description Data Augusta rce(s) Supporting Document(s) Bacteria identified in Urine by Culture Laboratory test result MEDENT ([facility], [facility]) amoxicillin/diflucan ID Date Data Source [id number] 10/21/2019 03:04:00 PM EDT [facility] Measurements & CalculationsHeight: 67 inches (5 [...] pt to take tumeric and vit D3 11589 units to counteract the radiation of the CT. pt states her depression is under wraps at the moment. she does feel anxiety while being away from her daughter during the day while she works. Transitions of Care InboundProblem ReviewProblem List was reviewed and/or updated during this visit.Medication Reconciliation & ReviewMedication List was reviewed and/or updated during this visit, including review of any xomb-vak-sojrqle medications, herbal therapies, and/or supplements.Allergy ReviewAllergy List [...] & Plan Problems:Added: Diverticulitis of colon (ICD-562.11) (HTR63-C60.32)Left lower quadrant abdominal tenderness (AKP51-H07.814) Ass essment: CT scan abdomen r/o diverticulitisAssessment not SavedDiverticulitis of colon (BVI77-S33.32): CT scan abdomen r/o diverticulitisMedications:CLARITIN 10 MG ORAL CAPSULEVENTOLIN HFA 108 (90 BASE) MCG/ACT INHALATION AEROSOL SOLUTIONEPIPEN 2-SAGE SOLUTION AUTO-INJECTORMedication Changes:Removed:CYCLOBENZAPRINE HCL 10 MG ORAL TABLET-1 tab po qHS, PROVERA 10 MG ORAL TABLET-1 tab PO 1x daily for 10 days, SERTRALINE HCL 25 MG ORAL TABLET- Take one tab po QDAllergies:CODEINE (Critical)* COCONUT (Moderate)* SEASONAL (Moderate)Orders:Adult - Ofc Vst, EST, Level III [CPT-61445] CT ABDOMEN & PELVIS W/O CONTRAST MATERIAL [CPT-42193] Vaccines Administered/Entered:Vaccination Group: InfluenzaHistorical Source: Historical information - from patientSeries: 1 NOT GIVENVaccination: Flucelvax Quadrivalent PF (4y+) AdultReason Not Given: Patient decisionEntered Date: 10/21/2019 12:00 AMComments: [facility] Jaspreet Hidalgo MA Name Value Range Interpretation Code Description Data Augusta rce(s) Supporting Document(s) Procedure Social History Code Duration Value Status Description Data Source(s ) Smoking 01/08/2020 12:00:00 AM EDT Patient has never smoked co mpleted Patient has never smoked MEDENT ([facility], [facility]) Smoking 12/01/2019 12:00:00 AM EDT Never Smoker completed Never S sid eCW1 ([facility]) Smoking 08/05/2019 12:00:00 AM EST Unknown if ever smoked comp leted Unknown if ever smoked [facility] ([facility]) Smoking 07/29/2019 12:00:00 AM EST Unknown if ever smoked comp leted Unknown if ever smoked [facility] ([facility]) Smoking 07/22/2019 12:00:00 AM EST Unknown if ever smoked comp leted Unknown if ever smoked [facility] ([facility]) Smoking 07/15/2019 12:00:00 AM EST Unknown if ever smoked comp leted Unknown if ever smoked [facility] ([facility]) Smoking 07/08/2019 12:00:00 AM EST Unknown if ever smoked comp leted Unknown if ever smoked [facility] ([facility]) Smoking 06/17/2019 12:00:00 AM EST Unknown if ever smoked comp leted Unknown if ever smoked [facility] ([facility]) Smoking 06/08/2019 12:00:00 AM EST Unknown if ever smoked comp leted Unknown if ever smoked [facility] ([facility]) Smoking 06/07/2019 12:00:00 AM EST Unknown if ever smoked comp leted Unknown if ever smoked [facility] ([facility]) Vital Signs ID Date Data Source UNK Name Value Range Interpretation Code Description Data Source(s) Body mass index (BMI) [Ratio] 18.2 kg/m2 18.2 k g/m2 [place] ([facility], [facility]) Body height 68 [in_i] 68 [in_i] [facility] ([facility], [facility]) 5'8" Body weight 120.00 [lb_av] 120.00 [lb_av] [facility] ([facility], [facility]) Body temperature 9.2 [degF] 9.2 [degF] [place] ( [facility], [facility]) Oxygen saturation in Arterial blood by Pulse oximetry 99 % 99 % [facility] ([facility], [facility]) Respiratory rate 15 /min 15 /min [place] ( [facility], [facility]) Heart rate 72 /min 72 /min [facility] ([facility], [facility]) Diastolic blood pressure 82 mm[Hg] 82 mm[Hg] [facility] ([facility], [facility]) Systolic blood pressure 118 mm[Hg] 118 mm[Hg] [facility] ([facility], [facility]) Body mass index (BMI) [Ratio] 17.4 kg/m2 17.4 k g/m2 [place] ([facility], [facility]) Body height 68.5 [in_i] 68.5 [in_i] [facility] ([facility], [facility]) 5'8.50" Body weight 116.00 [lb_av] 116.00 [lb_av] [place] ([facility], [facility]) Body temperature 96.8 [degF] 96.8 [degF] [place] ([facility], [facility]) Oxygen saturation in Arterial blood by Pulse oximetry 99 % 99 % [facility] ([facility], [facility]) Respiratory rate 16 /min 16 /min [place] ( [facility], [facility]) Heart rate 82 /min 82 /min [facility] ([facility], [facility]) Diastolic blood pressure 70 mm[Hg] 70 mm[Hg] [facility] ([facility], [facility]) Systolic blood pressure 106 mm[Hg] 106 mm[Hg] [facility] ([facility], [facility]) Body mass index (BMI) [Ratio] 17.4 kg/m2 17.4 k g/m2 [facility] ([facility], [facility]) Body height 68.50 [in_i] 68.50 [in_i] [facility] ([facility], [facility]) 5'8.50" Body weight 116.00 [lb_av] 116.00 [lb_av] [facility] ([facility], [facility]) Body temperature 98.1 [degF] 98.1 [degF] [facility] ([facility], [facility]) Oxygen saturation in Arterial blood by Pulse oximetry 99 % 99 % [facility] ([facility], [facility]) Respiratory rate 12 /min 12 /min [facility] ( [facility], [facility]) Heart rate 65 /min 65 /min [facility] ([facility]) Diastolic blood pressure 83 mm[Hg] 83 mm[Hg] [facility] ([facility], [facility]) Systolic blood pressure 115 mm[Hg] 115 mm[Hg] [facility] ([facility], [facility]) Body mass index (BMI) [Ratio] 19.5 kg/m2 19.5 k g/m2 [place] ([facility], [facility]) Body height 68.50 [in_i] 68.50 [in_i] [facility] ([facility], [facility]) 5'8.50" Body weight 130.00 [lb_av] 130.00 [lb_av] [facility] ([facility], [facility]) Body temperature 97.7 [degF] 97.7 [degF] [facility] ([facility], [facility]) Oxygen saturation in Arterial blood by Pulse oximetry 99 % 99 % [facility] ([facility], [facility]) Respiratory rate 17 /min 17 /min [facility] ( [facility], [facility]) Heart rate 69 /min 69 /min [facility] ([facility], [facility]) Diastolic blood pressure 78 mm[Hg] 78 mm[Hg] [facility] ([facility], [facility]) Systolic blood pressure 124 mm[Hg] 124 mm[Hg] M EDENT ([facility], [facility]) Body mass index (BMI) [Ratio] 19.5 kg/m2 19.5 k g/m2 [facility] ([facility], [facility]) Body height 68.5 [in_i] 68.5 [in_i] [facility] ([facility], [facility]) 5'8.50" Body weight 130.00 [lb_av] 130.00 [lb_av] [facility] [place] ([facility], [facility]) Body temperature 98.0 [degF] 98.0 [degF] [facility] ([facility], [facility]) Oxygen saturation in Arterial blood by Pulse oximetry 98 % 98 % [facility] ([facility], [facility]) Respiratory rate 17 /min 17 /min [facility] ( [facility], [facility]) Heart rate 89 /min 89 /min [facility] ([facility], [facility]) Diastolic blood pressure 80 mm[Hg] 80 mm[Hg] [facility] ([facility], [facility]) Systolic blood pressure 119 mm[Hg] 119 mm[Hg] M [place] ([facility], [facility]) Body mass index (BMI) [Ratio] 18.6 kg/m2 18.6 k g/m2 [facility] ([facility] ) Body weight 120.50 [lb_av] 120.50 [lb_av] MED[facility] T ([facility] ) Body height 67.5 [in_i] 67.5 [in_i] [facility] ([facility] ) 5'7.50" Body temperature 96.6 [degF] 96.6 [degF] [facility] ([facility] ) Diastolic blood pressure 76 mm[Hg] 76 mm[Hg] eCW1 ([facility]) Systolic blood pressure 128 mm[Hg] 128 mm[Hg] e CW1 ([facility]) Body mass index (BMI) [Ratio] 18.9 kg/m2 18.9 k g/m2 W1 ([facility]) Body height 69 [in_i] 69 [in_i] eCW1 ([facility]) Body weight 128 [lb_av] 128 [lb_av] eCW1 ([facility]) Body mass index (BMI) [Ratio] 19.5 kg/m2 19.5 k g/m2 [facility] ([facility], [facility]) Body height 68.5 [in_i] 68.5 [in_i] MED[facility] ([facility], [facility]) 5'8.50" Body weight 130.00 [lb_av] 130.00 [lb_av] MEDEN T ([facility], [facility]) Body temperature 97.3 [degF] 97.3 [degF] [facility] ([facility], [facility]) Oxygen saturation in Arterial blood by Pulse oximetry 98 % 98 % [facility] ([facility], [facility]) Respiratory rate 17 /min 17 /min MED[facility] ( [facility], [facility]) Heart rate 84 /min 84 /min [facility] ([facility], [facility]) Diastolic blood pressure 88 mm[Hg] 88 mm[Hg] MED[facility] ([facility], [facility]) Systolic blood pressure 124 mm[Hg] 124 mm[Hg] M EDENT ([facility], [facility]) Body mass index (BMI) [Ratio] 19.5 kg/m2 19.5 k g/m2 [facility] ([facility], [facility]) Body height 68.5 [in_i] 68.5 [in_i] MED[facility] ([facility], [facility]) 5'8.50" Body weight 130.00 [lb_av] 130.00 [lb_av] MEDEN T ([facility], [facility]) Body temperature 98.2 [degF] 98.2 [degF] [facility] ([facility], [facility]) Oxygen saturation in Arterial blood by Pulse oximetry 99 % 99 % [facility] ([facility], [facility]) Respiratory rate 20 /min 20 /min [facility] ( [facility], [facility]) Heart rate 71 /min 71 /min [facility] ([facility], [facility]) Diastolic blood pressure 85 mm[Hg] 85 mm[Hg] [facility] ([facility], [facility]) Systolic blood pressure 124 mm[Hg] 124 mm[Hg] M EDENT ([facility], [facility]) Body mass index (BMI) [Ratio] 19.5 kg/m2 19.5 k g/m2 [facility] ([facility], [facility]) Body height 68.5 [in_i] 68.5 [in_i] [facility] ([facility], [facility]) 5'8.50" Body weight 130.00 [lb_av] 130.00 [lb_av] MEDEN T ([facility], [facility]) Body temperature 98.3 [degF] 98.3 [degF] [facility] ([facility], [facility]) Oxygen saturation in Arterial blood by Pulse oximetry 98 % 98 % [facility] ([facility], [facility]) Respiratory rate 14 /min 14 /min [facility] ( [facility], [facility]) Heart rate 91 /min 91 /min [facility] ([facility], [facility]) Diastolic blood pressure 76 mm[Hg] 76 mm[Hg] [facility] ([facility], [facility]) Systolic blood pressure 125 mm[Hg] 125 mm[Hg] M EDENT ([facility], [facility]) Body mass index (BMI) [Ratio] 19.6 kg/m2 19.6 k g/m2 MED[facility] ([facility], [facility]) Body height 68.5 [in_i] 68.5 [in_i] [facility] ([facility], [facility]) 5'8.50" Body weight 131.00 [lb_av] 131.00 [lb_av] MEDEN T ([facility], [facility]) Body temperature 98.5 [degF] 98.5 [degF] [facility] ([facility], [facility]) Oxygen saturation in Arterial blood by Pulse oximetry 99 % 99 % [facility] ([facility], [facility]) Respiratory rate 18 /min 18 /min [facility] ( [facility], [facility]) Heart rate 72 /min 72 /min [facility] ([facility], [facility]) Diastolic blood pressure 81 mm[Hg] 81 mm[Hg] [facility] ([facility], [facility]) Systolic blood pressure 119 mm[Hg] 119 mm[Hg] [place] ([facility], [facility]) Diastolic blood pressure 84 mm[Hg] 84 mm[Hg] eCW1 ([facility]) Systolic blood pressure 126 mm[Hg] 126 mm[Hg] e CW1 ([facility]) Body mass index (BMI) [Ratio] 19.43 kg/m2 19.43 kg/m2 [facility] ([facility]) Body height 69 [in_us] 69 [in_us] eCW1 ([facility]) Body weight Measured 131.6 [lb_av] 131.6 [lb_av ] eCW1 ([facility]) Body height --lying 79 min Normal (applies to non-nume dara results) 79 min [facility] ([facility]) Diastolic blood pressure 85 mm[Hg] Normal (applies to non-numeric results) 85 mm[Hg] [facility]) Systolic blood pressure 124 mm[Hg] Normal (applies t o non-numeric results) 124 mm[Hg] [facility] ([facility]) Body mass index (BMI) [Ratio] 20.52 kg/m2 No rmal (applies to non-numeric results) 20.52 [facility]/m2 [facility] Body weight Measured 135.00 lbs Normal (applies to n on-numeric results) 135.00 lbs [facility] ([facility]) Body height 68.00 in Normal (applies to non-numeric resu lts) 68.00 in [facility] ([facility]) Diastolic blood pressure 84 mm[Hg] 84 mm[Hg] eCW1 ([facility]) Systolic blood pressure 130 mm[Hg] 130 mm[Hg] e CW1 ([facility]) Body mass index (BMI) [Ratio] 20.14 kg/m2 20.14 kg/m2 [facility] ([facility]) Body height 69 [in_us] 69 [in_us] eCW1 ([facility]) Body weight Measured 136.4 [lb_av] 136.4 [lb_av ] W1 ([facility]) Diastolic blood pressure 68 mm[Hg] 68 mm[Hg] eCW1 ([facility]) Systolic blood pressure 112 mm[Hg] 112 mm[Hg] e CW1 ([facility]) Body mass index (BMI) [Ratio] 20.95 kg/m2 20.95 kg/m2 W1 ([facility]) Body height 68 [in_us] 68 [in_us] W1 ([facility]) Body weight Measured 137.8 [lb_av] 137.8 [lb_av ] W1 ([facility])
[2020-07-16 22:35] LABS: BASO % 0.4 % (0.0-1.0); EOS # 0.3 10^3/uL (0.0-0.5); EOS % 6.7 % (0.0-3.0); HEMATOCRIT 39.2 % (36.0-47.0); LYMPH # 1.6 10^3/uL (1.5-5.0); LYMPH % 34.5 % (24.0-44.0); MEAN CORPUSCULAR HEMOGLOBIN 30.2 pg (27.0-33.0); MEAN CORPUSCULAR HGB CONC 33.2 g/dl (32.0-36.5); MEAN CORPUSCULAR VOLUME 91.2 fl (80.0-96.0); MONO # 0.4 10^3/uL (0.0-0.8); MONO % 8.7 % (0.0-5.0); NEUTROPHILS # 2.3 10^3/uL (1.5-8.5); NEUTROPHILS % 49.5 % (36.0-66.0); PLATELET COUNT, AUTOMATED 216 10^3/uL (150-450); WHITE BLOOD COUNT 4.6 10^3/uL (4.0-10.0)
--- NOTE | 2020-07-16 23:13 | REPVR ---
PROCEDURE INFORMATION: Exam: CT Head Without Contrast Exam date and time: 07/16/2020 10:58 PM Age: 29 years old Clinical indication: Pain; Headache; Additional info: ROSARIO TECHNIQUE: Imaging protocol: Computed tomography of the head without contrast. Radiation optimization: All CT scans at this facility use at least one of these dose optimization techniques: automated exposure control; mA and/or kV adjustment per patient size (includes targeted exams where dose is matched to clinical indication); or iterative reconstruction. COMPARISON: CT Head without contrast 2020-04-16 14:50 FINDINGS: Brain: Normal. No hemorrhage. Unremarkable white matter. No mass effect. Cerebral ventricles: No ventriculomegaly. Bones/joints: Unremarkable. No acute fracture. Paranasal sinuses: Visualized sinuses are unremarkable. No fluid levels. Mastoid air cells: Visualized mastoid air cells are well aerated. Soft tissues: Unremarkable. IMPRESSION: No acute intracranial abnormality. Electronically signed by: Sameer Oliva On 07/16/2020 23:12:56 PM
[2020-07-16] MEDS ORDERED: methylPREDNISolone 125MG 2ML VIAL IV ONE (23:45)
[2020-07-16 23:56] VITALS: BP 128/76
== END 2020-07-17 00:03 | disposition home or self-care (01) ==
LOC: M ED 20:11
DX: R51.9 Headache, unspecified (principal); J45.909 Unspecified asthma, uncomplicated; Z86.69 Personal history of other diseases of the nervous system and sense organs; Z91.018 Allergy to other foods; Z91.048 Other nonmedicinal substance allergy status; Z88.5 Allergy status to narcotic agent; Z88.8 Allergy status to other drugs, medicaments and biological substances
CPT/HCPCS: 70450; 80047; 83735; 84702; 85025; 96374; 96375; 99284; J1200; J1885; J2405; J2930

== ENCOUNTER → 2020-08-15 | Outpatient (REF) | payer OTHER ==
[2020-08-15 16:29] LABS: BASO # 0.1 10^3/uL (0.0-0.2); EOS # 0.4 10^3/uL (0.0-0.5); EOS % 8.3 % (0.0-3.0); HEMATOCRIT 40.4 % (36.0-47.0); HEMOGLOBIN 13.2 g/dl (12.0-15.5); LYMPH # 1.5 10^3/uL (1.5-5.0); LYMPH % 31.7 % (24.0-44.0); MEAN CORPUSCULAR HEMOGLOBIN 29.9 pg (27.0-33.0); MEAN CORPUSCULAR HGB CONC 32.7 g/dl (32.0-36.5); MEAN CORPUSCULAR VOLUME 91.4 fl (80.0-96.0); MONO # 0.4 10^3/uL (0.0-0.8); MONO % 7.5 % (2.0-8.0); NEUTROPHILS # 2.5 10^3/uL (1.5-8.5); NEUTROPHILS % 51.1 % (36.0-66.0); PLATELET COUNT, AUTOMATED 258 10^3/uL (150-450); RED BLOOD COUNT 4.42 10^6/uL (4.00-5.40); WHITE BLOOD COUNT 4.8 10^3/uL (4.0-10.0)
[2020-08-15 16:41] LABS: ALBUMIN 4.3 GM/DL (3.2-5.2); ALT/SGPT 27 U/L (12-78); BILIRUBIN,TOTAL 0.3 MG/DL (0.2-1.0); BLOOD UREA NITROGEN 20 MG/DL (7-18); CARBON DIOXIDE LEVEL 26 MEQ/L (21-32); CHLORIDE LEVEL 109 MEQ/L (98-107); CREATININE FOR GFR 0.76 MG/DL (0.55-1.30); FREE T4 1.13 NG/DL (0.76-1.46); GLOMERULAR FILTRATION RATE > 60.0 (>60); GLUCOSE, FASTING 87 MG/DL (70-100); POTASSIUM SERUM 4.6 MEQ/L (3.5-5.1); SODIUM LEVEL 142 MEQ/L (136-145); TOTAL PROTEIN 7.3 GM/DL (6.4-8.2)
== END ==
LOC: M LAB REF 15:53
PROVIDERS: ATTEND Physician Assistant
DX: G43.109 Migraine with aura, not intractable, without status migrainosus (principal)

== ENCOUNTER → 2020-09-26 | Outpatient (REF) | payer OTHER ==
[2020-09-26 20:33] LABS: CHLAMYDIA DNA AMPLIFICATION NEGATIVE (NEGATIVE); GC DNA AMPLIFICATION NEGATIVE (NEGATIVE)
== END ==
LOC: M SFHCWAGY 17:16
PROVIDERS: ATTEND Nurse Practitioner Women's Health
DX: N89.8 Other specified noninflammatory disorders of vagina (principal); Z11.3 Encounter for screening for infections with a predominantly sexual mode of transmission

== ENCOUNTER 2020-12-18 19:56 | Emergency (ER) | payer OTHER ==
[~2020-12-18] VITALS: Ht 175.3 cm; Wt 54.5 kg
[2020-12-18 19:57] VITALS: BP 135/86
[2020-12-19] MEDS ORDERED: NEXP1IMP SC (16:52)
== END 2020-12-19 00:27 | disposition left against medical advice (07) ==
LOC: M ED 19:56
DX: Z53.21 Procedure and treatment not carried out due to patient leaving prior to being seen by health care provider (principal)

== ENCOUNTER 2020-12-19 16:44 | Emergency (ER) | payer OTHER ==
[~2020-12-19] VITALS: Ht 175.3 cm; Wt 57.4 kg
[2020-12-19] MEDS ORDERED: NEXP1IMP SC (16:52)
--- NOTE | 2020-12-19 17:52 | REPVR ---
PROCEDURE INFORMATION: Exam: CT Cervical Spine Without Contrast Exam date and time: 12/19/2020 5:08 PM Age: 30 years old Clinical indication: Injury or trauma; Other: Jumping into a tube; Blunt trauma TECHNIQUE: Imaging protocol: Computed tomography images of the cervical spine without contrast. Radiation optimization: All CT scans at this facility use at least one of these dose optimization techniques: automated exposure control; mA and/or kV adjustment per patient size (includes targeted exams where dose is matched to clinical indication); or iterative reconstruction. COMPARISON: 1. CT Spine,cervical w/o contrast 04/16/2020 2:[address] Spine,cervical w/o contrast 11/29/2018 1:35 PM FINDINGS: Bones/joints: No segmental vertebral malalignment. Vertebral body height is maintained at all levels. No acute fracture. No destructive or blastic cervical spine osseous lesion. Discs/Spinal canal/Neural foramina: Intervertebral disc spaces are appropriate for age. Lungs: Imaged lung apices demonstrate no concerning abnormality. Pleural spaces: No apical pneumothorax. Soft tissues: Soft tissues show no concerning abnormality or asymmetry. IMPRESSION: No acute fracture or traumatic segmental cervical malalignment. Electronically signed by: Zackary Reis On 12/19/2020 17:52:22 PM
[2020-12-19] MEDS ORDERED: CYCLOBENZAPRINE 5MG TABLET PO ONE (22:10)
[2020-12-19] MEDS ORDERED: traMADol 50 MG TAB (BULK 4 TAB ED) PO ONE (22:15)
[2020-12-19 22:42] VITALS: BP 156/89
== END 2020-12-19 22:45 | disposition home or self-care (01) ==
LOC: M ED 16:44
DX: S16.1XXA Strain of muscle, fascia and tendon at neck level, initial encounter (principal); W17.89XA Other fall from one level to another, initial encounter; Y92.828 Other wilderness area as the place of occurrence of the external cause; Y93.89 Activity, other specified; Y99.8 Other external cause status; Z79.3 Long term (current) use of hormonal contraceptives; Z79.899 Other long term (current) drug therapy; Z91.018 Allergy to other foods; Z88.5 Allergy status to narcotic agent; Z88.8 Allergy status to other drugs, medicaments and biological substances; Z91.048 Other nonmedicinal substance allergy status

== ENCOUNTER 2020-12-30 14:48 | Emergency (ER) | payer OTHER ==
[~2020-12-30] VITALS: Ht 172.7 cm; Wt 54.5 kg
[~2020-12-30 14:48] MED LIST changes: +NEXP1IMP SC
--- NOTE | 2020-12-30 15:49 | REP ---
INDICATION: pain after a fall COMPARISON: None. TECHNIQUE: AP, lateral, bilateral oblique views. FINDINGS: No acute fracture or dislocation. Skeletal structures and joint spaces are intact and normal. Ankle mortise appears stable. No subcutaneous emphysema or radiodense foreign body. IMPRESSION: Normal right ankle radiograph series. No acute fracture or dislocation appreciated. <Electronically signed by Nabil Mae > 12/30/20 [id number]
[2020-12-30 16:48] VITALS: BP 121/68
== END 2020-12-30 17:06 | disposition home or self-care (01) ==
LOC: EDBD 14:48 → M ED 14:48
DX: S93.411A Sprain of calcaneofibular ligament of right ankle, initial encounter (principal); X50.9XXA Other and unspecified overexertion or strenuous movements or postures, initial encounter; Y92.018 Other place in single-family (private) house as the place of occurrence of the external cause; Z88.5 Allergy status to narcotic agent; Z88.8 Allergy status to other drugs, medicaments and biological substances; Z91.018 Allergy to other foods; Z79.3 Long term (current) use of hormonal contraceptives

== ENCOUNTER 2021-06-08 18:01 | Emergency (ER) | payer OTHER ==
[2021-06-08] MEDS ORDERED: diphenhydrAMINE 50MG/ML VIAL (J1200) IV STA (18:22)
[2021-06-08] MEDS ORDERED: PROMETHAZINE INJ 25 MG/ML VIAL (J2550) IV ONE (18:25)
[2021-06-08] MEDS ORDERED: KETOROLAC 30 MG/ML 1ML VIAL IV ONE (19:00)
[2021-06-08 21:45] VITALS: BP 136/78
== END 2021-06-08 22:01 | disposition home or self-care (01) ==
LOC: EDBD 18:01 → M ED 18:01
DX: G43.909 Migraine, unspecified, not intractable, without status migrainosus (principal); F41.9 Anxiety disorder, unspecified; F33.9 Major depressive disorder, recurrent, unspecified; K58.9 Irritable bowel syndrome, unspecified; K21.9 Gastro-esophageal reflux disease without esophagitis; Z88.5 Allergy status to narcotic agent; Z88.8 Allergy status to other drugs, medicaments and biological substances; Z91.018 Allergy to other foods; J30.2 Other seasonal allergic rhinitis; Z79.899 Other long term (current) drug therapy; Z79.3 Long term (current) use of hormonal contraceptives
CPT/HCPCS: 84702; 96374; 96375; 99284; J1200; J1885

== ENCOUNTER → 2021-09-10 | Outpatient (CLI) | payer OTHER | LOC: M PLAIMG 15:32 | PROVIDERS: ATTEND Physician Assistant | DX: M41.9 Scoliosis, unspecified (principal) ==

== ENCOUNTER → 2021-11-28 | Outpatient (REF) | payer OTHER ==
[~2021-11-28] MED LIST changes: +ALBU2.5V10 INH; -ALBU83IN INH; -CETI1TAB; +CETI1TAB61
== END ==
LOC: M LAB REF 16:12
PROVIDERS: ATTEND Physician Assistant
DX: J02.9 Acute pharyngitis, unspecified (principal)

== ENCOUNTER → 2022-01-21 | Outpatient (REF) | payer OTHER ==
[~2022-01-21] MED LIST changes: +ETON68IM SC; -NEXP1IMP SC
== END ==
LOC: M LAB REF 15:43
PROVIDERS: ATTEND Physician Assistant
DX: J06.9 Acute upper respiratory infection, unspecified (principal)

== ENCOUNTER 2022-05-02 08:55 | Emergency (ER) | payer OTHER ==
[~2022-05-02] VITALS: Ht 172.7 cm; Wt 63.6 kg
[2022-05-02] MEDS ORDERED: IBUPROFEN 800 MG TAB PO ONE (12:05)
[2022-05-02 12:18] VITALS: BP 129/85
== END 2022-05-02 12:30 | disposition home or self-care (01) ==
LOC: M ED 08:55
DX: M25.512 Pain in left shoulder (principal); S09.90XA Unspecified injury of head, initial encounter; W01.198A Fall on same level from slipping, tripping and stumbling with subsequent striking against other object, initial encounter; Y92.009 Unspecified place in unspecified non-institutional (private) residence as the place of occurrence of the external cause; K21.9 Gastro-esophageal reflux disease without esophagitis; J45.909 Unspecified asthma, uncomplicated; G43.909 Migraine, unspecified, not intractable, without status migrainosus; F32.A Depression, unspecified; F41.9 Anxiety disorder, unspecified; Z90.49 Acquired absence of other specified parts of digestive tract; Z88.5 Allergy status to narcotic agent; J30.2 Other seasonal allergic rhinitis; Z91.018 Allergy to other foods; Z79.51 Long term (current) use of inhaled steroids; Z79.899 Other long term (current) drug therapy

== ENCOUNTER → 2022-07-08 | Outpatient (REF) | payer OTHER ==
[~2022-07-08] MED LIST changes: +DIPH-435 PO; -DIPH25CA32 PO
== END ==
LOC: M SFHCWAGY 17:14
PROVIDERS: ATTEND Advanced Practice Midwife
DX: Z12.4 Encounter for screening for malignant neoplasm of cervix (principal)

== ENCOUNTER 2022-08-08 21:08 | Emergency (ER) | payer OTHER ==
[~2022-08-08] VITALS: Ht 176.5 cm; Wt 65.9 kg
[2022-08-08 21:09] VITALS: BP 127/71
[2022-08-08] MEDS ORDERED: [UNRECOGNIZED DRUG - CODE] (21:28)
[2022-08-08] MEDS ORDERED: SERT25TA21 PO (21:28)
== END 2022-08-09 01:29 | disposition left against medical advice (07) ==
LOC: M ED 21:08
DX: Z53.21 Procedure and treatment not carried out due to patient leaving prior to being seen by health care provider (principal)

== ENCOUNTER 2022-11-25 16:52 | Emergency (ER) | payer OTHER ==
[~2022-11-25] VITALS: Ht 175.3 cm; Wt 65.9 kg
[~2022-11-25 16:52] MED LIST changes: +[UNRECOGNIZED DRUG - CODE]
[2022-11-25 16:53] VITALS: BP 121/84
[2022-11-25] MEDS ORDERED: ONDANSETRON 4MG 2ML VIAL IV ONE (18:15)
[2022-11-25] MEDS ORDERED: FAMOTIDINE 20MG/2ML VIAL IVP ONE (18:15)
[2022-11-25] MEDS ORDERED: NS 1,000 ML IV ONE (18:15)
[2022-11-25 18:56] LABS: BASO % 0.3 % (0.0-1.0); EOS # 0.1 10^3/uL (0.0-0.5); EOS % 0.9 % (0.0-3.0); HEMATOCRIT 39.7 % (36.0-47.0); HEMOGLOBIN 13.5 g/dl (12.0-15.5); LYMPH # 1.1 10^3/uL (1.5-5.0); LYMPH % 16.3 % (24.0-44.0); MEAN CORPUSCULAR HEMOGLOBIN 30.2 pg (27.0-33.0); MEAN CORPUSCULAR VOLUME 88.8 fl (80.0-96.0); MONO # 0.3 10^3/uL (0.0-0.8); MONO % 4.6 % (2.0-8.0); NEUTROPHILS # 5.2 10^3/uL (1.5-8.5); NEUTROPHILS % 77.6 % (36.0-66.0); PLATELET COUNT, AUTOMATED 268 10^3/uL (150-450); RED BLOOD COUNT 4.47 10^6/uL (4.00-5.40); WHITE BLOOD COUNT 6.7 10^3/uL (4.0-10.0)
[2022-11-25 19:05] LABS: HCG, SERUM QUALITATIVE NEGATIVE (NEGATIVE)
[2022-11-25] MEDS ORDERED: ISOVUE-370 76% 100ML VIAL As Ordered ONE (19:15)
[2022-11-25 19:25] LABS: ALBUMIN 4.2 G/DL (3.2-5.2); ALKALINE PHOSPHATASE 62 U/L (46-116); ALT/SGPT 23 U/L (7.0-40); AST/SGOT 35 U/L (<34); BILIRUBIN,DIRECT 0.2 MG/DL (<0.4); LIPASE 60 U/L (12-53); TOTAL PROTEIN 7.2 G/DL (5.7-8.2)
[2022-11-25] MEDS ORDERED: ONDA4TAB6 PO (20:23)
[2022-11-25] MEDS ORDERED: MIRA3350 PO (20:23)
== END 2022-11-25 21:06 | disposition home or self-care (01) ==
LOC: M ED 16:52
DX: K59.00 Constipation, unspecified (principal); G43.909 Migraine, unspecified, not intractable, without status migrainosus; K58.9 Irritable bowel syndrome, unspecified; R01.1 Cardiac murmur, unspecified; Z91.018 Allergy to other foods; Z88.8 Allergy status to other drugs, medicaments and biological substances; Z91.013 Allergy to seafood; Z79.51 Long term (current) use of inhaled steroids; Z79.899 Other long term (current) drug therapy
CPT/HCPCS: 74177; 80047; 80076; 81001; 83605; 83690; 84703; 85025; 87486; 87581; 87633; 87798; 96374; 96375; 99283; J2405; Q9967; S0028

== ENCOUNTER → 2023-04-30 | Outpatient (CLI) | payer OTHER ==
[~2023-04-30] MED LIST changes: +LORA-1041 PO; -LORA-674 PO; +MIRA3350 PO
== END ==
LOC: M EKG 17:02
PROVIDERS: ATTEND Physician Assistant
DX: Q87.40 Marfan syndrome, unspecified (principal)

== ENCOUNTER 2023-09-23 16:18 | Emergency (ER) | payer OTHER ==
[2023-09-23] MEDS: NS 1,000 ML IV ONE (22:05)
[2023-09-23 22:19] LABS: BASO % 0.6 % (0.0-1.0); EOS # 0.2 10^3/uL (0.0-0.5); EOS % 2.5 % (0.0-3.0); HEMATOCRIT 38.2 % (36.0-47.0); HEMOGLOBIN 13.1 g/dl (12.0-15.5); LYMPH # 2.2 10^3/uL (1.5-5.0); LYMPH % 32.4 % (24.0-44.0); MEAN CORPUSCULAR HEMOGLOBIN 30.8 pg (27.0-33.0); MEAN CORPUSCULAR HGB CONC 34.3 g/dl (32.0-36.5); MEAN CORPUSCULAR VOLUME 89.7 fl (80.0-96.0); MONO # 0.4 10^3/uL (0.0-0.8); MONO % 5.7 % (2.0-8.0); NEUTROPHILS % 58.7 % (36.0-66.0); PLATELET COUNT, AUTOMATED 279 10^3/uL (150-450); RED BLOOD COUNT 4.26 10^6/uL (4.00-5.40); WHITE BLOOD COUNT 6.9 10^3/uL (4.0-10.0)
[2023-09-23 23:44] VITALS: BP 111/64; TEMP 97.7; O2SAT 100
== END 2023-09-24 00:50 | disposition home or self-care (01) ==
LOC: M ED 16:18
DX: R51.9 Headache, unspecified (principal); T50.905A Adverse effect of unspecified drugs, medicaments and biological substances, initial encounter; K58.9 Irritable bowel syndrome, unspecified; F41.9 Anxiety disorder, unspecified; F32.A Depression, unspecified; Z91.013 Allergy to seafood; Z91.018 Allergy to other foods; Z88.5 Allergy status to narcotic agent; Z88.8 Allergy status to other drugs, medicaments and biological substances; Z79.52 Long term (current) use of systemic steroids; Z79.83 Long term (current) use of bisphosphonates; Z79.899 Other long term (current) drug therapy

== ENCOUNTER → 2023-11-13 | Outpatient (CLI) | payer OTHER | LOC: M WUC 13:03 | PROVIDERS: ATTEND Student in an Organized Health Care Education/Training Program | DX: M25.521 Pain in right elbow (principal) ==

== ENCOUNTER → 2023-12-05 | Outpatient (REF) | payer OTHER ==
[~2023-12-05] MED LIST changes: +ONDA-282 PO; -ONDA4TAB6 PO
[2023-12-05 19:37] LABS: BASO # 0.1 10^3/uL (0.0-0.2); BASO % 0.8 % (0.0-1.0); EOS # 0.2 10^3/uL (0.0-0.5); EOS % 3.2 % (0.0-3.0); HEMATOCRIT 40.3 % (36.0-47.0); HEMOGLOBIN 13.8 g/dl (12.0-15.5); LYMPH # 1.5 10^3/uL (1.5-5.0); LYMPH % 23.9 % (24.0-44.0); MEAN CORPUSCULAR HEMOGLOBIN 30.5 pg (27.0-33.0); MEAN CORPUSCULAR HGB CONC 34.2 g/dl (32.0-36.5); MEAN CORPUSCULAR VOLUME 89.2 fl (80.0-96.0); MONO # 0.4 10^3/uL (0.0-0.8); MONO % 6.3 % (2.0-8.0); NEUTROPHILS # 4.1 10^3/uL (1.5-8.5); NEUTROPHILS % 65.5 % (36.0-66.0); PLATELET COUNT, AUTOMATED 285 10^3/uL (150-450); RED BLOOD COUNT 4.52 10^6/uL (4.00-5.40); WHITE BLOOD COUNT 6.2 10^3/uL (4.0-10.0)
[2023-12-05 19:58] LABS: BLOOD UREA NITROGEN 14 MG/DL (9-23); CALCIUM LEVEL 9.3 MG/DL (8.5-10.1); CARBON DIOXIDE LEVEL 24 MMOL/L (20-31); CHLORIDE LEVEL 108 MMOL/L (98-107); CREATININE FOR GFR 0.78 MG/DL (0.55-1.30); GLOMERULAR FILTRATION RATE > 60.0 (>60); GLUCOSE, FASTING 121 MG/DL (60-100); POTASSIUM SERUM 4.3 MMOL/L (3.5-5.1); SODIUM LEVEL 139 MMOL/L (136-145)
[2023-12-05 20:00] LABS: THYROID STIMULATING HORMONE 1.227 uIU/ML (0.55-4.78)
[2023-12-05 20:02] LABS: FREE T4 1.24 NG/DL (0.89-1.76)
== END ==
LOC: M LAB REF 16:38
PROVIDERS: ATTEND Physician Assistant
DX: Q87.40 Marfan syndrome, unspecified (principal)

== ENCOUNTER → 2024-10-25 | Outpatient (CLI) | payer OTHER | LOC: M RAD 13:43 | PROVIDERS: ATTEND Physician Assistant Medical | DX: R05.9 Cough, unspecified (principal); R50.9 Fever, unspecified ==

== ENCOUNTER → 2024-10-25 | Outpatient (REF) | payer OTHER | LOC: M LAB REF 16:55 | PROVIDERS: ATTEND Physician Assistant | DX: B34.9 Viral infection, unspecified (principal) ==

== ENCOUNTER → 2025-01-25 | Outpatient (REF) | payer OTHER ==
[~2025-01-25] MED LIST changes: +ALLE180T33 PO; -IBUP-1022 PO; +IBUP600T42 PO; +METH-1164 PO; +NAPR-837 PO
[2025-01-25 19:00] LABS: Trichomonas vaginalis (AMP) NOT DETECTED (NEGATIVE)
[2025-01-25 19:23] LABS: GC DNA AMPLIFICATION NEGATIVE (NEGATIVE)
== END ==
LOC: M LAB REF 16:55
PROVIDERS: ATTEND Nurse Practitioner Family
DX: N89.8 Other specified noninflammatory disorders of vagina (principal); R30.0 Dysuria

== ENCOUNTER → 2025-02-24 | Outpatient (CLI) | payer OTHER ==
[~2025-02-24] MED LIST changes: -ALLE180T33 PO; -METH-1164 PO; -NAPR-837 PO
== END ==
LOC: M SLEEP HO 11:23
PROVIDERS: ATTEND Physician Assistant
DX: R40.0 Somnolence (principal); R06.83 Snoring

== ENCOUNTER 2025-03-04 11:46 | Emergency (ER) | payer OTHER ==
[~2025-03-04] VITALS: Ht 175.3 cm; Wt 75.9 kg
[2025-03-04] MEDS ORDERED: ALLE180T33 PO (12:15)
[2025-03-04] MEDS: KETOROLAC 60 MG/2 ML VIAL IM ONE (13:21)
[2025-03-04 14:47] VITALS: BP 127/78; TEMP 97.6; O2SAT 100
[2025-03-04] MEDS ORDERED: NAPR-837 PO (14:58)
[2025-03-04] MEDS ORDERED: METH-1164 PO (14:58)
== END 2025-03-04 15:09 | disposition home or self-care (01) ==
LOC: M ED 11:46
DX: M54.50 Low back pain, unspecified (principal); K21.9 Gastro-esophageal reflux disease without esophagitis; Z88.5 Allergy status to narcotic agent; Z88.8 Allergy status to other drugs, medicaments and biological substances; Z91.013 Allergy to seafood; Z91.018 Allergy to other foods; Z91.09 Other allergy status, other than to drugs and biological substances; Z79.51 Long term (current) use of inhaled steroids; Z79.899 Other long term (current) drug therapy
CPT/HCPCS: 72072; 72110; 96372; 99283; J1885

== ENCOUNTER 2025-03-12 21:47 | Emergency (ER) | payer OTHER ==
[~2025-03-12] VITALS: Ht 175.3 cm; Wt 70.0 kg
[~2025-03-12 21:47] MED LIST changes: +ALLE180T33 PO; +METH-1164 PO; +NAPR-837 PO
[2025-03-12 21:56] VITALS: TEMP 98.7
[2025-03-13] MEDS: NS (Normal Saline) 0.9% 1,000 ML IV ONE (01:25)
[2025-03-13] MEDS: ONDANSETRON 4MG 2ML VIAL IV ONE (01:25)
[2025-03-13 01:40] LABS: PLATELET COUNT, AUTOMATED 310 10^3/uL (150-450)
[2025-03-13 01:57] LABS: ALT/SGPT 35 U/L (7.0-40); AST/SGOT 24 U/L (<34); CALCIUM LEVEL 9.0 MG/DL (8.5-10.1); CARBON DIOXIDE LEVEL 22 MMOL/L (20-31); CHLORIDE LEVEL 108 MMOL/L (98-107); CREATININE FOR GFR 0.86 MG/DL (0.55-1.30); GLOMERULAR FILTRATION RATE > 90.0 (>60); POTASSIUM SERUM 4.5 MMOL/L (3.5-5.1); SODIUM LEVEL 143 MMOL/L (136-145)
[2025-03-13] MEDS: ACETAMINOPHEN 500 MG TAB PO ONE (05:21)
[2025-03-13] MEDS: KETOROLAC 30 MG/ML 1 ML VIAL IV ONE (05:22)
[2025-03-13] MEDS ORDERED: ONDA-282 PO (05:32)
[2025-03-13 06:43] VITALS: BP 111/67; O2SAT 98
== END 2025-03-13 06:43 | disposition home or self-care (01) ==
LOC: M ED 21:47
DX: A09 Infectious gastroenteritis and colitis, unspecified (principal); Z88.5 Allergy status to narcotic agent; Z88.8 Allergy status to other drugs, medicaments and biological substances; Z91.09 Other allergy status, other than to drugs and biological substances; Z91.013 Allergy to seafood; Z91.018 Allergy to other foods; Z79.51 Long term (current) use of inhaled steroids; Z79.899 Other long term (current) drug therapy
CPT/HCPCS: 80053; 85027; 87486; 87581; 87633; 87798; 96361; 96374; 96375; 99285; J1885; J2405

== ENCOUNTER 2025-05-25 12:53 | Emergency (ER) | payer OTHER ==
[~2025-05-25] VITALS: Ht 162.6 cm; Wt 75.9 kg
[2025-05-25 13:06] VITALS: TEMP 98.6
[2025-05-25 13:29] LABS: PLATELET COUNT, AUTOMATED 264 10^3/uL (150-450)
[2025-05-25 13:59] LABS: CALCIUM LEVEL 9.1 MG/DL (8.5-10.1); CARBON DIOXIDE LEVEL 24 MMOL/L (20-31); CHLORIDE LEVEL 108 MMOL/L (98-107); CREATININE FOR GFR 0.73 MG/DL (0.55-1.30); GLOMERULAR FILTRATION RATE > 90.0 (>60); MAGNESIUM LEVEL 1.9 MG/DL (1.8-2.4); POTASSIUM SERUM 4.6 MMOL/L (3.5-5.1); SODIUM LEVEL 141 MMOL/L (136-145)
[2025-05-25] MEDS ORDERED: HOME MED LIST COMPLETE! XX SCH (14:00)
[2025-05-25] MEDS ORDERED: CETI-24 PO (14:00)
[2025-05-25] MEDS ORDERED: PRENTAB45 PO (14:00)
[2025-05-25] MEDS ORDERED: SYMB80INH INH (14:00)
[2025-05-25] MEDS ORDERED: FLUTISP (14:00)
[2025-05-25 14:01] LABS: FREE T4 1.25 NG/DL (0.89-1.76)
[2025-05-25 14:07] LABS: HCG, SERUM QUALITATIVE NEGATIVE (NEGATIVE)
[2025-05-25] MEDS ORDERED: ISOVUE-370 76% 100 ML VIAL As Ordered ONE (14:38)
[2025-05-25 17:15] VITALS: BP 120/74; O2SAT 99
== END 2025-05-25 17:23 | disposition home or self-care (01) ==
LOC: M ED 12:53 → EDBD 12:53 → M ED 17:23
DX: I47.11 Inappropriate sinus tachycardia, so stated (principal); J45.909 Unspecified asthma, uncomplicated; F41.9 Anxiety disorder, unspecified; F32.A Depression, unspecified; Z88.5 Allergy status to narcotic agent; Z88.8 Allergy status to other drugs, medicaments and biological substances; Z91.09 Other allergy status, other than to drugs and biological substances; Z91.018 Allergy to other foods; Z91.013 Allergy to seafood; Z79.51 Long term (current) use of inhaled steroids; Z79.899 Other long term (current) drug therapy; Z79.810 Long term (current) use of selective estrogen receptor modulators (SERMs)
CPT/HCPCS: 36415; 71275; 80048; 83735; 84439; 84443; 84703; 85027; 93005; 93041; 99285; Q9967